=== PATIENT | female | born 1955 | race Caucasian/White ===

== ENCOUNTER 2020-10-28 10:32 | Outpatient (REF) | payer MEDICARE, MEDICAID, SELFPAY ==
[2020-10-28 14:14] LABS: Glucose Urine UA NEG (NEG); Leukocyte Esterase Urine NEG (NEG); Nitrite Urine POS (NEG); Specific Gravity - Urine >= 1.030 (1.005-1.025); Urine Blood TRACE (NEG); Urine Ketones NEG (NEG); Urine Protein TRACE MG/DL (NEG-TRACE)
[2020-10-28 14:16] LABS: Appearance Urine HAZY; Color Urine YELLOW
[2020-10-28 14:28] LABS: Bacteria Urine 4+ /LPF; RBC Urine 0-2 /HPF (0); Squamous Epithelial Cell Urine TRACE /LPF
[2020-10-28 14:30] LABS: Creatinine Urine 131.69 mg/dL; Protein/Creatinine Ratio, Ur 0.28 (<0.2); Total Protein Urine Random 37 mg/dL (<12)
[2020-10-28 14:31] LABS: Creatinine Urine 131.95 mg/dL; Microalbum/Creatinine Ratio Ur 51.5 ug/mg cr
[2020-10-28 14:34] LABS: Anion Gap 15 (12-20); Blood Urea Nitrogen 14 mg/dL (9-16); Carbon Dioxide 28 mmol/L (22-29); Chloride 103 mmol/L (96-108); Estimated Glomerular Filt Rate > 60; Potassium 4.2 mmol/l (3.3-5.1); Sodium 142 mmol/L (135-145)
== END 2020-10-28 10:33 | disposition home or self-care (01) ==
LOC: HO.HMGCLDS 10:32
PROVIDERS: PCP Nurse Practitioner Family; Visit Provider Internal Medicine Hypertension Specialist
DX: I12.9 Hypertensive chronic kidney disease with stage 1 through stage 4 chronic kidney disease, or unspecified chronic kidney disease (principal); E11.22 Type 2 diabetes mellitus with diabetic chronic kidney disease; N18.9 Chronic kidney disease, unspecified; E11.21 Type 2 diabetes mellitus with diabetic nephropathy
CPT/HCPCS: 80051; 81001; 81003; 82043; 82310; 82565; 84156; 84520

== ENCOUNTER → 2021-01-27 11:24 | Outpatient (BNV) | payer MEDICARE, MEDICAID, SELFPAY | PROVIDERS: PCP Nurse Practitioner Family; Visit Provider Internal Medicine Medical Oncology | DX: D50.9 Iron deficiency anemia, unspecified (principal) | CPT/HCPCS: 99213; 99214 ==

== ENCOUNTER 2021-02-14 11:43 | Outpatient (REF) | payer MEDICARE, SELFPAY ==
--- NOTE | ~2021-02-14 | XR_ITS ---
EXAMINATION: XR ANKLE, RIGHT CLINICAL INFORMATION: Pain COMPARISON: None TECHNIQUE: AP, lateral, and mortise views of the right ankle. FINDINGS: The bones and soft tissues are normal. No fracture. Alignment is anatomic. Joint spaces are maintained. No joint effusion. XR/XR ankle RT min 3V IMPRESSION: Normal right ankle.
== END 2021-02-14 11:44 | disposition home or self-care (01) ==
LOC: HO.HMGCX 11:43
PROVIDERS: PCP Nurse Practitioner Family; Visit Provider Nurse Practitioner Family
DX: M25.571 Pain in right ankle and joints of right foot (principal); R07.89 Other chest pain; I44.7 Left bundle-branch block, unspecified
CPT/HCPCS: 73610

== ENCOUNTER → 2021-03-21 13:14 | Outpatient (BNVA) | payer MEDICARE, SELFPAY | PROVIDERS: PCP Nurse Practitioner Family; Referring Provider Nurse Practitioner Family; Visit Provider Internal Medicine | DX: R07.2 Precordial pain (principal); I44.7 Left bundle-branch block, unspecified; I10 Essential (primary) hypertension; E78.5 Hyperlipidemia, unspecified; E66.01 Morbid (severe) obesity due to excess calories; Z68.42 Body mass index [BMI] 45.0-49.9, adult; Z71.3 Dietary counseling and surveillance; Z79.899 Other long term (current) drug therapy; Z87.891 Personal history of nicotine dependence | CPT/HCPCS: 93005; 99202 ==

== ENCOUNTER → 2021-04-06 09:36 | Outpatient (REF) | payer MEDICARE, MEDICAID, SELFPAY ==
--- NOTE | ~2021-04-06 | NM_ITS ---
Lexiscan Myocardial perfusion study Indication: Chest pain, left bundle branch block, assess for coronary disease and ischemia Technique: The patient was brought in for a Lexiscan perfusion study on 04/06/2021 and was injected 0.4 mg of Lexiscan intravenously. Within a minute of this injection 40 mCi of sestamibi was given intravenously. Images were obtained using the SPECT gamma camera interlaced with the gating device. Images were obtained in supine position. Resting perfusion study was performed on 04/07/2021. Patient was administered 40 mCi of sestamibi intravenously at rest. Images were then obtained in supine position. Total DLP 151mGy-cm. Images were processed with the software and compared side to side in short axis, horizontal long axis and vertical long axis views. Findings: Raw acquisition was reviewed. The stress perfusion study showed diminished tracer uptake in the apical septal and apical inferolateral wall. CT attenuation correction shows improved uptake in these areas. [place] still has slightly reduced uptake. The gated study shows normal LV systolic function with calculated LVEF of 56%. LV cavity is normal in size. The gated study shows normal wall thickening and contraction of segments. Resting study shows diminished tracer uptake in the apical inferolateral wall. This improves with CT attenuation correction, but the apex has slightly reduced uptake. Gating at rest reveals normal wall motion with ejection fraction at 55%. The findings are consistent with no definite reversible or fixed perfusion defects. NM/NM david perf SPECT rest & str Impression: 1. Myocardial perfusion imaging study shows likely normal myocardial perfusion. No definitive evidence of any ischemia or infarction. 2. Gated LVEF is 56% during stress and 55% during rest. 3. Transient ischemic dilatation not present. EKG component of the test reported separately.
--- NOTE | 2021-04-06 09:40 | CA_ITS ---
Acquisition Time: 2021-04-06 10:11:13 Total Exercise Time: 00:02:00 Test Indications: CP,FATIGUE Medications: SEE CHART Protocol: LEXISCAN Max HR: 110 BPM 71% of Pred: 154 BPM Max BP: 140/088 mmHG Max Work Load: 1.0 METS Stress test using Lexiscan while sitting. Pt tolerated well, denies any anginal sx.EKG with LBBB no other arrhythmias, non-diagnostic for ischemia. Nuclear images to follow. Normotensive response to exercise. Test reviewed with Dr. Aleman. Referred By: Kalin Gomez Overread By: Syl Kowalski NP
== END ==
LOC: HO.CARD 09:36
PROVIDERS: Visit Provider Internal Medicine
DX: R07.2 Precordial pain (principal)
CPT/HCPCS: 78452; 93016; 93017; 93018; A9500; J0280; J2785

== ENCOUNTER → 2021-04-08 09:32 | Outpatient (REF) | payer MEDICARE, SELFPAY ==
--- NOTE | 2021-04-08 09:35 | CA_ITS ---
Transthoracic Echocardiogram Patient (Last, First, Middle): Mary Castillo L Gender: Female Date of : 1955 Age: 65 Procedure Date: 04/08/2021 Procedure Type: Transthoracic Echocardiogram Location: OP Height: 162.56 cm Weight: 113.4 kg BSA: 2.15 m2 Heart Rate: bpm BP: 110 / 64 mmHg Plaster Machine Operator: Referring MD: Greg Kaba [facility] Laundry Tech: Bhavesh Aleman MD Symptoms: R07.89 - Other chest pain Study Quality: Technically Difficult ECG Rhythm: Sinus Conclusions: - 1. Technically limited study despite use of contrast agent 2. Normal LV systolic function with LVEF of 60 65% 3. Calcified aortic valve with mild aortic stenosis 4. Remainder of the structure not well evaluated. Findings Procedure Information The patient receives contrast. Left Ventricle Normal left ventricular size and systolic function. The visually estimated ejection fraction is between 60-65%. Diastolic function is indeterminate on the basis of available data. Right Ventricle The right ventricle was not well visualized. Atria The left atrium was not well visualized. Interatrial shunt cannot be excluded. The right atrium was not well visualized. Aortic Valve The aortic valve was not well visualized. There is moderate calcification of the aortic valve. There is mild aortic valve stenosis. The mean gradient is 13 mmHg. There is no aortic valve regurgitation. Mitral Valve The mitral valve was not well visualized. There is moderate mitral annular calcification. There is trace mitral valve regurgitation. There is no mitral valve stenosis. Pulmonic Valve The pulmonic valve was not well visualized. Tricuspid Valve The tricuspid valve was not well visualized. The right ventricular systolic pressure is not calculated. Great Vessels The aorta was not well visualized. The pulmonary artery was not well visualized. Venous The inferior vena cava was not well visualized. Pericardium/Pleural The pericardium was not well visualized. Prior Study Comparison Changes noted compared to prior study dated: 11/09/2017. Technically very limited study and accurate comparison is difficult to obtain. Mild aortic stenosis may be present. Clinical correlation suggested Measurements 2D Linear Measurements RVIDd: 2.82 RVIDd Index: 1.31 IVSd: 1.08 0.6-0.9/0.6-1.0 cm LVIDd: 4.61 3.9-5.3/4.2-5.9 cm LVIDd Index: 2.14 2.4-3.2/2.2-3.1 cm/m2 LVIDs: 3.40 2.0-3.6 cm LVPWd: 1.34 0.7-1.1 cm Ao Root: 3.00 2.1-3.5 cm LA Diam: 4.50 2.7-3.8/3.0-4.0 cm LAIDs Index: 2.09 1.5-2.3 cm/m2 LV Mass: 259.44 67-162/88-224 g LV Mass Index: 120.67 43-95/49-115 g/m2 LVOT Diam: 2.40 3.0+(-)1.3 cm 2D Systolic Function EF 4C: 62.60 >55% EF 2C: 69.20 >55% EF BiP: 66.00 >55% Mitral Valve MV Pk E: 1.03 MV PK A: 1.30 MV Decel Time: 189.00 E/A: 0.80 PHT: 55.00 MVA PHT: 4.00 Decel [place]: 5.47 Aortic Valve AoV Pk Amrit: 2.35 AoV Mn Amrit: 1.74 AoV VTI: 0.43 AoV Pk Grad: 22.00 Aov Mn Grad: 13.00 BEN[place]T Cont.VTI: 1.75 LVOT LVOT Pk Amrit: 0.91 LVOT Mn Amrit: 0.66 LVOT VTI: 0.22 LVOT Pk Grad: 3.00 LVOT Mn Grad: 2.00 LVOT Diam: 2.40 LVOT Area: 4.52 Diastolic Function MV Pk E: 1.03 MV Pk A: 1.30 E/A: 0.80 Tricuspid Valve TR Pk Amrit: 2.67 TR Pk Grad: 29.00 Great Vessels Aorta Ao Root-2D: 3.00 2.0-3.7 cm Ao Asc: 2.80 2.1-3.4 cm Ao Arch: 2.80 Updated in Other Vendor System with Status of Final Bhavesh Aleman MD electronically signed on 04/09/2021 12:22:49 PM with status of Final
== END ==
LOC: HO.CARD 09:32
PROVIDERS: Visit Provider Nurse Practitioner Family
DX: R07.89 Other chest pain (principal)
CPT/HCPCS: 93306; Q9957

== ENCOUNTER → 2021-04-14 13:19 | Outpatient (BNVA) | payer MEDICARE, SELFPAY | PROVIDERS: PCP Nurse Practitioner Family; Referring Provider Nurse Practitioner Family; Visit Provider Internal Medicine | DX: I35.0 Nonrheumatic aortic (valve) stenosis (principal); I44.7 Left bundle-branch block, unspecified; I10 Essential (primary) hypertension; E78.5 Hyperlipidemia, unspecified; E66.01 Morbid (severe) obesity due to excess calories; R07.2 Precordial pain | CPT/HCPCS: 99212 ==

== ENCOUNTER 2021-05-25 10:33 | Outpatient (REF) | payer MEDICARE, SELFPAY ==
--- NOTE | ~2021-05-25 | US_ITS ---
EXAMINATION: US RETROPERITONEAL LIMITED (RENAL ONLY) CLINICAL INFORMATION: Calculus of kidney. COMPARISON: Renal ultrasound 05/13/2020 and 05/27/2019. CT abdomen and pelvis 09/03/2018. TECHNIQUE: Real-time imaging of the kidneys. FINDINGS: RIGHT KIDNEY: 11.1 x 5.8 x 6.1 cm (SAG x AP x TRV). The kidney is normal in size, contour, and echogenicity. Renal cortical thickness is normal. There is a 3.1 x 2.7 x 2.8 cm cyst in the left midpole. This is minimally complex with thin septation. No renal calculi or hydronephrosis. LEFT KIDNEY: 13.1 x 4.5 x 5.2 cm (SAG x AP x TRV). The kidney is normal in size, contour, and echogenicity. Renal cortical thickness is normal. There are 6 left renal cysts seen, largest measuring 2.3 x 2 x 2.5 cm in the lower pole. There is a 2 mm echogenic density in the lower pole questionable for a stone. No renal calculi or hydronephrosis. US/US renal BI IMPRESSION: Bilateral renal cysts, left greater than right. Question small left renal stone..
== END 2021-05-25 10:34 | disposition home or self-care (01) ==
LOC: HO.HMGCX 10:33
PROVIDERS: PCP Nurse Practitioner Family; Visit Provider Urology
DX: N20.0 Calculus of kidney (principal)
CPT/HCPCS: 76775

== ENCOUNTER 2021-06-09 10:11 | Outpatient (REF) | payer MEDICARE, SELFPAY ==
[2021-06-09 12:00] LABS: Alanine Aminotransferase 20 U/L (0-31); Albumin Level 4.3 g/dL (3.5-5.0); Alkaline Phosphatase 82 U/L (39-117); Anion Gap 13 (12-20); Aspartate Amino Transferase 28 U/L (5-31); Bilirubin Total 0.5 mg/dL (0.0-1.0); Blood Urea Nitrogen 14 mg/dL (9-16); Carbon Dioxide 27 mmol/L (22-29); Chloride 106 mmol/L (96-108); Estimated Glomerular Filt Rate 51; Glucose Fasting 162 mg/dL (60-99); Potassium 4.7 mmol/L (3.3-5.1); Sodium 141 mmol/L (135-145); Total Protein 7.1 g/dL (6.5-8.0)
[2021-06-09 12:01] LABS: Estimated Average Glucose 146 mg/dL; Hemoglobin A1c % 6.7 %
[2021-06-09 12:04] LABS: TSH reflex Free T4 0.77 uIU/mL (0.32-4.0)
[2021-06-09 14:43] LABS: Creatinine Urine 133.05 mg/dL; Microalbum/Creatinine Ratio Ur 131.5 ug/mg cr
== END 2021-06-09 10:12 | disposition home or self-care (01) ==
LOC: HO.HMGCLDS 10:11
PROVIDERS: PCP Nurse Practitioner Family; Visit Provider Nurse Practitioner Family
DX: E11.9 Type 2 diabetes mellitus without complications (principal)
CPT/HCPCS: 36415; 80053; 82043; 83036; 84443

== ENCOUNTER 2021-06-16 08:48 | Outpatient (REF) | payer MEDICARE, MEDICAID, SELFPAY ==
--- NOTE | ~2021-06-16 | MR_ITS ---
EXAMINATION: MR ANKLE WITHOUT CONTRAST, RIGHT CLINICAL INFORMATION: Pain in right ankle and joints of right foot. Patient reports crushing injury 6 months ago with pain. COMPARISON: XR right ankle 02/14/2021. TECHNIQUE: MRI of the ankle was obtained using routine sequences on a high-field scanner. FINDINGS: ACHILLES TENDON: There is mild intrasubstance intermediate signal in the Achilles tendon consistent with mild tendinosis. There is no discrete tear. PLANTAR FASCIA: Intact. OTHER ANKLE TENDONS: There is thickening of the peroneus longus tendon as it extends around and distal to the lateral malleolus. There is intrasubstance signal abnormality, including odz-rp-[id number] grade linear partial tears extending to the anterior surface. There is fluid in the tendon sheath, including a small loose bodies or debris, consistent with tenosynovitis. The rest of the ankle tendons are unremarkable. LIGAMENTS: Mild irregularity of the anterior talofibular, calcaneofibular, and deep deltoid ligaments are consistent with mild sprains. ARTICULAR CARTILAGE/BONE: There is a focal area of moderate cartilage loss in the anteromedial aspect of the tibiotalar articulation. There are additional scattered areas of mild cartilage thinning in the talocrural joint. JOINT FLUID/BURSA: Within normal limits. TARSAL SINUS/TARSAL TUNNEL: Within normal limits. MR/MR ankle RT wo con IMPRESSION: 1. Mild Achilles tendinosis. 2. Moderate tendinosis and aom-vp-zgfqgfwt grade partial tearing of the peroneus longus tendon. Peroneal tenosynovitis. 3. Mild sprains of the anterior talofibular, calcaneofibular, and deep deltoid ligaments. 4. Ggas-og-lstuzitc arthrosis of the talocrural joint.
== END 2021-06-16 08:49 | disposition home or self-care (01) ==
LOC: HO.MRI 08:48
PROVIDERS: PCP Nurse Practitioner Family; Visit Provider Nurse Practitioner Family
DX: M25.571 Pain in right ankle and joints of right foot (principal)
CPT/HCPCS: 73721

== ENCOUNTER → 2021-07-21 14:51 | Outpatient (BNVA) | payer MEDICARE, SELFPAY | PROVIDERS: PCP Nurse Practitioner Family; Visit Provider Physician Assistant | DX: S99.911A Unspecified injury of right ankle, initial encounter (principal) | CPT/HCPCS: 99202 ==

== ENCOUNTER → 2021-09-20 13:25 | Outpatient (BNVA) | payer MEDICARE, SELFPAY | PROVIDERS: PCP Nurse Practitioner Family; Visit Provider Urology | DX: Z13.89 Encounter for screening for other disorder (principal) | CPT/HCPCS: Q3014 ==

== ENCOUNTER → 2021-10-05 13:26 | Outpatient (BNVA) | payer MEDICARE, SELFPAY | PROVIDERS: PCP Nurse Practitioner Family; Referring Provider Nurse Practitioner Family; Visit Provider Internal Medicine | DX: I44.7 Left bundle-branch block, unspecified (principal); I35.0 Nonrheumatic aortic (valve) stenosis; R07.2 Precordial pain; I10 Essential (primary) hypertension; E78.5 Hyperlipidemia, unspecified; E66.01 Morbid (severe) obesity due to excess calories; F41.8 Other specified anxiety disorders; Z68.41 Body mass index [BMI] 40.0-44.9, adult; Z98.84 Bariatric surgery status; Z87.891 Personal history of nicotine dependence; Z82.49 Family history of ischemic heart disease and other diseases of the circulatory system; Z88.0 Allergy status to penicillin; Z88.8 Allergy status to other drugs, medicaments and biological substances; Z88.6 Allergy status to analgesic agent; Z88.1 Allergy status to other antibiotic agents; Z91.040 Latex allergy status; Z79.899 Other long term (current) drug therapy | CPT/HCPCS: 99212 ==

== ENCOUNTER 2021-12-27 10:13 | Outpatient (REF) | payer OTHER, MEDICAID, SELFPAY ==
[2021-12-27 11:32] LABS: MANUAL DIFF FLAG NO
[2021-12-27 11:39] LABS: Basophils Percent Auto 0.4 % (0-2); Eosinophils Absolute Auto 0.2 X10*3/uL (0.0-0.4); Eosinophils Percent Auto 1.8 % (0-4); Hematocrit 44.9 % (37.0-47.0); Hemoglobin 14.1 g/dl (12.0-16.0); Imm Gran Abs Auto 0.03 X10*3/uL (0.00-0.03); Imm Gran Pct Auto 0.4 % (0.0-0.4); Lymphocytes Absolute Auto 1.4 X10*3/uL (1.2-4.9); Lymphocytes Percent Auto 16.5 % (20-40); Mean Corpuscular HGB Conc 31.4 g/dl (31.0-35.0); Mean Corpuscular Hemoglobin 28.3 pg (27.0-33.0); Mean Corpuscular Volume 90.2 fL (80.0-98.0); Mean Platelet Volume 10.3 fL (9.4-12.3); Monocytes Absolute Auto 0.7 X10*3/uL (0.1-1.2); Monocytes Percent Auto 8.3 % (2-11); Neutrophils Percent Auto 72.6 % (45-73); Platelet Count 225 X10*3/uL (160-400); Red Blood Count 4.98 X10*6/uL (4.20-5.50); Red Cell Distribution Width 15.6 % (11.0-16.0); White Blood Count 8.2 X10*3/uL (4.8-10.8)
[2021-12-27 11:48] LABS: Estimated Average Glucose 157 mg/dL; Hemoglobin A1c % 7.1 %
[2021-12-27 11:49] LABS: Appearance Urine CLOUDY; Color Urine YELLOW; Glucose Urine UA NEG (NEG); Leukocyte Esterase Urine 1+ (NEG); Nitrite Urine NEG (NEG); Specific Gravity - Urine >= 1.030 (1.005-1.025); UACC Culture Trigger YES; Urine Blood 3+ (NEG); Urine Ketones NEG (NEG); Urine Protein 1+ MG/DL (NEG-TRACE)
[2021-12-27 12:16] LABS: Amorphous Sediment Urine 1+ /LPF; Bacteria Urine 1+ /LPF; Squamous Epithelial Cell Urine 1+ /LPF
[2021-12-27 12:23] LABS: Alanine Aminotransferase 15 U/L (0-31); Albumin Level 4.2 g/dL (3.5-5.0); Alkaline Phosphatase 78 U/L (39-117); Anion Gap 15 (12-20); Aspartate Amino Transferase 21 U/L (5-31); Bilirubin Total 0.7 mg/dL (0.0-1.0); Blood Urea Nitrogen 12 mg/dL (9-16); Calcium 9.3 mg/dL (8.4-10.2); Carbon Dioxide 25 mmol/L (22-29); Chloride 106 mmol/L (96-108); Cholesterol 177 mg/dL; Estimated Glomerular Filt Rate > 60; Glucose Fasting 181 mg/dL (60-99); HDL Cholesterol 49 mg/dL; LDL Cholesterol Calculated 77 mg/dl; Potassium 4.3 mmol/L (3.3-5.1); Sodium 142 mmol/L (135-145); Total Protein 7.1 g/dL (6.5-8.0); Triglycerides 256 mg/dL
[2021-12-27 12:36] LABS: Ferritin 36 ng/mL (10-250)
== END 2021-12-27 10:14 | disposition home or self-care (01) ==
LOC: HO.HMGCLDS 10:13
PROVIDERS: Absent Provider Internal Medicine Medical Oncology; PCP Nurse Practitioner Family; Visit Provider Nurse Practitioner Family
DX: E11.9 Type 2 diabetes mellitus without complications (principal); D50.9 Iron deficiency anemia, unspecified
CPT/HCPCS: 36415; 80053; 80061; 81001; 81003; 82728; 83036; 84443; 85025; 87086

== ENCOUNTER 2022-01-09 18:55 | Outpatient (REF) | payer OTHER, MEDICAID, SELFPAY ==
[2022-01-09 19:14] LABS: Appearance Urine CLEAR; Color Urine YELLOW; Glucose Urine UA NEG (NEG); Leukocyte Esterase Urine TRACE (NEG); Nitrite Urine NEG (NEG); PH 5.5 (5.0-8.0); Specific Gravity - Urine >= 1.030 (1.005-1.025); UACC Culture Trigger YES; Urine Blood 3+ (NEG); Urine Ketones 5 MG/DL (NEG); Urine Protein 1+ MG/DL (NEG-TRACE)
[2022-01-09 19:24] LABS: Bacteria Urine 2+ /LPF; Squamous Epithelial Cell Urine 1+ /LPF
== END 2022-01-09 18:56 | disposition home or self-care (01) ==
LOC: HO.LNP 18:55
PROVIDERS: Visit Provider Nurse Practitioner Family
DX: E11.9 Type 2 diabetes mellitus without complications (principal)
CPT/HCPCS: 81001; 81003; 87086

== ENCOUNTER 2022-07-19 19:03 | Emergency (ER) | payer OTHER, MEDICAID, SELFPAY ==
--- NOTE | ~2022-07-19 | CT_ITS ---
EXAMINATION: CT ABDOMEN AND PELVIS WITHOUT CONTRAST CLINICAL INFORMATION: Right-sided flank pain COMPARISON: Renal ultrasound 05/25/2021, CT abdomen pelvis 09/03/2018 TECHNIQUE: Multidetector volumetric imaging was performed from the superior aspect of the liver through the pubic symphysis. Sagittal and coronal reformatted images were obtained on the technologist's workstation. This CT examination was performed using dose optimization techniques as appropriate, variously including the following: *Automated exposure control *Adjustment of mA and/or kV according to patient size (this includes techniques or standardized protocols for targeted exams where dose is matched to indication/reason for exam; i.e. extremities or head) *Use of iterative reconstruction technique DLP: 997 mGy-cm FINDINGS: LUNG BASES: The visualized lung bases are unremarkable. LIVER, GALLBLADDER, AND BILIARY TREE: The liver is normal in size, shape, and attenuation. Previously noted marked hepatic steatosis present on the 09/03/2018 CT scan is no longer present. No focal hepatic lesion or biliary ductal dilatation is present. The gallbladder is not seen. PANCREAS: Unremarkable. SPLEEN: Unremarkable. ADRENAL GLANDS: Both adrenal glands are thickened, left greater than right KIDNEYS AND URETERS: The kidneys are normal in size, shape, and attenuation. Bilateral benign Bosniak class I cysts are present. There is one small 5 mm hyperattenuating round mass at the lower pole of the right kidney (3:47) consistent with a Bosniak class II hemorrhagic/proteinaceous cyst. None of these findings require any additional follow-up or imaging. No right-sided renal calculi are present. Multiple left-sided nonobstructing calculi are seen similar to prior. No hydronephrosis, hydroureter, or ureteral calculi seen. No perinephric stranding. BLADDER: Unremarkable. GASTROINTESTINAL TRACT: There has been gastric bypass surgery. Diverticular changes are present predominantly in the sigmoid without evidence of diverticulitis. The small and large bowel are otherwise unremarkable. The appendix is unremarkable. ABDOMINAL WALL: No significant hernia is appreciated. There is been prior abdominal wall surgery. LYMPH NODES: No retroperitoneal lymphadenopathy. VASCULAR: Calcific plaque present in the aorta and iliofemoral vessels without aneurysm. PELVIC VISCERA: Unremarkable. OSSEOUS STRUCTURES: Degenerative changes are noted throughout the spine. There is compression of the superior endplate of L1 unchanged from 2018. CT/CT abdomen pelvis wo IV con IMPRESSION: 1. A cause for the patient's right flank pain is not found. 2. Nonobstructing bilateral left-sided nephrolithiasis. 3. Resolution of previously seen hepatic steatosis. Fleischner guidelines were followed.
[2022-07-19 19:19] VITALS: BP 162/82; PULSE 92; RESP 16; TEMP 36.8; O2SAT 96; O2SAT 99; BMI 29.9
--- NOTE | 2022-07-19 20:18 | ED.GENADULT ---
HPI - General Adult General Chief complaint: General Medical Stated complaint: increased pain from kidney stones Time Seen by Provider: 07/19/22 19:16 Source: patient and EMS Mode of arrival: EMS Limitations: no limitations History of Present Illness HPI narrative: Patient's emergency room complaining of 2 weeks of right-sided flank pain. Patient states that initially she thought she strained muscle and lead time go by. However, patient remembered that several years ago she had kidney stones which required surgical intervention, and states that the pain is actually similar to kidney stone she has had in the past. Patient complaining of nausea, no vomiting or diarrhea. Patient states that she is known to have chronic hematuria Related Data Previous Rx's Medication Instructions Recorded blood-glucose meter (ip.accessuch #1 ea 04/04/21 Ultra2 Meter) alcohol swabs (Alcohol Prep Pads) 1 pad topical TID for diabetes 06/06/21 mellitus 30 days #100 pad lancets 30 gauge (OneTouch Delica #100 ea 07/13/21 Lancets) sumatriptan succinate 100 mg tablet 100 mg PO DAILY PRN Headache 35 11/06/21 days #35 tabs rosuvastatin 20 mg tablet 20 mg PO DAILY #30 caps 04/03/22 sertraline 100 mg tablet 100 mg PO DAILY 90 days #90 tabs 04/12/22 blood sugar diagnostic #100 ea 04/13/22 lancets 33 gauge ([employer]Touch Delica #100 ea 04/13/22 Plus Lancet) omeprazole 40 mg capsule,delayed 40 mg PO BID 90 days #180 caps 05/07/22 release omega-3 acid ethyl esters 1 gram 1 cap PO BID 30 days #60 caps 05/23/22 capsule metoprolol tartrate 50 mg tablet 50 mg PO BID #180 tabs 06/28/22 buspirone 15 mg tablet 15 mg PO BID #60 caps 07/04/22 naproxen 500 mg tablet (Naprosyn) 500 mg PO BID #30 tabs 07/13/22 prednisone 20 mg tablet 20 mg PO DAILY 5 days #5 tabs 07/13/22 tamsulosin 0.4 mg capsule 0.4 mg PO BEDTIME #14 caps 07/13/22 gabapentin 400 mg capsule 400 mg PO TID 30 days #90 caps 07/16/22 cefuroxime axetil 500 mg tablet 500 mg PO BID 10 days #19 tabs 07/19/22 phenazopyridine 100 mg tablet 100 mg PO TID 6 doses #6 tabs 07/19/22 (Pyridium) Allergies Allergy/AdvReac Type Severity Reaction Status Date / Time morphine [MORPHINE] Allergy Severe SEVERE Verified 05/02/22 12:35 SHAKING, N/V latex [LATEX] Allergy Intermediate RASH Verified 05/02/22 12:35 amoxicillin [From AUGMENTIN] Allergy Unknown SEVERE Verified 05/02/22 12:35 DIARRHEA ciprofloxacin [CIPROFLOXACIN] Allergy Unknown SEVERE Verified 05/02/22 12:35 DIARRHEA clavulanic acid Allergy Unknown SEVERE Verified 05/02/22 12:35 [From AUGMENTIN] DIARRHEA baclofen AdvReac Unknown Unknown Verified 05/02/22 12:35 trazodone AdvReac Unknown Unknown Verified 05/02/22 12:35 Latex Gloves Allergy Severe Rash Uncoded 05/02/22 12:35 Fenofibric Acid AdvReac Unknown Stomach Uncoded 05/02/22 12:35 pain/cramping Review of Systems Review of Systems: Constitutional : No Weight loss, No Fever, No Chills, No Night Sweats, No Fatigue, No Malaise ENT/Mouth : No Hearing loss, No Ear Pain, No Nasal Congestion, No Sinus Pain, No Hoarseness, No sore throat, No Rhinorrhea, No Swallowing Difficulty Eyes: No Eye Pain, No Swelling, No Redness, No Foreign Body, No Discharge, No Vision Changes Cardiovascular : No Chest Pain, No SOB, No Dyspnea on Exertion, No Orthopnea, No Edema, No Palpitations Respiratory : No Cough, No Sputum, No Wheezing, No Smoke Exposure, No Dyspnea Gastrointestinal : No Nausea, No Vomiting, No Diarrhea, No Constipation, No abdominal Pain, No Hematochezia, No Melena Genitourinary : no irregular bleeding, No Dysuria, No Urinary Frequency, No Hematuria, No Urinary Incontinence, No Urgency, complaining of bilateral Flank Pain, No Urinary Flow Changes, No Hesitancy Musculoskeletal : No joint pain, No Myalgias, No Joint Swelling Skin : No Skin Lesions, No rash Neuro : No Weakness, No Numbness, No Paresthesias, No Loss of Consciousness, No Dizziness, No Headache Psych : No Anxiety/Panic, No Depression, No SI/HI/AH/VH, No Social Issues, Heme/Lymph: No Bruising, No Bleeding,No Lymphadenopathy Endocrine : No Polyuria, No Polydipsia, No Temperature Intolerance [facility] Past Medical History Medical History Anxiety and depression DJD (degenerative joint disease) Hyperlipidemia Hypertension Pulmonary fibrosis Recurrent UTI Surgical History H/O gastric bypass H/O lithotripsy History of History of cholecystectomy Hx of breast reduction, elective S/P panniculectomy Family History Family History Father Heart disease Substance use disorder Mother Heart disease Pulmonary fibrosis Sister Heart disease Substance use disorder Sister Pulmonary fibrosis Brother Pulmonary fibrosis Daughter Mental health disorder Social History Social History Household Members: Spouse Housing: Apartment Are you a primary care asst to a significant other at home: No Do you presently have visiting nurse or other home services: No Alcohol intake: never Patient Tobacco Use Status: Current everyday Tobacco user Cigarette Packs Per Day: 1 Years Smoked: 45 e-Cigarette/Vaping Use: Never Used Second Hand Smoke Exposure: No Substance Use Type: Marijuana Advance Directives: No Advance Directives Information Provided: No service: No Current occupational status: disabled 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 Oriented X3. No acute distress. Well appearing Eyes: Pupils equal, round and reactive to light. ENT: Pharynx normal. Neck: Normal inspection. Neck supple. No lymph nodes noted. No crepitus CVS: Normal heart rate and rhythm. Pulses normal. Normal S1 and S2 Respiratory: No respiratory distress. Breath sounds normal. No Wheezing. No rales Abdomen: Soft and nontender. No rigidity. No distention. Back: Mild bilateral flank pain Skin: Skin warm and dry. Normal skin color. Normal skin turgor. Extremities: No lower extremity edema. No Lacerations. No Rash Neuro: Oriented X 3. No motor deficit. No sensory deficit. Moving all extremities. No slurred speech. CN 2 through 12 grossly intact Psych: calm, cooperative, normal affect Course Course Course Narrative: Patient's white blood cell count is within normal limits, vitals normal, no fever. Patient does have a UTI, clinically patient does have pyelonephritis since she does complain of flank pain. Patient is well-appearing, patient states that she would prefer to go home with p.o. antibiotics. Patient given 1 dose of ceftriaxone in the emergency room. 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 CT scan is negative for acute ureterolithiasis Medical Decision Making Lab Data Result diagrams: 07/19/22 21:58 07/19/22 21:58 Labs: Lab Results 07/19/22 07/19/22 07/19/22 Range/Units 21:58 21:58 22:26 WBC 10.5 (4.8-10.8) X10*3/uL RBC 4.92 (4.20-5.50) X10*6/uL Hgb 13.9 (12.0-16.0) g/dl Hct 44.0 (37.0-47.0) % MCV 89.4 (80.0-98.0) fL MCH 28.3 (27.0-33.0) pg MCHC 31.6 (31.0-35.0) g/dl RDW 14.3 (11.0-16.0) % Plt Count 190 (160-400) X10*3/uL MPV 9.2 L (9.4-12.3) fL Immature Gran % (Auto) 0.4 (0.0-0.4) % Neut % (Auto) 79.8 H (45-73) % Lymph % (Auto) 11.8 L (20-40) % Pershing % (Auto) 7.2 (2-11) % Eos % (Auto) 0.6 (0-4) % Baso % (Auto) 0.2 (0-2) % Lymph # (Auto) 1.2 (1.2-4.9) X10*3/uL [place]hing # (Auto) 0.8 (0.1-1.2) X10*3/uL Eos # (Auto) 0.1 (0.0-0.4) X10*3/uL Baso # (Auto) 0.0 (0.0-0.2) X10*3/uL Abs Immat Gran (auto) 0.04 H (0.00-0.03) X10*3/uL Absolute Neuts (auto) 8.4 H (2.0-8.3) x10*3/uL Absolute Nucleated RBC 0.000 (0.0-0.012) X10*3/uL Nucleated RBC % (auto) 0.0 (0.0-0.2) /100WBC Sodium 142 (135-145) mmol/L Potassium 4.7 (3.3-5.1) mmol/L Chloride 106 (96-108) mmol/L Carbon Dioxide 25 (22-29) mmol/L Anion Gap 16 (12-20) BUN 14 (9-16) mg/dL Creatinine 0.74 (0.5-1.4) mg/dL Estim Creat Clear Calc 77.9 Estimated GFR > 60 Random Glucose 160 H (60-115) mg/dL Calcium 8.8 D (8.4-10.2) mg/dL Total Bilirubin 0.5 (0.0-1.0) mg/dL Direct Bilirubin 0.3 (0.0-0.5) mg/dL AST 22 (5-31) U/L ALT 15 (0-31) U/L Alkaline Phosphatase 70 (39-117) U/L Total Protein 6.5 (6.5-8.0) g/dL Albumin 3.8 (3.5-5.0) g/dL Urine Color Yellow Urine Appearance Clear Urine pH 6.5 (5.0-9.0) Ur Specific [place] 1.010 (1.005-1.025) Urine Protein Trace (Neg-Trace) mg/dL Urine Glucose (UA) Negative (Negative) mg/dL Urine Ketones Negative (Negative) mg/dL Urine Blood Moderate (2+) H (Negative) Urine Nitrite Positive H (Negative) Ur Leukocyte Esterase Small (1+) H (Negative) Urine RBC 6-10 H (0-2) /HPF Urine WBC 6-10 H (0-5) /HPF Ur Squamous Epith Cells 0-2 (0-2) /HPF Urine Bacteria 4+ (None Seen) Hyaline Casts 0-2 (0-2) /LPF Imaging Data CT scan - abdomen: Radiologist's impression: FINDINGS: LUNG BASES: The visualized lung bases are unremarkable.? LIVER, GALLBLADDER, AND BILIARY TREE: The liver is normal in size, shape, and attenuation. Previously noted marked hepatic steatosis present on the 09/03/2018 CT scan is no longer present.? No focal hepatic lesion or biliary ductal dilatation is present. The gallbladder is not seen.? PANCREAS: Unremarkable.? SPLEEN: Unremarkable.? ADRENAL GLANDS: Both adrenal glands are thickened, left greater than right? KIDNEYS AND URETERS: The kidneys are normal in size, shape, and attenuation. Bilateral benign Bosniak class I cysts are present. There is one small 5 mm hyperattenuating round mass at the lower pole of the right kidney (3:47) consistent with a Bosniak class II hemorrhagic/proteinaceous cyst. None of these findings require any additional follow-up or imaging. No right-sided renal calculi are present. Multiple left-sided nonobstructing calculi are seen similar to prior. No hydronephrosis, hydroureter, or ureteral calculi seen. No perinephric stranding. ? BLADDER: Unremarkable.? GASTROINTESTINAL TRACT: There has been gastric bypass surgery. Diverticular changes are present predominantly in the sigmoid without evidence of diverticulitis. The small and large bowel are otherwise unremarkable. The appendix is unremarkable.? ABDOMINAL WALL: No significant hernia is appreciated. There is been prior abdominal wall surgery. LYMPH NODES: No retroperitoneal lymphadenopathy. VASCULAR: Calcific plaque present in the aorta and iliofemoral vessels without aneurysm. PELVIC VISCERA: Unremarkable.? OSSEOUS STRUCTURES: Degenerative changes are noted throughout the spine. There is compression of the superior endplate of L1 unchanged from 2018.? CT/CT abdomen pelvis wo IV con IMPRESSION: 1.? A cause for the patient's right flank pain is not found. 2.? Nonobstructing bilateral left-sided nephrolithiasis. 3.? Resolution of previously seen hepatic steatosis.? ? Fleischner guidelines were followed. Discharge Plan Discharge Clinical Impression: Acute pyelonephritis Patient Disposition: Home, Self-Care Instructions: Kidney Infection (ED) Additional Instructions: Please follow-up with your primary care physician tomorrow. If you have any worsening or new symptoms, please return to the emergency room or call 911 Prescriptions: New cefuroxime axetil 500 mg tablet 500 mg PO BID 10 Days Qty: 19 0RF phenazopyridine [Pyridium] 100 mg tablet 100 mg PO TID Qty: 6 0RF No Action (DME) blood-glucose meter [[employer]Touch Ultra2 Meter] [facility] [place] See Rx Instructions .ROUTE .MEDSUPPLY Qty: 1 0RF Rx Instructions: Use to check fasting blood sugar once daily or if needed for signs/symptoms of hypo/hyperglycemia alcohol swabs [Alcohol Prep Pads] Pads, Medicated 1 pad topical TID 30 Days Qty: 100 3RF (DME) lancets [OneTouch Delica Lancets] 30 gauge misc See Rx Instructions .ROUTE .MEDSUPPLY Qty: 100 0RF Rx Instructions: Use to check fasting blood sugar once daily or if needed for signs/symptoms of hypo/hyperglycemia sumatriptan succinate 100 mg tablet 100 mg PO DAILY PRN (Reason: Headache) 35 Days Qty: 35 1RF Rx Instructions: may repeat 1tab after 2 hrs if the first tab does not work rosuvastatin 20 mg tablet 20 mg PO DAILY Qty: 30 4RF sertraline 100 mg tablet 100 mg PO DAILY 90 Days Qty: 90 2RF (DME) lancets [OneTouch Delica Plus Lancet] 33 gauge misc See Rx Instructions topical DAILY Qty: 100 1RF Rx Instructions: daily (DME) blood sugar diagnostic Strip See Rx Instructions .ROUTE .MEDSUPPLY Qty: 100 0RF Rx Instructions: Use to check fasting blood sugar once daily or if needed for signs/symptoms of hypo/hyperglycemia omeprazole 40 mg capsule,delayed release(DR/EC) 40 mg PO BID 90 Days Qty: 180 0RF omega-3 acid ethyl esters 1 gram capsule 1 cap PO BID 30 Days Qty: 60 3RF metoprolol tartrate 50 mg tablet 50 mg PO BID Qty: 180 0RF buspirone 15 mg tablet 15 mg PO BID Qty: 60 0RF prednisone 20 mg tablet 20 mg PO DAILY 5 Days Qty: 5 0RF tamsulosin 0.4 mg capsule 0.4 mg PO BEDTIME Qty: 14 0RF naproxen [Naprosyn] 500 mg tablet 500 mg PO BID Qty: 30 0RF gabapentin 400 mg capsule 400 mg PO TID 30 Days Qty: 90 2RF
[2022-07-19 22:06] LABS: MANUAL DIFF FLAG NO
[2022-07-19 22:07] LABS: Basophils Percent Auto 0.2 % (0-2); Eosinophils Absolute Auto 0.1 X10*3/uL (0.0-0.4); Eosinophils Percent Auto 0.6 % (0-4); Hemoglobin 13.9 g/dl (12.0-16.0); Imm Gran Abs Auto 0.04 X10*3/uL (0.00-0.03); Imm Gran Pct Auto 0.4 % (0.0-0.4); Lymphocytes Absolute Auto 1.2 X10*3/uL (1.2-4.9); Lymphocytes Percent Auto 11.8 % (20-40); Mean Corpuscular HGB Conc 31.6 g/dl (31.0-35.0); Mean Corpuscular Hemoglobin 28.3 pg (27.0-33.0); Mean Corpuscular Volume 89.4 fL (80.0-98.0); Mean Platelet Volume 9.2 fL (9.4-12.3); Monocytes Absolute Auto 0.8 X10*3/uL (0.1-1.2); Monocytes Percent Auto 7.2 % (2-11); Neutrophils Absolute Auto 8.4 x10*3/uL (2.0-8.3); Neutrophils Percent Auto 79.8 % (45-73); Platelet Count 190 X10*3/uL (160-400); Red Blood Count 4.92 X10*6/uL (4.20-5.50); Red Cell Distribution Width 14.3 % (11.0-16.0); White Blood Count 10.5 X10*3/uL (4.8-10.8)
[2022-07-19 22:23] LABS: Alanine Aminotransferase 15 U/L (0-31); Albumin Level 3.8 g/dL (3.5-5.0); Alkaline Phosphatase 70 U/L (39-117); Anion Gap 16 (12-20); Aspartate Amino Transferase 22 U/L (5-31); Bilirubin Direct 0.3 mg/dL (0.0-0.5); Bilirubin Total 0.5 mg/dL (0.0-1.0); Blood Urea Nitrogen 14 mg/dL (9-16); Calcium 8.8 mg/dL (8.4-10.2); Carbon Dioxide 25 mmol/L (22-29); Chloride 106 mmol/L (96-108); Creatinine Clr Calc Pharmacy 77.9; Estimated Glomerular Filt Rate > 60; Glucose Random 160 mg/dL (60-115); Potassium 4.7 mmol/L (3.3-5.1); Sodium 142 mmol/L (135-145); Total Protein 6.5 g/dL (6.5-8.0)
[2022-07-19 22:41] LABS: Appearance Urine Clear; Color Urine Yellow; Glucose Urine UA Negative (Negative); Leukocyte Esterase Urine Small (1+) (Negative); Nitrite Urine Positive (Negative); PH 6.5 (5.0-9.0); Urine Blood Moderate (2+) (Negative); Urine Ketones Negative (Negative); Urine Protein Trace mg/dL (Neg-Trace)
[2022-07-19 22:44] LABS: Bacteria Urine 4+ (None Seen); Hyaline Casts Urine 0-2 /LPF (0-2); Squamous Epithelial Cell Urine 0-2 /HPF (0-2); UACC Culture Trigger YES
[2022-07-19] MEDS: Ketorolac Tromethamine 30 MG/ML VIAL IVPUSH (23:03)
[2022-07-19] MEDS: ondansetron HCL 4 MG/2 ML VIAL IVPUSH (23:03)
[2022-07-19 23:07] VITALS: BP 167/84; PULSE 91; RESP 16; TEMP 36.7; O2SAT 92
[2022-07-20] MEDS: cefTRIAXone sodium 1 GM in 0.9 % Sodium Chloride 50 ML IV (00:20)
== END 2022-07-20 00:59 | disposition home or self-care (01) ==
PROVIDERS: Emergency Provider Emergency Medicine; PCP Nurse Practitioner Family
DX: N10 Acute pyelonephritis (principal); R10.9 Unspecified abdominal pain; F17.210 Nicotine dependence, cigarettes, uncomplicated; Z71.6 Tobacco abuse counseling; Z79.899 Other long term (current) drug therapy
CPT/HCPCS: 36415; 74176; 80048; 80076; 81001; 85025; 87086; 87088; 87186; 96374; 96375; 99283; 99284; J0696; J1885; J2405

== ENCOUNTER 2022-08-02 11:29 | Outpatient (REF) | payer OTHER, MEDICAID, SELFPAY ==
[2022-08-02 13:53] LABS: MANUAL DIFF FLAG NO
[2022-08-02 14:00] LABS: Basophils Percent Auto 0.3 % (0-2); Eosinophils Absolute Auto 0.1 X10*3/uL (0.0-0.4); Hematocrit 44.8 % (37.0-47.0); Hemoglobin 14.1 g/dl (12.0-16.0); Imm Gran Abs Auto 0.04 X10*3/uL (0.00-0.03); Imm Gran Pct Auto 0.4 % (0.0-0.4); Lymphocytes Percent Auto 10.2 % (20-40); Mean Corpuscular HGB Conc 31.5 g/dl (31.0-35.0); Mean Corpuscular Hemoglobin 28.5 pg (27.0-33.0); Mean Corpuscular Volume 90.5 fL (80.0-98.0); Mean Platelet Volume 10.4 fL (9.4-12.3); Monocytes Absolute Auto 0.8 X10*3/uL (0.1-1.2); Monocytes Percent Auto 7.7 % (2-11); Neutrophils Absolute Auto 8.1 x10*3/uL (2.0-8.3); Neutrophils Percent Auto 80.4 % (45-73); Platelet Count 203 X10*3/uL (160-400); Red Blood Count 4.95 X10*6/uL (4.20-5.50); Red Cell Distribution Width 14.9 % (11.0-16.0); White Blood Count 10.1 X10*3/uL (4.8-10.8)
[2022-08-02 14:37] LABS: Alanine Aminotransferase 21 U/L (0-31); Albumin Level 4.2 g/dL (3.5-5.0); Alkaline Phosphatase 79 U/L (39-117); Anion Gap 18 (12-20); Aspartate Amino Transferase 24 U/L (5-31); Bilirubin Total 0.5 mg/dL (0.0-1.0); Blood Urea Nitrogen 15 mg/dL (9-16); Calcium 9.5 mg/dL (8.4-10.2); Carbon Dioxide 23 mmol/L (22-29); Chloride 103 mmol/L (96-108); Estimated Glomerular Filt Rate > 60; Glucose Random 182 mg/dL (60-115); Sodium 140 mmol/L (135-145); Total Protein 7.1 g/dL (6.5-8.0)
[2022-08-02 14:38] LABS: TSH reflex Free T4 0.65 uIU/mL (0.32-4.0)
[2022-08-02 16:44] LABS: Appearance Urine Turbid; Color Urine Dark Yellow; Glucose Urine UA Negative (Negative); Leukocyte Esterase Urine Moderate (2+) (Negative); Nitrite Urine Positive (Negative); PH 5.5 (5.0-9.0); Specific Gravity - Urine 1.025 (1.005-1.025); UMIC TRIGGER UACC YES; Urine Blood Large (3+) (Negative); Urine Ketones Trace mg/dL (Negative); Urine Protein 100 (2+) mg/dL (Neg-Trace)
[2022-08-02 17:04] LABS: Bacteria Urine 4+ (None Seen); Calcium Oxalate Crystals Urine Present; UACC Culture Trigger YES; WBC Urine 21-50 /HPF (0-5)
== END 2022-08-02 11:30 | disposition home or self-care (01) ==
LOC: HO.HMGCLDS 11:29
PROVIDERS: PCP Nurse Practitioner Family; Visit Provider Nurse Practitioner Family
DX: R10.9 Unspecified abdominal pain (principal)
CPT/HCPCS: 36415; 80053; 81001; 84443; 85025; 87086; 87088; 87186

== ENCOUNTER 2022-08-09 11:52 | Outpatient (REF) | payer MEDICARE, MEDICAID, SELFPAY ==
--- NOTE | ~2022-08-09 | XR_ITS ---
EXAMINATION: XR HIP, RIGHT CLINICAL INFORMATION: Pain COMPARISON: Right hip x-rays 03/20/2018 TECHNIQUE: Two views of the right hip. FINDINGS: Visualized portion of the proximal right femur demonstrate no fracture. Femoral head is well-seated within the acetabulum. There is mild narrowing of the right femoral acetabular joint space. Surgical clips project over the right femoral acetabular joint. XR/XR hip RT min 2V IMPRESSION: Mild degenerative changes of the right hip.
== END 2022-08-09 11:53 | disposition home or self-care (01) ==
LOC: HO.HMGCX 11:52
PROVIDERS: PCP Nurse Practitioner Family; Visit Provider Nurse Practitioner Family
DX: M25.551 Pain in right hip (principal)
CPT/HCPCS: 73502

== ENCOUNTER → 2022-08-22 13:16 | Outpatient (REF) | payer MEDICARE, MEDICAID, SELFPAY ==
--- NOTE | 2022-08-22 13:54 | CA_ITS ---
Transthoracic Echocardiogram Patient (Last, First, Middle): Mary Castillo L Gender: Female Date of : 1955 Age: 66 Procedure Date: 08/22/2022 Procedure Type: Transthoracic Echocardiogram Location: OP Height: 162.56 cm Weight: 108.86 kg BSA: 2.11 m2 Heart Rate: bpm BP: 135 / 80 mmHg Acting Manager: TO Referring MD: Kalin Gomez MD Symptoms: I44.7 - Left bundle-branch block, unspecified Study Quality: Technically Difficult/Contrast Conclusions: - 1. Normal LV systolic function with impaired relaxation filling pattern 2. Jpia-[id number]-[id number] aortic stenosis 3. No gross pericardial effusion Findings Procedure Information Contrast agent, definity, is being given per protocol without apparent complications. Left Ventricle Normal left ventricular size, thickness, and systolic function. The visually estimated ejection fraction is between 55-60%. There is paradoxical septal motion consistent with a left bundle branch block. Spectral Doppler is indicative of an impaired relaxation filling pattern. Right Ventricle The right ventricle was not well visualized. Atria The left atrium is likely dilated. Interatrial shunt cannot be excluded. The right atrium was not well visualized. Aortic Valve There is mild calcification of the aortic valve. There is mild to moderate aortic valve stenosis. There is no aortic valve regurgitation. Mitral Valve The mitral valve was not well visualized. There is trace mitral valve regurgitation. There is no mitral valve stenosis. Pulmonic Valve The pulmonic valve was not well visualized. Tricuspid Valve The tricuspid valve was not well visualized. Tricuspid regurgitation envelope is inadequate for calculation of right ventricular systolic pressure. Great Vessels All visible segments of the aorta are normal in size. The pulmonary artery was not well visualized. Venous The inferior vena cava is normal in size and collapses greater than 50% with inspiration. Pericardium/Pleural There is no evidence of pericardial effusion. Prior Study Comparison Changes noted compared to prior study dated: 04/08/2021. [id number]-[id number] aortic stenosis noted Measurements 2D Linear Measurements IVSd: 1.04 0.6-0.9/0.6-1.0 cm LVIDd: 4.51 3.9-5.3/4.2-5.9 cm LVIDd Index: 2.14 2.4-3.2/2.2-3.1 cm/m2 LVIDs: 3.09 2.0-3.6 cm LVPWd: 1.07 0.7-1.1 cm LA Diam: 3.70 2.7-3.8/3.0-4.0 cm LAIDs Index: 1.75 1.5-2.3 cm/m2 LV Mass: 206.32 67-162/88-224 g LV Mass Index: 97.78 43-95/49-115 g/m2 LVOT Diam: 2.00 3.0+(-)1.3 cm 2D Systolic Function EF 4C: 50.20 >55% EF 2C: 57.10 >55% EF BiP: 55.90 >55% Mitral Valve MV VTI: 0.26 MV Pk Amrit: 1.45 MV Mn Amrit: 1.05 MV Pk Grad: 8.00 MV Mn Grad: 5.00 E'Lateral: 11.40 E'Medial: 3.70 MVA Continuity: 2.13 Aortic Valve AoV Pk Amrit: 2.39 AoV Mn Amrit: 1.59 AoV VTI: 0.46 AoV Pk Grad: 23.00 Aov Mn Grad: 12.00 BENNETT Cont.VTI: 1.21 LVOT LVOT Pk Amrit: 0.84 LVOT Mn Amrit: 0.54 LVOT VTI: 0.18 LVOT Pk Grad: 3.00 LVOT Mn Grad: 1.00 LVOT Diam: 2.00 LVOT Area: 3.14 Diastolic Function E'Medial: 3.70 E' Laterial: 11.40 Right Ventricle TAPSE (mm): 20.30 TVS' Amrit: 11.10 Tricuspid Valve TR Pk Amrit: 1.45 TR Pk Grad: 8.00 RA Press: 3.00 Great Vessels Aorta Sinus of Valsalva: 3.34 2.0-3.5 cm Ao Asc: 2.80 2.1-3.4 cm Updated in Other Vendor System with Status of Final Bhavesh Aleman MD electronically signed on 08/22/2022 6:32:54 PM with status of Final
[2022-08-22 14:16] LABS: Appearance Urine Cloudy; Color Urine Yellow; Glucose Urine UA Negative (Negative); Leukocyte Esterase Urine Large (3+) (Negative); Nitrite Urine Positive (Negative); PH 6.5 (5.0-9.0); UMIC TRIGGER UA YES; Urine Blood Small (1+) (Negative); Urine Ketones Negative (Negative); Urine Protein 100 (2+) mg/dL (Neg-Trace)
[2022-08-22 14:29] LABS: Bacteria Urine 4+ (None Seen); RBC Urine 0-2 /HPF (0-2); Squamous Epithelial Cell Urine 0-2 /HPF (0-2); WBC Urine >50 /HPF (0-5)
== END ==
LOC: HO.CARD 13:16
PROVIDERS: PCP Nurse Practitioner Family; Visit Provider Internal Medicine
DX: I44.7 Left bundle-branch block, unspecified (principal); R30.0 Dysuria
CPT/HCPCS: 81001; 87086; 87088; 87186; 93306; Q9957

== ENCOUNTER 2022-08-23 12:55 | Outpatient (REF) | payer MEDICARE, MEDICAID, SELFPAY | END 2022-08-23 12:56 | disposition home or self-care (01) | LOC: HO.HMGCX 12:55 | PROVIDERS: PCP Nurse Practitioner Family; Visit Provider Urology | DX: R10.9 Unspecified abdominal pain (principal); N20.0 Calculus of kidney | CPT/HCPCS: 76775 ==

== ENCOUNTER 2022-09-04 15:03 | Outpatient (REF) | payer MEDICARE, MEDICAID, SELFPAY ==
[2022-09-04 16:23] LABS: Appearance Urine Clear; Color Urine Yellow; Glucose Urine UA Negative (Negative); Leukocyte Esterase Urine Negative (Negative); Nitrite Urine Negative (Negative); UMIC TRIGGER UACC YES; Urine Blood Moderate (2+) (Negative); Urine Ketones Negative (Negative); Urine Protein 30 (1+) mg/dL (Neg-Trace)
[2022-09-04 18:11] LABS: Bacteria Urine None Seen (None Seen); Hyaline Casts Urine 0-2 /LPF (0-2); Squamous Epithelial Cell Urine 0-2 /HPF (0-2); WBC Urine 0-5 /HPF (0-5)
== END 2022-09-04 15:04 | disposition home or self-care (01) ==
LOC: HO.HMGCLDS 15:03
PROVIDERS: PCP Nurse Practitioner Family; Visit Provider Nurse Practitioner Family
DX: R31.29 Other microscopic hematuria (principal)
CPT/HCPCS: 81001

== ENCOUNTER 2022-09-07 15:22 | Outpatient (REF) | payer MEDICARE, MEDICAID, SELFPAY ==
[2022-09-07 16:52] LABS: Urine Cytology See Pathology rpt
[2022-09-07 17:05] LABS: Appearance Urine Clear; Color Urine Yellow; Glucose Urine UA Negative (Negative); Leukocyte Esterase Urine Negative (Negative); Nitrite Urine Negative (Negative); Specific Gravity - Urine >= 1.030 (1.005-1.025); UMIC TRIGGER UACC YES; Urine Blood Large (3+) (Negative); Urine Ketones Trace mg/dL (Negative); Urine Protein 30 (1+) mg/dL (Neg-Trace)
[2022-09-07 17:15] LABS: WBC Urine 0-5 /HPF (0-5)
[2022-09-07 17:16] LABS: Bacteria Urine None Seen (None Seen); Hyaline Casts Urine 0-2 /LPF (0-2); RBC Urine >20 /HPF (0-2); Squamous Epithelial Cell Urine 0-2 /HPF (0-2)
== END 2022-09-07 15:23 | disposition home or self-care (01) ==
LOC: HO.HMGCLNP 15:22
PROVIDERS: PCP Nurse Practitioner Family; Visit Provider Nurse Practitioner Family
DX: R31.29 Other microscopic hematuria (principal); R10.9 Unspecified abdominal pain
CPT/HCPCS: 81001; 81003; 88112

== ENCOUNTER → 2022-09-20 13:36 | Outpatient (BNVA) | payer MEDICARE, MEDICAID, SELFPAY | PROVIDERS: PCP Nurse Practitioner Family; Visit Provider Urology | DX: N20.0 Calculus of kidney (principal) | CPT/HCPCS: 99212 ==

== ENCOUNTER → 2022-10-09 12:51 | Outpatient (BNVA) | payer MEDICARE, MEDICAID, SELFPAY | PROVIDERS: PCP Nurse Practitioner Family; Referring Provider Nurse Practitioner Family; Visit Provider Internal Medicine | DX: I35.0 Nonrheumatic aortic (valve) stenosis (principal); I44.7 Left bundle-branch block, unspecified; I10 Essential (primary) hypertension; E78.5 Hyperlipidemia, unspecified; E66.01 Morbid (severe) obesity due to excess calories; Z68.41 Body mass index [BMI] 40.0-44.9, adult | CPT/HCPCS: 93005; 99212 ==

== ENCOUNTER 2022-12-14 13:14 | Outpatient (REF) | payer MEDICARE, MEDICAID, SELFPAY ==
[2022-12-14 16:37] LABS: Appearance Urine Cloudy; Color Urine Yellow; Glucose Urine UA Negative (Negative); Leukocyte Esterase Urine Moderate (2+) (Negative); Nitrite Urine Negative (Negative); PH 6.5 (5.0-9.0); Specific Gravity - Urine 1.015 (1.005-1.025); UMIC TRIGGER UACC YES; Urine Blood Small (1+) (Negative); Urine Ketones Negative (Negative); Urine Protein 30 (1+) mg/dL (Neg-Trace)
[2022-12-14 18:08] LABS: Bacteria Urine 2+ (None Seen); Hyaline Casts Urine 0-2 /LPF (0-2); RBC Urine 0-2 /HPF (0-2); Squamous Epithelial Cell Urine 0-2 /HPF (0-2); UACC Culture Trigger YES; WBC Urine >50 /HPF (0-5)
== END 2022-12-14 13:15 | disposition home or self-care (01) ==
LOC: HO.HMGCLDS 13:14
PROVIDERS: PCP Nurse Practitioner Family; Visit Provider Nurse Practitioner Family
DX: E11.9 Type 2 diabetes mellitus without complications (principal); R82.90 Unspecified abnormal findings in urine
CPT/HCPCS: 81001; 87086; 87088; 87186

== ENCOUNTER 2023-02-08 14:10 | Outpatient (REF) | payer MEDICARE, MEDICAID, SELFPAY ==
[2023-02-08 16:34] LABS: Appearance Urine Cloudy; Color Urine Yellow; Glucose Urine UA Negative (Negative); Leukocyte Esterase Urine Trace (Negative); Nitrite Urine Positive (Negative); Specific Gravity - Urine 1.025 (1.005-1.025); UMIC TRIGGER UACC YES; Urine Blood Trace (Negative); Urine Ketones Trace mg/dL (Negative); Urine Protein 100 (2+) mg/dL (Neg-Trace)
[2023-02-08 16:56] LABS: Bacteria Urine 4+ (None Seen); Granular Casts Urine Present; RBC Urine 0-2 /HPF (0-2); Squamous Epithelial Cell Urine 0-2 /HPF (0-2); UACC Culture Trigger YES
== END 2023-02-08 14:11 | disposition home or self-care (01) ==
LOC: HO.HMGCLNP 14:10
PROVIDERS: Visit Provider Nurse Practitioner Family
DX: E11.9 Type 2 diabetes mellitus without complications (principal); R82.90 Unspecified abnormal findings in urine
CPT/HCPCS: 81001; 87086; 87088; 87186

== ENCOUNTER 2023-03-15 15:12 | Outpatient (REF) | payer MEDICARE, MEDICAID, SELFPAY ==
--- NOTE | ~2023-03-15 | XR_ITS ---
EXAMINATION: XR ABDOMEN KUB CLINICAL INDICATION: Calculus of kidney COMPARISON: 07/19/2022 TECHNIQUE: AP view of the abdomen. FINDINGS: There is a cluster of calcifications seen overlying the left kidney, correlating to the previously seen calculi in the left lower pole and left renal pelvis. The largest in the renal pelvis region measures 1 cm. No right-sided calcifications. No calcification seen overlying the expected position of the ureters. Nonobstructive bowel gas pattern. Surgical clips overlie the abdomen. Scoliotic curvature of the spine with degenerative changes. XR/XR KUB IMPRESSION: Cluster of calcifications overlying the left kidney, correlating to the previously seen calculi in the left lower pole and left renal pelvis.
== END 2023-03-15 15:13 | disposition home or self-care (01) ==
LOC: HO.HMGCX 15:12
PROVIDERS: PCP Nurse Practitioner Family; Visit Provider Urology
DX: N20.0 Calculus of kidney (principal)
CPT/HCPCS: 74018

== ENCOUNTER → 2023-03-20 14:33 | Outpatient (BNVA) | payer MEDICARE, MEDICAID, SELFPAY | PROVIDERS: PCP Nurse Practitioner Family; Visit Provider Urology | DX: N39.0 Urinary tract infection, site not specified (principal); N95.8 Other specified menopausal and perimenopausal disorders | CPT/HCPCS: 99212 ==

== ENCOUNTER 2023-03-27 13:29 | Outpatient (REF) | payer MEDICARE, MEDICAID, SELFPAY | END 2023-03-27 13:30 | disposition home or self-care (01) | LOC: HO.MDS 13:29 | PROVIDERS: PCP Nurse Practitioner Family; Visit Provider Internal Medicine Medical Oncology | DX: D50.9 Iron deficiency anemia, unspecified (principal) | CPT/HCPCS: 96365; J1756 ==

== ENCOUNTER 2023-04-05 10:56 | Outpatient (REF) | payer MEDICARE, MEDICAID, SELFPAY | END 2023-04-05 10:57 | disposition home or self-care (01) | LOC: HO.MDS 10:56 | PROVIDERS: Visit Provider Internal Medicine Medical Oncology | DX: D50.9 Iron deficiency anemia, unspecified (principal) | CPT/HCPCS: 96374; J1756 ==

== ENCOUNTER 2023-04-10 08:52 | Emergency (ER) | payer MEDICARE, MEDICAID, SELFPAY ==
--- NOTE | 2023-04-10 | ECG_ITS ---
Test Reason : EKG CHANGES Blood Pressure : / mmHG Vent. Rate : 112 BPM Atrial Rate : 112 BPM P-R Int : 162 ms QRS Dur : 130 ms QT Int : 346 ms P-R-T Axes : 063 -44 116 degrees QTc Int : 472 ms Sinus tachycardia Left axis deviation Left bundle branch block Abnormal ECG When compared with ECG of 10-APR-2023 10:22, No significant change was found Referred By: Corina Anderson Electronically Signed By:JD VAZQUEZ
--- NOTE | ~2023-04-10 | CT_ITS ---
EXAMINATION: CT ABDOMEN AND PELVIS WITH and without CONTRAST CLINICAL INFORMATION: GI bleed/rectal bleeding COMPARISON: Previous CT of the abdomen and pelvis most recent June 2022 TECHNIQUE: Multidetector volumetric images were obtained from the superior aspect of the liver through the pubic symphysis following administration 80 mL of Omnipaque 350 intravenous contrast. Sagittal and coronal reformatted images were obtained on the technologist's workstation. Oral contrast: No This CT examination was performed using dose optimization techniques as appropriate, variously including the following: *Automated exposure control *Adjustment of mA and/or kV according to patient size (this includes techniques or standardized protocols for targeted exams where dose is matched to indication/reason for exam; i.e. extremities or head) *Use of iterative reconstruction technique DLP: 2641 mGy-cm FINDINGS: LUNG BASES: The visualized lung bases are unremarkable. LIVER, GALLBLADDER, AND BILIARY TREE: The liver is normal in size, shape, and attenuation. No focal hepatic lesion or biliary ductal dilatation is present. The gallbladder has been removed. PANCREAS: Unremarkable. SPLEEN: Unremarkable. ADRENAL GLANDS: Both adrenal glands are prominent questionable for hyperplasia. KIDNEYS AND URETERS: There are bilateral renal cysts. Largest cyst measures 4 cm in the right kidney. No imaging follow-up recommended. There are multiple central left renal stones in the renal pelvis. 4-5 stones are seen each measuring approximately 4 mm. No hydronephrosis. BLADDER: Unremarkable. GASTROINTESTINAL TRACT: Postsurgical changes from gastric bypass. Diverticulosis of the colon. There is wall thickening of the sigmoid colon questionable for mild sigmoid diverticulitis. No evidence of obstruction, perforation or abscess. No evidence of active GI bleeding is seen. Normal appendix. ABDOMINAL WALL: Small left inguinal hernia containing fat. LYMPH NODES: Normal. VASCULAR: Atherosclerotic disease. No aneurysm. PELVIC VISCERA: Unremarkable. OSSEOUS STRUCTURES: Scoliosis and degenerative changes of the spine. Probable L1 Schmorl's node. CT/CT gi bleed abd pel wo/w IVcon IMPRESSION: Diverticulosis and question mild diverticulitis of the sigmoid colon. No evidence of active GI bleeding seen. Postsurgical changes from gastric bypass. Multiple left renal stones. No hydronephrosis. Fleischner guidelines were followed.
[2023-04-10 08:59] VITALS: BP 162/81; BP 180/100; PULSE 110; PULSE 120; RESP 18; TEMP 36.9; O2SAT 96; O2SAT 98; BMI 39.8
--- NOTE | 2023-04-10 09:46 | ED_ITS ---
HPI - General Adult General Chief complaint: GI Bleed Stated complaint: NAUSEA,WEK,JOSEPH,BLACK STOOLS SINCE TRANSFUS 2WKS AGO Time Seen by Provider: 04/10/23 09:38 Source: patient, EMS and RN notes reviewed Mode of arrival: EMS Limitations: no limitations History of Present Illness HPI narrative: Patient is a 67-year-old female with history of gastric bypass in 2007, iron deficiency anemia requiring transfusions every 2 weeks, T2DM, HTN, HLD presenting with an episode of ?burning acid? abdominal pain this morning lasting approximately 1 minute with reflux of acid into her throat followed by a bowel movement which patient describes as soft and black approximately 1 hour later. She denies current abdominal pain but reports nausea. She denies using any [id number] medications for her symptoms at home. She states that when she had the burning acid episode she presented herself from vomiting related to her gastric bypass. She denies any additional episodes of black stool. She denies any prior episodes of black stool following iron infusion treatments. She reports feeling flushed after her episode of abdominal pain but did not check her temperature at home. She denies any chest pain or shortness of breath, denies any dizziness, lightheadedness, syncope. MD complaint: epigastric pain, black stool Onset (ago): hour(s) Quality: burning Relieving factors: none Exacerbating factors: none Treatments prior to arrival: none Related Data Home Medications Medication Instructions Recorded Confirmed latanoprost 0.005 % eye drops 1 drp ophthalmic (eye) DAILY 08/07/22 03/19/23 cranberry extract 500 mg capsule 500 mg PO BID 03/20/23 gabapentin 400 mg capsule 400 mg PO TID 03/20/23 Previous Rx's Medication Instructions Recorded blood-glucose meter (Pantechuch #1 ea 04/04/21 Ultra2 Meter) alcohol swabs (Alcohol Prep Pads) 1 pad topical TID for diabetes 06/06/21 mellitus 30 days #100 pad lancets 30 gauge (TransCardiac TherapeuticsTouch Delica #100 ea 07/13/21 Lancets) sumatriptan succinate 100 mg tablet 100 mg PO DAILY PRN Headache 35 11/06/21 days #35 tabs blood sugar diagnostic #100 ea 04/13/22 lancets 33 gauge ([employer]Touch Delica #100 ea 04/13/22 Plus Lancet) sulfamethoxazole 800 1 tab PO BID 5 days #10 tabs 11/21/22 mg-trimethoprim 160 mg tablet (Bactrim DS) levofloxacin 250 mg tablet 250 mg PO DAILY 3 days #3 tabs 12/16/22 sertraline 100 mg tablet 100 mg PO DAILY 90 days #90 tabs 01/10/23 gabapentin 300 mg capsule 600 mg PO TID 30 days #180 caps 01/17/23 omeprazole 40 mg capsule,delayed 40 mg PO BID 90 days #180 caps 01/23/23 release rosuvastatin 20 mg tablet 20 mg PO DAILY #30 caps 02/04/23 sulfamethoxazole 800 1 tab PO BID 4 days #8 tabs 02/11/23 mg-trimethoprim 160 mg tablet (Bactrim DS) omega-3 acid ethyl esters 1 gram 1 cap PO BID #180 caps 02/22/23 capsule buspirone 15 mg tablet 15 mg PO BID #180 tabs 03/06/23 cranberry 500 mg capsule 500 mg PO BID 90 days #180 caps 03/12/23 metoprolol tartrate 50 mg tablet 50 mg PO BID #180 tabs 04/04/23 amoxicillin 875 mg-potassium 1 tab PO BID #20 tabs 04/10/23 clavulanate 125 mg tablet estradiol 0.01% (0.1 mg/gram) See Rx Instructions vaginal 3XW 30 04/10/23 vaginal cream days #42.5 grams Allergies Allergy/AdvReac Type Severity Reaction Status Date / Time morphine [MORPHINE] Allergy Severe SEVERE Verified 04/10/23 09:04 SHAKING, N/V latex [LATEX] Allergy Intermediate RASH Verified 04/10/23 09:04 amoxicillin [From AUGMENTIN] Allergy Unknown SEVERE Verified 04/10/23 09:04 DIARRHEA ciprofloxacin [CIPROFLOXACIN] Allergy Unknown SEVERE Verified 04/10/23 09:04 DIARRHEA clavulanic acid Allergy Unknown SEVERE Verified 04/10/23 09:04 [From AUGMENTIN] DIARRHEA baclofen AdvReac Unknown Unknown Verified 04/10/23 09:04 trazodone AdvReac Unknown Unknown Verified 04/10/23 09:04 Latex Gloves Allergy Severe Rash Uncoded 04/10/23 09:04 Fenofibric Acid AdvReac Unknown Stomach Uncoded 04/10/23 09:04 pain/cramping Review of Systems Review of Systems: As per HPI. Yes all other systems are reviewed and are negative Constitutional: Constitutional: Reports as per HPI PMFSH Past Medical History Medical History Anxiety and depression DJD (degenerative joint disease) Hyperlipidemia Hypertension Pulmonary fibrosis Recurrent UTI Scoliosis Surgical History H/O gastric bypass H/O lithotripsy History of History of cholecystectomy Hx of breast reduction, elective S/P panniculectomy Family History Family History Father Heart disease Mother Heart disease Pulmonary fibrosis Sister Heart disease Sister Pulmonary fibrosis Brother Pulmonary fibrosis Daughter Mental health disorder Substance use disorder Social History Social History Household Members: Spouse Housing: Apartment Are you a primary critical care physician to a significant other at home: No Do you presently have visiting nurse or other home services: No Alcohol intake: never Patient Tobacco Use Status: Former Tobacco user Quit Date: 11/19/22 Years Smoked: 45 Smoked in Last 30 Days: No e-Cigarette/Vaping Use: Never Used Second Hand Smoke Exposure: No Use of substances other than those prescribed or required for medical reasons: Yes Substance Use Type: Marijuana Advance Directives: Yes Advance Directives on File: Yes Advance Directives Date on File: 08/16/22 service: No Current occupational status: disabled 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 Blood pressure elevated. Heart rate tachycardic. Respiratory rate normal. Temperature normal. Oxygen saturation normal. Const General: cooperative, healthy appearing and no acute distress Orientation/consciousness: oriented to person, oriented to place, oriented to time and patient oriented x3 Limitations: no limitations HENMT Head: Yes normocephalic and Yes atraumatic Ears: external ears normal General nose exam: Normal external nose present Face and sinus: Yes face symmetric Mouth: oropharynx normal and moist mucous membranes Throat: Yes uvula midline Eyes Pupils: Equal, round and reactive pupils present Neck Neck: Yes normal visual inspection and Yes supple Resp Effort & Inspection: normal respiratory effort and able to speak in complete sentences Auscultation: clear to auscultation bilaterally Cardio Rate: regular rate Rhythm: regular rhythm Heart sounds: S1 normal heart sound present and S2 normal heart sound present GI Other: Chaperoned by MARCELL Roberts Tech. Soft brown stool noted on rectal exam without leatha blood Inspection: Yes normal to inspection and Yes scar Palpation (GI): Soft to palpation, nontender, no guarding and No Rebound tenderness present Auscultation: normoactive bowel sounds Rectal Exam - Female: visual inspection normal and normal sphincter tone General: Yes no CVA tenderness Back/Spine/Pelvis Back: no CVA tenderness Skin General skin exam: elasticity normal and turgor normal Neuro General: oriented to person, oriented to place, oriented to time, patient or iented x3, moves all extremities, no focal motor deficits and CN's II-XI intact bilaterally Cranial nerves: Yes Equal, round and reactive pupils present Cognition (Neuro): normal cognition Extrem General: Yes full ROM, Yes no pedal edema and Yes no calf tenderness Psych Mental Status: mental status grossly normal Affect: normal affect Thought process: Normal thought process present Medications Administered Discontinued Medications Generic Name Dose Route Start Last Admin Trade Name Nemo PRN Reason Stop Dose Admin Acetaminophen 650 mg 04/10/23 13:09 04/10/23 13:28 Acetaminophen 325 Mg Tablet PO 04/10/23 13:10 650 mg ONCE ONE Administration Sodium Chloride 1,000 mls @ 999 mls/hr 04/10/23 14:00 04/10/23 14:42 Ns IV 04/10/23 15:00 999 mls/hr .Q1H1M GUY Administration Iohexol 100 ml 04/10/23 11:04 04/10/23 11:04 Iohexol 350 Mg/Ml 100 Ml Infus..Btl IV 04/10/23 11:05 80 ml ONCE ONE Administration Ondansetron HCl 4 mg 04/10/23 10:05 04/10/23 10:41 Ondansetron Odt 4 Mg Tab.Edith TRANSLINGU 04/10/23 10:06 4 mg ONCE ONE Administration Ondansetron HCl 4 mg 04/10/23 13:09 04/10/23 13:28 Ondansetron Hcl 4 Mg/2 Ml Vial IVPUSH 04/10/23 13:10 4 mg ONCE ONE Administration Medical Decision Making Medical Decision Making MDM Narrative: Patient is a 67-year-old female with history of gastric bypass in 2007, iron deficiency anemia requiring transfusions every 2 weeks, T2DM, HTN, HLD presenting with an episode of ?burning acid? abdominal pain this morning lasting approximately 1 minute with reflux of acid into her throat followed by a bowel movement which patient describes as soft and black approximately 1 hour later. On exam patient is non-toxic appearing, no pallor, awake, A+Ox3, lungs CTA, abdomen soft and nontender, no CVA tenderness, unremarkable rectal exam with soft brown stool noted. Concern for GI bleed given patient's complaint of black stool. Also considering GERD, gastritits, diverticulitis. Less likely pancreatitis, cholecystitis. Plan: labs, EKG, occult stool, treat nausea, reassess 12:51 CT scan shows diverticulosis with possible diverticulitis. Labs relatively unchanged from baseline. Given that patient is symptomatic will victoria t for diverticulitis. Patient reports ongoing nausea, will medicate with ondansetron and PO challenge. 13:55 Patient able to tolerate PO. She continues to be mildly tachycardic, will order IVF and reassess. 15:37 Patient remains tachycardic. When patient questioned about this, she states that she typically takes metoprolol twice daily but did not take it this morning. Patient instructed to take her metoprolol now. Feel patient is stable to discharge home. She is tolerating fluids in the ED. Will prescribe Augmentin for diverticulitis. Patient has this listed as an allergy however her reaction is diarrhea. Discussed diet modifications and probiotics with patient. All questions answered and patient is agreeable to plan of care. Patient instructed to follow up with her PCP in the next two days as well as make appointment with GI. Return precautions discussed at bedside. Differential Diagnosis Differential Diagnoses: The differential diagnosis associated with the presentation includes As above. Admission/Observation Consideration of admission/observation: Escalation of care including admission/observation considered Lab Data MDM Lab Attestation statement: I reviewed the patient's lab results. 04/10/23 10:00 04/10/23 10:00 Labs: Lab Results 04/10/23 04/10/23 04/10/23 Range/Units 10:00 10:00 10:00 WBC 10.3 (4.8-10.8) X10*3/uL RBC 4.51 (4.20-5.50) X10*6/uL Hgb 11.1 L D (12.0-16.0) g/dl Hct 36.6 L (37.0-47.0) % MCV 81.2 (80.0-98.0) fL MCH 24.6 L (27.0-33.0) pg MCHC 30.3 L (31.0-35.0) g/dl RDW 22.3 H (11.0-16.0) % Plt Count 269 (160-400) X10*3/uL MPV 9.3 L (9.4-12.3) fL Immature Gran % (Auto) 0.6 H (0.0-0.4) % Neut % (Auto) 86.3 H (45-73) % Lymph % (Auto) 6.8 L (20-40) % Taliaferro % (Auto) 5.9 (2-11) % Eos % (Auto) 0.2 (0-4) % Baso % (Auto) 0.2 (0-2) % Lymph # (Auto) 0.7 L (1.2-4.9) X10*3/uL Taliaferro # (Auto) 0.6 (0.1-1.2) X10*3/uL Eos # (Auto) 0.0 (0.0-0.4) X10*3/uL Baso # (Auto) 0.0 (0.0-0.2) X10*3/uL Abs Immat Gran (auto) 0.06 H (0.00-0.03) X10*3/uL Absolute Neuts (auto) 8.9 H (2.0-8.3) x10*3/uL Absolute Nucleated RBC 0.000 (0.0-0.012) X10*3/uL Nucleated RBC % (auto) 0.0 (0.0-0.2) /100WBC PT 11.8 (10.0-13.1) SEC INR 1.0 (0.9-1.1) Sodium 140 (135-145) mmol/L Potassium 4.3 (3.3-5.1) mmol/L Chloride 105 (96-108) mmol/L Carbon Dioxide 24 (22-29) mmol/L Anion Gap 15 (12-20) BUN 16 (9-16) mg/dL Creatinine 0.97 (0.5-1.4) mg/dL Estim Creat Clear Calc 65.6 Estimated GFR 57 Random Glucose 186 H (60-115) mg/dL Calcium 9.8 D (8.4-10.2) mg/dL Total Bilirubin 0.7 (0.0-1.0) mg/dL AST 33 H (5-31) U/L ALT 16 (0-31) U/L Alkaline Phosphatase 86 (39-117) U/L Total Protein 6.8 (6.5-8.0) g/dL Albumin 3.9 (3.5-5.0) g/dL Urine Color Urine Appearance Urine pH (5.0-9.0) Ur Specific Vest (1.005-1.025) Urine Protein (Neg-Trace) mg/dL Urine Glucose (UA) (Negative) mg/dL Urine Ketones (Negative) mg/dL Urine Blood (Negative) Urine Nitrite (Negative) Ur Leukocyte Esterase (Negative) Urine RBC (0-2) /HPF Urine WBC (0-5) /HPF Ur Squamous Epith Cells (0-2) /HPF Urine Bacteria (None Seen) Hyaline Casts (0-2) /LPF Stool Occult Blood (NEGATIVE) 04/10/23 04/10/23 Range/Units 10:00 13:32 WBC (4.8-10.8) X10*3/uL RBC (4.20-5.50) X10*6/uL Hgb (12.0-16.0) g/dl Hct (37.0-47.0) % MCV (80.0-98.0) fL MCH (27.0-33.0) pg MCHC (31.0-35.0) g/dl RDW (11.0-16.0) % Plt Count (160-400) X10*3/uL MPV (9.4-12.3) fL Immature Gran % (Auto) (0.0-0.4) % Neut % (Auto) (45-73) % Lymph % (Auto) (20-40) % Taliaferro % (Auto) (2-11) % Eos % (Auto) (0-4) % Baso % (Auto) (0-2) % Lymph # (Auto) (1.2-4.9) X10*3/uL Taliaferro # (Auto) (0.1-1.2) X10*3/uL Eos # (Auto) (0.0-0.4) X10*3/uL Baso # (Auto) (0.0-0.2) X10*3/uL Abs Immat Gran (auto) (0.00-0.03) X10*3/uL Absolute Neuts (auto) (2.0-8.3) x10*3/uL Absolute Nucleated RBC (0.0-0.012) X10*3/uL Nucleated RBC % (auto) (0.0-0.2) /100WBC PT (10.0-13.1) SEC INR (0.9-1.1) Sodium (135-145) mmol/L Potassium (3.3-5.1) mmol/L Chloride (96-108) mmol/L Carbon Dioxide (22-29) mmol/L Anion Gap (12-20) BUN (9-16) mg/dL Creatinine (0.5-1.4) mg/dL Estim Creat Clear Calc Estimated GFR Random Glucose (60-115) mg/dL Calcium (8.4-10.2) mg/dL Total Bilirubin (0.0-1.0) mg/dL AST (5-31) U/L ALT (0-31) U/L Alkaline Phosphatase (39-117) U/L Total Protein (6.5-8.0) g/dL Albumin (3.5-5.0) g/dL Urine Color Yellow Urine Appearance Clear Urine pH 7.5 (5.0-9.0) Ur Specific Vest >= 1.030 H (1.005-1.025) Urine Protein 100 (2+) H (Neg-Trace) mg/dL Urine Glucose (UA) Negative (Negative) mg/dL Urine Ketones Negative (Negative) mg/dL Urine Blood Large (3+) H (Negative) Urine Nitrite Negative (Negative) Ur Leukocyte Esterase Negative (Negative) Urine RBC 0-2 (0-2) /HPF Urine WBC 0-5 (0-5) /HPF Ur Squamous Epith Cells 0-2 (0-2) /HPF Urine Bacteria None Seen (None Seen) Hyaline Casts 0-2 (0-2) /LPF Stool Occult Blood POSITIVE (NEGATIVE) Independent Interpretation I performed an independent interpretation of an: EKG and CT Scan Interpretation: EKG: Sinus tachycardiaI independently reviewed the CT scan and agree with the radiologist's interpretation. Radiology Impression Discussion of test interpretation with radiology: I have reviewed the radiologist's reading. Radiologist Impression: FINDINGS: LUNG BASES: The visualized lung bases are unremarkable.? LIVER, GALLBLADDER, AND BILIARY TREE: The liver is normal in size, shape, and attenuation. No focal hepatic lesion or biliary ductal dilatation is present. The gallbladder has been removed. PANCREAS: Unremarkable.? SPLEEN: Unremarkable.? ADRENAL GLANDS: Both adrenal glands are prominent questionable for hyperplasia. KIDNEYS AND URETERS: There are bilateral renal cysts. Largest cyst measures 4 cm in the right kidney. No imaging follow-up recommended. There are multiple central left renal stones in the renal pelvis. 4-5 stones are seen each measuring approximately 4 mm. No hydronephrosis. BLADDER: Unremarkable.? GASTROINTESTINAL TRACT: Postsurgical changes from gastric bypass. Diverticulosis of the colon. There is wall thickening of the sigmoid colon questionable for mild sigmoid diverticulitis. No evidence of obstruction, perforation or abscess. No evidence of active GI bleeding is seen. Normal appendix. ABDOMINAL WALL: Small left inguinal hernia containing fat.? LYMPH NODES: Normal. VASCULAR: Atherosclerotic disease. No aneurysm. PELVIC VISCERA: Unremarkable.? OSSEOUS STRUCTURES: Scoliosis and degenerative changes of the spine. Probable L1 Schmorl's node.? CT/CT gi bleed abd pel wo/w IVcon IMPRESSION: Diverticulosis and question mild diverticulitis of the sigmoid colon. No evidence of active GI bleeding seen. Postsurgical changes from gastric bypass. Multiple left renal stones. No hydronephrosis.? ? Fleischner guidelines were followed. External Record Review External record reviewed: Inpatient record, Office record and Outpatient record Prescription Management I considered prescription management with: Antibiotic (Augmentin) Chronic Conditions Patient?s care impacted by: Diabetes and Hypertension Discharge Plan Discharge Clinical Impression: Diverticulitis Patient Disposition: Home, Self-Care Instructions: Diverticulitis (ED), Diverticulitis Diet (ED) Additional Instructions: You were evaluated in the emergency department today for abdominal pain and diarrhea. Your CT scan shows evidence of diverticulitis. You are being prescribed an antibiotic called Augmentin. You should take the full course of antibiotics as prescribed. You should follow-up with your primary care provider within the next 2 days. You are also being given a referral to Gastroenterology and should contact them this week. Return to the emergency department if you experience worsening or uncontrolled pain, fevers 100.4? F or greater, recurrent vomiting, inability to tolerate food or fluids by mouth, bloody stools or vomit, black or tarry stools, or any other concerning symptoms. Prescriptions: New amoxicillin-pot clavulanate 875-125 mg tablet 1 tab PO BID Qty: 20 0RF No Action (DME) blood-glucose meter [OneTouch Ultra2 Meter] Misc See Rx Instructions .ROUTE .MEDSUPPLY Qty: 1 0RF Rx Instructions: Use to check fasting blood sugar once daily or if needed for signs/symptoms of hypo/hyperglycemia alcohol swabs [Alcohol Prep Pads] Pads, Medicated 1 pad topical TID 30 Days Qty: 100 3RF (DME) lancets [OneTouch Delica Lancets] 30 gauge misc See Rx Instructions .ROUTE .MEDSUPPLY Qty: 100 0RF Rx Instructions: Use to check fasting blood sugar once daily or if needed for signs/symptoms of hypo/hyperglycemia sumatriptan succinate 100 mg tablet 100 mg PO DAILY PRN (Reason: Headache) 35 Days Qty: 35 1RF Rx Instructions: may repeat 1tab after 2 hrs if the first tab does not work (DME) lancets [OneTouch Delica Plus Lancet] 33 gauge misc See Rx Instructions topical DAILY Qty: 100 1RF Rx Instructions: daily (DME) blood sugar diagnostic Strip See Rx Instructions .ROUTE .MEDSUPPLY Qty: 100 0RF Rx Instructions: Use to check fasting blood sugar once daily or if needed for signs/symptoms of hypo/hyperglycemia levofloxacin 250 mg tablet 250 mg PO DAILY 3 Days Qty: 3 0RF sertraline 100 mg tablet 100 mg PO DAILY 90 Days Qty: 90 2RF gabapentin 300 mg capsule 600 mg PO TID 30 Days Qty: 180 2RF omeprazole 40 mg capsule,delayed release(DR/EC) 40 mg PO BID 90 Days Qty: 180 0RF rosuvastatin 20 mg tablet 20 mg PO DAILY Qty: 30 4RF sulfamethoxazole-trimethoprim [Bactrim DS] 800-160 mg tablet 1 tab PO BID 4 Days Qty: 8 0RF omega-3 acid ethyl esters 1 gram capsule 1 cap PO BID Qty: 180 1RF buspirone 15 mg tablet 15 mg PO BID Qty: 180 1RF cranberry 500 mg capsule 500 mg PO BID 90 Days Qty: 180 0RF Rx Instructions: administer with meals metoprolol tartrate 50 mg tablet 50 mg PO BID Qty: 180 1RF estradiol 0.01 % (0.1 mg/gram) cream See Rx Instructions vaginal 3XW 30 Days Qty: 42.5 3RF Rx Instructions: vaginally 3 times a week; pea sized amount to urethra 3 times a week latanoprost 0.005 % drops 1 drp ophthalmic (eye) DAILY sulfamethoxazole-trimethoprim [Bactrim DS] 800-160 mg tablet 1 tab PO BID 5 Days Qty: 10 0RF cranberry extract 500 mg capsule 500 mg PO BID gabapentin 400 mg capsule 400 mg PO TID Referrals: [facility] – [place] [facility] [Provider Group]
[2023-04-10 10:05] LABS: MANUAL DIFF FLAG NO
[2023-04-10 10:08] LABS: Basophils Percent Auto 0.2 % (0-2); Eosinophils Percent Auto 0.2 % (0-4); Hematocrit 36.6 % (37.0-47.0); Hemoglobin 11.1 g/dl (12.0-16.0); Imm Gran Abs Auto 0.06 X10*3/uL (0.00-0.03); Imm Gran Pct Auto 0.6 % (0.0-0.4); Lymphocytes Absolute Auto 0.7 X10*3/uL (1.2-4.9); Lymphocytes Percent Auto 6.8 % (20-40); Mean Corpuscular HGB Conc 30.3 g/dl (31.0-35.0); Mean Corpuscular Hemoglobin 24.6 pg (27.0-33.0); Mean Corpuscular Volume 81.2 fL (80.0-98.0); Mean Platelet Volume 9.3 fL (9.4-12.3); Monocytes Absolute Auto 0.6 X10*3/uL (0.1-1.2); Monocytes Percent Auto 5.9 % (2-11); Neutrophils Absolute Auto 8.9 x10*3/uL (2.0-8.3); Neutrophils Percent Auto 86.3 % (45-73); Platelet Count 269 X10*3/uL (160-400); Red Blood Count 4.51 X10*6/uL (4.20-5.50); Red Cell Distribution Width 22.3 % (11.0-16.0); White Blood Count 10.3 X10*3/uL (4.8-10.8)
[2023-04-10 10:10] LABS: OBS Int Ctl Valid YES; OBS1 POSITIVE (NEGATIVE)
[2023-04-10 10:12] LABS: Prothrombin Time 11.8 SEC (10.0-13.1)
--- NOTE | 2023-04-10 10:13 | ECG_ITS ---
Test Reason : epigastric pain Blood Pressure : / mmHG Vent. Rate : 108 BPM Atrial Rate : 108 BPM P-R Int : 152 ms QRS Dur : 130 ms QT Int : 376 ms P-R-T Axes : 063 -50 115 degrees QTc Int : 503 ms Sinus tachycardia Left axis deviation Left bundle branch block Abnormal ECG When compared with ECG of 18-AUG-2017 13:41, Vent. rate has increased BY 43 BPM Left bundle branch block is now Present Referred By: Corina Anderson Electronically Signed By:JD VAZQUEZ
[2023-04-10 10:21] LABS: Alanine Aminotransferase 16 U/L (0-31); Albumin Level 3.9 g/dL (3.5-5.0); Alkaline Phosphatase 86 U/L (39-117); Anion Gap 15 (12-20); Aspartate Amino Transferase 33 U/L (5-31); Bilirubin Total 0.7 mg/dL (0.0-1.0); Blood Urea Nitrogen 16 mg/dL (9-16); Calcium 9.8 mg/dL (8.4-10.2); Carbon Dioxide 24 mmol/L (22-29); Chloride 105 mmol/L (96-108); Creatinine Clr Calc Pharmacy 65.6; Estimated Glomerular Filt Rate 57; Glucose Random 186 mg/dL (60-115); Potassium 4.3 mmol/L (3.3-5.1); Sodium 140 mmol/L (135-145); Total Protein 6.8 g/dL (6.5-8.0)
[2023-04-10] MEDS: Ondansetron ODT 4 MG TAB.RAPDIS TRANSLINGU (10:41)
[2023-04-10] MEDS: iohexoL 350 MG/ML 100 ML INFUS..BTL IV (11:04)
[2023-04-10 12:21] VITALS: BP 153/82; PULSE 111; RESP 22; TEMP 36.8; O2SAT 97
[2023-04-10] MEDS: ondansetron HCL 4 MG/2 ML VIAL IVPUSH (13:28)
[2023-04-10] MEDS: Acetaminophen 325 MG TABLET 650 MG PO (13:28)
[2023-04-10 13:50] LABS: Appearance Urine Clear; Color Urine Yellow; Glucose Urine UA Negative (Negative); Leukocyte Esterase Urine Negative (Negative); Nitrite Urine Negative (Negative); PH 7.5 (5.0-9.0); UMIC TRIGGER UACC YES; Urine Blood Large (3+) (Negative); Urine Ketones Negative (Negative); Urine Protein 100 (2+) mg/dL (Neg-Trace)
[2023-04-10 14:11] VITALS: BP 130/74; PULSE 114; RESP 19; O2SAT 97
[2023-04-10 14:22] LABS: Bacteria Urine None Seen (None Seen); Hyaline Casts Urine 0-2 /LPF (0-2); RBC Urine 0-2 /HPF (0-2); Squamous Epithelial Cell Urine 0-2 /HPF (0-2); WBC Urine 0-5 /HPF (0-5)
[2023-04-10 14:23] LABS: Specific Gravity - Urine >= 1.030 (1.005-1.025)
[2023-04-10] MEDS: 0.9 % Sodium Chloride 1,000 ML 999 ML IV (14:42)
[2023-04-10 15:02] VITALS: BP 172/91; PULSE 114; RESP 18; O2SAT 96
== END 2023-04-10 16:05 | disposition home or self-care (01) ==
PROVIDERS: Registered Nurse Emergency; Emergency Provider Emergency Medicine Emergency Medical Services; PCP Nurse Practitioner Family
DX: K57.92 Diverticulitis of intestine, part unspecified, without perforation or abscess without bleeding (principal); K92.1 Melena; R11.0 Nausea; R51.9 Headache, unspecified; D50.9 Iron deficiency anemia, unspecified; E11.9 Type 2 diabetes mellitus without complications; I10 Essential (primary) hypertension; E78.5 Hyperlipidemia, unspecified; R10.9 Unspecified abdominal pain; Z79.899 Other long term (current) drug therapy
CPT/HCPCS: 36415; 74178; 80053; 81001; 81003; 82272; 85025; 85610; 93005; 96361; 96374; 99285; J2405; Q9967

== ENCOUNTER 2023-04-19 12:08 | Outpatient (REF) | payer MEDICARE, MEDICAID, SELFPAY | END 2023-04-19 12:09 | disposition home or self-care (01) | LOC: HO.MDS 12:08 | PROVIDERS: Visit Provider Internal Medicine Medical Oncology | DX: D50.9 Iron deficiency anemia, unspecified (principal) | CPT/HCPCS: 96365; J1756 ==

== ENCOUNTER 2023-04-24 12:37 | Outpatient (REF) | payer MEDICARE, MEDICAID, SELFPAY ==
[2023-04-24 13:25] LABS: MANUAL DIFF FLAG NO
[2023-04-24 13:31] LABS: Basophils Percent Auto 0.5 % (0-2); Eosinophils Absolute Auto 0.2 X10*3/uL (0.0-0.4); Eosinophils Percent Auto 2.7 % (0-4); Imm Gran Abs Auto 0.02 X10*3/uL (0.00-0.03); Imm Gran Pct Auto 0.3 % (0.0-0.4); Lymphocytes Absolute Auto 1.3 X10*3/uL (1.2-4.9); Lymphocytes Percent Auto 19.8 % (20-40); Mean Corpuscular HGB Conc 29.4 g/dl (31.0-35.0); Mean Corpuscular Hemoglobin 25.5 pg (27.0-33.0); Mean Corpuscular Volume 86.7 fL (80.0-98.0); Mean Platelet Volume 9.9 fL (9.4-12.3); Monocytes Absolute Auto 0.5 X10*3/uL (0.1-1.2); Monocytes Percent Auto 7.1 % (2-11); Neutrophils Absolute Auto 4.6 x10*3/uL (2.0-8.3); Neutrophils Percent Auto 69.6 % (45-73); Platelet Count 215 X10*3/uL (160-400); Red Blood Count 3.92 X10*6/uL (4.20-5.50); Red Cell Distribution Width 22.7 % (11.0-16.0); White Blood Count 6.6 X10*3/uL (4.8-10.8)
[2023-04-24 14:06] LABS: Ferritin 184 ng/mL (10-250)
== END 2023-04-24 12:38 | disposition home or self-care (01) ==
LOC: HO.MDS 12:37
PROVIDERS: PCP Nurse Practitioner Family; Visit Provider Internal Medicine Medical Oncology
DX: D50.9 Iron deficiency anemia, unspecified (principal)
CPT/HCPCS: 36415; 82728; 85025; 96365; J1756

== ENCOUNTER 2023-05-02 12:31 | Outpatient (REF) | payer MEDICARE, MEDICAID, SELFPAY | END 2023-05-02 12:32 | disposition home or self-care (01) | LOC: HO.MDS 12:31 | PROVIDERS: Visit Provider Internal Medicine Medical Oncology | DX: D50.9 Iron deficiency anemia, unspecified (principal) | CPT/HCPCS: 96374; J1756 ==

== ENCOUNTER 2023-05-09 12:34 | Outpatient (REF) | payer MEDICARE, MEDICAID, SELFPAY | END 2023-05-09 12:35 | disposition home or self-care (01) | LOC: HO.MDS 12:34 | PROVIDERS: Visit Provider Internal Medicine Medical Oncology | DX: D50.9 Iron deficiency anemia, unspecified (principal) | CPT/HCPCS: 96365; J1756 ==

== ENCOUNTER 2023-05-16 12:47 | Outpatient (REF) | payer MEDICARE, MEDICAID, SELFPAY | END 2023-05-16 12:48 | disposition home or self-care (01) | LOC: HO.MDS 12:47 | PROVIDERS: Visit Provider Internal Medicine Medical Oncology | DX: D50.9 Iron deficiency anemia, unspecified (principal) | CPT/HCPCS: 96365; J1756 ==

== ENCOUNTER 2023-05-23 14:12 | Outpatient (REF) | payer MEDICARE, MEDICAID, SELFPAY | END 2023-05-23 14:13 | disposition home or self-care (01) | LOC: HO.MDS 14:12 | PROVIDERS: Visit Provider Internal Medicine Medical Oncology | DX: D50.9 Iron deficiency anemia, unspecified (principal) | CPT/HCPCS: 96365; J1756 ==

== ENCOUNTER 2023-06-06 12:41 | Outpatient (REF) | payer MEDICARE, MEDICAID, SELFPAY ==
[2023-06-13 23:03] LABS: Estradiol Ultra Sensitive <2 pg/mL
[2023-06-14 02:20] LABS: Testosterone, Total 17 ng/dL (2-45)
[2023-06-14 17:18] LABS: Progesterone <0.1 ng/mL
== END 2023-06-06 12:42 | disposition home or self-care (01) ==
LOC: HO.HMGCLDS 12:41
PROVIDERS: Absent Provider Urology; PCP Nurse Practitioner Family; Visit Provider Nurse Practitioner Family
DX: E11.9 Type 2 diabetes mellitus without complications (principal)
CPT/HCPCS: 36415; 82670; 84144; 84403

== ENCOUNTER 2023-06-07 08:00 | Outpatient (REF) | payer MEDICARE, MEDICAID, SELFPAY ==
[2023-06-07 16:13] LABS: CDiff Gene PCR NEGATIVE (Negative)
== END 2023-06-07 08:01 | disposition home or self-care (01) ==
LOC: HO.HMGCLNP 08:00
PROVIDERS: PCP Nurse Practitioner Family; Visit Provider Internal Medicine Medical Oncology
DX: Z11.2 Encounter for screening for other bacterial diseases (principal); R19.7 Diarrhea, unspecified
CPT/HCPCS: 87338; 87493

== ENCOUNTER 2023-06-20 14:13 | Outpatient (AMB) | payer MEDICARE, MEDICAID, SELFPAY ==
--- NOTE | 2023-06-20 14:21 | A.OFFVIS_ITS ---
Intake Intake Visit Reasons: 3M Labs(pending) Intake Note: Patient is present for Follow Up Urology Med: Estradiol Antibiotic Allergy: Amoxicillin, Cipro, Blood Thinner: none Pharmacy: [facility] Allergies morphine [MORPHINE] Allergy (Severe, Verified 06/20/23 14:31) SEVERE SHAKING, N/V latex [LATEX] Allergy (Intermediate, Verified 06/20/23 14:31) RASH amoxicillin [From AUGMENTIN] Allergy (Unknown, Verified 06/20/23 14:31) SEVERE DIARRHEA ciprofloxacin [CIPROFLOXACIN] Allergy (Unknown, Verified 06/20/23 14:31) SEVERE DIARRHEA clavulanic acid [From AUGMENTIN] Allergy (Unknown, Verified 06/20/23 14:31) SEVERE DIARRHEA baclofen Adverse Reaction (Unknown, Verified 06/20/23 14:31) Unknown trazodone Adverse Reaction (Unknown, Verified 06/20/23 14:31) Unknown Latex Gloves Allergy (Severe, Uncoded 06/20/23 14:31) Rash Fenofibric Acid Adverse Reaction (Unknown, Uncoded 06/20/23 14:31) Stomach pain/cramping HPI HPI Comments History of Present Illness Details ?Mary HUTCHINS is a very pleasant female. They are a patient of Dr Fernandez. They are seen in the office today for the following urologic conditions. - nephrolithiasis Follow-up for hormone lab assessment - 04/10 T 17, AST 35, Ferritin 269, E <2 CT scan with collection of 6 mm stones in left renal pelvis Recommend intervention Nephrolithiasis/Urolithiasis:? They are here for?further evaluation of nephrolithiasis, ?- left 1cm stone x2 ?- hematuria ?- s/p gastric bypass 2007 ?- no stones on follow-up.? Urolithiasis was diagnosed?09/2018 ?- prior gastric bypass.? The patient previously had kidney stones whose composition w?10/06 , calcium oxalate - monohydrate, uric acid core.? Laboratory investigations include?12/07, Normocalcemia (9.0), Normal PTH, Normal uric acid.? 24 Hour urine evaluation?none on file.? Prior treatment(s) include?10/06 , left, ureteroscopy ?11/05 , left, ESWL ?06/06 vitamin B6, 1 TUMS with evening meal.? Prior imaging includes?09/05 CT with 2x 1cm stones on the left ?12/07 , a renal ultrasound left 6mm stone ?06/06 , a renal ultrasound bilateral renal cysts. No stones. ?06/07 , a renal ultrasound, bilateral multiple renal cysts up to 3 cm, n o stones.? - 06/08 renal ultrasound, bilateral renal cysts up to 3 cm - stones left lower pole - 09/09 renal ultrasound, bilateral renal cysts, stones left lower pole 8 mm ? Current therapeutic plan will be?to perform metabolic evaluation, General advice to maintain good fluid intake for urine greater than 1.5 L per day, reduce salt and reduce protein and acid loads was provided..? [facility] Medical History (Updated 06/04/23 @ 15:00 by Tomas Carlisle MD) Anxiety and depression Diverticulitis DJD (degenerative joint disease) Hyperlipidemia Hypertension Pulmonary fibrosis Recurrent UTI Scoliosis Surgical History H/O gastric bypass H/O lithotripsy History of History of cholecystectomy Hx of breast reduction, elective S/P panniculectomy Family History Father Heart disease Mother Heart disease Pulmonary fibrosis Sister Heart disease Sister Pulmonary fibrosis Brother Pulmonary fibrosis Daughter Mental health disorder Substance use disorder Social History Household Members: Spouse Housing: Apartment Are you a primary director critical care to a significant other at home: No Do you presently have visiting nurse or other home services: No Alcohol intake: never Patient Tobacco Use Status: Former Tobacco user Quit Date: 11/19/22 Years Smoked: 45 e-Cigarette/Vaping Use: Never Used Second Hand Smoke Exposure: No Substance Use Type: Marijuana Advance Directives Date on File: 08/16/22 service: No Current occupational status: disabled 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 Cognitive needs: No Hearing needs: No Vision needs: No Review of Systems Const Denies chills and Denies fever(s) Card Reports no additional complaints and Denies syncope Resp Denies cough GI Denies abdominal pain and Denies heartburn Reports as per HPI and Denies change in libido Neuro Denies syncope Psych Denies change in libido Endo Denies change in libido Physical Exam Const General: cooperative, healthy appearing, comfortable and no acute distress Orientation/consciousness: patient oriented x3 HEENT Face and sinus: Yes normal facial exam Mouth: moist mucous membranes Neck Neck: Yes normal visual inspection, Yes full ROM and Yes trachea midline Chest Chest palpation & inspection: normal inspection of the chest Resp Effort & Inspection: normal respiratory effort, able to speak in complete sentences and no respiratory distress GI Inspection: Yes normal to inspection Back/Spine/Pelvis Cervical Spine: normal cervical lordosis Thoracic/Lumbar Spine: thoracic and lumbar spine normal to inspection Skin General skin exam: no rashes or lesions noted Neuro General: patient oriented x3, gait normal, tone normal and moves all extremities Extrem General: Yes normal to inspection and Yes capillary refill normal Results AMB Urinalysis, Automated UA Leukoctes 0 Jacinto/uL Last Edit by Ashley Richmond [facility] on 06/20/23 14:32 UA Nitrite Positive Last Edit by Ashley Richmond [facility] on 06/20/23 14:32 UA Urobilinogen 0.2 mg/dL Last Edit by Ashley Richmond [facility] on 06/20/23 14:3 2 UA Protein 100 mg/dL Last Edit by Ashley Richmond [facility] on 06/20/23 14:32 UA pH 6.0 Last Edit by Ashley Richmond [facility] on 06/20/23 14:32 UA Blood 25 Marty/uL Last Edit by Ashley Richmond [facility] on 06/20/23 14:32 UA Specific Hoopa 1.025 Last Edit by Ashley Richmond [facility] on 06/20/23 14: 32 UA Ketone Negative Last Edit by Ashley Richmond [facility] on 06/20/23 14:32 UA Bilirubin 0 mg/dL Last Edit by Ashley Richmond [facility] on 06/20/23 14:32 UA Glucose 0 mg/dL Last Edit by NHUNG Black on 06/20/23 14:32 Results Reviewed Results Reviewed: Laboratory Last Values Urine pH (Auto) 6.0 06/20/23 14:27 Specific Hoopa (Auto) 1.025 06/20/23 14:27 Urine Protein (Auto) 100 mg/dL 06/20/23 14:27 Glucose (UA)(Auto) 0 mg/dL 06/20/23 14:27 Urine Ketones (Auto) Negative 06/20/23 14:27 Urine Blood (Auto) 25 Marty/uL 06/20/23 14:27 Urine Nitrite (Auto) Positive 06/20/23 14:27 Urine Bilirubin (Auto) 0 mg/dL 06/20/23 14:27 Urine Urobilinogen (Auto) 0.2 mg/dL 06/20/23 14:27 Leukocyte Esterase (Auto) 0 Jacinto/uL 06/20/23 14:27 Assessment & Plan Assessment & Plan (1) Bilateral nephrolithiasis: Code(s): N20.0 - Calculus of kidney (2) Chronic UTI (urinary tract infection): Code(s): N39.0 - Urinary tract infection, site not specified Plan Ureteroscopy We discussed the nature of the decision and reasonable alternatives for performing ureteroscopy. Options such as medical therapy were discussed. Interventions include chemical dissolution, ESWL, ureteroscopy with laser lithotripsy and stent placement, PCNL. The relative uncertainties and benefits related to each alternate procedure were adequately discussed. General surgical risks including, but not limited to - pain, bleeding, infection, myocardial infarction, pulmonary embolus, deep vein thrombosis and cerebrovascular accident which may result in further hospitalization were discussed. Full disclosure of the procedure as well as all major risks, benefits and complications were discussed including but not limited to damage to the urethra, bladder and kidney infection, damage to the ureter, stent migration or malposition, scarring to the renal pelvis, remnant stone fragments, subsequent stone passage with need for secondary procedures. The overall secondary procedure rate is approximately 10-15%. The overall clearance rate is approximately 90-95%. Success of the procedure in the short-term does not necessarily guarantee that long-term success will be maintained. Suitable follow up will need to be maintained. The patient showed understanding of discussion and wishes to proceed with - cystoscopy, retrograde, ureteroscopy, possible lithotripsy/stone basketing and stent on the left side Orders: Orders Urine Culture Today N39.0 - Urinary tract infection, site not specified Urine Cytology Today R31.9 - Hematuria, unspecified AMB Urinalysis Automated Today R31.9 - Hematuria, unspecified, Z13.9 - Encounter for screening, unspecified Patient Instructions: Imaging studies, laboratory and physical exam results were discussed and reviewed in detail. No major barriers to patient understanding were identified. An opportunity to ask questions regarding the treatment plan was provided. All questions were answered. The patient expressed understanding and agreement with the above treatment plan. The patient is aware they should contact our office by phone for worsening of their current condition or the appearance of new urologic symptoms. Compliance is encouraged with any medications and followup testing that is ordered. It is a privilege to participate in the urologic care of your patient. If you have any questions or concerns regarding treatment for the above conditions, or other urologic issues, please do not hesitate to contact me. The office telephone contact is [phone]. This note is constructed using voice recognition software. While every effort has been made to ensure accuracy liquid chlorine operator errors may have been included. Yours sincerely, Dr Blake Christie MD, [facility] - Urology Providers of Expert, Compassionate Care for the Genitourinary System Coding Level of Care Code Est Pt Level 4 (96928) Diagnoses Bilateral nephrolithiasis N20.0 Chronic UTI (urinary tract infection) N39.0
== END 2023-06-20 15:01 | disposition home or self-care (01) ==
PROVIDERS: Visit Provider Urology
DX: N20.0 Calculus of kidney (principal); N39.0 Urinary tract infection, site not specified
CPT/HCPCS: 99214

== ENCOUNTER 2023-06-20 14:13 | Outpatient (REF) | payer MEDICARE, MEDICAID, SELFPAY ==
[2023-06-20 16:21] LABS: Urine Cytology See Pathology rpt
== END 2023-06-20 14:14 | disposition home or self-care (01) ==
LOC: HO.LAB 14:13
PROVIDERS: Visit Provider Urology
DX: R31.9 Hematuria, unspecified (principal); N20.0 Calculus of kidney; N39.0 Urinary tract infection, site not specified
CPT/HCPCS: 87086; 87088; 87186; 88112; 99212

== ENCOUNTER 2023-07-03 10:30 | Outpatient (REF) | payer MEDICARE, SELFPAY ==
[2023-07-03 14:14] LABS: Alanine Aminotransferase 65 U/L (0-31); Albumin Level 3.7 g/dL (3.5-5.0); Alkaline Phosphatase 95 U/L (39-117); Anion Gap 13 (12-20); Aspartate Amino Transferase 92 U/L (5-31); Bilirubin Total 0.6 mg/dL (0.0-1.0); Blood Urea Nitrogen 15 mg/dL (9-16); Calcium 9.5 mg/dL (8.4-10.2); Carbon Dioxide 27 mmol/L (22-29); Chloride 105 mmol/L (96-108); Cholesterol 143 mg/dL; Estimated Glomerular Filt Rate 56; Glucose Fasting 115 mg/dL (60-99); HDL Cholesterol 40 mg/dL; LDL Cholesterol Calculated 56 mg/dl; Potassium 4.3 mmol/L (3.3-5.1); Sodium 141 mmol/L (135-145); Total Protein 6.9 g/dL (6.5-8.0); Triglycerides 236 mg/dL
[2023-07-03 14:31] LABS: TSH reflex Free T4 2.21 uIU/mL (0.32-4.0)
== END 2023-07-03 10:31 | disposition home or self-care (01) ==
LOC: HO.HMGCLDS 10:30
PROVIDERS: PCP Nurse Practitioner Family; Visit Provider Nurse Practitioner Family
DX: E11.9 Type 2 diabetes mellitus without complications (principal)
CPT/HCPCS: 36415; 80053; 80061; 84443

== ENCOUNTER 2023-07-04 12:56 | Outpatient (AMB) | payer MEDICARE, MEDICAID, SELFPAY ==
[2023-07-04 13:10] VITALS: BP 136/80; PULSE 90; O2SAT 95; BMI 36.9
--- NOTE | 2023-07-04 13:10 | MHC.PC.OV ---
Vital Signs 07/04/23 13:10 Height 5 ft 4 in Weight 215 lb BMI 36.9 BP 136/80 Blood Pressure Location Rt brachial Position Sitting Pulse 90 Pulse Source Pulse Oximeter Pulse Oximetry (%) 95 Oxygen Delivery Method Room Air Intake Visit Reasons: 4 month follow up Allergies morphine [MORPHINE] Allergy (Severe, Verified 07/04/23 13:37) SEVERE SHAKING, N/V latex [LATEX] Allergy (Intermediate, Verified 07/04/23 13:37) RASH amoxicillin [From AUGMENTIN] Allergy (Unknown, Verified 07/04/23 13:37) SEVERE DIARRHEA ciprofloxacin [CIPROFLOXACIN] Allergy (Unknown, Verified 07/04/23 13:37) SEVERE DIARRHEA clavulanic acid [From AUGMENTIN] Allergy (Unknown, Verified 07/04/23 13:37) SEVERE DIARRHEA baclofen Adverse Reaction (Unknown, Verified 07/04/23 13:37) Unknown trazodone Adverse Reaction (Unknown, Verified 07/04/23 13:37) Unknown Latex Gloves Allergy (Severe, Uncoded 07/04/23 13:37) Rash Fenofibric Acid Adverse Reaction (Unknown, Uncoded 07/04/23 13:37) Stomach pain/cramping Medication List - Last Reconciled 07/04/23 by GARY Neff- alcohol swabs (Alcohol Prep Pads) 1 pad topical TID 30 days blood sugar diagnostic Use to check fasting blood sugar once daily or if needed for signs/symptoms of hypo/hyperglycemia blood-glucose meter (Kintera Ultra2 Meter) Use to check fasting blood sugar once daily or if needed for signs/symptoms of hypo/hyperglycemia buspirone 15 mg PO BID estradiol 0.01%(0.1mg/gram) vaginally 3 times a week; pea sized amount to urethra 3 times a week 30 days gabapentin 600 mg (2 x 300 mg) PO TID 30 days gabapentin 400 mg PO TID lancets ([employer] Chocolate CompanyTouch Delica Lancets) Use to check fasting blood sugar once daily or if needed for signs/symptoms of hypo/hyperglycemia lancets (OneTouch Delica Plus Lancet) daily latanoprost 0.005% 1 drp ophthalmic (eye) DAILY metoprolol tartrate 50 mg PO BID omega-3 acid ethyl esters 1 cap PO BID omeprazole 40 mg PO BID 90 days rosuvastatin 20 mg PO DAILY sertraline 100 mg PO DAILY 90 days sumatriptan succinate 100 mg PO DAILY PRN 35 days Tobacco use date assessed: 07/04/23 Fall risk assessment: No Falls in past year Last assessed Fall Risk: 07/04/23 Dental Screening Dental Screen Date: 07/04/23 Did you have a dental visit in the last 12 months?: No Did you have a dental problem in the last 6 months where you did not have access to dental care?: No Was dental information given to patient?: No HPI 4 month follow up HPI Details Pt is a diabetic, on a statin. A1c in office is 6.1. Due for microalbumin, will order. Denies polyuria, polydipsia, and neuropathy. Pt denies any signs and symptoms of hypoglycemia and does know how to correct it. Pt does not check her blood sugar, I'm not a diabetic. Labs have resulted, trigs still elevated, will increase omega 3s. PFSH Medical History Anxiety and depression Diverticulitis DJD (degenerative joint disease) Hyperlipidemia Hypertension Pulmonary fibrosis Recurrent UTI Scoliosis Surgical History H/O gastric bypass H/O lithotripsy History of History of cholecystectomy Hx of breast reduction, elective S/P panniculectomy Family History Father Heart disease Mother Heart disease Pulmonary fibrosis Sister Heart disease Sister Pulmonary fibrosis Brother Pulmonary fibrosis Daughter Mental health disorder Substance use disorder Social History Household Members: Spouse Housing: Apartment Are you a primary child day care center worker to a significant other at home: No Do you presently have visiting nurse or other home services: No Alcohol intake: never Patient Tobacco Use Status: Former Tobacco user Quit Date: 11/19/22 Years Smoked: 45 e-Cigarette/Vaping Use: Never Used Second Hand Smoke Exposure: No Substance Use Type: Marijuana Advance Directives Date on File: 08/16/22 service: No Current occupational status: disabled 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 Boo Rios, Aranza Jackson, Milind Roy and colleagues, with an educational keira from [employer]. Review of Systems Const Reports as per HPI Physical exam (Primary Care) Vital Signs: Last Vital Signs Pulse 90 07/04/23 13:10 BP 136/80 07/04/23 13:10 Pulse Ox 95 07/04/23 13:10 Oxygen Delivery Method Room Air 07/04/23 13:10 BMI result Body Mass Index 36.9 Tobacco/Smoking Status: Tobacco use Status Tobacco use date assessed 07/04/23 07/04/23 13:18 Patient Tobacco Use Status Former Tobacco user 07/04/23 13:11 e-Cigarette/Vaping Use Never Used 07/04/23 13:11 Thrive Assessment: Date of Thrive Assessment Date Thrive assessed 11/30/22 07/04/23 13:11 Const General: cooperative Nutritional Appearance: obese Orientation/consciousness: patient oriented x3 Resp Other: right sided wheezes noted Effort & Inspection: normal respiratory effort Cardio Rate: regular rate Rhythm: regular rhythm Heart sounds: S1 normal heart sound present and S2 normal heart sound present Neuro General: patient oriented x3 Extrem Other: bilat feet: + sensation with use of monofilament Psych Appearance: grossly normal Mental Status: mental status grossly normal Speech and movement: Normal speech and movement present Affect: normal affect Attitude: cooperative Thought process: Normal thought process present Thought content: Normal thought content present Insight: Good insight present (Psych) Judgement: Good judgement present (Psych) Results AMB Hemoglobin A1c AMB Hemoglobin A1c 6.1 % Last Edit by Mary Carmen Cao CMA on 07/04/23 13:35 Results Reviewed Results Reviewed: Laboratory Last Values Hgb A1c (Clinic) 6.1 % (4.0-6.0) H 07/04/23 13:32 Assessment and Plan Assessment & Plan (1) Type 2 diabetes mellitus without complications: Code(s): E11.9 - Type 2 diabetes mellitus without complications Plan: Microalbumin ordered Plan The patient agreed to the use of a medical office secretary for this encounter. Scribed for ANDREA Covarrubias by ga Acevedo scribe, on 07/04/2023 at 13:25 EST. Orders: Orders Microalbumin, Random (w Creat) Today E11.9 - Type 2 diabetes mellitus without complications AMB Hemoglobin A1c Today E11.9 - Type 2 diabetes mellitus without complications Medications: Changed From omega-3 acid ethyl esters 1 cap PO BID 180 caps 1RF To omega-3 acid ethyl esters 2 caps PO BID 360 caps 1RF 90 days Coding Level of Care Code Est Pt Level 3 (12433) Diagnoses Type 2 diabetes mellitus without complications E11.9
== END 2023-07-04 14:20 | disposition home or self-care (01) ==
PROVIDERS: PCP Nurse Practitioner Family; Visit Provider Nurse Practitioner Family
DX: E11.9 Type 2 diabetes mellitus without complications (principal)
CPT/HCPCS: 83036; 99213

== ENCOUNTER 2023-07-17 13:00 | Outpatient (REF) | payer MEDICARE, SELFPAY ==
[2023-07-17 17:31] LABS: Creatinine Urine 79.23 mg/dL
== END 2023-07-17 13:01 | disposition home or self-care (01) ==
LOC: HO.HMGCLNP 13:00
PROVIDERS: PCP Nurse Practitioner Family; Visit Provider Nurse Practitioner Family
DX: E11.9 Type 2 diabetes mellitus without complications (principal)
CPT/HCPCS: 82043

== ENCOUNTER → 2023-08-20 11:21 | Outpatient (BNV) | payer MEDICARE, MEDICAID, SELFPAY | PROVIDERS: PCP Nurse Practitioner Family; Visit Provider Urology | DX: N20.0 Calculus of kidney (principal) | CPT/HCPCS: 52356; 74420; 99238 ==

== ENCOUNTER 2023-08-20 20:35 | Inpatient (IN) | payer MEDICARE, MEDICAID, SELFPAY ==
[2023-08-16 10:27] VITALS: BMI 36.9
--- NOTE | 2023-08-17 10:04 | P.CONAN_ITS ---
Documented by User: Sole Keller NP 08/17/23 10:07 HPI - Anesthesia Eval Consult details Narrative: 67yo F for Cystoscopy, Ureteroroscopy, Retro, Laser with poss stent,flexible scope PMFSH Active Problems Active Problems: All Active Problems (Updated 08/16/23 @ 10:23 by Karon Hunter RN) Microalbuminuria (Acute) Genitourinary syndrome of menopause (Acute) Chronic UTI (urinary tract infection) (Acute) Urinary tract infection (Acute) Microhematuria (Acute) Hematuria (Acute) Dysuria (Acute) Loss of hearing (Acute) Postmenopausal (Acute) Right hip pain (Acute) Low back pain (Acute) Right flank pain (Acute) High triglycerides (Acute) Pain (Acute) Hypertensive renal disease (Acute) Bilateral nephrolithiasis (Acute) Encounter for annual wellness visit (AWV) in Medicare patient (Acute) Right ankle injury (Acute) Right ankle pain (Acute) Non-rheumatic aortic stenosis (Acute) Type 2 diabetes mellitus without complications (Acute) Morbid obesity (Acute) Other and unspecified hyperlipidemia (Acute) Essential hypertension (Acute) Precordial chest pain (Acute) Left bundle branch block (Acute) Right ankle pain (Acute) Chest discomfort (Acute) Iron deficiency anemia (Acute) DJD (degenerative joint disease) (Acute) Past Medical History Medical History (Updated 08/16/23 @ 10:23 by Karon Hunter RN) Aortic stenosis Diabetes Diverticulitis Scoliosis Pulmonary fibrosis Recurrent UTI DJD (degenerative joint disease) Hyperlipidemia Anxiety and depression Hypertension Family History Family History Father Heart disease Mother Heart disease Pulmonary fibrosis Sister Heart disease Sister Pulmonary fibrosis Brother Pulmonary fibrosis Daughter Mental health disorder Substance use disorder Surgical History Surgical History (Updated 08/16/23 @ 10:19 by Karon Hunter RN) Hx of left breast biopsy History of esophagogastroduodenoscopy (EGD) H/O colonoscopy Hx of cystoscopy H/O lithotripsy History of cholecystectomy History of Hx of breast reduction, elective S/P panniculectomy H/O gastric bypass Social History Social History Household Members: Spouse Housing: Apartment Are you a primary healthcare market consultant to a significant other at home: No Do you presently have visiting nurse or other home services: No Alcohol intake: never Patient Tobacco Use Status: Former Tobacco user Quit Date: 2019 Years Smoked: 45 e-Cigarette/Vaping Use: Never Used Second Hand Smoke Exposure: No Use of substances other than those prescribed or required for medical reasons: Yes Substance Use Type: Marijuana Are you DNR?: No Advance Directives: No Advance Directives Information Provided: Yes Advance Directives Date on File: 08/16/22 service: No Current occupational status: disabled 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 Cognitive needs: No Hearing needs: No Vision needs: No Meds Allergies Allergy/AdvReac Type Severity Reaction Status Date / Time latex [LATEX] Allergy Severe RASH Verified 08/16/23 10:21 morphine [MORPHINE] Allergy Severe SEVERE Verified 07/04/23 13:37 SHAKING, N/V amoxicillin [From AUGMENTIN] Allergy Unknown SEVERE Verified 07/04/23 13:37 DIARRHEA ciprofloxacin [CIPROFLOXACIN] Allergy Unknown SEVERE Verified 07/04/23 13:37 DIARRHEA clavulanic acid Allergy Unknown SEVERE Verified 07/04/23 13:37 [From AUGMENTIN] DIARRHEA fenofibrate AdvReac Intermediate stomach Verified 08/16/23 10:13 pain/cramping baclofen AdvReac Unknown Unknown Verified 07/04/23 13:37 trazodone AdvReac Unknown Unknown Verified 07/04/23 13:37 Home Medications Medication Instructions Recorded Confirmed Last Taken Type latanoprost 0.005 % eye drops 1 drp ophthalmic (eye) DAILY 08/07/22 08/16/23 Unknown History gabapentin 400 mg capsule 400 mg PO TID 03/20/23 07/04/23 Unknown History Exam Exam Date and Time: August 17, 2023 1004 Height,Weight and Vital Signs: Height 5 ft 4 in Weight 97.522 kg Pertinent Lab Results Pertinent Lab Results: Laboratory Tests 06/04/23 07/03/23 14:54 10:35 WBC 7.0 Hgb 13.1 D Hct 43.1 D Plt Count 220 Sodium 141 Potassium 4.3 Chloride 105 Carbon Dioxide 27 BUN 15 Creatinine 0.98 Narrative Narrative: EKG 02/2023 Vent. Rate : 108 BPM Atrial Rate : 108 BPM P-R Int : 152 ms QRS Dur : 130 ms QT Int : 376 ms P-R-T Axes : 063 -50 115 degrees QTc Int : 503 ms Sinus tachycardia Left axis deviation Left bundle branch block Abnormal ECG When compared with ECG of 18-AUG-2017 13:41, Vent. rate has increased BY 43 BPM Left bundle branch block is now Present ECHO 2021 Conclusions: - 1. Normal LV systolic function with impaired relaxation filling pattern 2. [id number]-ca-[id number] aortic stenosis 3. No gross pericardial effusion NM david perf SPECT rest & str 2020 Impression: 1. Myocardial perfusion imaging study shows likely normal myocardial perfusion. No definitive evidence of any ischemia or infarction. 2. Gated LVEF is 56% during stress and 55% during rest. 3. Transient ischemic dilatation not present. EKG component of the test reported separately. Assessment and Plan Assessment Anesthesia Assessment: Chart Reviewed Documented by User: Jordan Delcid MD 08/20/23 13:12 [facility] Active Problems Active Problems: All Active Problems (Updated 08/16/23 @ 10:23 by Karon Hunter RN) Microalbuminuria (Acute) Genitourinary syndrome of menopause (Acute) Chronic UTI (urinary tract infection) (Acute) Urinary tract infection (Acute) Microhematuria (Acute) Hematuria (Acute) Dysuria (Acute) Loss of hearing (Acute) Postmenopausal (Acute) Right hip pain (Acute) Low back pain (Acute) Right flank pain (Acute) High triglycerides (Acute) Pain (Acute) Hypertensive renal disease (Acute) Bilateral nephrolithiasis (Acute) Encounter for annual wellness visit (AWV) in Medicare patient (Acutep) Right ankle injury (Acute) Right ankle pain (Acute) Non-rheumatic aortic stenosis (Acute) Type 2 diabetes mellitus without complications (Acute) Morbid obesity (Acute) Other and unspecified hyperlipidemia (Acute) Essential hypertension (Acute) Precordial chest pain (Acute) Left bundle branch block (Acute) Right ankle pain (Acute) Chest discomfort (Acute) Iron deficiency anemia (Acute) DJD (degenerative joint disease) (Acute) Past Medical History Medical History (Updated 08/16/23 @ 10:23 by Karon Hunter RN) Aortic stenosis Diabetes Diverticulitis Scoliosis Pulmonary fibrosis Recurrent UTI DJD (degenerative joint disease) Hyperlipidemia Anxiety and depression Hypertension Family History Family History Father Heart disease Mother Heart disease Pulmonary fibrosis Sister Heart disease Sister Pulmonary fibrosis Brother Pulmonary fibrosis Daughter Mental health disorder Substance use disorder Family history of problems with anesthesia: No Surgical History Surgical History (Updated 08/16/23 @ 10:19 by Karon Hunter RN) Hx of left breast biopsy History of esophagogastroduodenoscopy (EGD) H/O colonoscopy Hx of cystoscopy H/O lithotripsy History of cholecystectomy History of Hx of breast reduction, elective S/P panniculectomy H/O gastric bypass History of Problems with Anesthesia: No Social History Social History Household Members: Spouse Housing: Apartment Are you a primary healthcare market consultant to a significant other at home: No Do you presently have visiting nurse or other home services: No Alcohol intake: never Patient Tobacco Use Status: Former Tobacco user Quit Date: 2019 Smoked: 45 e-Cigarette/Vaping Use: Never Used Second Hand Smoke Exposure: No Use of substances other than those prescribed or required for medical reasons: Yes Substance Use Type: Marijuana Are you DNR?: No Advance Directives: No Advance Directives Information Provided: Yes Advance Directives Date on File: 08/16/22 service: No Current occupational status: disabled 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 Cognitive needs: No Hearing needs: No Vision needs: No Meds Allergies Allergy/AdvReac Type Severity Reaction Status Date / Time latex [LATEX] Allergy Severe RASH Verified 08/16/23 10:21 morphine [MORPHINE] Allergy Severe SEVERE Verified 07/04/23 13:37 SHAKING, N/V amoxicillin [From AUGMENTIN] Allergy Unknown SEVERE Verified 07/04/23 13:37 DIARRHEA ciprofloxacin [CIPROFLOXACIN] Allergy Unknown SEVERE Verified 07/04/23 13:37 DIARRHEA clavulanic acid Allergy Unknown SEVERE Verified 07/04/23 13:37 [From AUGMENTIN] DIARRHEA fenofibrate AdvReac Intermediate stomach Verified 08/16/23 10:13 pain/cramping baclofen AdvReac Unknown Unknown Verified 07/04/23 13:37 trazodone AdvReac Unknown Unknown Verified 07/04/23 13:37 Home Medications Medication Instructions Recorded Confirmed Last Taken Type latanoprost 0.005 % eye drops 1 drp ophthalmic (eye) DAILY 08/07/22 08/16/23 Unknown History gabapentin 400 mg capsule 400 mg PO TID 03/20/23 07/04/23 Unknown History Exam Airway Mallampati Class: I TM Dist: >3cm Neck ROM: Full Denture: Upper and Lower Heart: ok. see above. Lungs: ok Assessment and Plan Assessment Anesthesia Assessment: Anesthesia Plan Discussed Final Anesthetic Review Family History of Problems with Anesthesia: No History of Problems with Anesthesia: No NPO: Yes ASA Class: III Final Preanesthetic Review: No Changes in Pt Med Stat, Meds/Allgs Chart Reviewed, Consent Obtained/Reviewed and Anes Risks/Benef Reviewed Patient Risk: Intermediate Procedure Risk: Low Anesthetic Plan Anesthetic Plan: GA and Agree w/ Assess. and Plan Disposition: Standard PACU
[2023-08-20] VITALS (37 sets, daily range): BP systolic 107–140; BP diastolic 46–82; PULSE 66–97; RESP 13–22; TEMP 36–36.2; O2SAT 90–96; BMI 37.8; BMI 37.5
--- NOTE | ~2023-08-20 | FL_ITS ---
EXAMINATION: XR FLUOROSCOPY WITH IMAGES CLINICAL INFORMATION: Stone, left. COMPARISON: CT of the abdomen and pelvis March 2023 TECHNIQUE: Fluoroscopy Supervised By: Dr. Blake Christie. Fluoroscopy Time: 30.5 seconds. Cumulative Dose: 10.32 mGy. DAP: Gycm2. Images: 2. FINDINGS: Images demonstrate mild left hydronephrosis. There are multiple filling defects in the left renal collecting system suggestive of stones. Final image demonstrates the proximal end of a left internal ureteral stent. FL/FL guidance in OR IMPRESSION: Fluoroscopy guidance for urology procedure.
--- NOTE | 2023-08-20 12:40 | P.HPSUR_ITS ---
Pre-Procedural Eval Section A Date of Service: 08/20/23 The patient is an INPATIENT: No Changes since office visit: No Cold of Flu in the past 2 weeks, No New Medical Problems, No Changes in Medication and No Patient answered all questions The History & Physical has been completed within 30 days and I have reviewed it.: No Section B Chief Complaint: Calculus of kidney Details of Present Illness: Left?renal?stones Relevant Family History (Specify if Yes): No Relevant Social History: None Present Medications: see Short Stay Collaborative assessment Medical History: No relevant PMH History of Previous Operations: Relevant previous surgery/procedure and date(s) Allergies: Allergies Allergy/AdvReac Type Severity Reaction Status Date / Time latex [LATEX] Allergy Severe RASH Verified 08/16/23 10:21 morphine [MORPHINE] Allergy Severe SEVERE Verified 07/04/23 13:37 SHAKING, N/V amoxicillin [From AUGMENTIN] Allergy Unknown SEVERE Verified 07/04/23 13:37 DIARRHEA ciprofloxacin [CIPROFLOXACIN] Allergy Unknown SEVERE Verified 07/04/23 13:37 DIARRHEA clavulanic acid Allergy Unknown SEVERE Verified 07/04/23 13:37 [From AUGMENTIN] DIARRHEA fenofibrate AdvReac Intermediate stomach Verified 08/16/23 10:13 pain/cramping baclofen AdvReac Unknown Unknown Verified 07/04/23 13:37 trazodone AdvReac Unknown Unknown Verified 07/04/23 13:37 Review of Systems Sugical H&P ROS: Negative: Constitution, Cardiovascular, Respiratory, Neurological, Psychiatric, Hem-Onc, Allergic/Immunologic, Gastrointestinal, Genitourinary, Musculoskeletal, Integumentary, Endocrine and Eyes/Ears/Nose/Throat Exam Surgical H&P Exam: Normal: HEENT, Normal: Heart, Normal: Lungs, Normal: Extremi ties, Normal: Abdomen, Normal: Skin and Normal: Neurological Plan Diagnosis/Plan: Unchanged (Cystoscopy,?left?retrograde,?left?ureteroscopy,?laser,?stent) I have reviewed the history and physical and performed a pertinent physical examination on my patient. No changes have occurred unless specified. Time Spent With Patient Time: Total time managing care of this patient today ____ minutes.
[2023-08-20] MEDS: Lactated Ringers 1,000 ML 100 ML IVCONT ×2 (12:46→21:23)
--- NOTE | 2023-08-20 14:40 | P.OP_ITS ---
Operative Note Operative Note Date of Service: 08/20/23 Narrative: PreOperative Diagnosis: ?Left?renal?stones? - 9?stones Post Operative Diagnosis: ?Left?renal?stones - 9?x?1?cm?stones Procedure: - cystoscopy, left retrograde - left dilatation of ureteric orifice under fluoroscopy - left ureteroscopy, laser lithotripsy, stone basketing - 200%?longer?than?typical?modifier?22 - left stent placement Surgeon: Dr Blake Christie Anesthesia: General Indications for procedure: Persistent?left?stones.??CT?imaging?with?multiple?left?1?cm?stones.??Minimum?4-5 Procedure: After informed consent was verified patient was brought to the operating placed in supine position. Anesthesia was administered per protocol. Patient was placed in modified dorsal lithotomy position and prepped and draped in a sterile fashion. Safety pause time-out and side of surgery confirmed. Antibiotics confirmed. 22 Filipino cystoscope was inserted per urethra. Bladder was normal in its entirety. Both ureteric orifices were in normal position. The left ureteric orifice was cannulated and a retrograde examination was performed. ?Fill ing?defect?noted?within?left?renal?pelvis?consistent?with?prior?imaging?9?or?mor e?1?cm?stones. A Sensor guidewire was placed up to the level of the renal pelvis under fluoroscopy. The rigid cystoscope was removed and the inner cannula of ureteric access sheath was used under fluoroscopy to dilate the ureteric orifice. The ureteric vacuum?access sheath was placed and the inner cannula with access wire removed. The digital flexible ureteral scope was placed. Stones?were?encountered.??Using?a?372?micron?holmium?laser?fiber?the?stones?were ?broken?using?a?combination?of?popcorn? and?dusting?bettye hnique.??Due?to?the?burden?of?stones?this?took?approximately?90?minutes?which?is ?200%?longer?than?typical. Multiple?calices?were?checked.??The?kidney?was?irrigated?multiple?times.?? Stone?basketing?was?completed?with?multiple?fragments?removed. At the completion of the stone procedure a Sensor wire was placed back into the renal pelvis. A 6 Filipino by 26 cm double-J stent was placed into the renal pelvis and bladder under a combination of fluoroscopy and direct visualization. The symphisis pubis was used as a radiographic marker to release the stent and good coil was seen within the bladder confirming position The bladder was emptied. The patient tolerated the procedure well and was extubated in the operating room, and transferred in stable condition to the recovery area. Pathology: stones Drains: stent as above
[2023-08-20] MEDS: ondansetron HCL 4 MG/2 ML VIAL IVPUSH (14:59)
[2023-08-20] MEDS: fentaNYL citrate/PF 100 MCG/2 ML VIAL 50 MCG IVPUSH ×4 (15:10→16:28)
[2023-08-20] MEDS: Phenazopyridine HCL 100 MG TABLET PO (15:25)
[2023-08-20] MEDS: oxyCODONE HCl Immed Release 5 MG TABLET PO (15:26)
[2023-08-20] MEDS: Acetaminophen 325 MG TABLET 975 MG PO (15:26)
[2023-08-20] MEDS: fentaNYL citrate/PF 100 MCG/2 ML VIAL 25 MCG IVPUSH ×2 (18:31→18:38)
[2023-08-21] MEDS: oxyCODONE HCl Immed Release 5 MG TABLET PO ×2 (01:31→06:04)
[2023-08-21 04:00] VITALS: BP 145/70; PULSE 98; RESP 16; TEMP 36.6; O2SAT 94
[2023-08-21] MEDS: Lactated Ringers 1,000 ML 100 ML IVCONT ×2 (06:06→08:07)
[2023-08-21 07:29] VITALS: BP 144/82; PULSE 63; RESP 17; TEMP 36.4; O2SAT 96
[2023-08-21] MEDS: Acetaminophen 325 MG TABLET 650 MG PO (08:56)
[2023-08-21] MEDS: SUMAtriptan succinate 100 MG TABLET PO (09:10)
--- NOTE | 2023-08-21 10:01 | PHA.MEDREC ---
Pharmacy Consult ? Medication Reconciliation Pharmacy has completed the medication reconciliation. pharmacy has reviewed med rec done by nursing
--- NOTE | 2023-08-21 11:33 | P.DS_ITS ---
DS: Providers Provider Date of Service: 08/21/23 Date of admission: 08/20/23 20:35 Primary care physician: ANDREA Fairbanks DS: Diagnosis Discharge Diagnosis (1) Bilateral nephrolithiasis: Status: Acute DS: Summary Hospital Course Hospital Course: Underwent laser procedure left side kidney stones - remained overnight secondary to anesthesia adverse effects Status at Discharge Functional status at discharge: independent ambulation Overall status at discharge: patient is back to baseline Time Spent with Patient Time attestation: Total time managing care of this patient today ____ minutes. Discharge coordination time: Less than 30 minutes Quality: Safe Use of Opioids Does Pt have an Active Cancer Diagnosis on the Problem List?: No Quality: Stroke Does the patient have a stroke diagnosis?: No Physical Exam Vital Signs: Vital Signs: Last Vital Signs Temp 97.5 F 08/21/23 07:29 Pulse 63 08/21/23 07:29 Resp 17 08/21/23 07:29 BP 144/82 H 08/21/23 07:29 Pulse Ox 96 08/21/23 07:29 O2 Del Method Room Air 08/21/23 07:29 O2 Flow Rate 3 08/21/23 04:00 BMI result Body Mass Index 37.5 DS: Data Data Completed and Pending Pending studies at discharge: Pending at discharge 08/20/23 14:34 Surgical [PTH] Routine Discharge Plan Discharge Anticipated Discharge Date/Time: 08/21/23 13:54 Patient Disposition: Home, Self-Care Discharge Diagnosis: Nephrolithiasis Referrals: [facility] [place] [facility] [Other] - 1 Week (A referral has been sent 08/21/23. They will follow up with you at home.) Blake Christie MD [Physician] - 1 Week Greg Kaba FNP-BC [Primary Care Provider] - None Discharge Medications: New phenazopyridine [Pyridium] 100 mg tablet 100 mg PO TID PRN (Reason: Spasm) 4 Days Qty: 12 0RF sulfamethoxazole-trimethoprim [Bactrim] 400-80 mg tablet 1 tab PO DAILY Qty: 10 0RF tramadol 50 mg tablet 50 mg PO Q6H PRN (Reason: pain (scale score 1-3)) Qty: 8 0RF tamsulosin 0.4 mg capsule 0.4 mg PO BEDTIME 14 Days Qty: 14 0RF Continued (DME) blood-glucose meter [OneTouch Ultra2 Meter] [facility] [place] See Rx Instructions .ROUTE .MEDSUPPLY Qty: 1 0RF Rx Instructions: Use to check fasting blood sugar once daily or if needed for signs/symptoms of hypo/hyperglycemia (DME) lancets [OneTouch Delica Lancets] 30 gauge misc See Rx Instructions .ROUTE .MEDSUPPLY Qty: 100 0RF Rx Instructions: Use to check fasting blood sugar once daily or if needed for signs/symptoms of hypo/hyperglycemia sumatriptan succinate 100 mg tablet 100 mg PO DAILY PRN (Reason: Headache) 35 Days Qty: 35 1RF Rx Instructions: may repeat 1tab after 2 hrs if the first tab does not work (DME) lancets [OneTouch Delica Plus Lancet] 33 gauge misc See Rx Instructions topical DAILY Qty: 100 1RF Rx Instructions: daily (DME) blood sugar diagnostic Strip See Rx Instructions .ROUTE .MEDSUPPLY Qty: 100 0RF Rx Instructions: Use to check fasting blood sugar once daily or if needed for signs/symptoms of hypo/hyperglycemia sertraline 100 mg tablet 100 mg PO DAILY 90 Days Qty: 90 2RF buspirone 15 mg tablet 15 mg PO BID Qty: 180 1RF metoprolol tartrate 50 mg tablet 50 mg PO BID Qty: 180 1RF estradiol 0.01 % (0.1 mg/gram) cream See Rx Instructions vaginal 3XW 30 Days Qty: 42.5 3RF Rx Instructions: vaginally 3 times a week; pea sized amount to urethra 3 times a week gabapentin 300 mg capsule 600 mg PO TID 30 Days Qty: 180 2RF rosuvastatin 20 mg tablet 20 mg PO DAILY Qty: 90 1RF latanoprost 0.005 % drops 1 drp ophthalmic (eye) BEDTIME omeprazole 40 mg capsule,delayed release(DR/EC) 40 mg PO BID@0630,1630 omega-3 acid ethyl esters 1 gram capsule 2 cap PO BID 90 Days Qty: 360 1RF Discharge Orders: Discharge Order (Routine); Ordered 08/20/23 Ordered By: Blake Christie Diet: Advance to usual diet Activity on Discharge: As tolerated Care Plan Goals: Nephrolithiasis Health Concerns: Nephrolithiasis Plan of Treatment: Nephrolithiasis Assessment: Nephrolithiasis Patient Instructions: Ureteroscopy (CANDELARIO)
[2023-08-21 11:48] VITALS: O2SAT 94
[2023-08-21 12:53] VITALS: O2SAT 95
--- NOTE | 2023-08-21 13:28 | MHC.CM.PN ---
IMM 08/21/23 Patient lives with . She is independent with ADLs. She receives Home making services through [facility]. Patient received the Family resource guide and 413 card. Patient's insurance Renee Pena is not active. A referral has been sent to [facility]. Patient is discharged today to home self care. She has arranged for her to provide transport home.
--- NOTE | 2023-08-22 06:57 | HO.POSTANES ---
Post Anesthesia Evaluation Post Anesthesia Evaluation Date of Service: 08/21/23 Vital Signs: Patient see at 715am on 08/21/23 for post-op anesthesia evaluation Vitals: 144/82, 68, 17, 97.5F, 96%RA Anesthesia: General Mental Status: Awake Pain Control: Satisfactory Nausea/Vomiting: None Hydration: Adequate Anesthesia-Related Issues: No Anes. Related Issues
[2023-08-28 00:44] LABS: Stone Source KIDNEY STONE
== END 2023-08-21 14:28 | disposition home or self-care (01) | DRG 661 ==
LOC: HO.S3 20:36
PROVIDERS: Admitting Provider Urology; PCP Nurse Practitioner Family; Visit Provider Urology
PROC: 0T778DZ Dilation of Left Ureter with Intraluminal Device, Via Natural or Artificial Opening Endoscopic (ICD-10-PCS; CPT 52356; principal; 2023-08-20 13:00)
DX: N20.0 Calculus of kidney (principal); Z98.84 Bariatric surgery status; Z91.040 Latex allergy status; Z79.899 Other long term (current) drug therapy
CPT/HCPCS: 52356; 82365; 88300; 96361; 96374; 96375; 96376; C1758; C1769; C2617; J1580; J2405; J3010; Q9967

== ENCOUNTER 2023-08-30 08:56 | Outpatient (AMB) | payer MEDICARE, MEDICAID, SELFPAY ==
--- NOTE | 2023-08-30 08:59 | A.OFFVIS_ITS ---
Intake Intake Visit Reasons: post op, stent removal Intake Note: Patient is Present for Cystoscopy Urology Med: Estradiol, Tamsulosin Antibiotic Allergy: Amoxicillin, Cipro, Blood Thinner: None Pharmacy: [facility] C[facility] lot: [id number] exp:04/01/2025 E Commerce Architect Required: No Accompanied by: Self / Same As Patient Allergies latex [LATEX] Allergy (Severe, Verified 08/30/23 09:00) RASH morphine [MORPHINE] Allergy (Severe, Verified 08/30/23 09:00) SEVERE SHAKING, N/V amoxicillin [From AUGMENTIN] Allergy (Unknown, Verified 08/30/23 09:00) SEVERE DIARRHEA ciprofloxacin [CIPROFLOXACIN] Allergy (Unknown, Verified 08/30/23 09:00) SEVERE DIARRHEA clavulanic acid [From AUGMENTIN] Allergy (Unknown, Verified 08/30/23 09:00) SEVERE DIARRHEA fenofibrate Adverse Reaction (Intermediate, Verified 08/30/23 09:00) stomach pain/cramping baclofen Adverse Reaction (Unknown, Verified 08/30/23 09:00) Unknown trazodone Adverse Reaction (Unknown, Verified 08/30/23 09:00) Unknown HPI HPI Comments History of Present Illness Details ?Mary HUTCHINS is a very pleasant female. They are a patient of Dr Fernandez. They are seen in the office today for the following urologic conditions. - nephrolithiasis Follow-up for hormone lab assessment - 04/10 T 17, AST 35, Ferritin 269, E <2 Here for cysto stent removal 8 week follow-up renal ultrasound Nephrolithiasis/Urolithiasis:? They are here for?further evaluation of nephrolithiasis, ?- left 1cm stone x2 ?- hematuria ?- s/p gastric bypass 2008 ?- no stones on follow-up.? Urolithiasis was diagnosed?09/2018 ?- prior gastric bypass.? The patient previously had kidney stones whose composition w?10/06 , calcium oxalate - monohydrate, uric acid core - 08/11 calcium oxalate monohydrate 80 % ? Laboratory investigations include?12/07, Normocalcemia (9.0), Normal PTH, Normal uric acid.? 24 Hour urine evaluation ? Prior treatment(s) include?10/06 , left, ureteroscopy ?11/05 , left, ESWL ?06/06 vitamin B6, 1 TUMS with evening meal - 08/11 USR left side multiple stones ? Prior imaging includes?09/[address] CT with 2x 1cm stones on the left ?12/07 , a renal ultrasound left 6mm stone ?06/06 , a renal ultrasound bilateral renal cysts. No stones. ?06/07 , a renal ultrasound, bilateral multiple renal cysts up to 3 cm, no stones.? - 06/08 renal ultrasound, bilateral renal cysts up to 3 cm - stones left lower pole - 09/09 renal ultrasound, bilateral renal cysts, stones left lower pole 8 mm ? Current therapeutic plan will be?to perform metabolic evaluation, General advice to maintain good fluid intake for urine greater than 1.5 L per day, reduce salt and reduce protein and acid loads was provided..? PFSH Medical History (Updated 08/16/23 @ 10:23 by Karon Hunter RN) Aortic stenosis Diabetes Diverticulitis Scoliosis Pulmonary fibrosis Recurrent UTI DJD (degenerative joint disease) Hyperlipidemia Anxiety and depression Hypertension Surgical History (Updated 08/16/23 @ 10:19 by Karon Hunter RN) Hx of left breast biopsy History of esophagogastroduodenoscopy (EGD) H/O colonoscopy Hx of cystoscopy H/O lithotripsy History of cholecystectomy History of Hx of breast reduction, elective S/P panniculectomy H/O gastric bypass Family History Father Heart disease Mother Heart disease Pulmonary fibrosis Sister Heart disease Sister Pulmonary fibrosis Brother Pulmonary fibrosis Daughter Mental health disorder Substance use disorder Social History Household Members: Spouse Housing: Apartment Are you a primary home health care respiratory therapist to a significant other at home: No Do you presently have visiting nurse or 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 Information consent for procedure given to the patient. Discussed technical aspects, risks, benefits and alternatives in full. Addressed all of the patient's questions and concerns regarding the procedure. The patient demonstrated knowledge and understanding. They wish to proceed with this procedure. Preparation The patient was prepped in the usual manner. A electronic maintenance supervisor was present and in the room. Genitalia was prepped with betadine solution in a sterile manner. Lidocaine Jelly 2% was placed into the urethra and 16Fr flexible Olympus cystoscope was inserted into the meatus after adequate lubrication. Procedure A well lubricated 16 [place] cystoscope was placed No abnormality noted of urethra during placement Indwelling stent seen within bladder emerging from left ureteric orifices The stent was grasped with a 3 prong grasper and removed without difficulty The patient tolerated the procedure well [id number] with stent removal DISPOSABLE SCOPE URO-G FLEXIBLE SCOPE Procedure code (CPT) selection complete Office Meds lidocaine HCl 2 % mucosal jelly in applicator Performing Provider: Blake Christie MD Performing Location: [facility] Administered by: Guru Brody LPN on 08/30/23 09:30 Dose Route Admin Location Dispensed Lot Number Expiration Date NDC Clerk Supervisor 10 mL intra-urethral 10 mL nitrofurantoin monohydrate/macrocrystals 100 mg capsule Performing Provider: Blake Christie MD Performing Location: [facility] Administered by: Guru Brody LPN on 08/30/23 09:30 Dose Route Admin Location Dispensed Lot Number Expiration Date NDC Clerk Supervisor 100 mg PO 1 cap naproxen 500 mg tablet Performing Provider: Blake Christie MD Performing Location: [facility] Administered by: Guru Brody LPN on 08/30/23 09:30 Dose Route Admin Location Dispensed Lot Number Expiration Date NDC Clerk Supervisor 500 mg PO 1 tab Results AMB Urinalysis, Automated UA Leukoctes 500 Jacinto/uL Last Edit by Ashley Richmond, A on 08/30/23 09:14 UA Nitrite Positive Last Edit by Ashley Richmond, A on 08/30/23 09:14 UA Urobilinogen 8 mg/dL Last Edit by Ashley Richmond, A on 08/30/23 09:14 UA Protein 300 mg/dL Last Edit by Ashley Richmond, A on 08/30/23 09:14 UA pH 5.0 Last Edit by Ashley Richmond, A on 08/30/23 09:14 UA Blood 200 Marty/uL Last Edit by Ashley Richmond, A on 08/30/23 09:14 UA Specific Flushing 1.020 Last Edit by Ashley Richmond, A on 08/30/23 09: 14 UA Ketone Negative Last Edit by Ashley Richmond, A on 08/30/23 09:14 UA Bilirubin 4 mg/dL Last Edit by Ashley Richmond, A on 08/30/23 09:14 UA Glucose 500 mg/dL Last Edit by Ashley Richmond, A on 08/30/23 09:14 Results Reviewed Results Reviewed: Laboratory Last Values Urine pH (Auto) 5.0 08/30/23 09:01 Specific Flushing (Auto) 1.020 08/30/23 09:01 Urine Protein (Auto) 300 mg/dL 08/30/23 09:01 Glucose (UA)(Auto) 500 mg/dL 08/30/23 09:01 Urine Ketones (Auto) Negative 08/30/23 09:01 Urine Blood (Auto) 200 Marty/uL 08/30/23 09:01 Urine Nitrite (Auto) Positive 08/30/23 09:01 Urine Bilirubin (Auto) 4 mg/dL 08/30/23 09:01 Urine Urobilinogen (Auto) 8 mg/dL 08/30/23 09:01 Leukocyte Esterase (Auto) 500 Jacinto/uL 08/30/23 09:01 Assessment & Plan Assessment & Plan (1) Bilateral nephrolithiasis: Code(s): N20.0 - Calculus of kidney Plan 8 week follow-up Orders: Orders AMB Cystoscopy Today N20.0 - Calculus of kidney US renal BI 6 Weeks N20.0 - Calculus of kidney AMB Urinalysis Automated Today Z13.9 - Encounter for screening, unspecified Patient Instructions: Imaging studies, laboratory and physical exam results were discussed and reviewed in detail. No major barriers to patient understanding were identified. An opportunity to ask questions regarding the treatment plan was provided. All questions were answered. The patient expressed understanding and agreement with the above treatment plan. The patient is aware they should contact our office by phone for worsening of their current condition or the appearance of new urologic symptoms. Compliance is encouraged with any medications and followup testing that is ordered. It is a privilege to participate in the urologic care of your patient. If you have any questions or concerns regarding treatment for the above conditions, or other urologic issues, please do not hesitate to contact me. The office telephone contact is [phone]. This note is constructed using voice recognition software. While every effort has been made to ensure accuracy nitroglycerin separator operator errors may have been included. Yours sincerely, Dr Blake Christie MD, [facility] - Urology Providers of Expert, Compassionate Care for the Genitourinary System Coding Level of Care Code Est Pt Level 3 (04096) Diagnoses Bilateral nephrolithiasis N20.0 CPT Codes Cystoscopy - CPT: 31342-[id number] with stent removal ([id number])
== END 2023-08-30 09:43 | disposition home or self-care (01) ==
PROVIDERS: PCP Nurse Practitioner Family; Visit Provider Urology
DX: N20.0 Calculus of kidney (principal); Z96.0 Presence of urogenital implants; Z13.9 Encounter for screening, unspecified
CPT/HCPCS: 52310

== ENCOUNTER → 2023-08-30 08:56 | Outpatient (BNVA) | payer MEDICARE, MEDICAID, SELFPAY | PROVIDERS: PCP Nurse Practitioner Family; Visit Provider Urology | DX: Z48.816 Encounter for surgical aftercare following surgery on the genitourinary system (principal) | CPT/HCPCS: 52310; 81003 ==

== ENCOUNTER 2023-10-15 12:27 | Outpatient (AMB) | payer MEDICARE, MEDICAID, SELFPAY ==
[2023-10-15 12:32] VITALS: BP 124/70; PULSE 73; BMI 37.1
--- NOTE | 2023-10-15 12:32 | A.OFFVIS_ITS ---
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 Required: No Accompanied by: Self / Same As Patient Allergies latex [LATEX] Allergy (Severe, Verified 10/15/23 12:35) RASH morphine [MORPHINE] Allergy (Severe, Verified 10/15/23 12:35) SEVERE SHAKING, N/V amoxicillin [From AUGMENTIN] Allergy (Unknown, Verified 10/15/23 12:35) SEVERE DIARRHEA ciprofloxacin [CIPROFLOXACIN] Allergy (Unknown, Verified 10/15/23 12:35) SEVERE DIARRHEA clavulanic acid [From AUGMENTIN] Allergy (Unknown, Verified 10/15/23 12:35) SEVERE DIARRHEA fenofibrate Adverse Reaction (Intermediate, Verified 10/15/23 12:35) stomach pain/cramping baclofen Adverse Reaction (Unknown, Verified 10/15/23 12:35) Unknown trazodone Adverse Reaction (Unknown, Verified 10/15/23 12:35) Unknown Medication List - Last Reconciled 10/15/23 by Kalin Gomez MD blood sugar diagnostic Use to check fasting blood sugar once daily or if needed for signs/symptoms of hypo/hyperglycemia blood-glucose meter ([employer] Ultra2 Meter) Use to check fasting blood sugar once daily or if needed for signs/symptoms of hypo/hyperglycemia buspirone 15 mg PO BID fluconazole 150 mg PO Q3D gabapentin 400 mg PO TID 30 days lancets ([employer] Delica Lancets) Use to check fasting blood sugar once daily or if needed for signs/symptoms of hypo/hyperglycemia lancets ([employer] Delica Plus Lancet) daily latanoprost 0.005% 1 drp ophthalmic (eye) BEDTIME metoprolol tartrate 50 mg PO BID omega-3 acid ethyl esters 2 caps PO BID 90 days omeprazole 40 mg PO BID@0630,1630 phenazopyridine (Pyridium) 100 mg PO TID PRN rosuvastatin 20 mg PO DAILY sertraline 100 mg PO DAILY 90 days sumatriptan succinate 100 mg PO DAILY PRN tamsulosin 0.4 mg PO BEDTIME HPI HPI Comments History of Present Illness Details Mary returns for follow-up. She has chronic left bundle-branch block as well as non severe aortic stenosis. Overall, she states she is doing fine. No cardiac symptoms specifically but she has aches and pains all over the body. [facility] Medical History (Updated 08/16/23 @ 10:23 by Karon Hunter RN) Aortic stenosis Diabetes Diverticulitis Scoliosis Pulmonary fibrosis Recurrent UTI DJD (degenerative joint disease) Hyperlipidemia Anxiety and depression Hypertension Surgical History (Updated 10/15/23 @ 12:38 by Myah Neely) Hx of left breast biopsy History of esophagogastroduodenoscopy (EGD) H/O colonoscopy Hx of cystoscopy H/O lithotripsy History of cholecystectomy History of Hx of breast reduction, elective S/P panniculectomy H/O gastric bypass Family History Father Heart disease Mother Heart disease Pulmonary fibrosis Sister Heart disease Sister Pulmonary fibrosis Brother Pulmonary fibrosis Daughter Mental health disorder Substance use disorder Household Members: Spouse Housing: Apartment Are you a primary resident care spec to a significant other at home: No Do you presently have visiting nurse 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) Alcohol intake: never Patient Tobacco Use Status: Former Tobacco user Quit Date: 2020 Years Smoked: 45 e-Cigarette/Vaping Use: Never Used Second Hand Smoke Exposure: No Substance Use Type: Marijuana Advance Directives Date on File: 08/16/22 service: No Current occupational status: disabled 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 Cognitive needs: No Hearing needs: No Vision needs: No Review of Systems Const Denies weakness ENT Denies dizziness Card Denies chest pain, Denies chest pain with activity, Denies syncope, Denies rapid heart rate, Denies pedal edema, Denies edema, Denies leg edema, Denies lightheadedness, Denies palpitations, Denies dyspnea, Denies dyspnea on exertion and Denies orthopnea Resp Denies cough, Denies dyspnea and Denies dyspnea on exertion GI Denies hematochezia and Denies change in stool character Musc Denies abnormal gait, Denies muscle cramps, Denies muscle weakness, Denies numbness, Denies radiating pain into limb and Denies tingling Neuro Denies abnormal gait, Denies dizziness, Denies syncope, Denies numbness, Denies tingling and Denies weakness Endo Denies palpitations Physical Exam Vital Signs: Last Vital Signs Pulse 73 10/15/23 12:32 BP 124/70 10/15/23 12:32 BMI result Body Mass Index 37.1 Const General: comfortable and no acute distress Orientation/consciousness: patient oriented x3 HEENT Other: Unremarkable Head: Yes normal to inspection Neck Neck: Yes normal visual inspection Chest Chest palpation & inspection: normal inspection of the chest Resp Auscultation: clear to auscultation bilaterally Cardio Palpation: normal PMI Heart sounds: S1 normal heart sound present, S2 normal heart sound present, no gallops, Murmur heart sound present systolic II/ and at the right sternal border and no rubs GI Palpation (GI): Soft to palpation Back/Spine/Pelvis Other: unremarkable Skin General skin exam: no rashes or lesions noted Neuro General: patient oriented x3 Extrem General: Yes normal to inspection Psych Mental Status: mental status grossly normal Assessment & Plan Assessment & Plan (1) Non-rheumatic aortic stenosis: Code(s): I35.0 - Nonrheumatic aortic (valve) stenosis Plan: Echocardiogram with [id number] aortic stenosis. Can be monitored periodically. (2) Left bundle branch block: Code(s): I44.7 - Left bundle-branch block, unspecified Plan: This has been noted as early as 2016, from [facility] notes. EKGs can be followed periodically. Myocardial perfusion imaging study from 2020 shows likely normal perfusion. (3) Essential hypertension: Code(s): I10 - Essential (primary) hypertension Plan: On Metoprolol. Continue. No changes. (To cancel amlodipine that was sent. Keep Metoprolol unchanged. Patient also has sinus tachycardia history) (4) Morbid obesity: Code(s): E66.01 - Morbid (severe) obesity due to excess calories Plan: Per documentation, weighing as much as 385 lb in the past. Then has lost lot of weight but still obese. Orders: Orders CA echo transthoracic complete 51 Weeks I35.0 - Nonrheumatic aortic (valve) stenosis, I44.7 - Left bundle-branch block, unspecified Medications: Changed From sumatriptan succinate may repeat 1tab after 2 hrs if the first tab does not work 100 mg PO DAILY 35 days PRN 35 tabs 1RF Headache To sumatriptan succinate may repeat 1tab after 2 hrs if the first tab does not work 100 mg PO DAILY PRN From fluconazole 150 mg PO Q3D 2 doses 2 tabs 0RF B49 - Unspecified mycosis, N95.8 - Other specified menopausal and perimenopausal disorders To fluconazole 150 mg PO Q3D B49 - Unspecified mycosis, N95.8 - Other specified menopausal and perimenopausal disorders From phenazopyridine (Pyridium) 100 mg PO TID 4 days PRN 12 tabs 0RF Spasm To phenazopyridine (Pyridium) 100 mg PO TID PRN From tamsulosin 0.4 mg PO BEDTIME 14 days 14 caps 0RF To tamsulosin 0.4 mg PO BEDTIME Discontinued metoprolol tartrate Discontinued Reason: Doctor's Order 50 mg PO BID 180 tabs 1RF Coding Level of Care Code Est Pt Level 4 (25364) Diagnoses Non-rheumatic aortic stenosis I35.0 Left bundle branch block I44.7 Essential hypertension I10 Morbid obesity E66.01
== END 2023-10-15 12:50 | disposition home or self-care (01) ==
PROVIDERS: Visit Provider Internal Medicine
DX: I35.0 Nonrheumatic aortic (valve) stenosis (principal); I44.7 Left bundle-branch block, unspecified; I10 Essential (primary) hypertension; E66.01 Morbid (severe) obesity due to excess calories
CPT/HCPCS: 99214

== ENCOUNTER → 2023-10-15 12:27 | Outpatient (BNVA) | payer MEDICARE, MEDICAID, SELFPAY | PROVIDERS: Visit Provider Internal Medicine | DX: I35.0 Nonrheumatic aortic (valve) stenosis (principal); I44.7 Left bundle-branch block, unspecified; I10 Essential (primary) hypertension; E66.01 Morbid (severe) obesity due to excess calories; Z68.37 Body mass index [BMI] 37.0-37.9, adult | CPT/HCPCS: 99212 ==

== ENCOUNTER 2023-10-18 12:19 | Outpatient (AMB) | payer MEDICARE, MEDICAID, SELFPAY ==
[2023-10-18 12:19] VITALS: BP 132/80; PULSE 80; O2SAT 99; BMI 36.9
--- NOTE | 2023-10-18 12:19 | HO.NEPHOV_ITS ---
HPI HPI Comments History of Present Illness Details Middle-aged man with history of obesity and nephrolithiasis is here for annual follow-up. Today she has no new complaints. She has chronic back pain. She takes gabapentin. She admits to drinking plenty of [employer] iced tea [facility] Medical History (Updated 10/18/23 @ 12:36 by Lee Matias MD) H/O nephrolithotomy with removal of calculi Aortic stenosis Diabetes Diverticulitis Scoliosis Pulmonary fibrosis Recurrent UTI DJD (degenerative joint disease) Hyperlipidemia Anxiety and depression Hypertension Surgical History Hx of left breast biopsy History of esophagogastroduodenoscopy (EGD) H/O colonoscopy Hx of cystoscopy H/O lithotripsy History of cholecystectomy History of Hx of breast reduction, elective S/P panniculectomy H/O gastric bypass Family History Father Heart disease Mother Heart disease Pulmonary fibrosis Sister Heart disease Sister Pulmonary fibrosis Brother Pulmonary fibrosis Daughter Mental health disorder Substance use disorder Social History Household Members: Spouse Housing: Apartment Are you a primary care transition mgr to a significant other at home: No Do you presently have 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) Alcohol intake: never Patient Tobacco Use Status: Former Tobacco user Quit Date: 2019 Years Smoked: 45 e-Cigarette/Vaping Use: Never Used Second Hand Smoke Exposure: No Substance Use Type: Marijuana Advance Directives Date on File: 08/16/22 service: No Current occupational status: disabled 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 Cognitive needs: No Hearing needs: No Vision needs: No Vital Signs 10/18/23 12:19 Height 5 ft 4 in Weight 215 lb BMI 36.9 BP 132/80 Blood Pressure Location Lt brachial Position Sitting Pulse 80 Pulse Source Pulse Oximeter Pulse Oximetry (%) 99 Oxygen Delivery Method Room Air Physical Exam Vital Signs: Last Vital Signs Pulse 80 10/18/23 12:19 BP 132/80 10/18/23 12:19 Pulse Ox 99 10/18/23 12:19 Oxygen Delivery Method Room Air 10/18/23 12:19 BMI result Body Mass Index 36.9 Const General: comfortable; No acute distress Orientation/consciousness: patient oriented x3 Eyes General: appearance normal, both eyes and all related structures Visual Mccoy: normal visual mccoy by confrontation Neck Neck: Yes supple and Yes no JVD Resp Effort & Inspection: normal respiratory effort and respiratory effort not decreased Auscultation: rhonchi Cardio Palpation: no palpable S3 and no palpable S4 Heart sounds: no rubs GI Inspection: Yes normal to inspection Palpation (GI): Soft to palpation Percussion: Yes normal to percussion Auscultation: normal bowel sounds General: Yes no CVA tenderness Back/Spine/Pelvis Back: no CVA tenderness Skin General skin exam: no petechiae and no purpura Neuro General: patient oriented x3 and no focal motor deficits Extrem General: No clubbing and No edema Results Reviewed Results Reviewed: Confirmed question reviewed. As of June 2023 serum creatinine 0.9. Assessment & Plan Assessment & Plan (1) Microalbuminuria: Code(s): R80.9 - Proteinuria, unspecified Plan: Middle-aged woman with microalbuminuria any setting of her diabetes medicine obesity. Goal is to slow the portion disease. Maintain blood pressure less than 1 tolerating Maintaining A1c less than 7%. She will benefit from Aram inhibition. Can start on low-dose lisinopril 5 mg of losartan 20 mg a day. (2) Nephrolithiasis: Code(s): N20.0 - Calculus of kidney Plan: History of renal stones. Currently asymptomatic. Indications and low-sodium diet. She should increase fluid intake. I encouraged her to limit intake of tea since this could contain oxalate Orders: Orders Calcium 11 Months N20.0 - Calculus of kidney UA and rflx microscopic 11 Months N20.0 - Calculus of kidney Electrolytes 11 Months N20.0 - Calculus of kidney Blood Urea Nitrogen 11 Months N20.0 - Calculus of kidney Creatinine 11 Months N20.0 - Calculus of kidney Coding Level of Care Code Est Pt Level 3 (30449) Diagnoses Microalbuminuria R80.9 Nephrolithiasis N20.0
--- NOTE | 2023-10-18 14:11 | HO.NEPHOV ---
HPI HPI Comments History of Present Illness Details Mary is a middle-aged woman with obesity and chronic back pain with nephrolithiasis. She is here for annual follow-up. She continues to have back pain She takes Neurontin. No urinary symptoms. She admits to drinking plenty of April ice tea REPLACED BY [facility] Medical History (Updated 10/18/23 @ 12:36 by Lee Matias MD) H/O nephrolithotomy with removal of calculi Aortic stenosis Diabetes Diverticulitis Scoliosis Pulmonary fibrosis Recurrent UTI DJD (degenerative joint disease) Hyperlipidemia Anxiety and depression Hypertension Surgical History Hx of left breast biopsy History of esophagogastroduodenoscopy (EGD) H/O colonoscopy Hx of cystoscopy H/O lithotripsy History of cholecystectomy History of Hx of breast reduction, elective S/P panniculectomy H/O gastric bypass Family History Father Heart disease Mother Heart disease Pulmonary fibrosis Sister Heart disease Sister Pulmonary fibrosis Brother Pulmonary fibrosis Daughter Mental health disorder Substance use disorder Social History Household Members: Spouse Housing: Apartment Are you a primary care manager to a significant other at home: No Do you presently have visiting nurse or other home services: Yes ([employer]) Alcohol intake: never Patient Tobacco Use Status: Former Tobacco user Quit Date: 2019 Years Smoked: 45 e-Cigarette/Vaping Use: Never Used Second Hand Smoke Exposure: No Substance Use Type: Marijuana Advance Directives Date on File: 08/16/22 service: No Current occupational status: disabled 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 Cognitive needs: No Hearing needs: No Vision needs: No Vital Signs 10/18/23 12:19 Height 5 ft 4 in Weight 215 lb BMI 36.9 BP 132/80 Blood Pressure Location Lt brachial Position Sitting Pulse 80 Pulse Source Pulse Oximeter Pulse Oximetry (%) 99 Oxygen Delivery Method Room Air Physical Exam Vital Signs: Last Vital Signs Pulse 80 10/18/23 12:19 BP 132/80 10/18/23 12:19 Pulse Ox 99 10/18/23 12:19 Oxygen Delivery Method Room Air 10/18/23 12:19 BMI result Body Mass Index 36.9 Const General: comfortable; No acute distress Orientation/consciousness: patient oriented x3 Eyes General: appearance normal, both eyes and all related structures Visual Mccoy: normal visual mccoy by confrontation Neck Neck: Yes supple and Yes no JVD Resp Effort & Inspection: normal respiratory effort and respiratory effort not decreased Auscultation: rhonchi Cardio Palpation: no palpable S3 and no palpable S4 Heart sounds: no rubs GI Inspection: Yes normal to inspection Palpation (GI): Soft to palpation Percussion: Yes normal to percussion Auscultation: normal bowel sounds General: Yes no CVA tenderness Back/Spine/Pelvis Back: no CVA tenderness Skin General skin exam: no petechiae and no purpura Neuro General: patient oriented x3 and no focal motor deficits Extrem General: No clubbing and No edema Results Reviewed Results Reviewed: CT scan reveiwed. Multiple left renal stones- No hydro Simple cyst Assessment & Plan Assessment & Plan (1) Microalbuminuria: Code(s): R80.9 - Proteinuria, unspecified (2) Nephrolithiasis: Code(s): N20.0 - Calculus of kidney Plan Middle-aged woman is obese and nephrolithiasis CR for follow-up. At present renal function stable at baseline She has microalbuminuria. She will benefit from an CHASE-inhibitor or ARB. Blood pressure is acceptable. Goal submitted A1c less than 7%. As for the nephrolithiasis I have encouraged her to stay on a low-sodium diet. Increase fluid intake to maintain urine output of 2 L. I am concerned that excessive intake of April ice tea might promote stone formation due to increase oxalate intake. I encouraged her to cut down on this. Orders: Orders Calcium 11 Months N20.0 - Calculus of kidney UA and rflx microscopic 11 Months N20.0 - Calculus of kidney Electrolytes 11 Months N20.0 - Calculus of kidney Blood Urea Nitrogen 11 Months N20.0 - Calculus of kidney Creatinine 11 Months N20.0 - Calculus of kidney Coding Level of Care Code Est Pt Level 3 (99160) Diagnoses Microalbuminuria R80.9 Nephrolithiasis N20.0
== END 2023-10-18 12:42 | disposition home or self-care (01) ==
PROVIDERS: PCP Nurse Practitioner Family; Visit Provider Internal Medicine Hypertension Specialist
DX: R80.9 Proteinuria, unspecified (principal); N20.0 Calculus of kidney
CPT/HCPCS: 99213

== ENCOUNTER → 2023-10-18 12:19 | Outpatient (BNVA) | payer MEDICARE, MEDICAID, SELFPAY | PROVIDERS: PCP Nurse Practitioner Family; Visit Provider Internal Medicine Hypertension Specialist | DX: R80.9 Proteinuria, unspecified (principal); N20.0 Calculus of kidney | CPT/HCPCS: 99212 ==

== ENCOUNTER 2023-12-24 14:00 | Outpatient (REF) | payer OTHER, MEDICAID, SELFPAY ==
--- NOTE | ~2023-12-24 | US_ITS ---
EXAMINATION: US RETROPERITONEAL LIMITED (RENAL ONLY) CLINICAL INFORMATION: Calculus of kidney. COMPARISON: CT abdomen and pelvis with and without contrast 04/10/2023. X-ray abdomen KUB 03/15/2023. Renal ultrasound 08/23/2022 and 05/25/2021. X-ray abdomen KUB 10/23/2018. TECHNIQUE: Real-time imaging of the kidneys. FINDINGS: RIGHT KIDNEY: 11 x 5.8 x 6.7 cm (SAG x AP x TRV). The kidney is normal in size, contour, and echogenicity. Renal cortical thickness is normal. No renal calculi or hydronephrosis. There are simple cysts, the largest at the interpolar aspect measuring 3.7 cm at the lower pole 3.9 cm. These require no imaging follow-up. LEFT KIDNEY: 12.3 x 5.9 x 5.8 cm (SAG x AP x TRV). The kidney is normal in size, contour, and echogenicity. Renal cortical thickness is normal. There is marked hydronephrosis. At the lower pole, a 2.3 cm cluster of nonobstructing calculi is seen. At the ureteropelvic junction, a 1.7 cm calculus is seen, likely obstructing. Multiple benign, simple cysts are seen, the largest at the interpolar aspect measuring 2.1 cm and 2.8 cm. These require no imaging follow-up. US/US renal BI IMPRESSION: There is marked left hydronephrosis secondary to a 1.7 cm calculus at the ureteropelvic junction. A further 2.3 cm aggregation of nonobstructing calculi seen in the lower pole of the left kidney. No right renal calculus or hydronephrosis is seen.
== END 2023-12-24 14:01 | disposition home or self-care (01) ==
LOC: HO.HMGCX 14:00
PROVIDERS: PCP Nurse Practitioner Family; Visit Provider Urology
DX: N20.0 Calculus of kidney (principal)
CPT/HCPCS: 76775

== ENCOUNTER 2024-01-17 11:12 | Outpatient (AMB) | payer OTHER, MEDICAID, SELFPAY ==
--- NOTE | 2024-01-17 11:14 | A.OFFVIS_ITS ---
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 Accompanied by: Self / Same As Patient Allergies latex [LATEX] Allergy (Severe, Verified 01/17/24 11:32) RASH morphine [MORPHINE] Allergy (Severe, Verified 01/17/24 11:32) SEVERE SHAKING, N/V amoxicillin [From AUGMENTIN] Allergy (Unknown, Verified 01/17/24 11:32) SEVERE DIARRHEA ciprofloxacin [CIPROFLOXACIN] Allergy (Unknown, Verified 01/17/24 11:32) SEVERE DIARRHEA clavulanic acid [From AUGMENTIN] Allergy (Unknown, Verified 01/17/24 11:32) SEVERE DIARRHEA fenofibrate Adverse Reaction (Intermediate, Verified 01/17/24 11:32) stomach pain/cramping baclofen Adverse Reaction (Unknown, Verified 01/17/24 11:32) Unknown trazodone Adverse Reaction (Unknown, Verified 01/17/24 11:32) Unknown HPI HPI Comments History of Present Illness Details ?Mary HUTCHINS is a very pleasant female. They are a patient of Dr Fernandez. They are seen in the office today for the following urologic conditions. - nephrolithiasis Prior hormone lab assessment - 04/10 T 17, AST 35, Ferritin 269, E <2 Follow-up from stone Procedure Encouraged to have Tums with main meal to try to help with oxalate binding since has had prior gastric bypass Imaging shows left obstructing UPJ stone fragment and other stone fragments Recommend repeat left ureteroscopy with laser lithotripsy Continuing to lose weight Nephrolithiasis/Urolithiasis:? They are here for?further evaluation of nephrolithiasis, ?- left 1cm stone x2 ?- hematuria ?- s/p gastric bypass 2007 ?- no stones on follow-up.? Urolithiasis was diagnosed?09/2018 ?- prior gastric bypass.? The patient previously had kidney stones whose composition w?10/06 , calcium oxalate - monohydrate, uric acid core - 08/11 calcium oxalate monohydrate 80 % ? Laboratory investigations include?12/07, Normocalcemia (9.0), Normal PTH, Normal uric acid.? 24 Hour urine evaluation ? Prior treatment(s) include?10/06 , left, ureteroscopy ?11/05 , left, ESWL ?06/06 vitamin B6, 1 TUMS with evening meal - 08/11 USR left side multiple stones ? Prior imaging includes?09/05 CT with 2x 1cm stones on the left ?12/07 , a renal ultrasound left 6mm stone ?06/06 , a renal ultrasound bilateral renal cysts. No stones. ?06/07 , a renal ultrasound, bilateral multiple renal cysts up to 3 cm, no stones.? - 06/08 renal ultrasound, bilateral renal cysts up to 3 cm - stones left lower pole - 09/09 renal ultrasound, bilateral renal cysts, stones left lower pole 8 mm ? Current therapeutic plan will be?to perform metabolic evaluation, General advice to maintain good fluid intake for urine greater than 1.5 L per day, reduce salt and reduce protein and acid loads was provided..? PFSH Medical History H/O nephrolithotomy with removal of calculi Aortic stenosis Diabetes Diverticulitis Scoliosis Pulmonary fibrosis Recurrent UTI DJD (degenerative joint disease) Hyperlipidemia Anxiety and depression Hypertension Surgical History Hx of left breast biopsy History of esophagogastroduodenoscopy (EGD) H/O colonoscopy Hx of cystoscopy H/O lithotripsy History of cholecystectomy History of Hx of breast reduction, elective S/P panniculectomy H/O gastric bypass Family History Father Heart disease Mother Heart disease Pulmonary fibrosis Sister Heart disease Sister Pulmonary fibrosis Brother Pulmonary fibrosis Daughter Mental health disorder Substance use disorder Social History Household Members: Spouse Housing: Apartment Are you a primary care connector to a significant other at home: No Do you presently have visiting nurse or other home services: Yes ([employer]) Alcohol intake: never Patient Tobacco Use Status: Former Tobacco user Quit Date: 2019 Years Smoked: 45 e-Cigarette/Vaping Use: Never Used Second Hand Smoke Exposure: No Substance Use Type: Marijuana Advance Directives Date on File: 08/16/22 service: No Current occupational status: disabled 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 Cognitive needs: No Hearing needs: No Vision needs: No Review of Systems Const Denies chills and Denies fever(s) Card Reports no additional complaints and Denies syncope Resp Denies cough GI Denies abdominal pain and Denies heartburn Reports as per HPI and Denies change in libido Neuro Denies syncope Psych Denies change in libido Endo Denies change in libido Physical Exam Const General: cooperative, healthy appearing, comfortable and no acute distress Orientation/consciousness: patient oriented x3 HEENT Face and sinus: Yes normal facial exam Mouth: moist mucous membranes Neck Neck: Yes normal visual inspection, Yes full ROM and Yes trachea midline Chest Chest palpation & inspection: normal inspection of the chest Resp Effort & Inspection: normal respiratory effort, able to speak in complete sentences and no respiratory distress GI Inspection: Yes normal to inspection Back/Spine/Pelvis Cervical Spine: normal cervical lordosis Thoracic/Lumbar Spine: thoracic and lumbar spine normal to inspection Skin General skin exam: no rashes or lesions noted Neuro General: patient oriented x3, gait normal, tone normal and moves all extremities Extrem General: Yes normal to inspection and Yes capillary refill normal Results AMB Urinalysis, Automated UA Leukoctes 0 Jacinto/uL Last Edit by Sheila Lawrence CMA on 01/17/24 11 :37 UA Nitrite Negative Last Edit by Sheila Lawrence CMA on 01/17/24 11: 37 UA Urobilinogen 1 mg/dL [facility] on 01/17/24 11:37 UA Protein 30 mg/dL [facility] on 01/17/24 11:3 7 UA pH 6.0 [facility], [facility] on 01/17/24 11:37 UA Blood 0 Marty/uL Last Edit by [facility], [facility] on 01/17/24 11:37 UA Specific [place] 1.015 Last Edit by [facility], [facility] on 11:37 UA Ketone Negative Last Edit by [facility], [facility] on 01/17/24 11:3 7 UA Bilirubin 0 mg/dL Last Edit by [facility], [facility] on 01/17/24 11: 37 UA Glucose 0 mg/dL [facility] on 01/17/24 11:37 Results Reviewed Results Reviewed: Laboratory Last Values Urine pH (Auto) 6.0 01/17/24 11:35 Specific [place] (Auto) 1.015 01/17/24 11:35 Urine Protein (Auto) 30 mg/dL 01/17/24 11:35 Glucose (UA)(Auto) 0 mg/dL 01/17/24 11:35 Urine Ketones (Auto) Negative 01/17/24 11:35 Urine Blood (Auto) 0 Marty/uL 01/17/24 11:35 Urine Nitrite (Auto) Negative 01/17/24 11:35 Urine Bilirubin (Auto) 0 mg/dL 01/17/24 11:35 Urine Urobilinogen (Auto) 1 mg/dL 01/17/24 11:35 Leukocyte Esterase (Auto) 0 Jacinto/uL 01/17/24 11:35 Assessment & Plan Assessment & Plan (1) Nephrolithiasis: Code(s): N20.0 - Calculus of kidney Plan Ureteroscopy We discussed the nature of the decision and reasonable alternatives for performing ureteroscopy. Options such as medical therapy were discussed. Interventions include chemical dissolution, ESWL, ureteroscopy with laser lithotripsy and stent placement, PCNL. The relative uncertainties and benefits related to each alternate procedure were adequately discussed. General surgical risks including, but not limited to - pain, bleeding, infection, myocardial infarction, pulmonary embolus, deep vein thrombosis and cerebrovascular accident which may result in further hospitalization were discussed. Full disclosure of the procedure as well as all major risks, benefits and complications were discussed including but not limited to damage to the urethra, bladder and kidney infection, damage to the ureter, stent migration or malposition, scarring to the renal pelvis, remnant stone fragments, subsequent stone passage with need for secondary procedures. The overall secondary procedure rate is approximately 10-15%. The overall clearance rate is approximately 90-95%. Success of the procedure in the short-term does not necessarily guarantee that long-term success will be maintained. Suitable follow up will need to be maintained. The patient showed understanding of discussion and wishes to proceed with - cystoscopy, retrograde, ureteroscopy, possible lithotripsy/stone basketing and stent on the left side Orders: Orders AMB Urinalysis Automated Today R33.9 - Retention of urine, unspecified Patient Instructions: Imaging studies, laboratory and physical exam results were discussed and reviewed in detail. No major barriers to patient understanding were identified. An opportunity to ask questions regarding the treatment plan was provided. All questions were answered. The patient expressed understanding and agreement with the above treatment plan. The patient is aware they should contact our office by phone for worsening of their current condition or the appearance of new urologic symptoms. Compliance is encouraged with any medications and followup testing that is ordered. It is a privilege to participate in the urologic care of your patient. If you have any questions or concerns regarding treatment for the above conditions, or other urologic issues, please do not hesitate to contact me. The office telephone contact is [phone]. This note is constructed using voice recognition software. While every effort has been made to ensure accuracy president and ceo errors may have been included. Yours sincerely, Dr Blake Christie MD, [facility] - Urology Providers of Expert, Compassionate Care for the Genitourinary System Coding Level of Care Code Est Pt Level 4 (90796) Diagnoses Nephrolithiasis N20.0
== END 2024-01-17 11:57 | disposition home or self-care (01) ==
PROVIDERS: PCP Nurse Practitioner Family; Visit Provider Urology
DX: N20.0 Calculus of kidney (principal)
CPT/HCPCS: 99214

== ENCOUNTER → 2024-01-17 11:12 | Outpatient (BNVA) | payer OTHER, MEDICAID, SELFPAY | PROVIDERS: PCP Nurse Practitioner Family; Visit Provider Urology | DX: N20.0 Calculus of kidney (principal); N28.1 Cyst of kidney, acquired | CPT/HCPCS: 81003 ==

== ENCOUNTER 2024-01-21 14:27 | Day surgery (SDC) | payer OTHER, MEDICAID, SELFPAY ==
--- NOTE | ~2024-01-21 | FL_ITS ---
EXAMINATION: XR FLUOROSCOPY WITH IMAGES CLINICAL INFORMATION: Left ureteric stent placement. COMPARISON: Renal ultrasound dated 12/24/2023; intraoperative fluoroscopy dated 08/20/2023; CT abdomen and pelvis dated 04/10/2023. TECHNIQUE: Fluoroscopy Supervised By: Dr. Blake Christie. Fluoroscopy Time: 75.6 seconds. Cumulative Dose: 27.17 mGy. Images: 3. FINDINGS: The submitted image shows the proximal and distal portions of a left ureteric stent. FL/FL guidance in OR IMPRESSION: Intraoperative fluoroscopic guidance is provided during left ureteric stent placement. Please see the patient's Operative Report for full procedural details.
[2024-01-21 14:58] VITALS: BP 152/82; PULSE 78; RESP 16; TEMP 36.7; O2SAT 95; BMI 36.5
[2024-01-21 15:05] VITALS: BMI 36.5
--- NOTE | 2024-01-21 15:18 | HO.ANESPROP2 ---
[facility] Active Problems Active Problems: All Active Problems (Updated 01/10/24 @ 08:15 by Greg Kaba, [facility]) Chronic back pain (Acute) Nephrolithiasis (Acute) Microalbuminuria (Acute) Genitourinary syndrome of menopause (Acute) Chronic UTI (urinary tract infection) (Acute) Urinary tract infection (Acute) Microhematuria (Acute) Hematuria (Acute) Dysuria (Acute) Loss of hearing (Acute) Postmenopausal (Acute) Right hip pain (Acute) Low back pain (Acute) Right flank pain (Acute) High triglycerides (Acute) Pain (Acute) Hypertensive renal disease (Acute) Bilateral nephrolithiasis (Acute) Encounter for annual wellness visit (AWV) in Medicare patient (Acute) Right ankle injury (Acute) Right ankle pain (Acute) Non-rheumatic aortic stenosis (Acute) Type 2 diabetes mellitus without complications (Acute) Morbid obesity (Acute) Other and unspecified hyperlipidemia (Acute) Essential hypertension (Acute) Precordial chest pain (Acute) Left bundle branch block (Acute) Right ankle pain (Acute) Chest discomfort (Acute) Iron deficiency anemia (Acute) DJD (degenerative joint disease) (Acute) Past Medical History Medical History H/O nephrolithotomy with removal of calculi Aortic stenosis Diabetes Diverticulitis Scoliosis Pulmonary fibrosis Recurrent UTI DJD (degenerative joint disease) Hyperlipidemia Anxiety and depression Hypertension Family History Family History Father Heart disease Mother Heart disease Pulmonary fibrosis Sister Heart disease Sister Pulmonary fibrosis Brother Pulmonary fibrosis Daughter Mental health disorder Substance use disorder Family history of problems with anesthesia: No Surgical History Surgical History Hx of left breast biopsy History of esophagogastroduodenoscopy (EGD) H/O colonoscopy Hx of cystoscopy H/O lithotripsy History of cholecystectomy History of Hx of breast reduction, elective S/P panniculectomy H/O gastric bypass History of Problems with Anesthesia: No Social History Social History Household Members: Spouse Housing: Apartment Are you a primary child day care teacher to a significant other at home: No Do you presently have visiting nurse or other home services: Yes ([employer]) Alcohol intake: never Patient Tobacco Use Status: Former Tobacco user Quit Date: 2019 Years Smoked: 45 e-Cigarette/Vaping Use: Never Used Second Hand Smoke Exposure: No Use of substances other than those prescribed or required for medical reasons: Yes Substance Use Type: Marijuana Substance Use Frequency: Daily Are you DNR?: No Advance Directives: Yes Advance Directives Information Provided: No Advance Directives on File: Yes Advance Directives Date on File: 08/16/22 service: No Current occupational status: disabled 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 Cognitive needs: No Hearing needs: No Vision needs: No Meds Allergies Allergy/AdvReac Type Severity Reaction Status Date / Time latex [LATEX] Allergy Severe RASH Verified 01/17/24 11:32 morphine [MORPHINE] Allergy Severe SEVERE Verified 01/17/24 11:32 SHAKING, N/V amoxicillin [From AUGMENTIN] Allergy Unknown SEVERE Verified 01/17/24 11:32 DIARRHEA ciprofloxacin [CIPROFLOXACIN] Allergy Unknown SEVERE Verified 01/17/24 11:32 DIARRHEA clavulanic acid Allergy Unknown SEVERE Verified 01/17/24 11:32 [From AUGMENTIN] DIARRHEA fenofibrate AdvReac Intermediate stomach Verified 01/17/24 11:32 pain/cramping baclofen AdvReac Unknown Unknown Verified 01/17/24 11:32 trazodone AdvReac Unknown Unknown Verified 01/17/24 11:32 Home Medications Medication Instructions Recorded Confirmed Last Taken Type latanoprost 0.005 % eye drops 1 drp ophthalmic (eye) BEDTIME 08/07/22 01/21/24 Unknown History metoprolol tartrate 50 mg tablet 50 mg PO BID 10/15/23 01/21/24 01/21/24 History phenazopyridine 100 mg tablet 100 mg PO TID PRN Spasm 10/15/23 01/21/24 Unknown History (Pyridium) sumatriptan succinate 100 mg tablet 100 mg PO DAILY PRN Headache 10/15/23 01/21/24 Unknown History tamsulosin 0.4 mg capsule 0.4 mg PO BEDTIME 10/15/23 01/21/24 Unknown History Exam Height,Weight and Vital Signs: Height 5 ft 4 in Weight 96.332 kg Last Vital Signs Temp 98.1 F 01/21/24 14:58 Pulse 78 01/21/24 14:58 Resp 16 01/21/24 14:58 BP 152/82 H 01/21/24 14:58 Pulse Ox 95 01/21/24 14:58 O2 Del Method Room Air 01/21/24 14:58 Airway Mallampati Class: I TM Dist: >3cm Neck ROM: Full Denture: Upper and Lower Loose/Missing/Broken Teeth: No Heart: rrr Lungs: cta b/l Assessment and Plan Assessment Anesthesia Assessment: Anesthesia Plan Discussed and Chart Reviewed Final Anesthetic Review Family History of Problems with Anesthesia: No History of Problems with Anesthesia: No NPO: Yes ASA Class: III Final Preanesthetic Review: No Changes in Pt Med Stat, Meds/Allgs Chart Reviewed, Consent Obtained/Reviewed and Anes Risks/Benef Reviewed Patient Risk: Intermediate Procedure Risk: Intermediate Anesthetic Plan Anesthetic Plan: GA (cannabis user) Disposition: Standard PACU
--- NOTE | 2024-01-21 18:03 | P.OP_ITS ---
Operative Note Operative Note Date of Service: 01/21/24 Narrative: PreOperative Diagnosis: Left hydronephrosis with low renal pole stone fragments Post Operative Diagnosis: Left hydronephrosis secondary to scarring of proximal ureter with lower renal pole stone fragments Procedure: - cystoscopy, left retrograde - left dilatation of ureteric orifice under fluoroscopy - left ureteroscopy with dilatation using balloon dilator of left proximal ureteric narrowing - left ureteroscopy, laser lithotripsy, stone basketing - left stent placement Surgeon: Dr Blake Christie Anesthesia: General Indications for procedure: Residual stone fragments with left hydronephrosis on imaging Procedure: After informed consent was verified patient was brought to the operating placed in supine position. Anesthesia was administered per protocol. Patient was placed in modified dorsal lithotomy position and prepped and draped in a sterile fashion. Safety pause time-out and side of surgery confirmed. Antibiotics confirmed. 22 Kenyan cystoscope was inserted per urethra. Bladder was normal in its entirety. Both ureteric orifices were in normal position. The left ureteric orifice was cannulated and a retrograde examination was performed. Narrowing at left proximal ureter.. A Sensor guidewire was placed up to the level of the renal pelvis under fluoroscopy. The rigid cystoscope was removed and the inner cannula of ureteric access sheath was used under fluoroscopy to dilate the ureteric orifice. The ureteric access sheath was placed and the inner cannula with access wire removed. The digital flexible ureteral scope was placed. There was narrowing of the proximal ureter which had not been crossed by the ureteric access sheath. The ureteral scope was removed. A sensor guidewire placed. Using a Malik dilator attempt was made to dilate through the area of narrowing. This was unable to be passed. Using a balloon dilator 15 Kenyan that was 10 cm long this was placed across the stricture area using fluoroscopy tip. The balloon was inflated to 27 mg Hg and sat for 1 minute. Showed good dilation and hourglass deformity was removed. The access sheath was then able to be placed through the narrowed area into the renal pelvis. The flexible scope was placed. Stone fragments were encountered in the lower and mid pole. Using laser these were broken up into small pieces. Using a 0 tip basket multiple passages were made in order to remove the fragments that was seen. At the completion of the stone procedure a Sensor wire was placed back into the renal pelvis. A 7 Kenyan by 26 cm double-J stent was placed into the renal pelvis and bladder under a combination of fluoroscopy and direct visualization. The symphisis pubis was used as a radiographic marker to release the stent and good coil was seen within the bladder confirming position The bladder was emptied. The patient tolerated the procedure well and was extubated in the operating room, and transferred in stable condition to the recovery area. Pathology: stones Drains: stent as above
[2024-01-21 18:09] VITALS: BP 175/91; PULSE 94; RESP 19; TEMP 36; O2SAT 97
[2024-01-21 18:14] VITALS: BP 159/91; PULSE 88; RESP 20; O2SAT 96
[2024-01-21 18:19] VITALS: BP 133/68; PULSE 90; RESP 22; O2SAT 94
[2024-01-21 18:24] VITALS: BP 135/69; PULSE 95; RESP 20; TEMP 36.7; O2SAT 96
[2024-01-21 18:39] VITALS: BP 174/97; PULSE 89; RESP 20; TEMP 36.6; O2SAT 94
[2024-01-21] MEDS: Acetaminophen 325 MG TABLET 650 MG PO (18:51)
[2024-01-21] MEDS: oxyCODONE HCl Immed Release 5 MG TABLET PO (18:52)
--- NOTE | 2024-01-22 09:04 | MHC.SHP ---
Pre-Procedural Eval Section A - 24 Hr Update-Section A only Date of Service: 01/21/24 The patient is an INPATIENT: No Changes since office visit: No Cold of Flu in the past 2 weeks, No New Medical Problems, No Changes in Medication and No Patient answered all questions The patient has been examined within 24 hours of the surgical procedure. The History & Physical has been completed within 30 days and I have reviewed it.: Yes Section B - Complete if H&P > 30 days Chief Complaint: Calculus of kidney Allergies: Allergies Allergy/AdvReac Type Severity Reaction Status Date / Time latex [LATEX] Allergy Severe RASH Verified 01/17/24 11:32 morphine [MORPHINE] Allergy Severe SEVERE Verified 01/17/24 11:32 SHAKING, N/V amoxicillin [From AUGMENTIN] Allergy Unknown SEVERE Verified 01/17/24 11:32 DIARRHEA ciprofloxacin [CIPROFLOXACIN] Allergy Unknown SEVERE Verified 01/17/24 11:32 DIARRHEA clavulanic acid Allergy Unknown SEVERE Verified 01/17/24 11:32 [From AUGMENTIN] DIARRHEA fenofibrate AdvReac Intermediate stomach Verified 01/17/24 11:32 pain/cramping baclofen AdvReac Unknown Unknown Verified 01/17/24 11:32 trazodone AdvReac Unknown Unknown Verified 01/17/24 11:32 Plan Diagnosis/Plan: Unchanged (Cystoscopy, left retrograde, left ureteroscopy with laser lithotripsy and stent placement) I have reviewed the history and physical and performed a pertinent physical examination on my patient. No changes have occurred unless specified. Time Spent With Patient Time: Total time managing care of this patient today ____ minutes.
[2024-01-30 23:13] LABS: Stone Source URETERAL STONE
== END 2024-01-21 19:00 | disposition home or self-care (01) ==
PROVIDERS: PCP Nurse Practitioner Family; Visit Provider Urology
PROC: (CPT 52356; principal; 2024-01-21 16:10)
DX: N20.0 Calculus of kidney (principal); N13.30 Unspecified hydronephrosis; I10 Essential (primary) hypertension; E78.5 Hyperlipidemia, unspecified; F41.8 Other specified anxiety disorders; Z79.899 Other long term (current) drug therapy; Z88.1 Allergy status to other antibiotic agents; Z88.5 Allergy status to narcotic agent; Z91.040 Latex allergy status; Z87.891 Personal history of nicotine dependence; Z98.890 Other specified postprocedural states; Z79.84 Long term (current) use of oral hypoglycemic drugs
CPT/HCPCS: 52356; 52344; 82365; 88300; C1726; C1758; C1769; C2617; J0736; J1100; J1596; J2250; J2405; J2704; J3010; Q9967

== ENCOUNTER → 2024-01-21 14:27 | Outpatient (BNV) | payer OTHER, MEDICAID, SELFPAY | PROVIDERS: PCP Nurse Practitioner Family; Visit Provider Urology | DX: N20.0 Calculus of kidney (principal) | CPT/HCPCS: 52356; 74420 ==

== ENCOUNTER 2024-01-31 09:25 | Outpatient (AMB) | payer MEDICARE, MEDICAID, SELFPAY ==
--- NOTE | 2024-01-31 09:38 | MHC.PC.OV ---
Vital Signs 01/31/24 09:39 Height 5 ft 4 in BP 128/76 Blood Pressure Location Lt brachial Position Sitting Pulse 79 Pulse Source Pulse Oximeter Pulse Oximetry (%) 93 Oxygen Delivery Method Room Air Intake Visit Reasons: 3M Follow up, rescheduled from 10/18 Intake Note: pt is here for 3 month follow up Office Assistant Required: No Accompanied by: Spouse Allergies latex [LATEX] Allergy (Severe, Verified 01/31/24 11:47) RASH morphine [MORPHINE] Allergy (Severe, Verified 01/31/24 11:47) SEVERE SHAKING, N/V amoxicillin [From AUGMENTIN] Allergy (Unknown, Verified 01/31/24 11:47) SEVERE DIARRHEA ciprofloxacin [CIPROFLOXACIN] Allergy (Unknown, Verified 01/31/24 11:47) SEVERE DIARRHEA clavulanic acid [From AUGMENTIN] Allergy (Unknown, Verified 01/31/24 11:47) SEVERE DIARRHEA fenofibrate Adverse Reaction (Intermediate, Verified 01/31/24 11:47) stomach pain/cramping baclofen Adverse Reaction (Unknown, Verified 01/31/24 11:47) Unknown trazodone Adverse Reaction (Unknown, Verified 01/31/24 11:47) Unknown Medication List - Last Reconciled 01/31/24 by GARY Neff- blood sugar diagnostic Use to check fasting blood sugar once daily or if needed for signs/symptoms of hypo/hyperglycemia blood-glucose meter (relocalityuch Ultra2 Meter) Use to check fasting blood sugar once daily or if needed for signs/symptoms of hypo/hyperglycemia buspirone 15 mg PO BID gabapentin 400 mg PO TID 30 days lancets (CurbsyTouch Delica Lancets) Use to check fasting blood sugar once daily or if needed for signs/symptoms of hypo/hyperglycemia lancets (OneTouch Delica Plus Lancet) daily latanoprost 0.005% 1 drp ophthalmic (eye) BEDTIME metoprolol tartrate 50 mg PO BID omega-3 acid ethyl esters 2 caps PO BID 90 days omeprazole 40 mg PO BID@0630,1630 rosuvastatin 20 mg PO DAILY sertraline 100 mg PO DAILY 90 days sulfamethoxazole-trimethoprim 400-80 mg (Bactrim) 1 tab PO DAILY sumatriptan succinate 100 mg PO DAILY PRN tamsulosin 0.4 mg PO BEDTIME 14 days tramadol 50 mg PO Q6H PRN Tobacco use date assessed: 01/31/24 Fall risk assessment: No Falls in past year Last assessed Fall Risk: 01/31/24 Dental Screening Dental Screen Date: 01/31/24 Did you have a dental visit in the last 12 months?: Yes Did you have a dental problem in the last 6 months where you did not have access to dental care?: No Was dental information given to patient?: Yes HPI 3M Follow up, rescheduled from 10/18 HPI Details Pt is a diabetic, on a statin. A1C in office today is 6.1. Due for microalbumin, will order, seeing nephrology. Denies polyuria, polydipsia, does report neuropathy. Pt denies any signs and symptoms of hypoglycemia and does know how to correct it. Pt does not check her blood sugar often. She sees an eye doctor. Pt continues to smoke, refused LDCTs in the past. She follows up with urology due to kidney stones. Refuses vaccinations. 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 [facility] Medical History H/O nephrolithotomy with removal of calculi Aortic stenosis Diabetes Diverticulitis Scoliosis Pulmonary fibrosis Recurrent UTI DJD (degenerative joint disease) Hyperlipidemia Anxiety and depression Hypertension Surgical History Hx of left breast biopsy History of esophagogastroduodenoscopy (EGD) H/O colonoscopy Hx of cystoscopy H/O lithotripsy History of cholecystectomy History of Hx of breast reduction, elective S/P panniculectomy H/O gastric bypass Family History Father Heart disease Mother Heart disease Pulmonary fibrosis Sister Heart disease Sister Pulmonary fibrosis Brother Pulmonary fibrosis Daughter Mental health disorder Substance use disorder Social History Household Members: Spouse Housing: Apartment Are you a primary careers adviser to a significant other at home: No 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 1. Little interest or pleasure in doing things: not at all 2. Feeling down, depressed, or hopeless: not at all 3. Trouble falling or staying asleep, or sleeping too much: not at all 4. Feeling tired or having little energy: nearly every day 5. Poor appetite or overeating: more than half the days 6. Feeling bad about yourself - or that you are a failure or have let yourself or your family down: not at all 7. Trouble concentrating on things, such as reading the newspaper or watching television: not at all 8. Moving or speaking so slowly that other people could have noticed. Or the opposite - being so fidgety or restless that you have been moving around a lot more than usual: not at all 9. Thoughts that you would be better off or of hurting yourself in some way: not at all Total score: 5 Depression Screening Interpretation: Negative Depression Screening Done: Yes 27086 - PHQ-9 Billing: Yes Source: Developed by Drs. Boo Rios, Aranza Jackson, Milind Roy and colleagues, with an educational keira from [employer] Thrive Questionnaire Date Thrive assessed: 01/31/24 I am a: Patient What is your living situation today?: I have a steady place to live Within the past 12 months, did the food you bought not last and you didn't have the money to get more?: Never true Within the past 12 months, did you worry whether your food would run out before you got money to buy more?: Never true Do you have trouble paying for medicines?: No Do you have trouble getting transportation to medical appointments?: No Do you have trouble paying your heating and electricity bill?: No Do you have trouble taking care of your child, family member or friend?: No Do you have trouble with day-to-day activities such as bathing, preparing meals, shopping, managing finances, etc.?: No Are you currently unemployed and looking for a job?: No Are you interested in more education?: No Please select the resources that you would like help with: None Currently or been in a relationship where the following occur: no concerns reported THRIVE Score: 0 AUDIT C Alcohol Use Questionnaire (AUDIT-C) 1. How often do you have a drink containing alcohol?: Never Total Score: 0 Score Reviewed/Action Taken: Yes HI-7 AMB Questionnaire HI-7 Date IH - 7 assessed: 01/31/24 Feeling nervous, anxious, or on edge: 0 = Not at all Not being able to stop or control worryin = Not at all Worrying too much about different things: 0 = Not at all Trouble relaxin = Not at all Being so restless that it is hard to sit still: 0 = Not at all Becoming easily annoyed or irritable: 0 = Not at all Feeling afraid as if something awful might happen: 0 = Not at all Total HI-7 score (0-4 normal; 5-9 mild; 10-14 moderate; 15-21 severe): 0 Source: Developed by Drs. Boo Rios, Aranza Jackson, Milind Roy and colleagues, with an educational keira from [employer] HI-7 Assessment Billing HI-7 Assessment Tool: HI-7 Assessment 56889 Review of Systems Const Reports as per HPI Physical exam (Primary Care) Vital Signs: Last Vital Signs Pulse 79 01/31/24 09:39 BP 128/76 01/31/24 09:39 Pulse Ox 93 01/31/24 09:39 Oxygen Delivery Method Room Air 01/31/24 09:39 Tobacco/Smoking Status: Tobacco use Status Tobacco use date assessed 01/31/24 01/31/24 09:43 Patient Tobacco Use Status Former Tobacco user 01/31/24 09:43 e-Cigarette/Vaping Use Never Used 01/31/24 09:43 PHQ-9: PHQ-9 Score PHQ-9: Total score 5 01/31/24 09:57 Depression Screening Interpretation: Negative Thrive Assessment: Date of Thrive Assessment Date Thrive assessed 01/31/24 01/31/24 09:57 Currently or been in a relationship where the following occur: no concerns reported Const General: cooperative Orientation/consciousness: patient oriented x3 Resp Effort & Inspection: normal respiratory effort Auscultation: clear to auscultation bilaterally and diminished lung sounds Cardio Rate: regular rate Rhythm: regular rhythm Heart sounds: S1 normal heart sound present, S2 normal heart sound present and Murmur heart sound present systolic Neuro General: patient oriented x3 Extrem Other: bilat feet: + sensation with use of monofilament, left foot plantar aspect of 5th MTP joint with corn, callus to 1st MTP joint plantar aspect, dry Psych Appearance: grossly normal Mental Status: mental status grossly normal Speech and movement: Normal speech and movement present Affect: normal affect Attitude: cooperative Thought process: Normal thought process present Thought content: Normal thought content present Insight: Good insight present (Psych) Judgement: Good judgement present (Psych) Assessment and Plan Assessment & Plan (1) Type 2 diabetes mellitus without complications: Code(s): E11.9 - Type 2 diabetes mellitus without complications Plan: Labs ordered Plan The patient agreed to the use of a outside medical sales representative for this encounter. Scribed for ANDREA Covarrubias by Estephania Gordillo outside medical sales representative, on 01/31/2024 at 09:55 EST. Orders: Orders Complete Blood Count Auto Diff Today E11.9 - Type 2 diabetes mellitus without complications Comprehensive [place]. Panel Fast Today E11.9 - Type 2 diabetes mellitus without complications UA CC w/rflx Micro + Cult Today E11.9 - Type 2 diabetes mellitus without complications Microalbumin, Random (w Creat) Today E11.9 - Type 2 diabetes mellitus without complications TSH reflex Free T4 Today E11.9 - Type 2 diabetes mellitus without complications Lipid Panel Today E11.9 - Type 2 diabetes mellitus without complications Coding Level of Care Code Est Pt Level 3 (15506) Diagnoses Type 2 diabetes mellitus without complications E11.9 Additional Codes HI-7 Assessment Billing - HI-7 Assessment Tool: HI-7 Assessment 08260 ([id number])
[2024-01-31 09:39] VITALS: BP 128/76; PULSE 79; O2SAT 93
== END 2024-01-31 10:45 | disposition home or self-care (01) ==
PROVIDERS: PCP Nurse Practitioner Family; Visit Provider Nurse Practitioner Family
DX: E11.9 Type 2 diabetes mellitus without complications (principal)
CPT/HCPCS: 99213

== ENCOUNTER 2024-02-12 12:53 | Outpatient (AMB) | payer OTHER, MEDICAID, SELFPAY ==
--- NOTE | 2024-02-12 13:02 | MHC.OFFVIS ---
Intake Intake Visit Reasons: Stent removal Intake Note: Patient is Present for Cystoscopy Urology Med: Tamsulosin Antibiotic Allergy: Cipro, Amoxicillin Blood Thinner: none URO- G Disposable Cystoscope lot:[id number] exp:09/13/26 Allergies latex [LATEX] Allergy (Severe, Verified 01/31/24 11:47) RASH morphine [MORPHINE] Allergy (Severe, Verified 01/31/24 11:47) SEVERE SHAKING, N/V amoxicillin [From AUGMENTIN] Allergy (Unknown, Verified 01/31/24 11:47) SEVERE DIARRHEA ciprofloxacin [CIPROFLOXACIN] Allergy (Unknown, Verified 01/31/24 11:47) SEVERE DIARRHEA clavulanic acid [From AUGMENTIN] Allergy (Unknown, Verified 01/31/24 11:47) SEVERE DIARRHEA fenofibrate Adverse Reaction (Intermediate, Verified 01/31/24 11:47) stomach pain/cramping baclofen Adverse Reaction (Unknown, Verified 01/31/24 11:47) Unknown trazodone Adverse Reaction (Unknown, Verified 01/31/24 11:47) Unknown HPI HPI Comments History of Present Illness Details ?Mary HUTCHINS is a very pleasant female. They are a patient of Dr Fernandez. They are seen in the office today for the following urologic conditions. - nephrolithiasis Prior hormone lab assessment - 04/10 T 17, AST 35, Ferritin 269, E <2 Here for stent removal Stent removed 8 week follow-up renal ultrasound Nephrolithiasis/Urolithiasis:? They are here for?further evaluation of nephrolithiasis, ?- left 1cm stone x2 ?- hematuria ?- s/p gastric bypass 2007 ?- no stones on follow-up.? Urolithiasis was diagnosed?09/2018 ?- prior gastric bypass.? The patient previously had kidney stones whose composition w?10/06 , calcium oxalate - monohydrate, uric acid core - 08/11 calcium oxalate monohydrate 80 % ? Laboratory investigations include?12/07, Normocalcemia (9.0), Normal PTH, Normal uric acid.? 24 Hour urine evaluation ? Prior treatment(s) include?10/06 , left, ureteroscopy ?11/05 , left, ESWL ?06/06 vitamin B6, 1 TUMS with evening meal - 08/11 USR left side multiple stones - 02/09 USR left side multiple stones ? Prior imaging includes?09/05 CT with 2x 1cm stones on the left ?12/07 , a renal ultrasound left 6mm stone ?06/06 , a renal ultrasound bilateral renal cysts. No stones. ?06/07 , a renal ultrasound, bilateral multiple renal cysts up to 3 cm, no stones.? - 06/08 renal ultrasound, bilateral renal cysts up to 3 cm - stones left lower pole - 09/09 renal ultrasound, bilateral renal cysts, stones left lower pole 8 mm ? Current therapeutic plan will be?to perform metabolic evaluation, General advice to maintain good fluid intake for urine greater than 1.5 L per day, reduce salt and reduce protein and acid loads was provided..? PFSH Medical History H/O nephrolithotomy with removal of calculi Aortic stenosis Diabetes Diverticulitis Scoliosis Pulmonary fibrosis Recurrent UTI DJD (degenerative joint disease) Hyperlipidemia Anxiety and depression Hypertension Surgical History Hx of left breast biopsy History of esophagogastroduodenoscopy (EGD) H/O colonoscopy Hx of cystoscopy H/O lithotripsy History of cholecystectomy History of Hx of breast reduction, elective S/P panniculectomy H/O gastric bypass Family History Father Heart disease Mother Heart disease Pulmonary fibrosis Sister Heart disease Sister Pulmonary fibrosis Brother Pulmonary fibrosis Daughter Mental health disorder Substance use disorder Social History Household Members: Spouse Housing: Apartment Are you a primary nurse healthcare manager to a significant other at home: No 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) Alcohol intake: never Patient Tobacco Use Status: Former Tobacco user Quit Date: 2019 Years Smoked: 45 e-Cigarette/Vaping Use: Never Used Second Hand Smoke Exposure: No Substance Use Type: Marijuana Advance Directives Date on File: 08/16/22 service: No Current occupational status: disabled 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 Cognitive needs: No Hearing needs: No Vision needs: No Review of Systems Const Denies chills and Denies fever(s) Card Reports no additional complaints and Denies syncope Resp Denies cough GI Denies abdominal pain and Denies heartburn Reports as per HPI and Denies change in libido Neuro Denies syncope Psych Denies change in libido Endo Denies change in libido Physical Exam Const General: cooperative, healthy appearing, comfortable and no acute distress Orientation/consciousness: patient oriented x3 HEENT Face and sinus: Yes normal facial exam Mouth: moist mucous membranes Neck Neck: Yes normal visual inspection, Yes full ROM and Yes trachea midline Chest Chest palpation & inspection: normal inspection of the chest Resp Effort & Inspection: normal respiratory effort, able to speak in complete sentences and no respiratory distress GI Inspection: Yes normal to inspection Back/Spine/Pelvis Cervical Spine: normal cervical lordosis Thoracic/Lumbar Spine: thoracic and lumbar spine normal to inspection Skin General skin exam: no rashes or lesions noted Neuro General: patient oriented x3, gait normal, tone normal and moves all extremities Extrem General: Yes normal to inspection and Yes capillary refill normal Office Procedures Cystoscopy Consent Discussed risk and benefit or proposed procedure with the patient. Information consent for procedure given to the patient. Discussed technical aspects, risks, benefits and alternatives in full. Addressed all of the patient's questions and concerns regarding the procedure. The patient demonstrated knowledge and understanding. They wish to proceed with this procedure. Preparation The patient was prepped in the usual manner. A railway track worker was present and in the room. Genitalia was prepped with betadine solution in a sterile manner. Lidocaine Jelly 2% was placed into the urethra and 16Fr flexible Olympus cystoscope was inserted into the meatus after adequate lubrication. Procedure A well lubricated 16 Occitan cystoscope was placed No abnormality noted of urethra during placement Indwelling stent seen within bladder emerging from left ureteric orifices The stent was grasped with a 3 prong grasper and removed without difficulty The patient tolerated the procedure well 36870-[id number] with stent removal DISPOSABLE SCOPE URO-G FLEXIBLE SCOPE Procedure code (CPT) selection complete Office Meds lidocaine HCl 2 % mucosal jelly in applicator Performing Provider: Blake Christie MD Performing Location: [facility] [place] [facility] Administered by: Guru Brody LPN on 02/12/24 13:08 Dose Route Admin Location Dispensed Lot Number Expiration Date [place] State Assessed Properties Director 10 mL intra-urethral 10 mL nitrofurantoin monohydrate/macrocrystals 100 mg capsule Performing Provider: Blake Christie MD Performing Location: [facility] [place] [facility] Administered by: Guru Brody LPN on 02/12/24 13:08 Dose Route Admin Location Dispensed Lot Number Expiration Date [place] State Assessed Properties Director 100 mg PO 1 cap naproxen 500 mg tablet Performing Provider: Blake Christie MD Performing Location: [facility] [place] Urology [facility] Administered by: Guru Brody LPN on 02/12/24 13:08 Dose Route Admin Location Dispensed Lot Number Expiration Date [place] State Assessed Properties Director 500 mg PO 1 tab Results AMB Urinalysis, Automated UA Leukoctes 500 [place]/uL Last Edit by Ashley Richmond [facility] on 02/12/24 13:19 UA Nitrite Positive Last Edit by Ashley Richmond [facility] on 02/12/24 13:19 UA Urobilinogen 0.2 mg/dL Last Edit by Ashley Richmond [facility] on 02/12/24 13:19 UA Protein 15 mg/dL Last Edit by Ashley Richmond [facility] on 02/12/24 13:19 UA pH 6.0 Last Edit by Ashley Richmond [facility] on 02/12/24 13:19 UA Blood 80 Marty/uL Last Edit by Ashley Richmond [facility] on 02/12/24 13:19 UA Specific [place] 1.015 Last Edit by Ashley Richmond [facility] on 02/12/24 13:19 UA Ketone Negative Last Edit by Ashley Richmond [facility] on 02/12/24 13:19 UA Bilirubin 35 mg/dL Last Edit by Ashley Richmond [facility] on 02/12/24 13:19 UA Glucose 0 mg/dL Last Edit by Ashley Richmond RMA on 02/12/24 13:19 Assessment & Plan Assessment & Plan (1) Nephrolithiasis: Code(s): N20.0 - Calculus of kidney Plan Two month follow-up Orders: Orders AMB Cystoscopy Today N20.0 - Calculus of kidney US renal BI 2 Months N20.0 - Calculus of kidney AMB Urinalysis Automated Today Z13.9 - Encounter for screening, unspecified Patient Instructions: Imaging studies, laboratory and physical exam results were discussed and reviewed in detail. No major barriers to patient understanding were identified. An opportunity to ask questions regarding the treatment plan was provided. All questions were answered. The patient expressed understanding and agreement with the above treatment plan. The patient is aware they should contact our office by phone for worsening of their current condition or the appearance of new urologic symptoms. Compliance is encouraged with any medications and followup testing that is ordered. It is a privilege to participate in the urologic care of your patient. If you have any questions or concerns regarding treatment for the above conditions, or other urologic issues, please do not hesitate to contact me. The office telephone contact is [phone]. This note is constructed using voice recognition software. While every effort has been made to ensure accuracy manager endoscopy errors may have been included. Yours sincerely, Dr Blake Christie MD, [facility] - Urology Providers of Expert, Compassionate Care for the Genitourinary System Coding Level of Care Code Procedure Only Diagnoses Nephrolithiasis N20.0 CPT Codes Cystoscopy - CPT: 56713-[id number] with stent removal ([id number])
== END 2024-02-12 13:38 | disposition home or self-care (01) ==
PROVIDERS: PCP Nurse Practitioner Family; Visit Provider Urology
DX: N20.0 Calculus of kidney (principal); Z96.0 Presence of urogenital implants; Z13.9 Encounter for screening, unspecified
CPT/HCPCS: 52310

== ENCOUNTER → 2024-02-12 12:53 | Outpatient (BNVA) | payer OTHER, MEDICAID, SELFPAY | PROVIDERS: PCP Nurse Practitioner Family; Visit Provider Urology | DX: N20.0 Calculus of kidney (principal); Z46.6 Encounter for fitting and adjustment of urinary device | CPT/HCPCS: 52310; 81003 ==

== ENCOUNTER 2024-02-20 10:42 | Outpatient (REF) | payer OTHER, MEDICAID, SELFPAY ==
[2024-02-20 13:51] LABS: Appearance Urine Clear; Color Urine Yellow; Glucose Urine UA Negative (Negative); Leukocyte Esterase Urine Moderate (2+) (Negative); Nitrite Urine Negative (Negative); PH 6.5 (5.0-9.0); Specific Gravity - Urine 1.015 (1.005-1.025); UMIC TRIGGER UA YES; Urine Blood Negative (Negative); Urine Ketones Negative (Negative); Urine Protein 30 (1+) mg/dL (Neg-Trace)
[2024-02-20 13:55] LABS: Bacteria Urine None Seen (None Seen); Hyaline Casts Urine 0-2 /LPF (0-2); RBC Urine 0-2 /HPF (0-2); Squamous Epithelial Cell Urine 0-2 /HPF (0-2); WBC Urine >50 /HPF (0-5)
== END 2024-02-20 10:43 | disposition home or self-care (01) ==
LOC: HO.HMGCLDS 10:42
PROVIDERS: PCP Nurse Practitioner Family; Visit Provider Urology
DX: N39.0 Urinary tract infection, site not specified (principal)
CPT/HCPCS: 81001; 87086

== ENCOUNTER 2024-03-11 14:01 | Outpatient (REF) | payer OTHER, MEDICAID, SELFPAY ==
--- NOTE | ~2024-03-11 | US_ITS ---
EXAMINATION: US RETROPERITONEAL LIMITED (RENAL ONLY) CLINICAL INFORMATION: Calculus of kidney. COMPARISON: Renal ultrasound 12/24/2023 and 08/23/2022. CT abdomen and pelvis 04/10/2023. TECHNIQUE: Real-time imaging of the kidneys. FINDINGS: RIGHT KIDNEY: 11.0 x 5.6 x 5.8 cm (SAG x AP x TRV). The kidney is normal in size, contour, and echogenicity. Renal cortical thickness is normal. No renal calculi or hydronephrosis. Multiple simple cysts measuring up to 3.5 cm. No imaging follow-up is recommended. LEFT KIDNEY: 12.4 x 5.8 x 6.4 cm (SAG x AP x TRV). The kidney is normal in size, contour, and echogenicity. Renal cortical thickness is normal. Multiple simple cysts. No imaging follow-up is recommended. 1.2 cm calculus in the mid kidney with severe hydronephrosis similar to the prior study. US/US renal BI IMPRESSION: 1.2 cm calculus in the mid left kidney with severe hydronephrosis appearing stable compared to prior.
[2024-03-11 17:22] LABS: Creatinine Urine 89.05 mg/dL
== END 2024-03-11 14:02 | disposition home or self-care (01) ==
LOC: HO.HMGCX 14:01
PROVIDERS: PCP Nurse Practitioner Family; Visit Provider Urology
DX: N20.0 Calculus of kidney (principal); E11.9 Type 2 diabetes mellitus without complications
CPT/HCPCS: 76775; 82043; 82570

== ENCOUNTER 2024-03-13 13:25 | Outpatient (REF) | payer OTHER, MEDICAID, SELFPAY ==
[2024-03-13 16:01] LABS: Appearance Urine Turbid; Color Urine Yellow; Glucose Urine UA Negative (Negative); Leukocyte Esterase Urine Large (3+) (Negative); Nitrite Urine Negative (Negative); PH 7.5 (5.0-9.0); Specific Gravity - Urine 1.015 (1.005-1.025); UMIC TRIGGER UA YES; Urine Blood Moderate (2+) (Negative); Urine Ketones Negative (Negative); Urine Protein 100 (2+) mg/dL (Neg-Trace)
[2024-03-13 16:21] LABS: Bacteria Urine 4+ (None Seen); Hyaline Casts Urine 0-2 /LPF (0-2); WBC Urine >50 /HPF (0-5)
== END 2024-03-13 13:26 | disposition home or self-care (01) ==
LOC: HO.HMGCLDS 13:25
PROVIDERS: PCP Nurse Practitioner Family; Visit Provider Urology
DX: N39.0 Urinary tract infection, site not specified (principal); R31.29 Other microscopic hematuria; R31.9 Hematuria, unspecified; R30.0 Dysuria
CPT/HCPCS: 81001; 87086; 87088; 87186

== ENCOUNTER 2024-03-14 13:30 | Outpatient (AMB) | payer OTHER, MEDICAID, SELFPAY ==
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
[2024-03-14 13:35] VITALS: BP 131/65; PULSE 73; O2SAT 94; BMI 36.1
== END 2024-03-14 14:22 | disposition home or self-care (01) ==
PROVIDERS: PCP Nurse Practitioner Family; Visit Provider Nurse Practitioner Family
DX: M54.9 Dorsalgia, unspecified (principal); G89.29 Other chronic pain; M47.812 Spondylosis without myelopathy or radiculopathy, cervical region; M47.817 Spondylosis without myelopathy or radiculopathy, lumbosacral region; M54.51 Vertebrogenic low back pain; M41.9 Scoliosis, unspecified
CPT/HCPCS: 99204

== ENCOUNTER → 2024-03-14 13:30 | Outpatient (BNVA) | payer OTHER, MEDICAID, SELFPAY | PROVIDERS: PCP Nurse Practitioner Family; Visit Provider Nurse Practitioner Family ==

== ENCOUNTER 2024-03-18 08:22 | Outpatient (REF) | payer OTHER, MEDICAID, SELFPAY ==
[2024-03-18 10:24] LABS: MANUAL DIFF FLAG NO
[2024-03-18 10:39] LABS: Basophils Percent Auto 0.6 % (0-2); Eosinophils Absolute Auto 0.2 X10*3/uL (0.0-0.4); Eosinophils Percent Auto 2.3 % (0-4); Hematocrit 40.6 % (37.0-47.0); Hemoglobin 12.7 g/dl (12.0-16.0); Imm Gran Abs Auto 0.02 X10*3/uL (0.00-0.03); Imm Gran Pct Auto 0.3 % (0.0-0.4); Lymphocytes Absolute Auto 1.7 X10*3/uL (1.2-4.9); Lymphocytes Percent Auto 26.7 % (20-40); Mean Corpuscular HGB Conc 31.3 g/dl (31.0-35.0); Mean Corpuscular Hemoglobin 29.3 pg (27.0-33.0); Mean Corpuscular Volume 93.5 fL (80.0-98.0); Mean Platelet Volume 10.4 fL (9.4-12.3); Monocytes Absolute Auto 0.7 X10*3/uL (0.1-1.2); Monocytes Percent Auto 11.4 % (2-11); Neutrophils Absolute Auto 3.8 x10*3/uL (2.0-8.3); Neutrophils Percent Auto 58.7 % (45-73); Platelet Count 205 X10*3/uL (160-400); Red Blood Count 4.34 X10*6/uL (4.20-5.50); Red Cell Distribution Width 15.3 % (11.0-16.0); White Blood Count 6.5 X10*3/uL (4.8-10.8)
[2024-03-18 11:17] LABS: Alanine Aminotransferase 11 U/L (0-31); Alkaline Phosphatase 67 U/L (39-117); Anion Gap 14 (12-20); Aspartate Amino Transferase 20 U/L (5-31); Bilirubin Total 0.4 mg/dL (0.0-1.0); Blood Urea Nitrogen 13 mg/dL (9-16); Calcium 9.7 mg/dL (8.4-10.2); Carbon Dioxide 24 mmol/L (22-29); Chloride 108 mmol/L (96-108); Cholesterol 144 mg/dL (<200); Estimated Glomerular Filt Rate 54; Glucose Fasting 132 mg/dL (60-99); HDL Cholesterol 43 mg/dL (>40); LDL Cholesterol Calculated 59 mg/dL (<100); Potassium 3.9 mmol/L (3.3-5.1); Sodium 142 mmol/L (135-145); Total Protein 7.4 g/dL (6.5-8.0); Triglycerides 210 mg/dL (<150)
== END 2024-03-18 08:23 | disposition home or self-care (01) ==
LOC: HO.HMGCLDS 08:22
PROVIDERS: PCP Nurse Practitioner Family; Visit Provider Nurse Practitioner Family
DX: E11.9 Type 2 diabetes mellitus without complications (principal)
CPT/HCPCS: 36415; 80053; 80061; 84443; 85025

== ENCOUNTER 2024-03-25 14:00 | Outpatient (AMB) | payer OTHER, MEDICAID, SELFPAY ==
--- NOTE | 2024-03-25 14:01 | A.OFFVIS_ITS ---
Intake Visit Reasons: US results Intake Note: Patient is Present today via telephone for US Results: Urology Med: Tamsulosin Antibiotic Allergy: Cipro, Amoxicillin Blood Thinner: none Card Grader Required: No Accompanied by: Self / Same As Patient Allergies latex [LATEX] Allergy (Severe, Verified 03/25/24 14:02) RASH morphine [MORPHINE] Allergy (Severe, Verified 03/25/24 14:02) SEVERE SHAKING, N/V amoxicillin [From AUGMENTIN] Allergy (Unknown, Verified 03/25/24 14:02) SEVERE DIARRHEA ciprofloxacin [CIPROFLOXACIN] Allergy (Unknown, Verified 03/25/24 14:02) SEVERE DIARRHEA clavulanic acid [From AUGMENTIN] Allergy (Unknown, Verified 03/25/24 14:02) SEVERE DIARRHEA fenofibrate Adverse Reaction (Intermediate, Verified 03/25/24 14:02) stomach pain/cramping baclofen Adverse Reaction (Unknown, Verified 03/25/24 14:02) Unknown trazodone Adverse Reaction (Unknown, Verified 03/25/24 14:02) Unknown HPI Comments Details: ?Mary HUTCHINS is a very pleasant female. They are a patient of Dr Fernandez. They are seen in the office today for the following urologic conditions. - nephrolithiasis - recurrent UTI Telemedicine Evaluation 15 min Consultation DoximBilletto Jovanny Video Ultrasound shows significant improvement. Confirmed Stone composition. Six-month follow-up renal ultrasound with repeat Litholink Would benefit from potassium citrate tablets however post bypass these may be difficult to swallow. Prior hormone lab assessment - 04/10 T 17, AST 35, Ferritin 269, E <2 Nephrolithiasis/Urolithiasis:? They are here for?further evaluation of nephrolithiasis, ?- left 1cm stone x2 ?- hematuria ?- s/p gastric bypass 2007 ?- no stones on follow-up.? Urolithiasis was diagnosed?09/2018 ?- prior gastric bypass.? The patient previously had kidney stones whose composition w?10/06 , calcium oxalate - monohydrate, uric acid core - 08/11 calcium oxalate monohydrate 80 % ? Laboratory investigations include?12/07, Normocalcemia (9.0), Normal PTH, Normal uric acid.? 24 Hour urine evaluation - 11/09 borderline volume, low citrate, high calcium, borderline sodium ? Prior treatment(s) include?10/06 , left, ureteroscopy ?11/05 , left, ESWL ?06/06 vitamin B6, 1 TUMS with evening meal - 08/11 USR left side multiple stones - 02/09 USR left side multiple stones ? Prior imaging includes?09/05 CT with 2x 1cm stones on the left ?12/07 , a renal ultrasound left 6mm stone ?06/06 , a renal ultrasound bilateral renal cysts. No stones. ?06/07 , a renal ultrasound, bilateral multiple renal cysts up to 3 cm, no stones.? - 06/08 renal ultrasound, bilateral renal cysts up to 3 cm - stones left lower pole - 09/09 renal ultrasound, bilateral renal cysts, stones left lower pole 8 mm - 03/12 renal ultrasound, bilateral renal cysts, too small lower pole stones left side ? Current therapeutic plan will be?to perform metabolic evaluation, General advice to maintain good fluid intake for urine greater than 1.5 L per day, reduce salt and reduce protein and acid loads was provided? [facility] Medical History (Updated 03/14/24 @ 14:05 by GARY Webb) H/O nephrolithotomy with removal of calculi Aortic stenosis Diabetes Diverticulitis Scoliosis Pulmonary fibrosis Recurrent UTI DJD (degenerative joint disease) Hyperlipidemia Anxiety and depression Hypertension Surgical History Hx of left breast biopsy History of esophagogastroduodenoscopy (EGD) H/O colonoscopy Hx of cystoscopy H/O lithotripsy History of cholecystectomy History of Hx of breast reduction, elective S/P panniculectomy H/O gastric bypass Family History Father Heart disease Mother Heart disease Pulmonary fibrosis Sister Heart disease Sister Pulmonary fibrosis Brother Pulmonary fibrosis Daughter Mental health disorder Substance use disorder Social History Household Members: Spouse Housing: Apartment Are you a primary patient care to a significant other at home: No Do you presently have visiting nurse 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) Alcohol intake: never Patient Tobacco Use Status: Current everyday Tobacco user Tobacco use type: Cigarette Cigarette Packs Per Day: 1 Years Smoked: 45 e-Cigarette/Vaping Use: Never Used Second Hand Smoke Exposure: No Substance Use Type: Marijuana Advance Directives Date on File: 08/16/22 service: No Current occupational status: disabled 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 Cognitive needs: No Hearing needs: No Vision needs: No Review of Systems Const All systems reviewed & are unremarkable except as noted in HPI and below Reports no additional complaints Resp Reports no additional complaints GI Reports no additional complaints Reports as per HPI Musc Reports no additional complaints Physical Exam Telemedicine evaluation Appropriate responses Regular breathing rate and rhythm HEENT Head: Yes normal to inspection Ears: hearing grossly normal bilaterally Eyes General: appearance normal, both eyes and all related structures Neck Neck: Yes normal visual inspection Chest Chest palpation & inspection: normal inspection of the chest Resp Effort & Inspection: normal respiratory effort and able to speak in complete sentences Telehealth Telehealth Telehealth Platform: [employer] Location of provider rendering services: practice address Location of patient: address on file Patient Identification confirmed using: Name, : Yes Telehealth method: video Patient verbally consented to treatment: Yes Patient verbally consented to billing insurance company: Yes Patient informed of any privacy concerns related to visit: Yes Minutes spent on Phone/Video with Pt.: 15 Assessment & Plan Assessment & Plan (1) Nephrolithiasis: Code(s): N20.0 - Calculus of kidney Category: Medical Plan Six-month follow-up imaging with Litholink, potassium citrate Patient Instructions: Imaging studies, laboratory and physical exam results were discussed and reviewed in detail. No major barriers to patient understanding were identified. An opportunity to ask questions regarding the treatment plan was provided. All questions were answered. The patient expressed understanding and agreement with the above treatment plan. The patient is aware they should contact our office by phone for worsening of their current condition or the appearance of new urologic symptoms. Compliance is encouraged with any medications and followup testing that is ordered. It is a privilege to participate in the urologic care of your patient. If you have any questions or concerns regarding treatment for the above conditions, or other urologic issues, please do not hesitate to contact me. The office telephone contact is [phone]. This note is constructed using voice recognition software. While every effort has been made to ensure accuracy personal financial counselor errors may have been included. Yours sincerely, Dr Blake Christie MD, [facility] - Urology Providers of Expert, Compassionate Care for the Genitourinary System Coding Level of Care Code Tele Est Pt Level 4 (41026) Diagnoses Nephrolithiasis N20.0
== END 2024-03-25 14:46 | disposition home or self-care (01) ==
LOC: HO.HUSH 14:00
PROVIDERS: PCP Nurse Practitioner Family; Visit Provider Urology
DX: N20.0 Calculus of kidney (principal)
CPT/HCPCS: 99213

== ENCOUNTER → 2024-03-25 14:00 | Outpatient (BNVA) | payer OTHER, MEDICAID, SELFPAY | PROVIDERS: PCP Nurse Practitioner Family; Visit Provider Urology ==

== ENCOUNTER 2024-04-21 10:37 | Outpatient (REF) | payer OTHER, MEDICAID, SELFPAY ==
--- NOTE | ~2024-04-21 | XR_ITS ---
EXAMINATION: XR CERVICAL SPINE CLINICAL INFORMATION: Dorsalgia, unspecified COMPARISON: None available. TECHNIQUE: AP and lateral views of the cervical spine were obtained. FINDINGS: There is no fracture. Prevertebral soft tissues are within normal limits. The bones are diffusely demineralized. There is mild disc space narrowing at C5-C6 and C6-C7 with marginal osteophyte formation. There is preservation of the usual cervical lordosis. There is slight retrolisthesis of C5 respect to C6. XR/XR cervical spine 2V IMPRESSION: 1. Degenerative disc disease at C5-C6 and C6-C7. 2. Slight retrolisthesis of C5 respect to C6.
--- NOTE | ~2024-04-21 | XR_ITS ---
EXAMINATION: XR LUMBOSACRAL SPINE CLINICAL INFORMATION: Dorsalgia, unspecified COMPARISON: Lumbar spine 08/07/2013 TECHNIQUE: Three views of the lumbosacral spine. FINDINGS: There is marked curve of the lumbar spine, convex left. The bones are diffusely demineralized. There 5 nonrib-bearing lumbar-type vertebral bodies. There is some mild to moderate depression of the superior endplate of L1. There is mild loss of height of the L3 vertebral body. There is disc space narrowing at all lumbar levels. There is multilevel degenerative facet joint disease. There is mild anterolisthesis of L1 respect to L2. There is retrolisthesis of L2 with respect to L3, retrolisthesis of C4 respect to L5 and L5 respect to S1. XR/XR lumbar spine 2-3V IMPRESSION: 1. Marked curve of the lumbar spine, convex left. 2. Multilevel degenerative disc disease and degenerative facet joint disease. 3. Multilevel spondylolisthesis.
== END 2024-04-21 10:38 | disposition home or self-care (01) ==
LOC: HO.HMGCX 10:37
PROVIDERS: PCP Nurse Practitioner Family; Visit Provider Nurse Practitioner Family
DX: M54.9 Dorsalgia, unspecified (principal); G89.29 Other chronic pain; M47.812 Spondylosis without myelopathy or radiculopathy, cervical region
CPT/HCPCS: 72040; 72100

== ENCOUNTER 2024-05-27 11:15 | Outpatient (AMB) | payer OTHER, MEDICAID, SELFPAY ==
--- NOTE | 2024-05-27 11:19 | AM.OFFWIN_ITS ---
Intake Vital Signs 05/27/24 11:20 Height 5 ft 4 in Weight 205 lb 4 oz BMI 35.2 BP 118/70 Blood Pressure Location Rt brachial Position Sitting Pulse 112 H Pulse Source Pulse Oximeter Temp 98.5 F Temp Source Oral Pulse Oximetry (%) 95 Intake Visit Reasons: since 05/23 stomach ache, no stella few fevers Intake Note: pt is here for stomach ache, a few fevers and no appetite, patient suspects she may be dehydrated. Patient Tobacco Use Status: Current everyday Tobacco user Allergies latex [LATEX] Allergy (Severe, Verified 05/27/24 11:21) RASH morphine [MORPHINE] Allergy (Severe, Verified 05/27/24 11:21) SEVERE SHAKING, N/V amoxicillin [From AUGMENTIN] Allergy (Unknown, Verified 05/27/24 11:21) SEVERE DIARRHEA ciprofloxacin [CIPROFLOXACIN] Allergy (Unknown, Verified 05/27/24 11:21) SEVERE DIARRHEA clavulanic acid [From AUGMENTIN] Allergy (Unknown, Verified 05/27/24 11:21) SEVERE DIARRHEA fenofibrate Adverse Reaction (Intermediate, Verified 05/27/24 11:21) stomach pain/cramping baclofen Adverse Reaction (Unknown, Verified 05/27/24 11:21) Unknown trazodone Adverse Reaction (Unknown, Verified 05/27/24 11:21) Unknown Do you need a note to return to daycare/school/sports/work: No HPI HPI Comments History of Present Illness Details 68-year-old female presents today compla ining of left-sided abdominal pain for the last 4 or 5 days. She states the pain is becoming more severe and she has intermittent bouts of diarrhea. She has a past medical history of gastric bypass, and has had diverticulitis in the past. She denies any vomiting nausea or constipation. She also states she smokes marijuana to help with her lungs. States she uses it as an expectorant [facility] Medical History (Updated 05/27/24 @ 11:41 by GARY Neff-) H/O nephrolithotomy with removal of calculi Aortic stenosis Diabetes Diverticulitis Scoliosis Pulmonary fibrosis Recurrent UTI DJD (degenerative joint disease) Hyperlipidemia Anxiety and depression Hypertension Surgical History Hx of left breast biopsy History of esophagogastroduodenoscopy (EGD) H/O colonoscopy Hx of cystoscopy H/O lithotripsy History of cholecystectomy History of Hx of breast reduction, elective S/P panniculectomy H/O gastric bypass Family History Father Heart disease Mother Heart disease Pulmonary fibrosis Sister Heart disease Sister Pulmonary fibrosis Brother Pulmonary fibrosis Daughter Mental health disorder Substance use disorder Social History Household Members: Spouse Housing: Apartment Are you a primary wound care nurse to a significant other at home: No Do you presently have visiting nurse 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 home services: 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) Alcohol intake: never Patient Tobacco Use Status: Current everyday Tobacco user Tobacco use type: Cigarette Cigarette Packs Per Day: 1 Years Smoked: 45 e-Cigarette/Vaping Use: Never Used Second Hand Smoke Exposure: No Substance Use Type: Marijuana Advance Directives Date on File: 08/16/22 service: No Current occupational status: disabled 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 Cognitive needs: No Hearing needs: No Vision needs: No Review of Systems Const All systems reviewed & are unremarkable except as noted in HPI and below Eyes Reports no additional complaints ENT Reports no additional complaints Card Reports no additional complaints Resp Reports wheezing Aller/Immun Reports wheezing Physical Exam Vital Signs: Last Vital Signs Temp 98.5 F 05/27/24 11:20 Pulse 112 H 05/27/24 11:20 BP 118/70 05/27/24 11:20 Pulse Ox 95 05/27/24 11:20 BMI result Body Mass Index 35.2 Const General: acute distress moderate and anxious HEENT Head: Yes normal to inspection, Yes normocephalic and Yes atraumatic Ears: hearing grossly normal bilaterally General nose exam: Normal external nose present Face and sinus: Yes normal facial exam Throat: Yes posterior oropharynx normal Resp Effort & Inspection: normal respiratory effort Auscultation: wheezes scattered wheezes Cardio Rate: regular rate Rhythm: regular rhythm Heart sounds: Murmur heart sound present GI Inspection: Yes obesity and Yes scar Palpation (GI): Soft to palpation and Tenderness to palpation present (GI) in the LLQ and in the LUQ Auscultation: normal bowel sounds Assessment & Plan Assessment & Plan (1) Abdominal pain: Code(s): R10.9 - Unspecified abdominal pain Plan: This patient was discussed with his PCP who agreed to the recommendation of a CT scan and ordered this stat. We will follow up with the results. Plan CT scan ordered Coding Level of Care Code Est Pt Level 3 (41524) Diagnoses Abdominal pain R10.9
[2024-05-27 11:20] VITALS: BP 118/70; PULSE 112; TEMP 36.9; O2SAT 95; BMI 35.2
== END 2024-05-27 12:04 | disposition home or self-care (01) ==
PROVIDERS: PCP Nurse Practitioner Family; Visit Provider Physician Assistant Medical
DX: R10.9 Unspecified abdominal pain (principal)
CPT/HCPCS: 99213

== ENCOUNTER 2024-06-02 11:49 | Outpatient (REF) | payer OTHER, SELFPAY ==
[2024-06-02 13:11] LABS: MANUAL DIFF FLAG NO
[2024-06-02 13:29] LABS: Basophils Absolute Auto 0.1 X10*3/uL (0.0-0.2); Basophils Percent Auto 0.6 % (0-2); Eosinophils Absolute Auto 0.2 X10*3/uL (0.0-0.4); Eosinophils Percent Auto 1.9 % (0-4); Hematocrit 35.1 % (37.0-47.0); Hemoglobin 11.1 g/dl (12.0-16.0); Imm Gran Abs Auto 0.03 X10*3/uL (0.00-0.03); Imm Gran Pct Auto 0.3 % (0.0-0.4); Lymphocytes Absolute Auto 1.3 X10*3/uL (1.2-4.9); Lymphocytes Percent Auto 15.2 % (20-40); Mean Corpuscular HGB Conc 31.6 g/dl (31.0-35.0); Mean Corpuscular Hemoglobin 29.1 pg (27.0-33.0); Mean Corpuscular Volume 91.9 fL (80.0-98.0); Mean Platelet Volume 9.3 fL (9.4-12.3); Monocytes Absolute Auto 0.6 X10*3/uL (0.1-1.2); Monocytes Percent Auto 7.2 % (2-11); Neutrophils Absolute Auto 6.4 x10*3/uL (2.0-8.3); Neutrophils Percent Auto 74.8 % (45-73); Platelet Count 293 X10*3/uL (160-400); Red Blood Count 3.82 X10*6/uL (4.20-5.50); Red Cell Distribution Width 14.4 % (11.0-16.0); White Blood Count 8.6 X10*3/uL (4.8-10.8)
[2024-06-02 14:00] LABS: Alanine Aminotransferase 12 U/L (0-31); Albumin Level 3.9 g/dL (3.5-5.0); Alkaline Phosphatase 65 U/L (39-117); Anion Gap 14 (12-20); Aspartate Amino Transferase 17 U/L (5-31); Bilirubin Total 0.4 mg/dL (0.0-1.0); Blood Urea Nitrogen 19 mg/dL (9-16); Calcium 9.2 mg/dL (8.4-10.2); Carbon Dioxide 24 mmol/L (22-29); Chloride 108 mmol/L (96-108); Estimated Glomerular Filt Rate 50; Glucose Random 138 mg/dL (60-115); Potassium 4.1 mmol/L (3.3-5.1); Sodium 142 mmol/L (135-145)
== END 2024-06-02 11:50 | disposition home or self-care (01) ==
LOC: HO.HMGCLDS 11:49
PROVIDERS: PCP Nurse Practitioner Family; Visit Provider Nurse Practitioner Family
DX: R10.9 Unspecified abdominal pain (principal)
CPT/HCPCS: 36415; 80053; 85025

== ENCOUNTER 2024-06-03 13:09 | Outpatient (AMB) | payer OTHER, MEDICAID, SELFPAY ==
[2024-06-03 13:15] VITALS: BP 126/80; PULSE 74; O2SAT 94
--- NOTE | 2024-06-03 13:15 | A.OFFPC_ITS ---
Vital Signs 06/03/24 13:15 Weight 209 lb BP 126/80 Blood Pressure Location Lt brachial Position Sitting Pulse 74 Pulse Source Pulse Oximeter Pulse Oximetry (%) 94 Oxygen Delivery Method Room Air Intake Visit Reasons: 4 mon. f/u (reminder call) Allergies latex [LATEX] Allergy (Severe, Verified 06/03/24 15:25) RASH morphine [MORPHINE] Allergy (Severe, Verified 06/03/24 15:25) SEVERE SHAKING, N/V amoxicillin [From AUGMENTIN] Allergy (Unknown, Verified 06/03/24 15:25) SEVERE DIARRHEA ciprofloxacin [CIPROFLOXACIN] Allergy (Unknown, Verified 06/03/24 15:25) SEVERE DIARRHEA clavulanic acid [From AUGMENTIN] Allergy (Unknown, Verified 06/03/24 15:25) SEVERE DIARRHEA fenofibrate Adverse Reaction (Intermediate, Verified 06/03/24 15:25) stomach pain/cramping baclofen Adverse Reaction (Unknown, Verified 06/03/24 15:25) Unknown trazodone Adverse Reaction (Unknown, Verified 06/03/24 15:25) Unknown Tobacco use date assessed: 01/31/24 Fall risk assessment: No Falls in past year Last assessed Fall Risk: 06/03/24 Dental Screening Dental Screen Date: 01/31/24 HPI 4 mon. f/u (reminder call) HPI Details diabetes: on a statin, sees nephrology. Pt has an appointment with her eye MD next month. pt has neuropathy to BLE. A1c is 6.6 today, doing well. [facility] Medical History H/O nephrolithotomy with removal of calculi Aortic stenosis Diabetes Diverticulitis Scoliosis Pulmonary fibrosis Recurrent UTI DJD (degenerative joint disease) Hyperlipidemia Anxiety and depression Hypertension Surgical History Hx of left breast biopsy History of esophagogastroduodenoscopy (EGD) H/O colonoscopy Hx of cystoscopy H/O lithotripsy History of cholecystectomy History of Hx of breast reduction, elective S/P panniculectomy H/O gastric bypass Family History Father Heart disease Mother Heart disease Pulmonary fibrosis Sister Heart disease Sister Pulmonary fibrosis Brother Pulmonary fibrosis Daughter Mental health disorder Substance use disorder Social History Household Members: Spouse Housing: Apartment Are you a primary home day care provider to a significant other at home: No Do you presently have visiting nurse or other home services: Yes ([employer]) Alcohol intake: never Patient Tobacco Use Status: Current everyday Tobacco user Tobacco use type: Cigarette Cigarette Packs Per Day: 1 Years Smoked: 45 e-Cigarette/Vaping Use: Never Used Second Hand Smoke Exposure: No Substance Use Type: Marijuana Advance Directives Date on File: 08/16/22 service: No Current occupational status: disabled 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 1. Little interest or pleasure in doing things: not at all 2. Feeling down, depressed, or hopeless: not at all 3. Trouble falling or staying asleep, or sleeping too much: not at all 4. Feeling tired or having little energy: several days 5. Poor appetite or overeating: several days 6. Feeling bad about yourself - or that you are a failure or have let yourself or your family down: not at all 7. Trouble concentrating on things, such as reading the newspaper or watching television: not at all 8. Moving or speaking so slowly that other people could have noticed. Or the opposite - being so fidgety or restless that you have been moving around a lot more than usual: not at all 9. Thoughts that you would be better off or of hurting yourself in some way: not at all Total score: 2 Depression Screening Interpretation: Negative Depression Screening Done: Yes 01976 - PHQ-9 Billing: Yes Source: Developed by Drs. Boo Rios, Aranza Jackson, Milind Roy and colleagues, with an educational keira from [employer]. Thrive Questionnaire Date Thrive assessed: 01/31/24 I am a: Patient What is your living situation today?: I have a steady place to live Within the past 12 months, did the food you bought not last and you didn't have the money to get more?: Often true Within the past 12 months, did you worry whether your food would run out before you got money to buy more?: Often true Do you have trouble paying for medicines?: Yes Do you have trouble getting transportation to medical appointments?: No Do you have trouble paying your heating and electricity bill?: No Do you have trouble taking care of your child, family member or friend?: No Do you have trouble with day-to-day activities such as bathing, preparing meals, shopping, managing finances, etc.?: No Are you currently unemployed and looking for a job?: No Are you interested in more education?: No Please select the resources that you would like help with: Food and Paying for medicine Currently or been in a relationship where the following occur: No concerns reported THRIVE Score: 2 AUDIT C Alcohol Use Questionnaire (AUDIT-C) 1. How often do you have a drink containing alcohol?: Never Total Score: 0 HI-7 AMB Questionnaire HI-7 Date HI - 7 assessed: 01/31/24 Feeling nervous, anxious, or on edge: 1 = Several days Not being able to stop or control worryin = Not at all Worrying too much about different things: 0 = Not at all Trouble relaxin = Not at all Being so restless that it is hard to sit still: 0 = Not at all Becoming easily annoyed or irritable: 1 = Several days Feeling afraid as if something awful might happen: 0 = Not at all Total HI-7 score (0-4 normal; 5-9 mild; 10-14 moderate; 15-21 severe): 2 Source: Developed by Drs. Boo Rios, Aranza Jackson, Milind Roy and colleagues, with an educational keira from [employer]. HI-7 Assessment Billing HI-7 Assessment Tool: HI-7 Assessment 77003 Physical exam (Primary Care) Vital Signs: Last Vital Signs Pulse 74 06/03/24 13:15 BP 126/80 06/03/24 13:15 Pulse Ox 94 06/03/24 13:15 Oxygen Delivery Method Room Air 06/03/24 13:15 Tobacco/Smoking Status: Tobacco use Status Tobacco use date assessed 01/31/24 06/03/24 13:15 Patient Tobacco Use Status Current everyday Tobacco 06/03/24 13:15 Tobacco use type Cigarette 06/03/24 13:15 e-Cigarette/Vaping Use Never Used 06/03/24 13:15 PHQ-9: PHQ-9 Score PHQ-9: Total score 2 06/03/24 13:29 Depression Screening Interpretation: Negative Thrive Assessment: Date of Thrive Assessment Date Thrive assessed 01/31/24 06/03/24 13:15 Currently or been in a relationship where the following occur: No concerns reported Const General: cooperative Nutritional Appearance: obese Resp Effort & Inspection: normal respiratory effort Auscultation: clear to auscultation bilaterally Cardio Rate: regular rate Rhythm: regular rhythm Heart sounds: S1 normal heart sound present, S2 normal heart sound present and Murmur heart sound present systolic Extrem Other: left foot, plantar aspect, 1st MTP joint and 5th with callous/corn formation. + sensation with use of monofilament. Psych Appearance: grossly normal Mental Status: mental status grossly normal Speech and movement: Normal speech and movement present Affect: normal affect Attitude: cooperative Thought process: Normal thought process present Assessment and Plan Assessment & Plan (1) [place] of foot: Code(s): L84 - Corns and callosities Plan: referring to podiatry (2) Diabetes: Code(s): E11.9 - Type 2 diabetes mellitus without complications Plan: controlled currently Orders: Orders Comprehensive [place]. Panel Fast Today E11.9 - Type 2 diabetes mellitus without complications UA CC w/rflx Micro + Cult Today E11.9 - Type 2 diabetes mellitus without complications Complete Blood Count Auto Diff Today E11.9 - Type 2 diabetes mellitus without complications TSH reflex Free T4 Today E11.9 - Type 2 diabetes mellitus without complications Lipid Panel Today E11.9 - Type 2 diabetes mellitus without complications Referrals Cologuard Test Z12.11 - Encounter for screening for malignant neoplasm of colon, Z12.12 - Encounter for screening for malignant neoplasm of rectum Podiatry Referral L84 - Corns and callosities Coding Level of Care Code Est Pt Level 3 (04517) Diagnoses [place] of foot L84 Diabetes E11.9 Additional Codes HI-7 Assessment Billing - HI-7 Assessment Tool: HI-7 Assessment 11806 ([id number])
== END 2024-06-03 14:33 | disposition home or self-care (01) ==
PROVIDERS: PCP Nurse Practitioner Family; Visit Provider Nurse Practitioner Family
DX: E11.9 Type 2 diabetes mellitus without complications (principal); L84 Corns and callosities
CPT/HCPCS: 99213

== ENCOUNTER 2024-07-29 06:15 | Outpatient (REF) | payer OTHER, MEDICAID, SELFPAY ==
[2024-07-29 10:58] LABS: Appearance Urine Turbid; Color Urine Yellow; Glucose Urine UA Negative (Negative); Leukocyte Esterase Urine Large (3+) (Negative); Nitrite Urine Positive (Negative); PH 6.5 (5.0-9.0); Specific Gravity - Urine 1.015 (1.005-1.025); UMIC TRIGGER UACC YES; Urine Blood Small (1+) (Negative); Urine Ketones Negative (Negative); Urine Protein 100 (2+) mg/dL (Neg-Trace)
[2024-07-29 11:24] LABS: Bacteria Urine 4+ (None Seen); Hyaline Casts Urine 0-2 /LPF (0-2); Squamous Epithelial Cell Urine 0-2 /HPF (0-2); UACC Culture Trigger YES; WBC Urine >50 /HPF (0-5)
== END 2024-07-29 06:16 | disposition home or self-care (01) ==
LOC: HO.HMGCLNP 06:15
PROVIDERS: PCP Nurse Practitioner Family; Visit Provider Nurse Practitioner Family
DX: E11.9 Type 2 diabetes mellitus without complications (principal); R82.79 Other abnormal findings on microbiological examination of urine
CPT/HCPCS: 81001; 87086; 87088; 87186

== ENCOUNTER 2024-07-29 08:18 | Outpatient (AMB) | payer OTHER, MEDICAID, SELFPAY ==
[2024-07-29 08:22] VITALS: BP 112/70; PULSE 76; O2SAT 97; BMI 35.9
--- NOTE | 2024-07-29 08:22 | MHC.PC.OV ---
Vital Signs 07/29/24 08:22 Height 5 ft 4 in Weight 209 lb BMI 35.9 BP 112/70 Blood Pressure Location Rt brachial Position Sitting Pulse 76 Pulse Source Pulse Oximeter Pulse Oximetry (%) 97 Intake Visit Reasons: Cataract Surgery Intake Note: pt is here for pre op for cataracts surgery Supervisor Veneer Required: No Accompanied by: Self / Same As Patient Allergies latex [LATEX] Allergy (Severe, Verified 07/29/24 08:24) RASH morphine [MORPHINE] Allergy (Severe, Verified 07/29/24 08:24) SEVERE SHAKING, N/V amoxicillin [From AUGMENTIN] Allergy (Unknown, Verified 07/29/24 08:24) SEVERE DIARRHEA ciprofloxacin [CIPROFLOXACIN] Allergy (Unknown, Verified 07/29/24 08:24) SEVERE DIARRHEA clavulanic acid [From AUGMENTIN] Allergy (Unknown, Verified 07/29/24 08:24) SEVERE DIARRHEA fenofibrate Adverse Reaction (Intermediate, Verified 07/29/24 08:24) stomach pain/cramping baclofen Adverse Reaction (Unknown, Verified 07/29/24 08:24) Unknown trazodone Adverse Reaction (Unknown, Verified 07/29/24 08:24) Unknown Medication List - Last Reconciled 07/29/24 by GARY Neff- blood sugar diagnostic Use to check fasting blood sugar once daily or if needed for signs/symptoms of hypo/hyperglycemia blood-glucose meter (OneEyeAntTouch Ultra2 Meter) Use to check fasting blood sugar once daily or if needed for signs/symptoms of hypo/hyperglycemia buspirone 15 mg PO BID gabapentin 400 mg PO TID 30 days lancets (OneEyeAntTouch Delica Lancets) Use to check fasting blood sugar once daily or if needed for signs/symptoms of hypo/hyperglycemia lancets (OneTouch Delica Plus Lancet) daily latanoprost 0.005% 1 drp ophthalmic (eye) BEDTIME metoprolol tartrate 50 mg PO BID nitrofurantoin macrocrystal 50 mg PO DAILY 90 days omega-3 acid ethyl esters 2 caps PO BID 90 days omeprazole 40 mg PO BID@0630,1630 rosuvastatin 20 mg PO DAILY sertraline 100 mg PO DAILY 90 days tamsulosin 0.4 mg PO BEDTIME 14 days Tobacco use date assessed: 01/31/24 Fall risk assessment: No Falls in past year Last assessed Fall Risk: 07/29/24 Dental Screening Dental Screen Date: 01/31/24 HPI Cataract Surgery HPI Details Pt is here for a pre-op evaluation. She is scheduled to undergo cataract surgery on 08/05. No labs are needed. EKG shows no changes. Pt reports some urinary frequency and urgency. Will await UA before clearing pt for surgery. [facility] Medical History H/O nephrolithotomy with removal of calculi Aortic stenosis Diabetes Diverticulitis Scoliosis Pulmonary fibrosis Recurrent UTI DJD (degenerative joint disease) Hyperlipidemia Anxiety and depression Hypertension Surgical History Hx of left breast biopsy History of esophagogastroduodenoscopy (EGD) H/O colonoscopy Hx of cystoscopy H/O lithotripsy History of cholecystectomy History of Hx of breast reduction, elective S/P panniculectomy H/O gastric bypass Family History Father Heart disease Mother Heart disease Pulmonary fibrosis Sister Heart disease Sister Pulmonary fibrosis Brother Pulmonary fibrosis Daughter Mental health disorder Substance use disorder Social History Household Members: Spouse Housing: Apartment Are you a primary plant health care technician to a significant other at home: No Do you presently have visiting nurse or other home services: Yes ([employer]) Alcohol intake: never Patient Tobacco Use Status: Current everyday Tobacco user Tobacco use type: Cigarette Cigarette Packs Per Day: 1 Years Smoked: 45 Packs Per Year: 45 e-Cigarette/Vaping Use: Never Used Second Hand Smoke Exposure: No Substance Use Type: Marijuana Advance Directives Date on File: 08/16/22 service: No Current occupational status: disabled 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 1. Little interest or pleasure in doing things: not at all 2. Feeling down, depressed, or hopeless: not at all 3. Trouble falling or staying asleep, or sleeping too much: not at all 4. Feeling tired or having little energy: several days 5. Poor appetite or overeating: several days 6. Feeling bad about yourself - or that you are a failure or have let yourself or your family down: not at all 7. Trouble concentrating on things, such as reading the newspaper or watching television: not at all 8. Moving or speaking so slowly that other people could have noticed. Or the opposite - being so fidgety or restless that you have been moving around a lot more than usual: not at all 9. Thoughts that you would be better off or of hurting yourself in some way: not at all Total score: 2 Depression Screening Interpretation: Negative Depression Screening Done: Yes 71805 - PHQ-9 Billing: Yes Source: Developed by Drs. Boo Rios, Aranza Jackson, Milind Roy and colleagues, with an educational keira from [employer]. Thrive Questionnaire Date Thrive assessed: 07/29/24 I am a: Patient What is your living situation today?: I have a steady place to live Within the past 12 months, did the food you bought not last and you didn't have the money to get more?: Often true Within the past 12 months, did you worry whether your food would run out before you got money to buy more?: Often true Do you have trouble paying for medicines?: Yes Do you have trouble getting transportation to medical appointments?: No Do you have trouble paying your heating and electricity bill?: No Do you have trouble taking care of your child, family member or friend?: No Do you have trouble with day-to-day activities such as bathing, preparing meals, shopping, managing finances, etc.?: No Are you currently unemployed and looking for a job?: No Are you interested in more education?: No Please select the resources that you would like help with: Food and Paying for medicine Currently or been in a relationship where the following occur: No concerns reported THRIVE Score: 2 AUDIT C Alcohol Use Questionnaire (AUDIT-C) 1. How often do you have a drink containing alcohol?: Never Total Score: 0 Score Reviewed/Action Taken: Yes HI-7 AMB Questionnaire HI-7 Date HI - 7 assessed: 07/29/24 Feeling nervous, anxious, or on edge: 1 = Several days Not being able to stop or control worryin = Not at all Worrying too much about different things: 0 = Not at all Trouble relaxin = Not at all Being so restless that it is hard to sit still: 0 = Not at all Becoming easily annoyed or irritable: 1 = Several days Feeling afraid as if something awful might happen: 0 = Not at all Total HI-7 score (0-4 normal; 5-9 mild; 10-14 moderate; 15-21 severe): 2 Source: Developed by Drs. Boo Rios, Aranza Jackson, Milind Roy and colleagues, with an educational keira from [employer]. HI-7 Assessment Billing HI-7 Assessment Tool: HI-7 Assessment 64903 Review of Systems Const Denies chills and Denies fever(s) Eyes Denies blurry vision ENT Denies vertigo, Denies dizziness and Denies sore throat Card Denies chest pain at rest, Denies chest pain with activity, Denies diaphoresis, Denies dyspnea and Denies dyspnea on exertion Resp Denies cough, Denies dyspnea, Denies dyspnea on exertion and Denies wheezing GI Denies abdominal pain, Denies melena, Denies hematochezia, Denies constipation, Denies diarrhea and Denies loose stools Denies hematuria Musc Denies numbness and Denies tingling Skin/Breast Denies lesions Neuro Denies vertigo, Denies dizziness, Denies numbness and Denies tingling Psych Denies anxiety, Denies depression, Denies homicidal ideation, Denies suicidal ideation and Denies other (substance abuse) Aller/Immun Denies wheezing Physical exam (Primary Care) Vital Signs: Last Vital Signs Pulse 76 07/29/24 08:22 BP 112/70 07/29/24 08:22 Pulse Ox 97 07/29/24 08:22 BMI result Body Mass Index 35.9 Tobacco/Smoking Status: Tobacco use Status Tobacco use date assessed 01/31/24 07/29/24 08:28 Patient Tobacco Use Status Current everyday Tobacco 07/29/24 08:28 Tobacco use type Cigarette 07/29/24 08:28 e-Cigarette/Vaping Use Never Used 07/29/24 08:28 PHQ-9: PHQ-9 Score PHQ-9: Total score 2 07/29/24 08:45 Depression Screening Interpretation: Negative Thrive Assessment: Date of Thrive Assessment Date Thrive assessed 07/29/24 07/29/24 08:28 Currently or been in a relationship where the following occur: No concerns reported Const General: cooperative Nutritional Appearance: well nourished Orientation/consciousness: patient oriented x3 Neck Neck: Yes no lymphadenopathy Resp Effort & Inspection: normal respiratory effort Auscultation: clear to auscultation bilaterally (dim, with faint crackles to right base) Cardio Rate: regular rate Rhythm: regular rhythm Heart sounds: S1 normal heart sound present, S2 normal heart sound present and Murmur heart sound present systolic Neuro General: patient oriented x3 Psych Appearance: grossly normal Mental Status: mental status grossly normal Speech and movement: Normal speech and movement present Affect: normal affect Attitude: cooperative Thought process: Normal thought process present Thought content: Normal thought content present Insight: Good insight present (Psych) Judgement: Good judgement present (Psych) Assessment and Plan Assessment & Plan (1) Pre-op evaluation: Code(s): Z01.818 - Encounter for other preprocedural examination (2) Urinary urgency: Code(s): R39.15 - Urgency of urination Plan The patient agreed to the use of a medical services manager for this encounter. Scribed for ANDREA Covarrubias by Estephania Gordillo medical services manager, on 07/29/2024 at 08:45 EST. Orders: Orders AMB EKG-In Office Today Z01.818 - Encounter for other preprocedural examination Coding Level of Care Code Est Pt Prev Care >65y(91416) Diagnoses Pre-op evaluation Z01.818 Urinary urgency R39.15 Additional Codes HI-7 Assessment Billing - HI-7 Assessment Tool: HI-7 Assessment 41494 ([id number])
== END 2024-07-29 09:19 | disposition home or self-care (01) ==
PROVIDERS: PCP Nurse Practitioner Family; Visit Provider Nurse Practitioner Family
DX: Z01.818 Encounter for other preprocedural examination (principal); R39.15 Urgency of urination
CPT/HCPCS: 93000; 99213

== ENCOUNTER 2024-09-11 14:37 | Outpatient (REF) | payer OTHER, MEDICAID, SELFPAY ==
[2024-09-11 16:29] LABS: MANUAL DIFF FLAG NO
[2024-09-11 16:34] LABS: Basophils Absolute Auto 0.1 X10*3/uL (0.0-0.2); Basophils Percent Auto 0.7 % (0-2); Eosinophils Absolute Auto 0.1 X10*3/uL (0.0-0.4); Eosinophils Percent Auto 1.9 % (0-4); Hemoglobin 11.1 g/dl (12.0-16.0); Imm Gran Abs Auto 0.02 X10*3/uL (0.00-0.03); Imm Gran Pct Auto 0.3 % (0.0-0.4); Lymphocytes Absolute Auto 1.4 X10*3/uL (1.2-4.9); Lymphocytes Percent Auto 20.3 % (20-40); Mean Corpuscular HGB Conc 31.7 g/dl (31.0-35.0); Mean Corpuscular Volume 88.2 fL (80.0-98.0); Mean Platelet Volume 9.4 fL (9.4-12.3); Monocytes Absolute Auto 0.6 X10*3/uL (0.1-1.2); Monocytes Percent Auto 8.6 % (2-11); Neutrophils Absolute Auto 4.8 x10*3/uL (2.0-8.3); Neutrophils Percent Auto 68.2 % (45-73); Platelet Count 257 X10*3/uL (160-400); Red Blood Count 3.97 X10*6/uL (4.20-5.50); Red Cell Distribution Width 14.7 % (11.0-16.0)
[2024-09-11 16:45] LABS: Alanine Aminotransferase 14 U/L (0-31); Albumin Level 4.1 g/dL (3.5-5.0); Alkaline Phosphatase 79 U/L (39-117); Anion Gap 12 (12-20); Aspartate Amino Transferase 33 U/L (5-31); Bilirubin Total 0.4 mg/dL (0.0-1.0); Blood Urea Nitrogen 16 mg/dL (9-16); Calcium 9.6 mg/dL (8.4-10.2); Carbon Dioxide 26 mmol/L (22-29); Chloride 107 mmol/L (96-108); Cholesterol 142 mg/dL (<200); Estimated Glomerular Filt Rate 54; Glucose Fasting 128 mg/dL (60-99); HDL Cholesterol 55 mg/dL (>40); LDL Cholesterol Calculated 50 mg/dL (<100); Potassium 4.3 mmol/L (3.3-5.1); Sodium 141 mmol/L (135-145); Total Protein 7.2 g/dL (6.5-8.0); Triglycerides 186 mg/dL (<150)
[2024-09-11 16:46] LABS: Appearance Urine Hazy; Color Urine Yellow; Glucose Urine UA Negative (Negative); Leukocyte Esterase Urine Negative (Negative); Nitrite Urine Negative (Negative); PH 6.5 (5.0-9.0); Urine Blood Negative (Negative); Urine Ketones Negative (Negative); Urine Protein Trace mg/dL (Neg-Trace)
[2024-09-11 16:53] LABS: Alanine Aminotransferase 13 U/L (0-31); Albumin Level 4.1 g/dL (3.5-5.0); Alkaline Phosphatase 80 U/L (39-117); Anion Gap 12 (12-20); Aspartate Amino Transferase 22 U/L (5-31); Bilirubin Total 0.4 mg/dL (0.0-1.0); Blood Urea Nitrogen 16 mg/dL (9-16); Calcium 9.7 mg/dL (8.4-10.2); Carbon Dioxide 26 mmol/L (22-29); Chloride 107 mmol/L (96-108); Estimated Glomerular Filt Rate 53; Glucose Random 129 mg/dL (60-115); Potassium 4.3 mmol/L (3.3-5.1); Sodium 141 mmol/L (135-145); Total Protein 7.2 g/dL (6.5-8.0)
[2024-09-11 17:06] LABS: TSH reflex Free T4 0.58 uIU/mL (0.32-4.0)
[2024-09-11 17:08] LABS: Ferritin 15 ng/mL (10-250)
== END 2024-09-11 14:38 | disposition home or self-care (01) ==
LOC: HO.HMGCLDS 14:37
PROVIDERS: Internal Medicine Medical Oncology; PCP Nurse Practitioner Family; Visit Provider Internal Medicine Hypertension Specialist
DX: E11.9 Type 2 diabetes mellitus without complications (principal); D50.9 Iron deficiency anemia, unspecified
CPT/HCPCS: 36415; 80053; 80061; 81003; 82728; 84443; 85025

== ENCOUNTER 2024-09-19 11:19 | Outpatient (AMB) | payer OTHER, MEDICAID, SELFPAY ==
[2024-09-19 11:20] VITALS: BP 115/54; PULSE 85; BMI 36.9
--- NOTE | 2024-09-19 11:20 | A.OFFVIS_ITS ---
Vital Signs 09/19/24 11:20 Height 5 ft 4 in Weight 215 lb 2.738 oz BMI 36.9 BP 115/54 L Blood Pressure Location Rt brachial Position Sitting Pulse 85 Intake Visit Reasons: Colonoscopy Screening Intake Note: New patient in office today for colonoscopy screening. CC: Patient reports that she had her last colonoscopy about [address] [facility]. She reports having a hiatal hernia. Production Expert Required: No Accompanied by: Self / Same As Patient Allergies latex [LATEX] Allergy (Severe, Verified 10/20/24 12:24) RASH morphine [MORPHINE] Allergy (Severe, Verified 10/20/24 12:24) SEVERE SHAKING, N/V amoxicillin [From AUGMENTIN] Allergy (Unknown, Verified 10/20/24 12:24) SEVERE DIARRHEA ciprofloxacin [CIPROFLOXACIN] Allergy (Unknown, Verified 10/20/24 12:24) SEVERE DIARRHEA clavulanic acid [From AUGMENTIN] Allergy (Unknown, Verified 10/20/24 12:24) SEVERE DIARRHEA fenofibrate Adverse Reaction (Intermediate, Verified 10/20/24 12:24) stomach pain/cramping baclofen Adverse Reaction (Unknown, Verified 10/20/24 12:24) Unknown trazodone Adverse Reaction (Unknown, Verified 10/20/24 12:24) Unknown HPI HPI Colonoscopy Screening: Details: 68-year-old female here for preprocedural meeting to discuss a screening colonoscopy. She is referred by John. Cindy Kaba Morbid obesity High cholesterol Hypertension Diabetes - pt denies Aortic stenosis Lumbar degenerative disc disease Chronic kidney disease Nephrolithiasis Iron-deficiency anemia Pulmonary fibrosis Depression with anxiety * SURGICAL HISTORY Nephrolithotomy Left breast biopsy EGD-2003 Colonoscopy-2003 Cystoscopy Breast reduction surgery Panniculectomy Gastric bypass Cholecystectomy * ALLERGIES Latex Morphine Amoxicillin Cipro Fenofibrate Baclofen Trazodone * [facility] LABS: Laboratory Tests 09/11/24 14:43 WBC 7.0 Hgb 11.1 L Hct 35.0 L MCV 88.2 MCH 28.0 Plt Count 257 Estimated GFR 53 Random Glucose 129 H Total Bilirubin 0.4 AST 22 ALT 13 Alkaline Phosphatase 80 TSH 0.58 TODAY'S VISIT She has not had a colonoscopy in over 15 years, because she had a bad experience with anesthesia as she woke up and this frightened her away from scopes for many years. Her PF is well controlled and she denies cardiac problems She woke up during a scope once but no other problems. NO ID problems She had a + Cologuard x2 but no known FHX PFSH Medical History DJD (degenerative joint disease) Chest discomfort Right ankle pain Precordial chest pain Right ankle pain Right ankle injury Encounter for annual wellness visit (AWV) in Medicare patient Bilateral nephrolithiasis Pain Right flank pain Low back pain Postmenopausal Dysuria Hematuria Microhematuria Urinary tract infection Genitourinary syndrome of menopause Abdominal pain Pre-op evaluation H/O nephrolithotomy with removal of calculi Aortic stenosis Diabetes Diverticulitis Scoliosis Pulmonary fibrosis Recurrent UTI Hyperlipidemia Anxiety and depression Hypertension Surgical History Hx of left breast biopsy History of esophagogastroduodenoscopy (EGD) H/O colonoscopy Hx of cystoscopy H/O lithotripsy History of cholecystectomy History of Hx of breast reduction, elective S/P panniculectomy H/O gastric bypass Family History Father Heart disease Mother Heart disease Pulmonary fibrosis Sister Heart disease Sister Pulmonary fibrosis Brother Pulmonary fibrosis Daughter Mental health disorder Substance use disorder Social History Household Members: Spouse Housing: Apartment Are you a primary care services manager to a significant other at home: No Do you 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) Alcohol intake: never Patient Tobacco Use Status: Current everyday Tobacco user Tobacco use type: Cigarette Cigarette Packs Per Day: 1 Years Smoked: 45 e-Cigarette/Vaping Use: Never Used Second Hand Smoke Exposure: No Substance Use Type: Marijuana Advance Directives Date on File: 08/16/22 service: No Current occupational status: disabled 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 Cognitive needs: No Hearing needs: No Vision needs: No Review of Systems Const Denies fatigue, Denies fever(s), Denies night sweats, Denies poor appetite and Denies weight loss Eyes Reports requires corrective lenses ENT Reports Normal hearing present, Denies dental pain, Denies dysphagia, Denies hearing loss, Denies mouth pain, Denies odynophagia, Denies throat swelling, Denies tongue swelling and Reports other (Dentition adequate) GI Details: Denies abdominal pain, Denies melena, Denies bloating, Denies hematochezia, Denies constipation, Denies GI cramping, Denies dysphagia, Denies excessive flatus, Denies early satiety, Denies heartburn, Denies diarrhea, Denies nausea, Denies odynophagia, Denies vomiting and Denies hematemesis Skin/Breast Denies pruritus, Denies lesions, Denies rash and Denies jaundice Neuro Reports Normal hearing present and Denies Abnormal speech present Endo Denies fatigue Aller/Immun Denies throat swelling and Denies tongue swelling Physical Exam Vital Signs: Last Vital Signs Pulse 85 09/19/24 11:20 BP 115/54 L 09/19/24 11:20 BMI result Body Mass Index 36.9 Const General: cooperative, no acute distress, well developed and well groomed Nutritional Appearance: well nourished, obese and overweight Orientation/consciousness: oriented to person, oriented to place and oriented to time Limitations: No language barrier, ambulation with cane, ambulation with walker and wheelchair HEENT Head: Yes normocephalic and Yes atraumatic Eyes General: appearance normal, both eyes and all related structures Pupils: Equal, round and reactive pupils present Neck Neck: Yes normal visual inspection and Yes no lymphadenopathy Thyroid: Thyroid normal Resp Effort & Inspection: normal respiratory effort and able to speak in complete sentences Auscultation: clear to auscultation bilaterally Cardio Rate: regular rate Rhythm: regular rhythm Heart sounds: Normal, physiologic split S2 sound present Peripheral pulses: radial pulses present and posterior tibial pulses present GI Inspection: No distended, No Abdominal panniculus present, Yes obesity, Yes scar and Yes striae Palpation (GI): Soft to palpation, nontender, no guarding, not rigid and No hepatosplenomegaly present Percussion: Yes normal to percussion Auscultation: normal bowel sounds Rectal Exam - Female: deferred Skin General skin exam: no rashes or lesions noted, turgor normal, skin not dry, no jaundice, No spider nevi and no striae Rashes: no rashes Nails: normal Neuro General: oriented to person, oriented to place and oriented to time Cranial nerves: Yes Equal, round and reactive pupils present and Yes Normal hearing present Speech: No Abnormal speech present Extrem General: Yes normal to inspection, No clubbing, No cyanosis and No edema Psych Appearance: grossly normal and well kempt Mental Status: mental status grossly normal Speech and movement: Normal speech and movement present Affect: normal affect Attitude: cooperative Thought process: Normal thought process present and not confabulating Thought content: Normal thought content present Insight: Fair insight present (Psych) Judgement: Fair judgement present (Psych) Results Reviewed Results Reviewed: aboratory Tests 09/11/24 14:43 WBC 7.0 Hgb 11.1 L Hct 35.0 L MCV 88.2 MCH 28.0 Plt Count 257 Estimated GFR 53 Random Glucose 129 H Total Bilirubin 0.4 AST 22 ALT 13 Alkaline Phosphatase 80 TSH 0.58 Assessment & Plan Assessment & Plan (1) Positive colorectal cancer screening using Cologuard test: Code(s): R19.5 - Other fecal abnormalities Category: Medical (2) Morbid obesity: Code(s): E66.01 - Morbid (severe) obesity due to excess calories Category: Medical (3) Non-rheumatic aortic stenosis: Code(s): I35.0 - Nonrheumatic aortic (valve) stenosis Category: Medical (4) Left bundle branch block: Code(s): I44.7 - Left bundle-branch block, unspecified Category: Medical Plan She has not had a colonoscopy in over 15 years, because she had a bad experience with anesthesia as she woke up and this frightened her away from scopes for many years. Her PF is well controlled and she denies cardiac problems She woke up during a scope once but no other problems. NO ID problems She had a + Cologuard x2 but no known FHX Orders: Orders Colonoscopy - GI Use Only 09/19/24 R19.5 - Other fecal abnormalities Medications: New peg 3350-electrolytes 236-22.74-6.74 -5.86 gram (Golytely) until fecal effluent is clear; do not exceed a total volume of 2,000 mL 240 mL PO Q10M 4,000 mL 0RF 1 day Z12.11 - Encounter for screening for malignant neoplasm of colon bisacodyl (Dulcolax (bisacodyl)) 10 mg (2 x 5 mg) PO BEDTIME 4 tabs 0RF 2 days Coding Level of Care Code New Pt Level 3 (00216) Diagnoses Positive colorectal cancer screening using Cologuard test R19.5 Morbid obesity E66.01 Non-rheumatic aortic stenosis I35.0 Left bundle branch block I44.7
== END 2024-09-19 11:59 | disposition home or self-care (01) ==
LOC: HO.HGI 11:19
PROVIDERS: PCP Nurse Practitioner Family; Visit Provider Nurse Practitioner
DX: R19.5 Other fecal abnormalities (principal); E66.01 Morbid (severe) obesity due to excess calories; I35.0 Nonrheumatic aortic (valve) stenosis; I44.7 Left bundle-branch block, unspecified
CPT/HCPCS: 99203

== ENCOUNTER → 2024-09-19 11:19 | Outpatient (BNVA) | payer OTHER, MEDICAID, SELFPAY | PROVIDERS: PCP Nurse Practitioner Family; Visit Provider Nurse Practitioner ==

== ENCOUNTER 2024-09-22 11:11 | Outpatient (REF) | payer OTHER, MEDICAID, SELFPAY ==
--- NOTE | ~2024-09-22 | US_ITS ---
EXAMINATION: US RETROPERITONEAL LIMITED (RENAL ONLY) CLINICAL INFORMATION: Calculus of kidney. COMPARISON: Renal ultrasound 03/11/2024 and 12/24/2023. CT GI bleed abdomen and pelvis 04/10/2023. X-ray abdomen KUB 03/15/2023. TECHNIQUE: Real-time imaging of the kidneys. Limited visualization due to bowel gas. FINDINGS: RIGHT KIDNEY: 11.3 x 5.5 x 5.5 cm (SAG x AP x TRV). No hydronephrosis. No renal calculi. Renal cortical thickness is normal. Limited visualization. Multiple renal cysts, largest mid pole with benign features. There is no indication for additional imaging at this time. LEFT KIDNEY: 11.5 x 4.7 x 5.3 cm (SAG x AP x TRV). Redemonstration of severe left hydronephrosis. No obstructing renal calculi appreciated. Limited visualization. Multiple renal cysts, largest 3.1 cm mid pole. There is no specific indication for additional imaging at this time. Limited visualization. US/US renal BI IMPRESSION: Redemonstration of severe left hydronephrosis. No obstructing renal calculi appreciated. Limited visualization. This study was presented today, 09/22/2024, for interpretation. Stat results provided at this time as requested by referring provider. Electronically signed by: Marian Bradley MD 09/22/2024 12:26 PM JACLYN
== END 2024-09-22 11:12 | disposition home or self-care (01) ==
LOC: HO.US 11:11
PROVIDERS: PCP Nurse Practitioner Family; Visit Provider Urology
DX: N20.0 Calculus of kidney (principal)
CPT/HCPCS: 76775

== ENCOUNTER 2024-09-24 13:08 | Outpatient (AMB) | payer OTHER, MEDICAID, SELFPAY ==
--- NOTE | 2024-09-24 13:29 | A.OFFVIS_ITS ---
Intake Visit Reasons: 6m/US/Litholink(set) Intake Note: Patient is present for 6M/US/LITHOLINK Urology Medication:NITROFURANTION MACROCRYSTAL Antibiotic Allergy:AMOXICILLIN,CIPROFLOXACIN Blood Thinner:NONE Tax Examining Technician Required: No Allergies latex [LATEX] Allergy (Severe, Verified 09/24/24 13:31) RASH morphine [MORPHINE] Allergy (Severe, Verified 09/24/24 13:31) SEVERE SHAKING, N/V amoxicillin [From AUGMENTIN] Allergy (Unknown, Verified 09/24/24 13:31) SEVERE DIARRHEA ciprofloxacin [CIPROFLOXACIN] Allergy (Unknown, Verified 09/24/24 13:31) SEVERE DIARRHEA clavulanic acid [From AUGMENTIN] Allergy (Unknown, Verified 09/24/24 13:31) SEVERE DIARRHEA fenofibrate Adverse Reaction (Intermediate, Verified 09/24/24 13:31) stomach pain/cramping baclofen Adverse Reaction (Unknown, Verified 09/24/24 13:31) Unknown trazodone Adverse Reaction (Unknown, Verified 09/24/24 13:31) Unknown HPI Comments Details: ?Mary HUTCHINS is a very pleasant female. They are a patient of Dr Fernandez. They are seen in the office today for the following urologic conditions. - nephrolithiasis - recurrent UTI Six-month follow-up Imaging no stones Litholink performed. Primary issue is low citrate. Findings discussed. Recommend lemon juice 1 oz daily Prior hormone lab assessment - 04/10 T 17, AST 35, Ferritin 269, E <2 Unable to take potassium citrate secondary gastric bypass Nephrolithiasis/Urolithiasis:? They are here for?further evaluation of nephrolithiasis, ?- left 1cm stone x2 ?- hematuria ?- s/p gastric bypass 2008 ?- no stones on follow-up.? Urolithiasis was diagnosed?09/2018 ?- prior gastric bypass.? The patient previously had kidney stones whose composition w?10/06 , calcium oxalate - monohydrate, uric acid core - 08/11 calcium oxalate monohydrate 80 % ? Laboratory investigations include?12/07, Normocalcemia (9.0), Normal PTH, Normal uric acid.? 24 Hour urine evaluation - 11/09 borderline volume, low citrate, high calcium, borderline sodium ? Prior treatment(s) include?10/06 , left, ureteroscopy ?11/05 , left, ESWL ?06/06 vitamin B6, 1 TUMS with evening meal - 08/11 USR left side multiple stones - 02/09 USR left side multiple stones ? Prior imaging includes?09/05 CT with 2x 1cm stones on the left ?12/07 , a renal ultrasound left 6mm stone ?06/06 , a renal ultrasound bilateral renal cysts. No stones. ?06/07 , a renal ultrasound, bilateral multiple renal cysts up to 3 cm, no stones.? - 06/08 renal ultrasound, bilateral renal cysts up to 3 cm - stones left lower pole - 09/09 renal ultrasound, bilateral renal cysts, stones left lower pole 8 mm - 03/12 renal ultrasound, bilateral renal cysts, too small lower pole stones left side ? Current therapeutic plan will be?to perform metabolic evaluation, General advice to maintain good fluid intake for urine greater than 1.5 L per day, reduce salt and reduce protein and acid loads was provided? FOR[facility]LY [facility], [facility] Medical History DJD (degenerative joint disease) Chest discomfort Right ankle pain Precordial chest pain Right ankle pain Right ankle injury Encounter for annual wellness visit (AWV) in Medicare patient Bilateral nephrolithiasis Pain Right flank pain Low back pain Postmenopausal Dysuria Hematuria Microhematuria Urinary tract infection Genitourinary syndrome of menopause Abdominal pain Pre-op evaluation H/O nephrolithotomy with removal of calculi Aortic stenosis Diabetes Diverticulitis Scoliosis Pulmonary fibrosis Recurrent UTI Hyperlipidemia Anxiety and depression Hypertension Surgical History Hx of left breast biopsy History of esophagogastroduodenoscopy (EGD) H/O colonoscopy Hx of cystoscopy H/O lithotripsy History of cholecystectomy History of Hx of breast reduction, elective S/P panniculectomy H/O gastric bypass Family History Father Heart disease Mother Heart disease Pulmonary fibrosis Sister Heart disease Sister Pulmonary fibrosis Brother Pulmonary fibrosis Daughter Mental health disorder Substance use disorder Social History Household Members: Spouse Housing: Apartment Are you a primary career coach to a significant other at home: No Do you presently 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) Alcohol intake: never Patient Tobacco Use Status: Current everyday Tobacco user Tobacco use type: Cigarette Cigarette Packs Per Day: 1 Years Smoked: 45 e-Cigarette/Vaping Use: Never Used Second Hand Smoke Exposure: No Substance Use Type: Marijuana Advance Directives Date on File: 08/16/22 service: No Current occupational status: disabled 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 Cognitive needs: No Hearing needs: No Vision needs: No Review of Systems Const Denies chills and Denies fever(s) Card Reports no additional complaints and Denies syncope Resp Denies cough GI Denies abdominal pain and Denies heartburn Reports as per HPI and Denies change in libido Neuro Denies syncope Psych Denies change in libido Endo Denies change in libido Physical Exam Const General: cooperative, healthy appearing, comfortable and no acute distress Orientation/consciousness: patient oriented x3 HEENT Face and sinus: Yes normal facial exam Mouth: moist mucous membranes Neck Neck: Yes normal visual inspection, Yes full ROM and Yes trachea midline Chest Chest palpation & inspection: normal inspection of the chest Resp Effort & Inspection: normal respiratory effort, able to speak in complete sentences and no respiratory distress GI Inspection: Yes normal to inspection Back/Spine/Pelvis Cervical Spine: normal cervical lordosis Thoracic/Lumbar Spine: thoracic and lumbar spine normal to inspection Skin General skin exam: no rashes or lesions noted Neuro General: patient oriented x3, gait normal, tone normal and moves all extremities Extrem General: Yes normal to inspection and Yes capillary refill normal Results AMB Urinalysis, Automated UA Leukoctes 0 Jacinto/uL Last Edit by PERFECTO Walls on 09/24/24 13:42 UA Nitrite Negative Last Edit by PERFECTO Walls on 09/24/24 13:42 UA Urobilinogen 1 mg/dL Last Edit by PERFECTO Walls on 09/24/24 13:42 UA Protein 30 mg/dL Last Edit by PERFECTO Walls on 09/24/24 13:42 UA pH 6.0 Last Edit by Mariluz Bright CCM on 09/24/24 13:42 UA Blood 0 Marty/uL Last Edit by Mariluz Bright CCM on 09/24/24 13:42 UA Specific [place] 1.015 Last Edit by Mariluz Bright CCM on 09/24/24 13: 42 UA Ketone Negative Last Edit by Mariluz Bright CCM on 09/24/24 13:42 UA Bilirubin 1 mg/dL Last Edit by PERFECTO Walls on 09/24/24 13:42 UA Glucose 0 mg/dL Last Edit by Mariluz Bright [facility] on 09/24/24 13:42 Results Reviewed Results Reviewed: Laboratory Last Values Urine pH (Auto) 6.0 09/24/24 13:41 Specific [place] (Auto) 1.015 09/24/24 13:41 Urine Protein (Auto) 30 mg/dL 09/24/24 13:41 Glucose (UA)(Auto) 0 mg/dL 09/24/24 13:41 Urine Ketones (Auto) Negative 09/24/24 13:41 Urine Blood (Auto) 0 Marty/uL 09/24/24 13:41 Urine Nitrite (Auto) Negative 09/24/24 13:41 Urine Bilirubin (Auto) 1 mg/dL 09/24/24 13:41 Urine Urobilinogen (Auto) 1 mg/dL 09/24/24 13:41 Leukocyte Esterase (Auto) 0 Jacinto/uL 09/24/24 13:41 Assessment & Plan Assessment & Plan (1) Nephrolithiasis: Code(s): N20.0 - Calculus of kidney Category: Medical (2) Urinary urgency: Code(s): R39.15 - Urgency of urination Category: Medical Plan Six-month follow-up renal ultrasound Orders: Orders AMB Urinalysis Automated Today Z13.9 - Encounter for screening, unspecified US renal BI 6 Months N20.0 - Calculus of kidney Patient Instructions: Imaging studies, laboratory and physical exam results were discussed and reviewed in detail. No major barriers to patient understanding were identified. An opportunity to ask questions regarding the treatment plan was provided. All questions were answered. The patient expressed understanding and agreement with the above treatment plan. The patient is aware they should contact our office by phone for worsening of their current condition or the appearance of new urologic symptoms. Compliance is encouraged with any medications and followup testing that is ordered. It is a privilege to participate in the urologic care of your patient. If you have any questions or concerns regarding treatment for the above conditions, or other urologic issues, please do not hesitate to contact me. The office telephone contact is [phone]. This note is constructed using voice recognition software. While every effort has been made to ensure accuracy stripper machine operator errors may have been included. Yours sincerely, Dr Blake Christie MD, [facility] - Urology Providers of Expert, Compassionate Care for the Genitourinary System Coding Level of Care Code Est Pt Level 3 (10516) Diagnoses Nephrolithiasis N20.0 Urinary urgency R39.15
== END 2024-09-24 14:11 | disposition home or self-care (01) ==
LOC: HO.HUSH 13:09
PROVIDERS: PCP Nurse Practitioner Family; Visit Provider Urology
DX: N20.0 Calculus of kidney (principal); R39.15 Urgency of urination; Z13.9 Encounter for screening, unspecified
CPT/HCPCS: 99213

== ENCOUNTER → 2024-09-24 13:08 | Outpatient (BNVA) | payer OTHER, MEDICAID, SELFPAY | PROVIDERS: PCP Nurse Practitioner Family; Visit Provider Urology | DX: N20.0 Calculus of kidney (principal); R39.15 Urgency of urination | CPT/HCPCS: 81003 ==

== ENCOUNTER → 2024-09-30 12:33 | Outpatient (REF) | payer OTHER, MEDICAID, SELFPAY ==
--- NOTE | 2024-09-30 12:37 | CA_ITS ---
Transthoracic Echocardiogram Patient (Last, First, Middle): Mary Castillo L Gender: Female Date of : 1955 Age: 68 Procedure Date: 09/30/2024 Procedure Type: Transthoracic Echocardiogram Location: OP Height: 162.56 cm Weight: 97.52 kg BSA: 2.02 m2 Heart Rate: bpm BP: 124 / 70 mmHg Tying In Machine Operator: Referring MD: Kalin Gomez MD Symptoms: I35.0 - Nonrheumatic aortic (valve) stenosis Study Quality: Adequate ECG Rhythm: Sinus Conclusions: - Due to poor endocardial definition, difficult to assess LVEF and wall motion. LVEF possibly low-normal, but cannot be quantified. - There is moderate aortic valve stenosis. Findings Left Ventricle Normal left ventricular cavity size. There is mildly increased left ventricular wall thickness. Evidence suggests grade I (mild) diastolic dysfunction. Due to poor endocardial definition, difficult to assess LVEF and wall motion. LVEF possibly low-normal, but cannot be quantified. Right Ventricle Normal right ventricular cavity size and systolic function. Atria Both atria are normal in size. Aortic Valve The aortic valve was not well visualized. There is moderate aortic valve stenosis. The peak aortic velocity is 2.81 m/s with a calculated peak gradient of 32 mmHg. The mean gradient is 17 mmHg. The aortic valve area is 1.15 cm2. There is no aortic valve regurgitation. Dimensionless index 0.33. Mitral Valve There is mild mitral annular calcification. There is trace mitral valve regurgitation. There is no mitral valve stenosis. Pulmonic Valve There is trace pulmonic valve regurgitation. Tricuspid Valve There is trace tricuspid valve regurgitation. There is no evidence of pulmonary hypertension. Great Vessels The asc aorta is normal in size. Venous The inferior vena cava is normal in size and collapses greater than 50% with inspiration. Pericardium/Pleural There is no evidence of pericardial effusion. Prior Study Comparison No significant change compared to prior study dated: 08/22/2022. Measurements 2D Linear Measurements IVSd: 1.05 0.6-0.9/0.6-1.0 cm LVIDd: 4.31 3.9-5.3/4.2-5.9 cm LVIDd Index: 2.13 2.4-3.2/2.2-3.1 cm/m2 LVIDs: 2.62 2.0-3.6 cm LVPWd: 1.04 0.7-1.1 cm Ao Root: 3.00 2.1-3.5 cm LA Diam: 4.20 2.7-3.8/3.0-4.0 cm LAIDs Index: 2.08 1.5-2.3 cm/m2 LV Mass: 189.36 67-162/88-224 g LV Mass Index: 93.74 43-95/49-115 g/m2 LVOT Diam: 2.00 3.0+(-)1.3 cm 2D Systolic Function EF 4C: 45.90 >55% EF 2C: 46.70 >55% EF BiP: 47.10 >55% Mitral Valve MV Pk E: 1.12 MV PK A: 1.21 MV Decel Time: 147.00 E/A: 0.90 E'Lateral: 6.85 E'Medial: 3.15 E/E' Med: 35.60 E/E' Lat: 16.40 PHT: 43.00 MVA PHT: 5.12 Decel Sully: 7.63 Aortic Valve AoV Pk Amrit: 2.81 AoV Mn Amrit: 1.91 AoV VTI: 0.62 AoV Pk Grad: 32.00 Aov Mn Grad: 17.00 BENNETT Cont.VTI: 1.15 LVOT LVOT Pk Amrit: 0.91 LVOT Mn Amrit: 0.63 LVOT VTI: 0.23 LVOT Pk Grad: 3.00 LVOT Mn Grad: 2.00 LVOT Diam: 2.00 LVOT Area: 3.14 Diastolic Function MV Pk E: 1.12 MV Pk A: 1.21 E/A: 0.90 E'Medial: 3.15 E/E' Med: 35.60 E' Laterial: 6.85 E/E' Lat: 16.40 Tricuspid Valve TR Pk Amrit: 1.60 TR Pk Grad: 10.00 Great Vessels Aorta Ao Root-2D: 3.00 2.0-3.7 cm Ao Asc: 2.80 2.1-3.4 cm Pulmonary Valve PV Pk Amrit: 1.14 Peak PV Grad: 5.00 Updated in Other Vendor System with Status of Final Kalin Gomez MD electronically signed on 10/01/2024 12:37:49 PM with status of Final
== END ==
LOC: HO.CARD 12:33
PROVIDERS: PCP Nurse Practitioner Family; Visit Provider Internal Medicine
DX: I35.0 Nonrheumatic aortic (valve) stenosis (principal); I44.7 Left bundle-branch block, unspecified
CPT/HCPCS: 93306

== ENCOUNTER → 2024-09-30 12:37 | Outpatient (BNV) | payer OTHER, MEDICAID, SELFPAY | PROVIDERS: PCP Nurse Practitioner Family; Visit Provider Internal Medicine | DX: I35.0 Nonrheumatic aortic (valve) stenosis (principal); I34.81 Nonrheumatic mitral (valve) annulus calcification | CPT/HCPCS: 93306 ==

== ENCOUNTER 2024-10-08 12:43 | Outpatient (AMB) | payer OTHER, MEDICAID, SELFPAY ==
--- NOTE | 2024-10-08 12:45 | MHC.OFFVIS ---
Vital Signs 10/08/24 12:46 Height 5 ft 4 in Weight 218 lb 4.122 oz BMI 37.5 BP 120/62 Blood Pressure Location Lt brachial Position Sitting Pulse 78 Pulse Source Pulse Oximeter Intake Visit Reasons: 1 yr s/p echo Allergies latex [LATEX] Allergy (Severe, Verified 09/24/24 13:31) RASH morphine [MORPHINE] Allergy (Severe, Verified 09/24/24 13:31) SEVERE SHAKING, N/V amoxicillin [From AUGMENTIN] Allergy (Unknown, Verified 09/24/24 13:31) SEVERE DIARRHEA ciprofloxacin [CIPROFLOXACIN] Allergy (Unknown, Verified 09/24/24 13:31) SEVERE DIARRHEA clavulanic acid [From AUGMENTIN] Allergy (Unknown, Verified 09/24/24 13:31) SEVERE DIARRHEA fenofibrate Adverse Reaction (Intermediate, Verified 09/24/24 13:31) stomach pain/cramping baclofen Adverse Reaction (Unknown, Verified 09/24/24 13:31) Unknown trazodone Adverse Reaction (Unknown, Verified 09/24/24 13:31) Unknown Medication List - Last Reconciled 10/08/24 by Kalin Gomez MD bisacodyl (Dulcolax (bisacodyl)) 10 mg (2 x 5 mg) PO BEDTIME 2 days blood sugar diagnostic Use to check fasting blood sugar once daily or if needed for signs/symptoms of hypo/hyperglycemia blood-glucose meter ([employer] Ultra2 Meter) Use to check fasting blood sugar once daily or if needed for signs/symptoms of hypo/hyperglycemia buspirone 15 mg PO BID gabapentin 400 mg PO TID 30 days lancets ([employer] Delica Lancets) Use to check fasting blood sugar once daily or if needed for signs/symptoms of hypo/hyperglycemia lancets ([employer] Delica Plus Lancet) daily latanoprost 0.005% 1 drp ophthalmic (eye) BEDTIME metoprolol tartrate 50 mg PO BID nitrofurantoin macrocrystal 50 mg PO DAILY 90 days omega-3 acid ethyl esters 2 caps PO BID 90 days omeprazole 40 mg PO BID@0630,1630 peg 3350-electrolytes 236-22.74-6.74 -5.86 gram (Golytely) 240 mL PO Q10M 1 day rosuvastatin 20 mg PO DAILY sertraline 100 mg PO DAILY 90 days HPI Comments Details: Mary returns for follow-up. She has chronic left bundle-branch block as well as aortic stenosis. Nonspecific aches and pains but from cardiac she does not have any specific complaints. No angina or anything definitively cardiac. [facility] Medical History DJD (degenerative joint disease) Chest discomfort Right ankle pain Precordial chest pain Right ankle pain Right ankle injury Encounter for annual wellness visit (AWV) in Medicare patient Bilateral nephrolithiasis Pain Right flank pain Low back pain Postmenopausal Dysuria Hematuria Microhematuria Urinary tract infection Genitourinary syndrome of menopause Abdominal pain Pre-op evaluation H/O nephrolithotomy with removal of calculi Aortic stenosis Diabetes Diverticulitis Scoliosis Pulmonary fibrosis Recurrent UTI Hyperlipidemia Anxiety and depression Hypertension Surgical History Hx of left breast biopsy History of esophagogastroduodenoscopy (EGD) H/O colonoscopy Hx of cystoscopy H/O lithotripsy History of cholecystectomy History of Hx of breast reduction, elective S/P panniculectomy H/O gastric bypass Family History Father Heart disease Mother Heart disease Pulmonary fibrosis Sister Heart disease Sister Pulmonary fibrosis Brother Pulmonary fibrosis Daughter Mental health disorder Substance use disorder Social History Household Members: Spouse Housing: Apartment Are you a primary home health care case manager to a significant other at home: No Do you presently have 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) Alcohol intake: never Patient Tobacco Use Status: Current everyday Tobacco user Tobacco use type: Cigarette Cigarette Packs Per Day: 1 Years Smoked: 45 e-Cigarette/Vaping Use: Never Used Second Hand Smoke Exposure: No Substance Use Type: Marijuana Advance Directives Date on File: 08/16/22 service: No Current occupational status: disabled 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 Cognitive needs: No Hearing needs: No Vision needs: No Review of Systems Const Denies weakness ENT Denies dizziness Card Denies chest pain, Denies chest pain with activity, Denies syncope, Denies rapid heart rate, Denies pedal edema, Denies edema, Denies leg edema, Denies lightheadedness, Denies palpitations, Denies dyspnea, Denies dyspnea on exertion and Denies orthopnea Resp Denies cough, Denies dyspnea and Denies dyspnea on exertion GI Denies hematochezia and Denies change in stool character Musc Denies abnormal gait, Denies muscle cramps, Denies muscle weakness, Denies numbness, Denies radiating pain into limb and Denies tingling Neuro Denies abnormal gait, Denies dizziness, Denies syncope, Denies numbness, Denies tingling and Denies weakness Endo Denies palpitations Physical Exam Vital Signs: Last Vital Signs Pulse 78 10/08/24 12:46 BP 120/62 10/08/24 12:46 BMI result Body Mass Index 37.5 Const General: comfortable and no acute distress Orientation/consciousness: patient oriented x3 HEENT Other: Unremarkable Head: Yes normal to inspection Neck Neck: Yes normal visual inspection Chest Chest palpation & inspection: normal inspection of the chest Resp Auscultation: clear to auscultation bilaterally Cardio Palpation: normal PMI Heart sounds: S1 normal heart sound present, S2 normal heart sound present, no gallops, Murmur heart sound present systolic III/ and at the right sternal border and no rubs GI Palpation (GI): Soft to palpation Back/Spine/Pelvis Other: unremarkable Skin General skin exam: no rashes or lesions noted Neuro General: patient oriented x3 Extrem General: Yes normal to inspection Psych Mental Status: mental status grossly normal Assessment & Plan Assessment & Plan (1) Non-rheumatic aortic stenosis: Code(s): I35.0 - Nonrheumatic aortic (valve) stenosis Category: Medical Plan: In the most recent echocardiogram, aortic valve not well visualized. Thought to be rather moderate aortic stenosis. LVEF possibly low normal but difficult study. (2) Left bundle branch block: Code(s): I44.7 - Left bundle-branch block, unspecified Category: Medical Plan: This has been noted as early as 2016, from [facility] notes. EKGs can be followed periodically. Myocardial perfusion imaging study from 2020 shows likely normal perfusion. (3) Essential hypertension: Code(s): I10 - Essential (primary) hypertension Category: Medical Plan: Stable. No changes. On beta-blockers. There is also sinus tachycardia history. (4) Morbid obesity: Code(s): E66.01 - Morbid (severe) obesity due to excess calories Category: Medical Plan: Per documentation, weighing as much as 385 lb in the past. Then she has lost lot of weight but her BMI is still high. Orders: Orders CA echo transthoracic complete 1 Year I35.0 - Nonrheumatic aortic (valve) stenosis Coding Level of Care Code Est Pt Level 4 (91779) Diagnoses Non-rheumatic aortic stenosis I35.0 Left bundle branch block I44.7 Essential hypertension I10 Morbid obesity E66.01
[2024-10-08 12:46] VITALS: BP 120/62; PULSE 78; BMI 37.5
== END 2024-10-08 13:05 | disposition home or self-care (01) ==
PROVIDERS: PCP Nurse Practitioner Family; Visit Provider Internal Medicine
DX: I35.0 Nonrheumatic aortic (valve) stenosis (principal); I44.7 Left bundle-branch block, unspecified; I10 Essential (primary) hypertension; E66.01 Morbid (severe) obesity due to excess calories
CPT/HCPCS: 99214

== ENCOUNTER → 2024-10-08 12:43 | Outpatient (BNVA) | payer MEDICARE, SELFPAY | PROVIDERS: PCP Nurse Practitioner Family; Visit Provider Internal Medicine | DX: I35.0 Nonrheumatic aortic (valve) stenosis (principal); I44.7 Left bundle-branch block, unspecified; I10 Essential (primary) hypertension; E66.01 Morbid (severe) obesity due to excess calories; Z68.37 Body mass index [BMI] 37.0-37.9, adult | CPT/HCPCS: 99212 ==

== ENCOUNTER 2024-10-09 14:49 | Outpatient (AMB) | payer MEDICARE, SELFPAY ==
[2024-10-09 14:52] VITALS: BP 126/60; PULSE 83; O2SAT 95; BMI 37.1
--- NOTE | 2024-10-09 14:52 | A.OFFPC_ITS ---
Vital Signs 10/09/24 14:52 Height 5 ft 4 in Weight 216 lb 4 oz BMI 37.1 BP 126/60 Blood Pressure Location Lt brachial Position Sitting Pulse 83 Pulse Source Pulse Oximeter Pulse Oximetry (%) 95 Oxygen Delivery Method Room Air Intake Visit Reasons: diabetes Allergies latex [LATEX] Allergy (Severe, Verified 10/09/24 15:20) RASH morphine [MORPHINE] Allergy (Severe, Verified 10/09/24 15:20) SEVERE SHAKING, N/V amoxicillin [From AUGMENTIN] Allergy (Unknown, Verified 10/09/24 15:20) SEVERE DIARRHEA ciprofloxacin [CIPROFLOXACIN] Allergy (Unknown, Verified 10/09/24 15:20) SEVERE DIARRHEA clavulanic acid [From AUGMENTIN] Allergy (Unknown, Verified 10/09/24 15:20) SEVERE DIARRHEA fenofibrate Adverse Reaction (Intermediate, Verified 10/09/24 15:20) stomach pain/cramping baclofen Adverse Reaction (Unknown, Verified 10/09/24 15:20) Unknown trazodone Adverse Reaction (Unknown, Verified 10/09/24 15:20) Unknown Medication List - Last Reconciled 10[facility]09/24 [facility] blood sugar diagnostic Use to check fasting blood sugar once daily or if needed for signs/symptoms of hypo/hyperglycemia blood-glucose meter ([employer] Ultra2 Meter) Use to check fasting blood sugar once daily or if needed for signs/symptoms of hypo/hyperglycemia buspirone 15 mg PO BID gabapentin 400 mg PO TID 30 days lancets (OneTouch Delica Lancets) Use to check fasting blood sugar once daily or if needed for signs/symptoms of hypo/hyperglycemia lancets (OneTouch Delica Plus Lancet) daily latanoprost 0.005% 1 drp ophthalmic (eye) BEDTIME metoprolol tartrate 50 mg PO BID omega-3 acid ethyl esters 2 caps PO BID 90 days omeprazole 40 mg PO BID@0630,1630 peg 3350-electrolytes 236-22.74-6.74 -5.86 gram (Golytely) 240 mL PO Q10M 1 day rosuvastatin 20 mg PO DAILY sertraline 100 mg PO DAILY 90 days Tobacco use date assessed: 10/09/24 Fall risk assessment: No Falls in past year Last assessed Fall Risk: 10/09/24 Dental Screening Dental Screen Date: 10/09/24 Did you have a dental visit in the last 12 months?: Yes Did you have a dental problem in the last 6 months where you did not have access to dental care?: No Was dental information given to patient?: Patient has dentist HPI diabetes HPI Details History of Present Illness During the visit, she communicated concerns about worsened pain and waking up bent more often, which are not part of documented diagnoses but contribute to her general discomfort. The patient also mentioned experiencing slight anemia, potentially associated with a history of gastric bypass. The anemia seemed to result in feelings of lethargy but was not elaborated extensively during the visit. There are no reports of typical diabetic neuropathy symptoms such as n umbness or tingling in her feet. Additionally, the patient has a history of moderate aortic valve stenosis, identified in prior echocardiogram studies, which currently does not require surgical intervention. There is no short-term follow-up scheduled with the cardiology department, highlighting a stable condition at this time. She also notes a well-controlled blood pressure, which suggests adherence to prescribed antihypertensive therapies. Her diabetes is reportedly well-managed, though an updated A1c was performed. The patient has a systolic murmur and slight wheeziness in the lungs, although she has experienced more severe lung issues in the past. Refuses vaccinations. Social History - Smokes cannabis, history of smoking ci garettes, refused LDCTs - Financial difficulties reported, affec ting lifestyle choices such as cigarette purchasing - Recently ceased wearing glasses due to laser eye surgery Review of Systems - Neurological: Denies numbness and ting ling in her feet -denies any sob, cp, dizziness, polyuria , polydipsia Physical Exam - Cardiovascular- Presence of systolic m urmur - Respiratory- Mild wheezing noted in alee ngs - Endocrine- neck supple - Sensory- Good sensation in feet with m onofilament exam, intact -A+O no edema Results - Labs: Slight anemia observed, cannot t olerate oral iron - Tests and diagnostics: Moderate aortic valve stenosis identified in echocardiogram Plan Patient was informed and verbally consented to the use of an ambient scribe for clinic note documentation during this visit. Discussion Notes During the visit, we discussed the patient's condition of moderate aortic valve stenosis, explaining the importance of monitoring and the potential for straightforward interventions if necessary in the future. We talked about the stability of her hypertension and overall excellent control of her current health conditions. The patient consented to the updated A1c test to continue evaluating her diabetes management. The importance of maintaining medication adherence to keep her blood pressure and cholesterol levels well-controlled was reiterated. We addressed her financial constraints as a context to lifestyle choices such as reduced cigarette consumption. Discussions also confirmed that surgical follow-ups for her aortic stenosis are not immediately required, aligning with her preferences to avoid invasive procedures unless absolutely necessary. Patient Instructions - Continue current management for hypert ension and hyperlipidemia with medication adherence. - Follow up with the laboratory test for A1c as discussed. - Maintain regular monitoring of any landon nges in symptoms related to aortic valve stenosis. - Report any new or worsening symptoms p romptly, notably concerning breathing difficulties or altered heart symptoms. - Consider meeting with social media senior associate if financial constraints continue to affect lifestyle and health management decisions. - Schedule an annual cardiovascular chec k-up, unless circumstances change that require earlier intervention. [facility] Medical History DJD (degenerative joint disease) Chest discomfort Right ankle pain Precordial chest pain Right ankle pain Right ankle injury Encounter for annual wellness visit (AWV) in Medicare patient Bilateral nephrolithiasis Pain Right flank pain Low back pain Postmenopausal Dysuria Hematuria Microhematuria Urinary tract infection Genitourinary syndrome of menopause Abdominal pain Pre-op evaluation H/O nephrolithotomy with removal of calculi Aortic stenosis Diabetes Diverticulitis Scoliosis Pulmonary fibrosis Recurrent UTI Hyperlipidemia Anxiety and depression Hypertension Surgical History Hx of left breast biopsy History of esophagogastroduodenoscopy (EGD) H/O colonoscopy Hx of cystoscopy H/O lithotripsy History of cholecystectomy History of Hx of breast reduction, elective S/P panniculectomy H/O gastric bypass Family History Father Heart disease Mother Heart disease Pulmonary fibrosis Sister Heart disease Sister Pulmonary fibrosis Brother Pulmonary fibrosis Daughter Mental health disorder Substance use disorder Social History Household Members: Spouse Housing: Apartment Are you a primary career consultant to a significant other at home: No Do you presently have 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) Alcohol intake: never Patient Tobacco Use Status: Current everyday Tobacco user Tobacco use type: Cigarette Cigarette Packs Per Day: 1 Years Smoked: 45 e-Cigarette/Vaping Use: Never Used Second Hand Smoke Exposure: No Substance Use Type: Marijuana Advance Directives Date on File: 08/16/22 service: No Current occupational status: disabled 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 Cognitive needs: No Hearing needs: No Vision needs: No Questionnaire Thrive Questionnaire Date Thrive assessed: 10/09/24 I am a: Patient What is your living situation today?: I have a steady place to live Within the past 12 months, did the food you bought not last and you didn't have the money to get more?: Often true Within the past 12 months, did you worry whether your food would run out before you got money to buy more?: Often true Do you have trouble paying for medicines?: Yes Do you have trouble getting transportation to medical appointments?: No Do you have trouble paying your heating and electricity bill?: No Do you have trouble taking care of your child, family member or friend?: No Do you have trouble with day-to-day activities such as bathing, preparing meals, shopping, managing finances, etc.?: No Are you currently unemployed and looking for a job?: No Are you interested in more education?: No Currently or been in a relationship where the following occur: No concerns reported THRIVE Score: 2 AUDIT C Alcohol Use Questionnaire (AUDIT-C) 1. How often do you have a drink containing alcohol?: Never 3. How often do you have six or more drinks on one occasion?: Never Total Score: 0 Score Reviewed/Action Taken: Yes HI-7 AMB Questionnaire HI-7 Date HI - 7 assessed: 07/29/24 Source: Developed by Drs. Boo Rios, Aranza Jackson, Milind Roy and colleagues, with an educational keira from [employer]. Physical exam (Primary Care) Vital Signs: Last Vital Signs Pulse 83 10/09/24 14:52 BP 126/60 10/09/24 14:52 Pulse Ox 95 10/09/24 14:52 Oxygen Delivery Method Room Air 10/09/24 14:52 BMI result Body Mass Index 37.1 Tobacco/Smoking Status: Tobacco use Status Tobacco use date assessed 10/09/24 10/09/24 14:53 Patient Tobacco Use Status Current everyday Tobacco 10/09/24 14:53 Tobacco use type Cigarette 10/09/24 14:53 e-Cigarette/Vaping Use Never Used 10/09/24 14:53 Thrive Assessment: Date of Thrive Assessment Date Thrive assessed 10/09/24 10/09/24 14:53 Currently or been in a relationship where the following occur: No concerns reported Coding Level of Care Code Est Pt Level 3 (20846) Diagnoses Type 2 diabetes mellitus without complications E11.9 Assessment & Plan Assessment & Plan (1) Type 2 diabetes mellitus without complications: Code(s): E11.9 - Type 2 diabetes mellitus without complications Category: Medical Plan .
== END 2024-10-09 16:38 | disposition home or self-care (01) ==
PROVIDERS: PCP Nurse Practitioner Family; Visit Provider Nurse Practitioner Family
DX: E11.9 Type 2 diabetes mellitus without complications (principal)

== ENCOUNTER → 2024-10-09 14:49 | Outpatient (BNVA) | payer MEDICARE, SELFPAY | PROVIDERS: PCP Nurse Practitioner Family; Visit Provider Nurse Practitioner Family | DX: E11.9 Type 2 diabetes mellitus without complications (principal) | CPT/HCPCS: 99212 ==

== ENCOUNTER → 2024-10-10 08:58 | Outpatient (BNV) | payer MEDICARE, SELFPAY | PROVIDERS: PCP Nurse Practitioner Family; Visit Provider Nurse Practitioner Family | DX: Z13.9 Encounter for screening, unspecified (principal) | CPT/HCPCS: 83036 ==

== ENCOUNTER 2024-10-20 12:23 | Outpatient (AMB) | payer MEDICARE, SELFPAY ==
[2024-10-20 12:23] VITALS: BP 122/68; PULSE 95; O2SAT 99; BMI 36.6
--- NOTE | 2024-10-20 12:23 | HO.NEPHOV ---
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: No Accompanied by: Self / Same As Patient Allergies latex [LATEX] Allergy (Severe, Verified 10/20/24 12:24) RASH morphine [MORPHINE] Allergy (Severe, Verified 10/20/24 12:24) SEVERE SHAKING, N/V amoxicillin [From AUGMENTIN] Allergy (Unknown, Verified 10/20/24 12:24) SEVERE DIARRHEA ciprofloxacin [CIPROFLOXACIN] Allergy (Unknown, Verified 10/20/24 12:24) SEVERE DIARRHEA clavulanic acid [From AUGMENTIN] Allergy (Unknown, Verified 10/20/24 12:24) SEVERE DIARRHEA fenofibrate Adverse Reaction (Intermediate, Verified 10/20/24 12:24) stomach pain/cramping baclofen Adverse Reaction (Unknown, Verified 10/20/24 12:24) Unknown trazodone Adverse Reaction (Unknown, Verified 10/20/24 12:24) Unknown Medication List - Last Reconciled 10/20/24 by Lee Matias MD blood sugar diagnostic Use to check fasting blood sugar once daily or if needed for signs/symptoms of hypo/hyperglycemia blood-glucose meter ([employer] Ultra2 Meter) Use to check fasting blood sugar once daily or if needed for signs/symptoms of hypo/hyperglycemia buspirone 15 mg PO BID gabapentin 400 mg PO TID 30 days lancets (OneTouch Delica Lancets) Use to check fasting blood sugar once daily or if needed for signs/symptoms of hypo/hyperglycemia lancets (OneTouch Delica Plus Lancet) daily latanoprost 0.005% 1 drp ophthalmic (eye) BEDTIME metoprolol tartrate 50 mg PO BID omega-3 acid ethyl esters 2 caps PO BID 90 days omeprazole 40 mg PO BID@0630,1630 peg 3350-electrolytes 236-22.74-6.74 -5.86 gram (Golytely) 240 mL PO Q10M 1 day rosuvastatin 20 mg PO DAILY sertraline 100 mg PO DAILY 90 days HPI Comments Details: Middle-aged man with history of obesity and nephrolithiasis is here for annual follow-up. Today she has no new complaints. She has chronic back pain. She takes gabapentin. She admits to drinking plenty of [place] iced tea 10/20/24 Overall doing well. NO new issues Still smokes 1 PPD and atleast 5 hits PFSH Medical History DJD (degenerative joint disease) Chest discomfort Right ankle pain Precordial chest pain Right ankle pain Right ankle injury Encounter for annual wellness visit (AWV) in Medicare patient Bilateral nephrolithiasis Pain Right flank pain Low back pain Postmenopausal Dysuria Hematuria Microhematuria Urinary tract infection Genitourinary syndrome of menopause Abdominal pain Pre-op evaluation H/O nephrolithotomy with removal of calculi Aortic stenosis Diabetes Diverticulitis Scoliosis Pulmonary fibrosis Recurrent UTI Hyperlipidemia Anxiety and depression Hypertension Surgical History Hx of left breast biopsy History of esophagogastroduodenoscopy (EGD) H/O colonoscopy Hx of cystoscopy H/O lithotripsy History of cholecystectomy History of Hx of breast reduction, elective S/P panniculectomy H/O gastric bypass Family History Father Heart disease Mother Heart disease Pulmonary fibrosis Sister Heart disease Sister Pulmonary fibrosis Brother Pulmonary fibrosis Daughter Mental health disorder Substance use disorder Social History Household Members: Spouse Housing: Apartment Are you a primary health care marketing specialist to a significant other at home: No 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) Alcohol intake: never Patient Tobacco Use Status: Current everyday Tobacco user Tobacco use type: Cigarette Cigarette Packs Per Day: 1 Years Smoked: 45 e-Cigarette/Vaping Use: Never Used Second Hand Smoke Exposure: No Substance Use Type: Marijuana Advance Directives Date on File: 08/16/22 service: No Current occupational status: disabled 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 Lungs entry equal no rales. Heart S1-S2 heard no gallop or rub. Abdomen soft nontender. Neuro alert awake oriented. No asterixis. Extremities no edema. Results Reviewed Nephrology Results: Renal US 09/22/24 Assessment & Plan Assessment & Plan (1) Microalbuminuria: Code(s): R80.9 - Proteinuria, unspecified Category: Medical Plan: Middle-aged woman with microalbuminuria any setting of her diabetes medicine obesity. Goal is to slow the portion disease. Maintain blood pressure Maintaining A1c less than 7%. She will benefit from Aram inhibition. Ok to start on low-dose lisinopril 5 mg or losartan 25 mg a day. (2) Nephrolithiasis: Code(s): N20.0 - Calculus of kidney Category: Medical Plan: . History of renal stones. Currently asymptomatic. Indications and low-sodium diet. She should increase fluid intake. I encouraged her to limit intake of tea since this could contain oxalate Orders: Orders Basic Metabolic Panel 1 Year N20.0 - Calculus of kidney, R80.9 - Proteinuria, unspecified Creatinine Urine 1 Year N20.0 - Calculus of kidney, R80.9 - Proteinuria, unspecified Total Protein Urine Random 1 Year N20.0 - Calculus of kidney, R80.9 - Proteinuria, unspecified UA and rflx microscopic 1 Year N20.0 - Calculus of kidney, R80.9 - Proteinuria, unspecified Coding Level of Care Code Est Pt Level 4 (69668) Diagnoses Microalbuminuria R80.9 Nephrolithiasis N20.0
== END 2024-10-20 12:35 | disposition home or self-care (01) ==
PROVIDERS: PCP Nurse Practitioner Family; Visit Provider Internal Medicine Hypertension Specialist
DX: R80.9 Proteinuria, unspecified (principal); N20.0 Calculus of kidney
CPT/HCPCS: 99214

== ENCOUNTER → 2024-10-20 12:23 | Outpatient (BNVA) | payer MEDICARE, SELFPAY | PROVIDERS: PCP Nurse Practitioner Family; Visit Provider Internal Medicine Hypertension Specialist | DX: R80.9 Proteinuria, unspecified (principal); N20.0 Calculus of kidney | CPT/HCPCS: 99212 ==

== ENCOUNTER 2025-02-02 14:54 | Outpatient (AMB) | payer MEDICARE, SELFPAY ==
[2025-02-02 14:56] VITALS: BP 118/74; PULSE 83; O2SAT 96; BMI 37.8
--- NOTE | 2025-02-02 14:56 | A.OFFPC_ITS ---
Vital Signs 02/02/25 14:56 Height 5 ft 4 in Weight 220 lb 4 oz BMI 37.8 BP 118/74 Blood Pressure Location Lt brachial Position Sitting Pulse 83 Pulse Source Pulse Oximeter Pulse Oximetry (%) 96 Oxygen Delivery Method Room Air Intake Visit Reasons: 4m follow up Allergies latex [LATEX] Allergy (Severe, Verified 02/02/25 15:57) RASH morphine [MORPHINE] Allergy (Severe, Verified 02/02/25 15:57) SEVERE SHAKING, N/V amoxicillin [From AUGMENTIN] Allergy (Unknown, Verified 02/02/25 15:57) SEVERE DIARRHEA ciprofloxacin [CIPROFLOXACIN] Allergy (Unknown, Verified 02/02/25 15:57) SEVERE DIARRHEA clavulanic acid [From AUGMENTIN] Allergy (Unknown, Verified 02/02/25 15:57) SEVERE DIARRHEA fenofibrate Adverse Reaction (Intermediate, Verified 02/02/25 15:57) stomach pain/cramping baclofen Adverse Reaction (Unknown, Verified 02/02/25 15:57) Unknown trazodone Adverse Reaction (Unknown, Verified 02/02/25 15:57) Unknown Medication List - Last [facility]02[facility] blood sugar diagnostic Use to check fasting blood sugar once daily or if needed for signs/symptoms of hypo/hyperglycemia blood-glucose meter (Acusphereuch Ultra2 Meter) Use to check fasting blood sugar once daily or if needed for signs/symptoms of hypo/hyperglycemia buspirone 15 mg PO BID gabapentin 400 mg PO TID 30 days lancets (OneTouch Delica Lancets) Use to check fasting blood sugar once daily or if needed for signs/symptoms of hypo/hyperglycemia lancets (OneTouch Delica Plus Lancet) daily latanoprost 0.005% 1 drp ophthalmic (eye) BEDTIME metoprolol tartrate 50 mg PO BID omega-3 acid ethyl esters 2 caps PO BID 90 days omeprazole 40 mg PO BID@0630,1630 rosuvastatin 20 mg PO DAILY sertraline 100 mg PO DAILY 90 days Tobacco use date assessed: 02/02/25 Fall risk assessment: No Falls in past year Last assessed Fall Risk: 02/02/25 Dental Screening Dental Screen Date: 02/02/25 Did you have a dental visit in the last 12 months?: Yes Did you have a dental problem in the last 6 months where you did not have access to dental care?: No Was dental information given to patient?: Patient has dentist HPI 4m follow up HPI Details Chief Complaint Follow-up for diabetes History of Present Illness The patient is a 69-year-old female presenting with a follow-up for diabetes management. Her diabetes appears to be well-managed as evidenced by an A1c of 6.5, and she is content with her current dietary practices. She denies symptoms of neuropathy, and there is a noted history of a systolic murmur. The patient has chronic issues with pulmonary health, as demonstrated by the presence of wheezing on auscultation, and admits to regular tobacco use. She has declined to pursue screening for breast or cervical cancer and has not undergone mammograms or Pap smears. Additionally, she refuses low-dose CT scans and vaccinations. The patient is classified as obese but has chosen not to engage in treatment options such as GLP-1 agonists at this time. Social History - Tobacco use: Active smoker - Nutrition: Follows a diet she is satis fied with - Screenings: Refuses mammograms and Pap smears - Vaccinations: Not interested in receiv ing vaccinations Health Maintenance - Denied and refused mammograms - Denied and refused Pap smears - Refuses low-dose CT scans for lung can cer - Declines vaccinations Review of Systems - Endocrine: Reports blood sugars are un maci control - Neurology: Denies neuropathy -denies any si or hi, denies any cp or i ncreased sob Physical Exam General: Cooperative, healthy appearing, comfortable, no acute distress and well developed, obese Orientation: Patient oriented x3 Limitations: No limitations Head: Normal to inspection Ears: Hearing grossly normal bilaterally Nose: Normal external nose present Face and sinus: Normal facial exam Eyes: Appearance normal, both eyes and all related structures Neck: Normal visual inspection and Yes full ROM Respiratory: Lungs with extended course and scattered wheezing Cardiovascular: Systolic murmur noted on exam. Regular rate and rhythm. Normal S1 and S2 GI: Normal to inspection. Soft to palpation and nontender Skin: No rashes or lesions noted Neuro: Patient oriented x3 Extremities: Normal to inspection Results - Labs: Hemoglobin A1c at 6.5% Plan 1. 5, and she is content with her dietar y measures. There is no current desire to initiate GLP-1 agonist therapy. Routine monitoring of her systolic murmur will continue. Her tobacco use contributes to pulmonary wheezing, but she declines interventions for smoking cessation or screening for lung cancer with low-dose CT scans. The patient refuses preventative screenings and vaccinations.: Discussion Notes I discussed with the patient her satisfactory diabetes control with an A1c of 6.5 and the potential benefits of a GLP-1 agonist, which she declined. We reviewed the significance of her systolic murmur and scattered wheezing, acknowledging her smoking as a contributory factor. Despite recommendations, she is not interested in lung cancer screening or smoking cessation interventions. We talked about the implications of her decisions to forgo mammograms, Pap smea rs, and vaccinations, ensuring she is fully informed of potential risks and benefits. Follow-up arrangements were not specified, respecting her current healthcare preferences and prior decisions. Patient Instructions - Continue with current dietary manageme nt for diabetes - Monitor for worsening of breathing dif ficulties or significant changes in health, and seek care if necessary - Acknowledge and reconsider preventive screening and vaccination refusals in future discussions [facility] Medical History DJD (degenerative joint disease) Chest discomfort Right ankle pain Precordial chest pain Right ankle pain Right ankle injury Encounter for annual wellness visit (AWV) in Medicare patient Bilateral nephrolithiasis Pain Right flank pain Low back pain Postmenopausal Dysuria Hematuria Microhematuria Urinary tract infection Genitourinary syndrome of menopause Abdominal pain Pre-op evaluation H/O nephrolithotomy with removal of calculi Aortic stenosis Diabetes Diverticulitis Scoliosis Pulmonary fibrosis Recurrent UTI Hyperlipidemia Anxiety and depression Hypertension Surgical History Hx of left breast biopsy History of esophagogastroduodenoscopy (EGD) H/O colonoscopy Hx of cystoscopy H/O lithotripsy History of cholecystectomy History of Hx of breast reduction, elective S/P panniculectomy H/O gastric bypass Family History Father Heart disease Mother Heart disease Pulmonary fibrosis Sister Heart disease Sister Pulmonary fibrosis Brother Pulmonary fibrosis Daughter Mental health disorder Substance use disorder Social History Household Members: Spouse Housing: Apartment Are you a primary health care recruiter to a significant other at home: No Do you presently have visiting nurse or other home services: Yes ([employer]) Alcohol intake: never Patient Tobacco Use Status: Current everyday Tobacco user Tobacco use type: Cigarette Cigarette Packs Per Day: 1 Years Smoked: 45 e-Cigarette/Vaping Use: Never Used Second Hand Smoke Exposure: No Substance Use Type: Marijuana Advance Directives Date on File: 08/16/22 service: No Current occupational status: disabled 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 1. Little interest or pleasure in doing things: not at all 2. Feeling down, depressed, or hopeless: not at all 3. Trouble falling or staying asleep, or sleeping too much: not at all 4. Feeling tired or having little energy: several days 5. Poor appetite or overeating: several days 6. Feeling bad about yourself - or that you are a failure or have let yourself or your family down: not at all 7. Trouble concentrating on things, such as reading the newspaper or watching television: not at all 8. Moving or speaking so slowly that other people could have noticed. Or the opposite - being so fidgety or restless that you have been moving around a lot more than usual: not at all 9. Thoughts that you would be better off or of hurting yourself in some way: not at all Total score: 2 Depression Screening Interpretation: Negative Depression Screening Done: Yes 99196 - PHQ-9 Billing: Yes Source: Developed by Drs. Boo Rios, Aranza Jackson, Milind Roy and colleagues, with an educational keira from [employer]. Thrive Questionnaire Date Thrive assessed: 02/02/25 I am a: Patient What is your living situation today?: I have a steady place to live Within the past 12 months, did the food you bought not last and you didn't have the money to get more?: Often true Within the past 12 months, did you worry whether your food would run out before you got money to buy more?: Often true Do you have trouble paying for medicines?: Yes Do you have trouble getting transportation to medical appointments?: No Do you have trouble paying your heating and electricity bill?: No Do you have trouble taking care of your child, family member or friend?: No Do you have trouble with day-to-day activities such as bathing, preparing meals, shopping, managing finances, etc.?: No Are you currently unemployed and looking for a job?: No Are you interested in more education?: No Currently or been in a relationship where the following occur: No concerns reported THRIVE Score: 2 AUDIT C Alcohol Use Questionnaire (AUDIT-C) 1. How often do you have a drink containing alcohol?: Never 3. How often do you have six or more drinks on one occasion?: Never Total Score: 0 Score Reviewed/Action Taken: Yes HI-7 AMB Questionnaire HI-7 Date HI - 7 assessed: 02/02/25 Feeling nervous, anxious, or on edge: 1 = Several days Not being able to stop or control worryin = Not at all Worrying too much about different things: 0 = Not at all Trouble relaxin = Not at all Being so restless that it is hard to sit still: 0 = Not at all Becoming easily annoyed or irritable: 1 = Several days Feeling afraid as if something awful might happen: 0 = Not at all Total HI-7 score (0-4 normal; 5-9 mild; 10-14 moderate; 15-21 severe): 2 Source: Developed by Drs. Boo Rios, Aranza Jackson, Milind Roy and colleagues, with an educational keira from [employer]. HI-7 Assessment Billing HI-7 Assessment Tool: HI-7 Assessment 11594 Physical exam (Primary Care) Vital Signs: Last Vital Signs Pulse 83 02/02/25 14:56 BP 118/74 02/02/25 14:56 Pulse Ox 96 02/02/25 14:56 Oxygen Delivery Method Room Air 02/02/25 14:56 BMI result Body Mass Index 37.8 Tobacco/Smoking Status: Tobacco use Status Tobacco use date assessed 02/02/25 02/02/25 15:17 Patient Tobacco Use Status Current everyday Tobacco 02/02/25 14:56 Tobacco use type Cigarette 02/02/25 14:56 e-Cigarette/Vaping Use Never Used 02/02/25 14:56 PHQ-9: PHQ-9 Score PHQ-9: Total score 2 02/02/25 15:17 Depression Screening Interpretation: Negative Thrive Assessment: Date of Thrive Assessment Date Thrive assessed 02/02/25 02/02/25 15:17 Currently or been in a relationship where the following occur: No concerns reported Results AMB Hemoglobin A1c AMB Hemoglobin A1c 6.5 % Last Edit by Daniel Piper CMA on 02/02/25 15: 40 Results Reviewed Results Reviewed: Laboratory Last Values Hgb A1c (Clinic) 6.5 % (4.0-6.0) H 02/02/25 15:39 Coding Level of Care Code Est Pt Level 3 (14280) Diagnoses Iron deficiency anemia D50.9 Morbid obesity E66.01 Diabetes E11.9 Additional Codes HI-7 Assessment Billing - HI-7 Assessment Tool: HI-7 Assessment 56336 ([id number]) PHQ-9 - 61879 - PHQ-9 Billing: Yes ([id number]) Assessment & Plan Assessment & Plan (1) Iron deficiency anemia: Code(s): D50.9 - Iron deficiency anemia, unspecified Category: Medical (2) Morbid obesity: Code(s): E66.01 - Morbid (severe) obesity due to excess calories Category: Medical (3) Diabetes: Code(s): E11.9 - Type 2 diabetes mellitus without complications Category: Medical Plan . Orders: Orders TSH reflex Free T4 Today D50.9 - Iron deficiency anemia, unspecified, E11.9 - Type 2 diabetes mellitus without complications, E66.01 - Morbid (severe) obesity due to excess calories UA CC w/rflx Micro + Cult Today D50.9 - Iron deficiency anemia, unspecified, E11.9 - Type 2 diabetes mellitus without complications, E66.01 - Morbid (severe) obesity due to excess calories Reticulocyte Count Today D50.9 - Iron deficiency anemia, unspecified, E66.01 - Morbid (severe) obesity due to excess calories Microalbumin, Random (w Creat) Today E11.9 - Type 2 diabetes mellitus without complications Magnesium Today E11.9 - Type 2 diabetes mellitus without complications Complete Blood Count Auto Diff Today D50.9 - Iron deficiency anemia, unspec ified, E11.9 - Type 2 diabetes mellitus without complications, E66.01 - Morbid (severe) obesity due to excess calories Comprehensive Ronald. Panel Fast Today D50.9 - Iron deficiency anemia, unspecified, E11.9 - Type 2 diabetes mellitus without complications, E66.01 - Morbid (severe) obesity due to excess calories Lipid Panel Today D50.9 - Iron deficiency anemia, unspecified, E11.9 - Type 2 diabetes mellitus without complications, E66.01 - Morbid (severe) obesity due to excess calories Vitamin B12 and Folate Today D50.9 - Iron deficiency anemia, unspecified, E66.01 - Morbid (severe) obesity due to excess calories Ferritin Today D50.9 - Iron deficiency anemia, unspecified, E66.01 - Morbid (severe) obesity due to excess calories IRON PROFILE Today D50.9 - Iron deficiency anemia, unspecified, E66.01 - Morbid (severe) obesity due to excess calories Lactate Dehydrogenase Today D50.9 - Iron deficiency anemia, unspecified, E66.01 - Morbid (severe) obesity due to excess calories AMB Hemoglobin A1c Today Z13.9 - Encounter for screening, unspecified Referrals Cologuard Test Z12.11 - Encounter for screening for malignant neoplasm of colon, Z12.12 - Encounter for screening for malignant neoplasm of rectum Medications: New ammonium lactate 12% 1 appl topical BID 385 grams 0RF
--- OUTSIDE RECORDS SUMMARY | 2025-02-02 17:29 | XMS_ITS | Clinical Summary ---
Author Organization [facility] Address [address] [place] [address] Phone Care Team Providers Care Fabricator Special Items Name Role Phone Greg Kaba NP Primary Care Provider [phone] Allergies Active Allergy Reactions Criticality Noted Date Comments Ciprofloxacin Other (see comments) 07/25/2016 Latex Other (see comments) 10/26/2021 Morphine Nausea Only 10/26/2021 Medications Multiple Vitamin (multivitamin) capsule Take 1 capsule by mouth 2 (two) times a day Active codeine 30 MG tablet Take 1 tablet by mouth at bed time Active metoprolol tartrate (LOPRESSOR) 50 MG tablet Take 1 tablet by mouth 2 (two) times a day 03/11/2018 Active omeprazole (PriLOSEC) [address] capsule Take 1 capsule by mouth 1 (one) time each day Active rosuvastatin (CRESTOR) 20 MG tablet Take 1 tablet by mouth 1 (one) time each day Active busPIRone (BUSPAR) 15 MG tablet 30 mg 10/11/2021 Active sertraline (ZOLOFT) 100 MG tablet 10/11/2021 Active SUMAtriptan (IMITREX) 100 MG tablet 10/04/2021 Active gabapentin (NEURONTIN) 400 MG capsule 10/28/2022 Active latanoprost (XALATAN) 0.005 % ophthalmic solution 10/02/2022 Active levoFLOXacin (LEVAQUIN) 250 MG tablet 08/24/2022 Active naproxen (NAPROSYN) 500 MG tablet 09/09/2022 Active omega-3 acid ethyl esters (LOVAZA) 1 g capsule 10/28/2022 Active Active Problems Problem Noted Date Diagnosed Date Hypertensive renal disease 10/26/2021 Proteinuria 10/26/2021 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 12/27/2020 Family History Medical History Relation Comments Gout Father Heart disease Father Hypertension Father Heart disease Mother Hypertension Mother Stroke Mother Heart disease Sibling sister Relation Status Comments Father Mother Sibling Social History Tobacco Use Types Packs/Day Years Used Date Smoking Tobacco: Every Day Cigarettes Last attempted to quit: 11/19/2014 Smokeless Tobacco: Never Alcohol Use Standard Drinks/Week Comments No 0 (1 standard drink = 0.6 oz pur e alcohol) Comments Unknown Sex and Gender Information Value Date Recorded Sex Assigned at Not on file Legal Sex Female 5:11 PM EST Gender Identity Not on file Sexual Orientation Not on file Last Filed Vital Signs Vital Sign Reading Time Taken Comments Blood Pressure 142/80 11/02/2022 1:02 PM EST Pulse 80 11/02/2022 1:02 PM EST Temperature - - Respiratory Rate - - Oxygen Saturation 95% 10/31/2021 12:58 PM EST Inhaled Oxygen Concentration - - Weight 108 kg (237 lb) 11/02/2022 1:02 PM EST Height 162.6 cm (5' 4 ) 11/02/2022 1:02 PM EST Body Mass Index 40.68 11/02/2022 1:02 PM EST Plan of Treatment Health Maintenance Due Date Last Done Comments Breast Cancer Screening 1955 Pneumococcal Vaccine: 65+ Ye ars (1 of 2 - PCV) 1960 Colorectal Cancer Screening: Annual FOBT 2003 Colorectal Cancer Screening: Colonoscopy 2003 Colorectal Cancer Screening: Sigmoidoscopy 2003 Diabetes: Hemoglobin A1C 12/19/2020 Diabetes: Ophthalmology Exam 12/19/2020 Diabetes: Pedal Pulse Checked 12/19/2020 Diabetes: Sensory Foot Exam 12/19/2020 Diabetes: Visual Foot Exam 12/19/2020 Influenza Vaccine (#1) 2024 Hepatitis B Vaccine Aged Out No longe r eligible based on patient's age to complete this topic Insurance [address] [place] [id number] [place] [employer] [facility] ([id number]) [facility] ([id number]) Care Teams Fabricator Special Items Relationship Specialty Start Date End Date Greg Kaba NP [address] [place] [address] PCP - General 11/29/20
== END 2025-02-02 16:46 | disposition home or self-care (01) ==
LOC: HO.HMCC 14:55
PROVIDERS: PCP Nurse Practitioner Family; Visit Provider Nurse Practitioner Family
DX: D50.9 Iron deficiency anemia, unspecified (principal); E66.01 Morbid (severe) obesity due to excess calories; E11.9 Type 2 diabetes mellitus without complications; Z68.37 Body mass index [BMI] 37.0-37.9, adult

== ENCOUNTER → 2025-02-02 14:54 | Outpatient (BNVA) | payer MEDICARE, SELFPAY | PROVIDERS: PCP Nurse Practitioner Family; Visit Provider Nurse Practitioner Family | DX: D50.9 Iron deficiency anemia, unspecified (principal); E66.01 Morbid (severe) obesity due to excess calories; E11.9 Type 2 diabetes mellitus without complications | CPT/HCPCS: 83036; 96127; 99212 ==

== ENCOUNTER 2025-02-11 12:34 | Outpatient (REF) | payer MEDICARE, SELFPAY ==
[2025-02-11 16:28] LABS: Basophils Percent Auto 0.5 % (0-2); Eosinophils Absolute Auto 0.2 X10*3/uL (0.0-0.4); Hemoglobin 8.5 g/dl (12.0-16.0); Red Blood Count 3.54 X10*6/uL (4.20-5.50); SCAN SMEAR FLAG 1
[2025-02-11 16:30] LABS: Hematocrit 28.6 % (37.0-47.0); Imm Gran Abs Auto 0.01 X10*3/uL (0.00-0.03); Imm Gran Pct Auto 0.2 % (0.0-0.4); Lymphocytes Absolute Auto 1.1 X10*3/uL (1.2-4.9); Lymphocytes Percent Auto 18.6 % (20-40); MANUAL DIFF FLAG SCAN; Mean Corpuscular HGB Conc 29.7 g/dl (31.0-35.0); Mean Corpuscular Volume 80.8 fL (80.0-98.0); Mean Platelet Volume 9.8 fL (9.4-12.3); Monocytes Absolute Auto 0.6 X10*3/uL (0.1-1.2); Monocytes Percent Auto 9.6 % (2-11); Neutrophils Absolute Auto 3.9 x10*3/uL (2.0-8.3); Neutrophils Percent Auto 68.1 % (45-73); Platelet Count 287 X10*3/uL (160-400); Red Cell Distribution Width 16.4 % (11.0-16.0); Retic HGB Equivalent 23.4 pg (30.0-35.0); Reticulocytes Absolute 0.069 X10*6/uL (0.026-0.095); White Blood Count 5.7 X10*3/uL (4.8-10.8)
[2025-02-11 16:47] LABS: Alanine Aminotransferase 12 U/L (0-31); Albumin Level 3.9 g/dL (3.5-5.0); Alkaline Phosphatase 82 U/L (39-117); Anion Gap 10 (12-20); Aspartate Amino Transferase 20 U/L (5-31); Bilirubin Total 0.5 mg/dL (0.0-1.0); Blood Urea Nitrogen 19 mg/dL (9-16); Carbon Dioxide 24 mmol/L (22-29); Chloride 110 mmol/L (96-108); Cholesterol 137 mg/dL (<200); Estimated Glomerular Filt Rate 51; Glucose Fasting 161 mg/dL (60-99); HDL Cholesterol 49 mg/dL (>40); Iron 25 mcg/dL (30-160); LDL Cholesterol Calculated 48 mg/dL (<100); Lactate Dehydrogenase 231 U/L (122-220); Magnesium 2.3 mg/dL (1.6-2.6); Percent Iron Saturation 10 % (15-50); Potassium 4.2 mmol/L (3.3-5.1); Sodium 140 mmol/L (135-145); Total Iron Binding Capacity 250 mcg/dL (228-428); Total Protein 6.9 g/dL (6.5-8.0); Triglycerides 200 mg/dL (<150); Unsaturated Iron Binding 225 ug/dL
[2025-02-11 17:02] LABS: Ferritin 12 ng/mL (10-250); TSH reflex Free T4 0.63 uIU/mL (0.32-4.0)
[2025-02-11 17:06] LABS: SLIDE REVIEW VERIFIED
[2025-02-11 17:12] LABS: Folate 11.1 ng/mL (> or = 4.0); Vitamin B12 307 pg/mL (200-900)
== END 2025-02-11 12:35 | disposition home or self-care (01) ==
LOC: HO.HMGCLDS 12:34
PROVIDERS: PCP Nurse Practitioner Family; Visit Provider Nurse Practitioner Family
DX: D50.9 Iron deficiency anemia, unspecified (principal); E66.01 Morbid (severe) obesity due to excess calories; E11.9 Type 2 diabetes mellitus without complications
CPT/HCPCS: 36415; 80053; 80061; 82607; 82728; 82746; 83540; 83615; 83735; 84443; 85025; 85045

== ENCOUNTER 2025-02-16 09:30 | Outpatient (REF) | payer MEDICARE, SELFPAY ==
--- OUTSIDE RECORDS SUMMARY | 2025-02-16 13:12 | XMS_ITS | Clinical Summary ---
Author Organization [facility] Address [address] [place] [address] Phone Care Team Providers Care Lather Apprentice Name Role Phone Greg Kaba NP Primary Care Provider [phone] Allergies Active Allergy Reactions Criticality Noted Date [...] age to complete this topic Insurance [address] [place] [id number] [place] [employer] [facility] ([id number]) [facility] ([id number]) Care Teams Lather Apprentice Relationship Specialty Start Date End Date Greg Kaba NP [address] [place] [address] PCP - General 11/29/20
[2025-02-16 13:59] LABS: Appearance Urine Clear; Color Urine Yellow; Glucose Urine UA Negative (Negative); Leukocyte Esterase Urine Negative (Negative); Nitrite Urine Negative (Negative); UMIC TRIGGER UACC YES; Urine Blood Negative (Negative); Urine Ketones Negative (Negative); Urine Protein 100 (2+) mg/dL (Neg-Trace)
[2025-02-16 14:04] LABS: Bacteria Urine None Seen (None Seen); RBC Urine 0-2 /HPF (0-2); Squamous Epithelial Cell Urine 0-2 /HPF (0-2); WBC Urine 0-5 /HPF (0-5)
[2025-02-16 14:37] LABS: Creatinine Urine 108.07 mg/dL; Microalbum/Creatinine Ratio Ur 145.2 ug/mg cr (<30)
== END 2025-02-16 09:31 | disposition home or self-care (01) ==
LOC: HO.HMGCLNP 09:30
PROVIDERS: PCP Nurse Practitioner Family; Visit Provider Nurse Practitioner Family
DX: E11.9 Type 2 diabetes mellitus without complications (principal)
CPT/HCPCS: 81001; 82043; 82570

== ENCOUNTER 2025-03-08 07:53 | Outpatient (REF) | payer MEDICARE, SELFPAY ==
[2025-03-08 07:56] LABS: FIT Lot M01056 EXP07/24
== END 2025-03-08 07:54 | disposition home or self-care (01) ==
LOC: HO.LNP 07:53
PROVIDERS: Visit Provider Nurse Practitioner Family
DX: E61.1 Iron deficiency (principal); D64.9 Anemia, unspecified
CPT/HCPCS: 82274

== ENCOUNTER 2025-03-16 08:01 | Outpatient (REF) | payer MEDICARE, SELFPAY ==
--- OUTSIDE RECORDS SUMMARY | 2025-03-24 08:03 | XMS_ITS | Clinical Summary ---
Author Organization [facility] Address [address] [place] [address] Phone Care Team Providers Care Steel Placer Name Role Phone Greg Kaba NP Primary Care Provider [phone] Allergies Active Allergy Reactions Criticality Noted Date [...] Comments Breast Cancer Screening 1954 Pneumococcal Vaccine: 50+ Ye ars (1 of 2 - PCV) 1973 Colorectal Cancer Screening: Annual FOBT 2003 Colorectal Cancer Screening: Colonoscopy 2003 Colorectal Cancer Screening: Sigmoidoscopy 2003 Diabetes: Hemoglobin A1C 12/19/2020 Diabetes: Ophthalmology Exam 12/19/2020 Diabetes: Pedal Pulse Checked 12/19/2020 Diabetes: Sensory Foot Exam 12/19/2020 Diabetes: Visual Foot Exam 12/19/2020 Influenza Vaccine (Season Ended) 2025 Hepatitis B Vaccine Aged Out No longe r eligible based on patient's age to complete this topic Insurance [address] [place] [id number] [place] Dual [facility] ([id number]) [facility] ([id number]) Care Teams Steel Placer Relationship Specialty Start Date End Date Greg Kaba NP [address] [place] [address] PCP - General 11/29/20
[2025-03-24 08:20] LABS: FIT1 POSITIVE (NEGATIVE); FIT2 POSITIVE (NEGATIVE)
[2025-03-24 08:21] LABS: FIT Int Ctl YES; FIT Lot M402476
== END 2025-03-16 08:02 | disposition home or self-care (01) ==
LOC: HO.LNP 08:01
PROVIDERS: Visit Provider Nurse Practitioner Family
DX: R19.7 Diarrhea, unspecified (principal)
CPT/HCPCS: 82274

== ENCOUNTER 2025-04-02 10:30 | Outpatient (REF) | payer MEDICARE, SELFPAY ==
--- NOTE | ~2025-04-02 | US_ITS ---
CLINICAL HISTORY: N20.0 - Calculus of kidney US Renal Comparison: US/SR - US RENAL BI - 09/22/24 11:28 EST Findings: Right kidney normal length and echotexture, 10.6 cm length. Left kidney normal length and echotexture, 10.5 cm length. There is renal parenchymal thinning bilaterally. There are multiple bilateral kidney cysts measuring up to 3.9 cm in size on the right and 3.3 cm in size on the left. The appearance is similar to the prior study. There is a possible 4 mm nonobstructive calculus within the left kidney. There is moderate hydronephrosis of the left kidney with improvement. There is no hydronephrosis of the right kidney. Normal color Doppler IMPRESSION: 1. Moderate hydronephrosis of the left kidney with improvement. 2. Possible small nonobstructing calculus within the left kidney. This document has been electronically signed by: Corrina Olivia MD on 04/02/2025 14:56:40
--- OUTSIDE RECORDS SUMMARY | 2025-04-02 11:41 | XMS_ITS | Clinical Summary ---
Author Organization [facility] Address [address] [place] [address] Phone Care Team Providers Care Hide And Skin Classer Name Role Phone Greg Kaba NP Primary Care Provider [phone] Allergies Active Allergy Reactions Criticality Noted Date [...] age to complete this topic Insurance [address] [place] [id number] [place] Dual [facility] ([id number]) [facility] ([id number]) Care Teams Hide And Skin Classer Relationship Specialty Start Date End Date Greg Kaba NP [address] [place] [address] PCP - General 11/29/20
== END 2025-04-02 10:31 | disposition home or self-care (01) ==
LOC: HO.HMGCX 10:30
PROVIDERS: PCP Nurse Practitioner Family; Visit Provider Urology
DX: N20.0 Calculus of kidney (principal)
CPT/HCPCS: 76775

== ENCOUNTER → 2025-04-02 10:32 | Outpatient (BNV) | payer MEDICARE, SELFPAY | PROVIDERS: PCP Nurse Practitioner Family; Visit Provider Radiology Diagnostic Radiology | DX: N20.0 Calculus of kidney (principal) | CPT/HCPCS: 76775 ==

== ENCOUNTER 2025-04-09 13:30 | Outpatient (RCR) | payer MEDICARE, SELFPAY ==
[2025-04-02 12:22] VITALS: BP 132/62; PULSE 90; RESP 18; TEMP 36.6
[2025-04-02] MEDS: Ferric Carboxymaltose 750 MG in 0.9 % Sodium Chloride 250 ML 1060 MG IV (13:25)
[2025-04-09 13:09] VITALS: BP 126/59; PULSE 99; RESP 20; TEMP 36.2; O2SAT 93
[2025-04-09] MEDS: Ferric Carboxymaltose 750 MG in 0.9 % Sodium Chloride 250 ML 850 MG IV (13:43)
== END 2025-04-09 14:14 | disposition home or self-care (01) ==
LOC: HO.INF 13:30
PROVIDERS: Visit Provider Internal Medicine Medical Oncology
DX: D50.9 Iron deficiency anemia, unspecified (principal)
CPT/HCPCS: 96365; J1439

== ENCOUNTER 2025-04-21 13:06 | Outpatient (AMB) | payer MEDICARE, SELFPAY ==
--- NOTE | 2025-04-21 13:18 | MHC.OFFVIS ---
Intake Visit Reasons: 6 month follow up/ US Intake Note: Patient is present for 6M/US Urology Medication:NONE Antibiotic Allergy:AMOXICILLIN,CIPROFLOXACIN Blood Thinner:NONE Golf Caddie Required: No Allergies latex [LATEX] Allergy (Severe, Verified 04/21/25 13:20) RASH morphine [MORPHINE] Allergy (Severe, Verified 04/21/25 13:20) SEVERE SHAKING, N/V amoxicillin [From AUGMENTIN] Allergy (Unknown, Verified 04/21/25 13:20) SEVERE DIARRHEA ciprofloxacin [CIPROFLOXACIN] Allergy (Unknown, Verified 04/21/25 13:20) SEVERE DIARRHEA clavulanic acid [From AUGMENTIN] Allergy (Unknown, Verified 04/21/25 13:20) SEVERE DIARRHEA fenofibrate Adverse Reaction (Intermediate, Verified 04/21/25 13:20) stomach pain/cramping baclofen Adverse Reaction (Unknown, Verified 04/21/25 13:20) Unknown trazodone Adverse Reaction (Unknown, Verified 04/21/25 13:20) Unknown HPI Comments Details: ?Mary HUTCHINS is a very pleasant female. They are a patient of Dr Fernandez. They are seen in the office today for the following urologic conditions. - nephrolithiasis - recurrent UTI Six-month follow-up Imaging small stone left side Encouraged to maintain fluids Twelve month follow-up Prior hormone lab assessment - 04/10 T 17, AST 35, Ferritin 269, E <2 Unable to take potassium citrate secondary gastric bypass Has anemia. Prior gastric bypass. May have marginal artery also. Urinary Symptoms Review - No blood in urine currently reported. - Previous ultrasound reported to show improvement in urinary tract. - History of kidney stones, but current management appears effective. Nephrolithiasis/Urolithiasis:? They are here for?further evaluation of nephrolithiasis, ?- left 1cm stone x2 ?- hematuria ?- s/p gastric bypass 2007 ?- no stones on follow-up.? Urolithiasis was diagnosed?09/2018 ?- prior gastric bypass.? The patient previously had kidney stones whose composition w?10/06 , calcium oxalate - monohydrate, uric acid core - 08/11 calcium oxalate monohydrate 80 % ? Laboratory investigations include?12/07, Normocalcemia (9.0), Normal PTH, Normal uric acid.? 24 Hour urine evaluation - 11/09 borderline volume, low citrate, high calcium, borderline sodium - 09/11 borderline volume, citrate 49, oxalate 31, calcium 49 ? Prior treatment(s) include?10/06 , left, ureteroscopy ?11/05 , left, ESWL ?06/06 vitamin B6, 1 TUMS with evening meal - 08/11 USR left side multiple stones - 02/09 USR left side multiple stones ? Prior imaging includes?09/05 CT with 2x 1cm stones on the left ?12/07 , a renal ultrasound left 6mm stone ?06/06 , a renal ultrasound bilateral renal cysts. No stones. ?06/07 , a renal ultrasound, bilateral multiple renal cysts up to 3 cm, no stones.? - 06/08 renal ultrasound, bilateral renal cysts up to 3 cm - stones left lower pole - 09/09 renal ultrasound, bilateral renal cysts, stones left lower pole 8 mm - 03/12 renal ultrasound, bilateral renal cysts, too small lower pole stones left side ? Current therapeutic plan will be?to perform metabolic evaluation, General advice to maintain good fluid intake for urine greater than 1.5 L per day, reduce salt and reduce protein and acid loads was provided? [facility] Medical History DJD (degenerative joint disease) Chest discomfort Right ankle pain Precordial chest pain Right ankle pain Right ankle injury Encounter for annual wellness visit (AWV) in Medicare patient Bilateral nephrolithiasis Pain Right flank pain Low back pain Postmenopausal Dysuria Hematuria Microhematuria Urinary tract infection Genitourinary syndrome of menopause Abdominal pain Pre-op evaluation H/O nephrolithotomy with removal of calculi Aortic stenosis Diabetes Diverticulitis Scoliosis Pulmonary fibrosis Recurrent UTI Hyperlipidemia Anxiety and depression Hypertension Surgical History Hx of left breast biopsy History of esophagogastroduodenoscopy (EGD) H/O colonoscopy Hx of cystoscopy H/O lithotripsy History of cholecystectomy History of Hx of breast reduction, elective S/P panniculectomy H/O gastric bypass Family History Father Heart disease Mother Heart disease Pulmonary fibrosis Sister Heart disease Sister Pulmonary fibrosis Brother Pulmonary fibrosis Daughter Mental health disorder Substance use disorder Social History Household Members: Spouse Housing: Apartment Are you a primary neurocritical care physician to a significant other at home: No Do you presently have visiting nurse or other home services: 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) Alcohol intake: never Patient Tobacco Use Status: Current everyday Tobacco user Tobacco use type: Cigarette Cigarette Packs Per Day: 1 Years Smoked: 45 e-Cigarette/Vaping Use: Never Used Second Hand Smoke Exposure: No Substance Use Type: Marijuana Advance Directives Date on File: 08/16/22 service: No Current occupational status: disabled 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 Cognitive needs: No Hearing needs: No Vision needs: No Review of Systems Const Denies chills and Denies fever(s) Card Reports no additional complaints and Denies syncope Resp Denies cough GI Denies abdominal pain and Denies heartburn Reports as per HPI and Denies change in libido Neuro Denies syncope Psych Denies change in libido Endo Denies change in libido Physical Exam Const General: cooperative, healthy appearing, comfortable and no acute distress Orientation/consciousness: patient oriented x3 HEENT Face and sinus: Yes normal facial exam Mouth: moist mucous membranes Neck Neck: Yes normal visual inspection, Yes full ROM and Yes trachea midline Chest Chest palpation & inspection: normal inspection of the chest Resp Effort & Inspection: normal respiratory effort, able to speak in complete sentences and no respiratory distress GI Inspection: Yes normal to inspection Back/Spine/Pelvis Cervical Spine: normal cervical lordosis Thoracic/Lumbar Spine: thoracic and lumbar spine normal to inspection Skin General skin exam: no rashes or lesions noted Neuro General: patient oriented x3, gait normal, tone normal and moves all extremities Extrem General: Yes normal to inspection and Yes capillary refill normal Results AMB Urinalysis, Automated UA Leukoctes 0 Jacinto/uL Last Edit by PERFECTO Walls on 04/21/25 14:05 UA Nitrite Negative Last Edit by Mariluz Bright [facility] on 04/21/25 14:05 UA Urobilinogen 0.2 mg/dL Last Edit by Mariluz Bright [facility] on 04/21/25 14:05 UA Protein 300 mg/dL Last Edit by Mariluz Bright [facility] on 04/21/25 14:05 UA pH 6.0 Last Edit by Mariluz Bright [facility] on 04/21/25 14:05 UA Blood 10 Marty/uL Last Edit by Mariluz Bright [facility] on 04/21/25 14:05 UA Specific [place] 1.025 Last Edit by Mariluz Brigth [facility] on 04/21/25 14:05 UA Ketone Negative Last Edit by Mariluz Bright [facility] on 04/21/25 14:05 UA Bilirubin 1 mg/dL Last Edit by Mariluz Bright [facility] on 04/21/25 14:05 UA Glucose 0 mg/dL Last Edit by Mariluz Bright [facility] on 04/21/25 14:05 Assessment & Plan Assessment & Plan (1) Chronic UTI (urinary tract infection): Code(s): N39.0 - Urinary tract infection, site not specified Category: Medical (2) Nephrolithiasis: Code(s): N20.0 - Calculus of kidney Category: Medical (3) Urinary urgency: Code(s): R39.15 - Urgency of urination Category: Medical Plan Plan 3. Suspected Kidney Stone Left Kidney Management: Continue current management with positive response noted. Monitor and re-evaluate in one year. Discussion Notes The patient presented with concerns of anemia and past medical history of gastric bypass surgery. During our discussion, the potential for a marginal ulcer causing the anemia was considered likely, necessitating further evaluation by gastroenterology with endoscopy. For her renal condition, the prior diagnosis of kidney stones was discussed with favorable current status, suggesting a continued positive response to dietary management. Blood in stool requires further examination to confirm a potential ulcer. The patient and I agreed on the plan to seek further evaluation for the anemia, possibly related to a marginal ulcer, and to continue monitoring her renal condition with no immediate interventions indicated. Patient Instructions - Continue with current diet and lifestyle management for kidney stone prevention. - Follow up with gastroenterology for evaluation of anemia and possible marginal ulcer. - Continue iron supplementation as directed. - Monitor for any worsening symptoms or new concerns and contact healthcare provider as needed. - Keep hydrated and maintain current lifestyle choices for urinary health Orders: Orders US renal BI 12 Months N20.0 - Calculus of kidney AMB Urinalysis Automated Today Z13.9 - Encounter for screening, unspecified Patient Instructions: This note is constructed using voice recognition software. While every effort has been made to ensure accuracy sales support coordinator errors may have been included. Imaging studies, laboratory and physical exam results were discussed and reviewed in detail. No major barriers to patient understanding were identified. An opportunity to ask questions regarding the treatment plan was provided. All questions were answered. The patient expressed understanding and agreement with the above treatment plan. The patient is aware they should contact our office by phone for worsening of their current condition or the appearance of new urologic symptoms. Compliance is encouraged with any medications and followup testing that is ordered. It is a privilege to participate in the urologic care of your patient. If you have any questions or concerns regarding treatment for the above conditions, or other urologic issues, please do not hesitate to contact me. The office telephone contact is [phone]. Sincerely, Dr Blake Christie MD, [facility] - Urology Compassionate Specialist Care for the Genitourinary System Coding Level of Care Code Est Pt Level 3 (26455) Complex EM visit Add On G2211 Diagnoses Chronic UTI (urinary tract infection) N39.0 Nephrolithiasis N20.0 Urinary urgency R39.15
== END 2025-04-21 14:14 | disposition home or self-care (01) ==
PROVIDERS: PCP Nurse Practitioner Family; Visit Provider Urology
DX: N39.0 Urinary tract infection, site not specified (principal); N20.0 Calculus of kidney; R39.15 Urgency of urination; Z13.9 Encounter for screening, unspecified
CPT/HCPCS: 99213; G2211

== ENCOUNTER → 2025-04-21 13:06 | Outpatient (BNVA) | payer MEDICARE, SELFPAY | PROVIDERS: PCP Nurse Practitioner Family; Visit Provider Urology | DX: N20.0 Calculus of kidney (principal); N39.0 Urinary tract infection, site not specified; R39.15 Urgency of urination | CPT/HCPCS: 81003; 99212 ==

== ENCOUNTER 2025-06-03 09:02 | Day surgery (SDC) | payer MEDICARE, SELFPAY ==
--- OUTSIDE RECORDS SUMMARY | 2025-05-27 13:35 | XMS_ITS | Clinical Summary ---
Author Organization [facility] Address [address] [place] [address] Phone Care Team Providers Care Home Designer Name Role Phone Greg Kaba NP Primary Care Provider [phone] Allergies Active Allergy Reactions Criticality Noted Date [...] Visual Foot Exam 12/19/2020 Influenza Vaccine (#1) 2025 Hepatitis B Vaccine Aged Out No longe r eligible based on patient's age to complete this topic Insurance [address] [place] [id number] [place] [facility] ([id number]) [facility] ([id number]) Care Teams Home Designer Relationship Specialty Start Date End Date Greg Kaba NP [address] [place] [address] PCP - General 11/29/20
--- OUTSIDE RECORDS SUMMARY | 2025-05-27 13:35 | XMS_ITS | Patient Health Record ---
Author Organization [facility] Address [address] [place] [address] Care Team Providers Care Kiln Furniture Caster Name Role Phone Karishma MICHAELS, [place] Primary Care Provider Bong Florez Jr Unavailable [phone] Allergies Allergen (clinical drug ingredient) Drug/Non Drug Allergy documented on EMR Reaction Allergy Type Onset Date Status Latex latex (uncoded) Unknown Allergy Acti ve vicodin (uncoded) Unknown Allergy Ac tive cipro (uncoded) Unknown Allergy Acti ve morphine morphine (uncoded) Unknown Allergy A ctive Reason For Referral No Information Medications Medication SIG (Take, Route, Fr equency, Duration) Notes Start Date End Date Status Metoprolol Tartrate Active Cyclobenzaprine HCl Active Clorazepate Dipotassium Active Atorvastatin Calcium Active Ferrous Sulfate Acti ve Docusate Sodium Acti ve Lisinopril Active Problems Problem Type SNOMED Code ICD Code Onset Dates Problem Status W/U Status Risk Notes Problem Hemorrhage of gastrointestinal tract, unspecified (578.9) Active confirmed Plan Of Treatment No Information Insurance Providers Payer Name Payer Address Payer Phone Subscriber Number Group Number Insured Name Patient Relationship to Insured Coverage Start Date Coverage End Date [facility] [address] [place] [address] [id number] MARCIANO GILBERT Self - patient is the insured Medical (General) History Medical History History ICD Code colon and egd 06-01-2004 hyperlipidemia hypertension osteoarthritis pulmonary embolism GI bleed esophageal reflux anxiety abnormal liver funtion test gallstones Surgical History Surgery Date(Month/Year) gastric bypass cholecystectomy reduction mammoplasty panniculectomy section
--- NOTE | 2025-06-02 11:39 | HO.ANESPROP2 ---
Documented by User: Sole Keller NP 06/02/25 11:44 HPI - Anesthesia Eval Consult details Narrative: 69yo F for Colonoscopy [place] [facility] [place] chronic left bundle-branch block and aortic stenosis (BENNETT 1.15 on 09/2024). Last office visit 09/2024, stable with routine f/u in 1 year. [facility] Active Problems Active Problems: All Active Problems Diarrhea (Acute) Anemia (Acute) Low iron (Acute) Urinary urgency (Acute) Positive colorectal cancer screening using Cologuard test (Acute) Diabetes (Acute) Aylett of foot (Acute) Scoliosis (Acute) Vertebrogenic low back pain (Acute) Lumbosacral spondylosis (Acute) Cervical spondylosis (Acute) Chronic back pain (Acute) Nephrolithiasis (Acute) Microalbuminuria (Acute) Chronic UTI (urinary tract infection) (Acute) Loss of hearing (Acute) Right hip pain (Acute) High triglycerides (Acute) Hypertensive renal disease (Acute) Non-rheumatic aortic stenosis (Acute) Type 2 diabetes mellitus without complications (Acute) Morbid obesity (Acute) Other and unspecified hyperlipidemia (Acute) Essential hypertension (Acute) Left bundle branch block (Acute) Iron deficiency anemia (Acute) Past Medical History Medical History DJD (degenerative joint disease) Chest discomfort Right ankle pain Precordial chest pain Right ankle pain Right ankle injury Encounter for annual wellness visit (AWV) in Medicare patient Bilateral nephrolithiasis Pain Right flank pain Low back pain Postmenopausal Dysuria Hematuria Microhematuria Urinary tract infection Genitourinary syndrome of menopause Abdominal pain Pre-op evaluation H/O nephrolithotomy with removal of calculi Aortic stenosis Diabetes Diverticulitis Scoliosis Pulmonary fibrosis Recurrent UTI Hyperlipidemia Anxiety and depression Hypertension Family History Family History (Reviewed 02/02/25 @ 15:16 by Daniel Piper [facility]) Father Heart disease Mother Heart disease Pulmonary fibrosis Sister Heart disease Sister Pulmonary fibrosis Brother Pulmonary fibrosis Daughter Mental health disorder Substance use disorder Family history of problems with anesthesia: No Surgical History Surgical History Hx of left breast biopsy History of esophagogastroduodenoscopy (EGD) H/O colonoscopy Hx of cystoscopy H/O lithotripsy History of cholecystectomy History of Hx of breast reduction, elective S/P panniculectomy H/O gastric bypass History of Problems with Anesthesia: No Social History Social History Household Members: Spouse Housing: Apartment Are you a primary animal care provider to a significant other at home: No Do you presently have visiting nurse or other home services: 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 Cognitive needs: No Hearing needs: No Vision needs: No Meds Allergies Allergy/AdvReac Type Severity Reaction Status Date / Time latex (LATEX) Allergy Severe RASH Verified 04/21/25 13:20 morphine (MORPHINE) Allergy Severe SEVERE Verified 04/21/25 13:20 SHAKING, N/V amoxicillin (From AUGMENTIN) Allergy Unknown SEVERE Verified 04/21/25 13:20 DIARRHEA ciprofloxacin (CIPROFLOXACIN) Allergy Unknown SEVERE Verified 04/21/25 13:20 DIARRHEA clavulanic acid (From Allergy Unknown SEVERE Verified 04/21/25 13:20 AUGMENTIN) DIARRHEA fenofibrate AdvReac Intermediate stomach Verified 04/21/25 13:20 pain/cramping baclofen AdvReac Unknown Unknown Verified 04/21/25 13:20 trazodone AdvReac Unknown Unknown Verified 04/21/25 13:20 Home Medications ?Medication ?Instructions ?Recorded ?Confirmed ?Last Taken ?Type latanoprost 0.005 % eye drops 1 drp ophthalmic (eye) BEDTIME 08/07/22 02/20/25 Unknown History Exam Narrative Narrative: EKG 07/2024 NSR @ 83 LAD LBBB ECHO 09/2024 Conclusions: - Due to poor endocardial definition, difficult to assess LVEF and wall motion. LVEF possibly low-normal, but cannot be quantified. - There is moderate aortic valve stenosis. Assessment and Plan Assessment Anesthesia Assessment: Chart Reviewed Final Anesthetic Review Family History of Problems with Anesthesia: No History of Problems with Anesthesia: No Documented by User: Scott Yadav MD 06/03/25 09:54 [facility] Past Medical History Medical History DJD (degenerative joint disease) Chest discomfort Right ankle pain Precordial chest pain Right ankle pain Right ankle injury Encounter for annual wellness visit (AWV) in Medicare patient Bilateral nephrolithiasis Pain Right flank pain Low back pain Postmenopausal Dysuria Hematuria Microhematuria Urinary tract infection Genitourinary syndrome of menopause Abdominal pain Pre-op evaluation H/O nephrolithotomy with removal of calculi Aortic stenosis Diabetes Diverticulitis Scoliosis Pulmonary fibrosis Recurrent UTI Hyperlipidemia Anxiety and depression Hypertension Family History Family History (Reviewed 02/02/25 @ 15:16 by Daniel Piper, [facility]) Father Heart disease Mother Heart disease Pulmonary fibrosis Sister Heart disease Sister Pulmonary fibrosis Brother Pulmonary fibrosis Daughter Mental health disorder Substance use disorder Surgical History Surgical History Hx of left breast biopsy History of esophagogastroduodenoscopy (EGD) H/O colonoscopy Hx of cystoscopy H/O lithotripsy History of cholecystectomy History of Hx of breast reduction, elective S/P panniculectomy H/O gastric bypass Social History Social History Household Members: Spouse Housing: Apartment Are you a primary animal care provider to a significant other at home: No Do you presently have visiting nurse or other home services: 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 Cognitive needs: No Hearing needs: No Vision needs: No Meds Allergies Allergy/AdvReac Type Severity Reaction Status Date / Time latex (LATEX) Allergy Severe RASH Verified 04/21/25 13:20 morphine (MORPHINE) Allergy Severe SEVERE Verified 04/21/25 13:20 SHAKING, N/V amoxicillin (From AUGMENTIN) Allergy Unknown SEVERE Verified 04/21/25 13:20 DIARRHEA ciprofloxacin (CIPROFLOXACIN) Allergy Unknown SEVERE Verified 04/21/25 13:20 DIARRHEA clavulanic acid (From Allergy Unknown SEVERE Verified 04/21/25 13:20 AUGMENTIN) DIARRHEA fenofibrate AdvReac Intermediate stomach Verified 04/21/25 13:20 pain/cramping baclofen AdvReac Unknown Unknown Verified 04/21/25 13:20 trazodone AdvReac Unknown Unknown Verified 04/21/25 13:20 Home Medications ?Medication ?Instructions ?Recorded ?Confirmed ?Last Taken ?Type latanoprost 0.005 % eye drops 1 drp ophthalmic (eye) BEDTIME 08/07/22 02/20/25 Unknown History Exam Airway Mallampati Class: III TM Dist: >3cm Neck ROM: Full Assessment and Plan Assessment Anesthesia Assessment: Anesthesia Plan Discussed Final Anesthetic Review NPO: Yes ASA Class: III Final Preanesthetic Review: No Changes in Pt Med Stat, Meds/Allgs Chart Reviewed, Consent Obtained/Reviewed and Anes Risks/Benef Reviewed Patient Risk: Intermediate Procedure Risk: Low Anesthetic Plan Anesthetic Plan: TIVA Disposition: Standard PACU
[2025-06-02 12:18] VITALS: BMI 37.8
[2025-06-03 09:09] VITALS: BP 146/77; PULSE 78; RESP 20; TEMP 36.9; O2SAT 98; BMI 36.1
[2025-06-03] MEDS: Lactated Ringers 1,000 ML 100 ML IVCONT (09:31)
--- NOTE | 2025-06-03 10:04 | P.HPSUR_ITS ---
Pre-Procedural Eval Section A - 24 Hr Update-Section A only Date of Service: 06/03/25 Section B - Complete if H&P > 30 days Chief Complaint: pos cologuard Relevant Family History (Specify if Yes): No Relevant Social History: None Present Medications: see Short Stay Collaborative assessment Medical History: Significant History ( DJD (degenerative joint disease) Chest discomfort Right ankle pain Precordial chest pain Right ankle pain Right ankle injury Encounter for annual wellness visit (AWV) in Medicare patient Bilateral nephrolithiasis Pain Right flank pain Low back pain Postmenopausal Dysuria Hem aturia Microhematuria Ur) History of Previous Operations: Relevant previous surgery/procedure and date(s) (Hx of left breast biopsy History of esophagogastroduodenoscopy (EGD) H/O colonoscopy Hx of cystoscopy H/O lithotripsy History of cholecystectomy History of Hx of breast reduction, elective S/P panniculectomy H/O gastric bypass) Allergies: Allergies Allergy/AdvReac Type Severity Reaction Status Date / Time latex (LATEX) Allergy Severe RASH Verified 04/21/25 13:20 morphine (MORPHINE) Allergy Severe SEVERE Verified 04/21/25 13:20 SHAKING, N/V amoxicillin (From AUGMENTIN) Allergy Unknown SEVERE Verified 04/21/25 13:20 DIARRHEA ciprofloxacin (CIPROFLOXACIN) Allergy Unknown SEVERE Verified 04/21/25 13:20 DIARRHEA clavulanic acid (From Allergy Unknown SEVERE Verified 04/21/25 13:20 AUGMENTIN) DIARRHEA fenofibrate AdvReac Intermediate stomach Verified 04/21/25 13:20 pain/cramping baclofen AdvReac Unknown Unknown Verified 04/21/25 13:20 trazodone AdvReac Unknown Unknown Verified 04/21/25 13:20 Review of Systems Sugical H&P ROS: Negative: Constitution, Cardiovascular, Respiratory, Neurological, Psychiatric, Hem-Onc, Allergic/Immunologic, Gastrointestinal, Genitourinary, Musculoskeletal, Integumentary, Endocrine and Eyes/Ears/Nose/Throat Exam Surgical H&P Exam: Normal: HEENT, Normal: Heart, Normal: Lungs, Normal: Extremities, Normal: Abdomen, Normal: Skin and Normal: Neurological Plan Diagnosis/Plan: Unchanged I have reviewed the history and physical and performed a pertinent physical examination on my patient. No changes have occurred unless specified. Time Spent With Patient Time: Total time managing care of this patient today ____ minutes.
--- NOTE | 2025-06-03 10:50 | HO.OPN-COLON ---
Colonoscopy Operative Note Operative Note Date of Service: 06/03/25 Narrative: Operative Information Procedure Description: Colonoscopy Indication: pos cologuard Anesthesia: MAC COLONOSCOPY Instrument: Olympus variable stiffness pediatric scope 190L Colonoscopy Monitoring: Vital signs and clinical assessment, continuous EKG monitoring, Pulse oximetry, Carbon Dioxide monitoring and blood pressure monitoring were done throughout the procedure. Colon withdrawal time was 20 minutes. Procedure: The patient was placed in the left lateral decubitis position and pre-procedure medications were administered. After a digital rectal examination of the ano-rectum, the video colonoscope was inserted into the rectum and advanced through the colon to the cecum/TI. The colonoscope was slowly withdrawn in a retrograde panoramic fashion and the colon mucosa was carefully examined including a retroflexed view of the rectum. Findings and interventions are described below. Procedure Difficulty: moderate, colowrap was applied and helped Findings: Terminal Ileum-normal Cecum: 3-4 mm sessile polyp removed with cold forceps, 10 mm sessile polyp lifted with eleview and removed with cold snare with x 2 clips applied for hemostasis Ascending Colon: normal Transverse Colon -normal Descending Colon:normal Sigmoid Colon: moderate diverticulosis, x 2 sessile polyps 5-7 mm removed with cold snare Rectum: Retroflexion with small internal hemorrhoids seen, grade I Anorectum - normal Intervention: cold snare and eleview for EMR< cold snare, cold forceps Colon preparation: Rattan Bowel Preparation Scale Right colon; 2 Transverse colon: 2 Left colon; 1-2 (0 = Unprepared colon segment with mucosa not seen due to solid stool that cannot be cleared. 1 = Portion of mucosa of the colon segment seen, but other areas of the colon segment not well seen due to staining, residual stool and/or opaque liquid. 2 = Minor amount of residual staining, small fragments of stool and/or opaque liquid, but mucosa of colon segment seen well. 3 = Entire mucosa of colon segment seen well with no residual staining, small fragments of stool or opaque liquid) Impression and Post Procedure Diagnosis: diverticulosis colon polyps x 4 internal hemorrhoids Plan: High fiber diet leaflet Avoid straining at stool, epsom salts and sitz bath, anusol supps or cream Repeat Colonoscopy in 1 year due to fair prep on left or earlier if clinically indicated Above findings were reviewed with the patient and relevant handouts were provided if indicated.
[2025-06-03 10:54] VITALS: BP 128/72; PULSE 85; RESP 16; TEMP 36.1; O2SAT 96
[2025-06-03 11:09] VITALS: BP 139/71; PULSE 82; RESP 18; O2SAT 93
[2025-06-03 11:24] VITALS: BP 149/69; PULSE 80; RESP 16; TEMP 36.8; O2SAT 95
--- NOTE | 2025-06-03 12:33 | PC.NURSE ---
THE STAFF HAS BEEN UNABLE TO CONTACT PATIENT'S , VOICE MESSAGE LEFT APPROX 3 TIMES. PATIENT DOES NOT WANT TO WAIT HER ANY LONGER. PATIENT SIGNED AN AMA FORM. PATIENT BROUGHT DOWNSTAIRS IN WC.
--- NOTE | 2025-06-03 12:36 | PC.NURSE ---
PATIENT'S CALLED AND IS DOWNSTAIRS. PT DISCHARGED AND BROUGHT DOWNSTAIRS.
== END 2025-06-03 12:39 | disposition home or self-care (01) ==
PROVIDERS: PCP Nurse Practitioner Family; Visit Provider Internal Medicine Gastroenterology
PROC: 0DJD8ZZ Inspection of Lower Intestinal Tract, Via Natural or Artificial Opening Endoscopic (ICD-10-PCS; CPT 45378; principal; 2025-06-03 11:00)
DX: Z12.11 Encounter for screening for malignant neoplasm of colon (principal); D12.0 Benign neoplasm of cecum; D12.5 Benign neoplasm of sigmoid colon; K57.30 Diverticulosis of large intestine without perforation or abscess without bleeding; K64.0 First degree hemorrhoids; R19.5 Other fecal abnormalities; E11.22 Type 2 diabetes mellitus with diabetic chronic kidney disease; I12.9 Hypertensive chronic kidney disease with stage 1 through stage 4 chronic kidney disease, or unspecified chronic kidney disease; N18.9 Chronic kidney disease, unspecified; D63.1 Anemia in chronic kidney disease; E78.00 Pure hypercholesterolemia, unspecified; D50.9 Iron deficiency anemia, unspecified; I35.0 Nonrheumatic aortic (valve) stenosis; I44.7 Left bundle-branch block, unspecified; F17.210 Nicotine dependence, cigarettes, uncomplicated; F12.90 Cannabis use, unspecified, uncomplicated; E66.9 Obesity, unspecified; Z68.36 Body mass index [BMI] 36.0-36.9, adult; Z98.84 Bariatric surgery status; Z90.49 Acquired absence of other specified parts of digestive tract
CPT/HCPCS: 45381; 45385; 45380; 88305; J2003; J2704

== ENCOUNTER → 2025-06-03 09:02 | Outpatient (BNV) | payer MEDICARE, SELFPAY | PROVIDERS: PCP Nurse Practitioner Family; Visit Provider Internal Medicine Gastroenterology | DX: Z12.11 Encounter for screening for malignant neoplasm of colon (principal); R19.5 Other fecal abnormalities; D12.0 Benign neoplasm of cecum; D12.5 Benign neoplasm of sigmoid colon; K57.90 Diverticulosis of intestine, part unspecified, without perforation or abscess without bleeding; K64.0 First degree hemorrhoids | CPT/HCPCS: 45381; 45385 ==

== ENCOUNTER 2025-07-15 17:37 | Emergency (ER) | payer MEDICARE, SELFPAY ==
--- NOTE | ~2025-07-15 | CT_ITS ---
CLINICAL HISTORY: Abdominal pain and black stool. CT abdomen and pelvis with contrast Comparison: CT abdomen and pelvis 04/10/2023, renal ultrasound most recently on 04/05/2025 Findings: No acute findings within visualized lung bases. Liver enhances homogeneously. Stable mild intra and extrahepatic ductal dilation likely a sequela of prior cholecystectomy. Spleen, adrenal glands, and pancreas are unremarkable. Again seen are numerous bilateral renal cysts. Mild bilateral renal pelviectasis. No apparent hydronephrosis. No perinephric fat stranding. No free air or free fluid. Unremarkable urinary bladder. Atrophic uterus. Calcified but nonaneurysmal abdominal aorta and iliofemoral vessels. Postop changes of the stomach. Small bowel is nondistended. Moderate sigmoid colonic diverticulosis without CT evidence of acute diverticulitis. Normal appendix. No pathologically enlarged lymph nodes. Fluid collection lateral to the right hip measuring 4.2 x 2.7 x 9.7 cm No acute osseous abnormality. No lytic or sclerotic osseous lesions. Impression: 1. No acute findings identified in the abdomen or pelvis. 2. Cholecystectomy with stable mild prominence of intra and extrahepatic bile ducts. 3. Sigmoid colonic diverticulosis without CT evidence of acute diverticulitis. 4. Fluid collection within soft tissues overlying right hip measuring 4.2 x 2.7 x 9.7 cm. This is nonspecific and may represent seroma versus abscess. 5. Additional chronic/nonacute findings as above. This document has been electronically signed by: Neto Lugo MD on 07/16/2025 00:20:45
[2025-07-15 18:10] VITALS: BP 117/60; PULSE 90; RESP 18; TEMP 36.8; O2SAT 93; BMI 36.1
--- NOTE | 2025-07-15 18:11 | ED.GENADULT ---
HPI - General Adult General Chief complaint: Abdominal Pain Stated complaint: sent from pcp, stomach bleeding Time Seen by Provider: 07/15/25 22:19 Source: patient Mode of arrival: ambulatory Limitations: no limitations History of Present Illness ED Provider: DR. Jack HPI narrative: A 69-year-old female with past medical history significant for HTN, DM, HLD, recurrent GI bleed presented today for evaluation of abdominal pain that seemed to be a chronic issue for the patient since 2011 pain is on and off started since last week this time, patient also noticed passing black stool last episode of black stool was 2 days ago. Patient is not taking any anticoagulation. No dizziness, no SOB, no CP. Related Data Home Medications ?Medication ?Instructions ?Recorded ?Confirmed latanoprost 0.005 % eye drops 1 drp ophthalmic (eye) BEDTIME 08/07/22 02/20/25 Previous Rx's ?Medication ?Instructions ?Recorded blood-glucose meter (Mobile On ServicesTouch #1 ea 04/04/21 Ultra2 Meter) lancets 30 gauge (OneTouch Delica #100 ea 07/13/21 Lancets) blood sugar diagnostic #100 ea 04/13/22 lancets 33 gauge (OneTouch Delica #100 ea 04/13/22 Plus Lancet) ammonium lactate 12 % topical cream 1 appl topical BID #385 grams 02/26/25 buspirone 15 mg tablet 15 mg PO BID #180 tabs 03/10/25 metoprolol tartrate 50 mg tablet 50 mg PO BID #180 tabs 04/08/25 sertraline 100 mg tablet 100 mg PO DAILY 90 days #90 tabs 04/08/25 omega-3 acid ethyl esters 1 gram 2 cap PO BID 90 days #360 caps 05/01/25 capsule rosuvastatin 20 mg tablet 20 mg PO DAILY #90 caps 06/07/25 gabapentin 400 mg capsule 400 mg PO TID 30 days #90 caps 07/01/25 omeprazole 40 mg capsule,delayed 40 mg PO BID@0630,1630 #180 caps 07/06/25 release Allergies Allergy/AdvReac Type Severity Reaction Status Date / Time latex (LATEX) Allergy Severe RASH Verified 07/15/25 18:14 morphine (MORPHINE) Allergy Severe SEVERE Verified 07/15/25 18:14 SHAKING, N/V amoxicillin (From AUGMENTIN) Allergy Unknown SEVERE Verified 07/15/25 18:14 DIARRHEA ciprofloxacin (CIPROFLOXACIN) Allergy Unknown SEVERE Verified 07/15/25 18:14 DIARRHEA clavulanic acid (From Allergy Unknown SEVERE Verified 07/15/25 18:14 AUGMENTIN) DIARRHEA fenofibrate AdvReac Intermediate stomach Verified 07/15/25 18:14 pain/cramping baclofen AdvReac Unknown Unknown Verified 07/15/25 18:14 trazodone AdvReac Unknown Unknown Verified 07/15/25 18:14 Review of Systems Review of Systems: All other systems are reviewed and are negative Constitutional: Reports as per HPI and Reports no additional constitutional complaints Eyes: Reports as per HPI and Reports no additional eye complaints Reports system reviewed and no additional complaints, except as documented Cardiovascular: Reports as per HPI and Reports no additional cardiovascular complaints Respiratory: Reports as per HPI and Reports no additional respiratory complaints Gastrointestinal: Reports as per HPI and Reports no additional gastrointestinal complaints Genitourinary: Reports no additional female genitourinary complaints Musculoskeletal: Reports no additional musculoskeletal complaints Skin/Breast: Reports system reviewed and no additional complaints, except as docu Psychiatric: Reports no additional psychiatric complaints Endocrine: Reports no additional endocrine complaints Hematologic/Lymphatic: Reports no additional hematologic/lymphatic complaints Allergic/Immunologic: Reports no additional allergic/immunologic complaints Reports system reviewed and no additional complaints, except as documented and Reports Abnormal speech present [facility] Past Medical History Medical History DJD (degenerative joint disease) Chest discomfort Right ankle pain Precordial chest pain Right ankle pain Right ankle injury Encounter for annual wellness visit (AWV) in Medicare patient Bilateral nephrolithiasis Pain Right flank pain Low back pain Postmenopausal Dysuria Hematuria Microhematuria Urinary tract infection Genitourinary syndrome of menopause Abdominal pain Pre-op evaluation H/O nephrolithotomy with removal of calculi Aortic stenosis Diabetes Diverticulitis Scoliosis Pulmonary fibrosis Recurrent UTI Hyperlipidemia Anxiety and depression Hypertension Surgical History Hx of left breast biopsy History of esophagogastroduodenoscopy (EGD) H/O colonoscopy Hx of cystoscopy H/O lithotripsy History of cholecystectomy History of Hx of breast reduction, elective S/P panniculectomy H/O gastric bypass Family History Family History Father Heart disease Mother Heart disease Pulmonary fibrosis Sister Heart disease Sister Pulmonary fibrosis Brother Pulmonary fibrosis Daughter Mental health disorder Substance use disorder Social History Social History Household Members: Spouse Housing: Apartment Are you a primary career resource specialist to a significant other at home: No Do you presently have visiting nurse or other home services: Yes (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) Alcohol intake: never Patient Tobacco Use Status: Current everyday Tobacco user Tobacco use type: Cigarette Cigarette Packs Per Day: 1 Years Smoked: 45 Smoked in Last 30 Days: No e-Cigarette/Vaping Use: Never Used Second Hand Smoke Exposure: No Use of substances other than those prescribed or required for medical reasons: No Substance Use Type: Marijuana Advance Directives: Yes Advance Directives on File: Yes Advance Directives Date on File: 08/16/22 Do you have a plan to hurt others: No Plan service: No Current occupational status: disabled 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 Blood pressure elevated. Heart rate normal. Respiratory rate normal. Temperature normal. Oxygen saturation normal. Appearance: Alert. Oriented X3. No acute distress. Head: Normal external exam. Normocephalic. Atraumatic. No Perez signs noted. No raccoon eyes noted Eyes: PERRLA. EOMI. Conjunctiva and sclera normal. Eyelids normal. ENT: TM's Normal. Pharynx normal. Uvula midline. Moist mucous membranes. No trismus noted. No drooling noted. No muffled voice noted. Neck: Normal inspection. Neck supple. FROM. No adenopathy. Thyroid Normal. No meningeal signs. No neck mass noted. CVS: Normal heart rate and rhythm. Heart sound normal. No murmurs noted. Pulses normal throughout. Respiratory: No respiratory distress. Painless inspiration. Breath sounds normal. No wheezes/rales/rhonchi noted. Chest nontender. No accessory muscle usage noted or decreased air movement noted. Abdomen: Soft and nontender. Bowel sounds normal in all 4 quadrants. No distention noted. No organomegaly noted. No visible injury noted. Rectal exam: Back: No CVA tenderness. Full range of motion noted. Skin: Skin warm and dry. Normal skin color. Normal skin turgor. No rashes/lesions/lacerations noted. Extremities: RIGHT HIP: No redness, no hotness, no fluctuation, full range of motion, no concern of abscess in this area as described on CT. Neuro: Oriented X 3. Cranial nerve exam: II-XII are grossly intact No motor deficit. No sensory deficit. Reflexes normal. Course Course Course Narrative: This is an RME: Additional HPI, ROS, PE not included below will be deferred to primary provider. RME assessment and note performed by: Fanny Ferrer PA-C This is a [id number]-female, with a past medical history of who presents to the ER with complaints of abdominal pain, black stool x 2 months. Patient reports that she has had abdominal pain and black stool intermittently for many years. She states that she has a recurrent stomach bleed. She states that she has had these symptoms for a long time however reports that this episode has been occurring for the last 2 months. She did have a colonoscopy in May which was normal. Plan: Labs, further ER evaluation needed. Reevaluation(s) Reevaluation #1: 69-year-old female presented for evaluation of black stool that has been on and off patient had a prior workup for GI bleed recently had colonoscopy by Dr. Mackay which was significant for diverticulosis and polyps. No active bleeding today with negative blood in the stool stool is normal brown color. Stable H&H. CT abdomen pelvis is unremarkable concerning of 4 x 9 cm nonspecific fluid collection over the right hip which is likely seroma patient is not tender, no fever, no leukocytosis. Time: 00:40 Medications Administered Discontinued Medications Generic Name Dose Route Start Last Admin Trade Name Freq PRN Reason Stop Dose Admin Iohexol 85 ml 07/15/25 23:06 07/15/25 23:07 Iohexol 350 Mg/Ml 100 Ml Infus..Btl IV 07/15/25 23:07 85 ml ONCE ONE Administration Pantoprazole Sodium 40 mg 07/15/25 22:30 07/15/25 22:49 Pantoprazole Sodium 40 Mg/10 Ml Vial IVPUSH 07/15/25 22:31 40 mg ONCE ONE Administration Medical Decision Making Differential Diagnosis Differential Diagnoses: The differential diagnosis associated with the presentation includes (Rectal bleed, colitis, diverticulitis, abscess overlying right hip, SBO, anemia, electrolyte derangement.) Admission/Observation Consideration of admission/observation: Escalation of care including admission/observation considered Lab Data MDM Lab Attestation statement: I reviewed the patient's lab results. 07/15/25 19:08 07/15/25 19:08 Labs: Lab Results 07/15/25 07/15/25 Range/Units 19:08 22:41 WBC 6.9 (4.8-10.8) X10*3/uL RBC 3.97 L (4.20-5.50) X10*6/uL Hgb 11.8 L (12.0-16.0) g/dl Hct 37.5 (37.0-47.0) % MCV 94.5 (80.0-98.0) fL MCH 29.7 (27.0-33.0) pg MCHC 31.5 (31.0-35.0) g/dl RDW 16.4 H (11.0-16.0) % Plt Count 248 (160-400) X10*3/uL MPV 9.8 (9.4-12.3) fL Immature Gran % (Auto) 0.4 (0.0-0.4) % Neut % (Auto) 66.7 (45-73) % Lymph % (Auto) 18.6 L (20-40) % [place] % (Auto) 11.1 H (2-11) % Eos % (Auto) 2.6 (0-4) % Baso % (Auto) 0.6 (0-2) % Lymph # (Auto) 1.3 (1.2-4.9) X10*3/uL [place] # (Auto) 0.8 (0.1-1.2) X10*3/uL Eos # (Auto) 0.2 (0.0-0.4) X10*3/uL Baso # (Auto) 0.0 (0.0-0.2) X10*3/uL Abs Immat Gran (auto) 0.03 (0.00-0.03) X10*3/uL Absolute Neuts (auto) 4.6 (2.0-8.3) x10*3/uL Absolute Nucleated RBC 0.000 (0.0-0.012) X10*3/uL Nucleated RBC % (auto) 0.0 (0.0-0.2) /100WBC PT 10.3 L (10.9-12.4) SEC INR 0.9 (0.9-1.1) Sodium 141 (135-145) mmol/L Potassium 4.4 (3.3-5.1) mmol/L Chloride 108 (96-108) mmol/L Carbon Dioxide 26 (22-29) mmol/L Anion Gap 11 L (12-20) BUN 19 H (9-16) mg/dL Creatinine 0.93 (0.5-1.4) mg/dL Estim Creat Clear Calc 63.1 Estimated GFR 60 Random Glucose 91 (60-115) mg/dL Calcium 9.2 D (8.4-10.2) mg/dL Magnesium 2.2 (1.6-2.6) mg/dL Total Bilirubin 0.3 (0.0-1.0) mg/dL Direct Bilirubin 0.1 (0.0-0.5) mg/dL AST 24 (5-31) U/L ALT 13 (0-31) U/L Alkaline Phosphatase 102 (39-117) U/L Total Protein 7.0 (6.5-8.0) g/dL Albumin 4.0 (3.5-5.0) g/dL Stool Occult Blood NEGATIVE (NEGATIVE) Independent Interpretation I performed an independent interpretation of an: CT Scan (Abdomen pelvis:1. No acute findings identified in the abdomen or pelvis. 2. Cholecystectomy with stable mild prominence of intra and extrahepatic bile ducts. 3. Sigmoid colonic diverticulosis without CT evidence of acute diverticulitis. 4. Fluid collection within soft tissues overlying right hip m) Radiology Impression Discussion of test interpretation with radiology: I have reviewed the radiologist's reading. Discharge Plan Discharge Clinical Impression: Abdominal pain, chronic, generalized Patient Disposition: Home, Self-Care Instructions: Abdominal Pain (ED) Prescriptions: No Action (DME) blood-glucose meter [OneTouch Ultra2 Meter] Misc See Rx Instructions .ROUTE .MEDSUPPLY Qty: 1 0RF Rx Instructions: Use to check fasting blood sugar once daily or if needed for signs/symptoms of hypo/hyperglycemia (DME) lancets [OneTouch Delica Lancets] 30 gauge misc See Rx Instructions .ROUTE .MEDSUPPLY Qty: 100 0RF Rx Instructions: Use to check fasting blood sugar once daily or if needed for signs/symptoms of hypo/hyperglycemia (DME) lancets [OneTouch Delica Plus Lancet] 33 gauge misc See Rx Instructions topical DAILY Qty: 100 1RF Rx Instructions: daily (DME) blood sugar diagnostic Strip See Rx Instructions .ROUTE .MEDSUPPLY Qty: 100 0RF Rx Instructions: Use to check fasting blood sugar once daily or if needed for signs/symptoms of hypo/hyperglycemia ammonium lactate 12 % cream 1 appl topical BID Qty: 385 3RF buspirone 15 mg tablet 15 mg PO BID Qty: 180 1RF metoprolol tartrate 50 mg tablet 50 mg PO BID Qty: 180 1RF sertraline 100 mg tablet 100 mg PO DAILY 90 Days Qty: 90 1RF omega-3 acid ethyl esters 1 gram capsule 2 cap PO BID 90 Days Qty: 360 1RF rosuvastatin 20 mg tablet 20 mg PO DAILY Qty: 90 1RF gabapentin 400 mg capsule 400 mg PO TID 30 Days Qty: 90 0RF omeprazole 40 mg capsule,delayed release(DR/EC) 40 mg PO BID@0630,1630 Qty: 180 1RF latanoprost 0.005 % drops 1 drp ophthalmic (eye) BEDTIME Referrals: Greg Kaba, OPERATION AGENT-BC [Primary Care Provider, Internal Medicine] Print Language: [place] Zealander
[2025-07-15 19:13] LABS: MANUAL DIFF FLAG NO
[2025-07-15 19:33] LABS: Hematocrit 37.5 % (37.0-47.0); Hemoglobin 11.8 g/dl (12.0-16.0); Imm Gran Abs Auto 0.03 X10*3/uL (0.00-0.03); Imm Gran Pct Auto 0.4 % (0.0-0.4); Lymphocytes Absolute Auto 1.3 X10*3/uL (1.2-4.9); Mean Corpuscular HGB Conc 31.5 g/dl (31.0-35.0); Mean Corpuscular Hemoglobin 29.7 pg (27.0-33.0); Mean Corpuscular Volume 94.5 fL (80.0-98.0); NRBC Abs Auto 0.000 X10*3/uL (0.0-0.012); NRBC Pct Auto 0.0 /100WBC (0.0-0.2); Platelet Count 248 X10*3/uL (160-400); Red Blood Count 3.97 X10*6/uL (4.20-5.50); White Blood Count 6.9 X10*3/uL (4.8-10.8)
[2025-07-15 19:40] LABS: Chloride 108 mmol/L (96-108); Potassium 4.4 mmol/L (3.3-5.1); Sodium 141 mmol/L (135-145)
[2025-07-15 19:43] LABS: Alanine Aminotransferase 13 U/L (0-31); Albumin Level 4.0 g/dL (3.5-5.0); Alkaline Phosphatase 102 U/L (39-117); Anion Gap 11 (12-20); Aspartate Amino Transferase 24 U/L (5-31); Blood Urea Nitrogen 19 mg/dL (9-16); Calcium 9.2 mg/dL (8.4-10.2); Carbon Dioxide 26 mmol/L (22-29); Creatinine Clr Calc Pharmacy 63.1; Estimated Glomerular Filt Rate 60; Magnesium 2.2 mg/dL (1.6-2.6); Total Protein 7.0 g/dL (6.5-8.0)
[2025-07-15 22:07] VITALS: BP 185/78; PULSE 82; RESP 16; TEMP 36.3; O2SAT 97
--- OUTSIDE RECORDS SUMMARY | 2025-07-15 22:19 | XMS_ITS | Patient Health Record ---
Author Organization [facility] Address [address] [place] [address] Care Team Providers Care Molder Pipe Covering Name Role Phone Karishma (RETIRED) Gordo MICHAELS Primary Care Provider Unavailable Bong Mirza Jr Unavailable Allergies Allergen (clinical drug ingredient) Drug/Non Drug Allergy documented on EMR Reaction Allergy Type Onset Date Status Latex latex (uncoded) Unknown Allergy Acti ve vicodin (uncoded) Unknown Allergy Ac tive ciprofloxacin cipro (uncoded) Unknown Allergy Active morphine morphine (uncoded) Unknown Allergy A ctive [...] Start Date Coverage End Date MEDICAID OF [facility] [address] [place] [id number] [id number] MARCIANO GILBERT Self - patient is the insured Medical (General) History Medical History History ICD Code colon and egd 06-01-2004 hyperlipidemia hypertension osteoarthritis pulmonary embolism GI bleed esophageal reflux anxiety abnormal liver funtion test gallstones Surgical History Surgery Date(Month/Year) gastric bypass cholecystectomy reduction mammoplasty panniculectomy section
--- OUTSIDE RECORDS SUMMARY | 2025-07-15 22:19 | XMS_ITS | Clinical Summary ---
Author Organization [facility] Address [address] [place] [address] Phone Care Team Providers Care Police Lieutenant Patrol Name Role Phone Greg Kaba NP Primary Care Provider [phone] Allergies Active Allergy Reactions Criticality Noted Date [...] age to complete this topic Insurance [address] [place] [id number] [place] [facility] ([id number]) Formerly [facility] ([id number]) Care Teams Police Lieutenant Patrol Relationship Specialty Start Date End Date Greg Kaba NP [address] [place] [address] PCP - General 11/29/20
[2025-07-15 22:55] LABS: OBS Int Ctl Valid YES; OBS1 NEGATIVE (NEGATIVE)
[2025-07-15] MEDS: iohexoL 350 MG/ML 100 ML INFUS..BTL 85 ML IV (23:07)
[2025-07-15 23:21] LABS: INTERNATIONAL NORM RATIO 0.9 (0.9-1.1); Prothrombin Time 10.3 SEC (10.9-12.4)
[2025-07-16 00:56] VITALS: BP 155/78; PULSE 75; RESP 16; TEMP 36.7; O2SAT 96
== END 2025-07-16 00:58 | disposition home or self-care (01) ==
PROVIDERS: Physician Assistant Medical; Emergency Provider Emergency Medicine; PCP Nurse Practitioner Family
DX: R10.84 Generalized abdominal pain (principal); G89.29 Other chronic pain; R19.5 Other fecal abnormalities; I10 Essential (primary) hypertension; E11.9 Type 2 diabetes mellitus without complications; E78.5 Hyperlipidemia, unspecified; F17.200 Nicotine dependence, unspecified, uncomplicated; Z71.6 Tobacco abuse counseling
CPT/HCPCS: 36415; 74177; 80048; 80076; 82272; 83735; 85025; 85610; 99284; 99285; J2470; Q9967

== ENCOUNTER → 2025-07-15 22:30 | Outpatient (BNV) | payer MEDICARE, SELFPAY | PROVIDERS: Emergency Provider Emergency Medicine; PCP Nurse Practitioner Family; Visit Provider Radiology Diagnostic Radiology | DX: K57.30 Diverticulosis of large intestine without perforation or abscess without bleeding (principal); Z90.49 Acquired absence of other specified parts of digestive tract | CPT/HCPCS: 74177 ==

== ENCOUNTER 2025-07-30 14:16 | Outpatient (REF) | payer MEDICARE, SELFPAY ==
--- NOTE | ~2025-07-30 | XR_ITS ---
EXAMINATION: XR HUMERUS, RIGHT CLINICAL INFORMATION: M79.601 - Pain in right arm COMPARISON: None available. TECHNIQUE: AP and lateral views of the right humerus. FINDINGS: No acute fracture or deformity is evident. There is a 1 mm step-off involving the lateral articular surface of the radial head. XR/XR humerus RT IMPRESSION: Unremarkable right humerus. Suspected remote radial head fracture. Electronically signed by: Juan Pablo Weinstein MD 07/30/2025 03:05 PM EDT
--- NOTE | ~2025-07-30 | XR_ITS ---
EXAMINATION: XR SHOULDER, RIGHT CLINICAL INFORMATION: M79.601 - Pain in right arm COMPARISON: None available. TECHNIQUE: Two views of the right shoulder. FINDINGS: AC joint is intact with minimal degenerative change. Humeral head demonstrates small marginal osteophytes. There are small glenoid marginal osteophytes. There is no dislocation. No fracture is identified. XR/XR shoulder RT min 2V IMPRESSION: Mild degenerative changes of the A.C. and glenohumeral joints. Electronically signed by: Juan Pablo Weinstein MD 07/30/2025 03:06 PM EDT
== END 2025-07-30 14:17 | disposition home or self-care (01) ==
LOC: HO.HMGCX 14:16
PROVIDERS: PCP Nurse Practitioner Family; Visit Provider Physician Assistant Medical
DX: M79.601 Pain in right arm (principal); W19.XXXA Unspecified fall, initial encounter
CPT/HCPCS: 73030; 73060; 99212

== ENCOUNTER 2025-07-30 14:16 | Outpatient (AMB) | payer MEDICARE, SELFPAY ==
[2025-07-30 14:19] VITALS: BP 122/60; PULSE 90; TEMP 36.8; O2SAT 93; BMI 35.7
--- NOTE | 2025-07-30 14:19 | AM.OFFWIN_ITS ---
Intake Vital Signs 07/30/25 14:19 Height 5 ft 4 in Weight 208 lb BMI 35.7 BP 122/60 Blood Pressure Location Lt brachial Position Sitting Pulse 90 Pulse Source Pulse Oximeter Temp 98.2 F Temp Source Oral Pulse Oximetry (%) 93 Oxygen Delivery Method Room Air Intake Visit Reasons: ep pain in right arm Intake Note: pt presents with pain to right shoulder radiating to finger tips & weakness- unable to hold items on this side s/p falling a week ago Patient Tobacco Use Status: Current everyday Tobacco user Allergies latex (LATEX) Allergy (Severe, Verified 07/30/25 14:23) RASH morphine (MORPHINE) Allergy (Severe, Verified 07/30/25 14:23) SEVERE SHAKING, N/V amoxicillin (From AUGMENTIN) Allergy (Unknown, Verified 07/30/25 14:23) SEVERE DIARRHEA ciprofloxacin (CIPROFLOXACIN) Allergy (Unknown, Verified 07/30/25 14:23) SEVERE DIARRHEA clavulanic acid (From AUGMENTIN) Allergy (Unknown, Verified 07/30/25 14:23) SEVERE DIARRHEA fenofibrate Adverse Reaction (Intermediate, Verified 07/30/25 14:23) stomach pain/cramping baclofen Adverse Reaction (Unknown, Verified 07/30/25 14:23) Unknown trazodone Adverse Reaction (Unknown, Verified 07/30/25 14:23) Unknown Do you need a note to return to daycare/school/sports/work: No HPI HPI Comments History of Present Illness Details History of Present Illness - The patient is a 69-year-old female pr esenting with right shoulder and arm pain after falling. - She reports falling multiple times in the past month, with the most recent fall occurring two weeks ago, landing on her right side. - Pain is localized to the right biceps and shoulder, with tenderness and limited range of motion noted. - The pain extends to her to her elbow, forearm and into her fingers, disturbing her sleep, and is not adequately managed by her current medication regimen. - She has pain with movement. - She is right hand dominant. - She denies neck pain, back pain, hand pain, numbness, or tingling. Physical Exam General: Cooperative, healthy appearing, comfortable, no acute distress and well developed Orientation: Patient oriented x3 Limitations: Limited range of motion in the right shoulder; unable to lift over head Respiratory: Normal respiratory effort and able to speak in complete sentences. Clear to auscultation bilaterally Cardiovascular: Regular rate and rhythm. Normal S1 and S2. Pulses are 2+ on the UE bilaterally. Skin: No rashes or lesions noted Neuro: Sensation intact. Extremities: Decrease ROM of the right shoulder. Unable to lift arm past 90 degrees. Supination and pronation is intact. Pain on palpation of right AC joint, bicep, and medial and lateral epicondyle. No swelling or deformity noted to the right arm. 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 Patient was informed and verbally consented to the use of an ambient scribe for clinic note documentation during this visit. [facility] Medical History DJD (degenerative joint disease) Chest discomfort Right ankle pain Precordial chest pain Right ankle pain Right ankle injury Encounter for annual wellness visit (AWV) in Medicare patient Bilateral nephrolithiasis Pain Right flank pain Low back pain Postmenopausal Dysuria Hematuria Microhematuria Urinary tract infection Genitourinary syndrome of menopause Abdominal pain Pre-op evaluation H/O nephrolithotomy with removal of calculi Aortic stenosis Diabetes Diverticulitis Scoliosis Pulmonary fibrosis Recurrent UTI Hyperlipidemia Anxiety and depression Hypertension Surgical History Hx of left breast biopsy History of esophagogastroduodenoscopy (EGD) H/O colonoscopy Hx of cystoscopy H/O lithotripsy History of cholecystectomy History of Hx of breast reduction, elective S/P panniculectomy H/O gastric bypass Family History Father Heart disease Mother Heart disease Pulmonary fibrosis Sister Heart disease Sister Pulmonary fibrosis Brother Pulmonary fibrosis Daughter Mental health disorder Substance use disorder Social History Household Members: Spouse Housing: Apartment Are you a primary career services manager to a significant other at home: No Do you presently have visiting nurse or 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) Alcohol intake: never Patient Tobacco Use Status: Current everyday Tobacco user Tobacco use type: Cigarette Cigarette Packs Per Day: 1 Years Smoked: 45 e-Cigarette/Vaping Use: Never Used Second Hand Smoke Exposure: No Substance Use Type: Marijuana Advance Directives Date on File: 08/16/22 service: No Current occupational status: disabled 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 Will send message to PCP to order. Assessment & Plan Assessment & Plan (1) Fall: Code(s): W19.XXXA - Unspecified fall, initial encounter Qualifiers: Encounter type: initial encounter Qualified Code(s): W19.XXXA - Unspecified fall, initial encounter (2) Right arm pain: Code(s): M79.601 - Pain in right arm Plan Most likely contusion vs fracture vs dislocation plan - Plan to obtain an x-ray to assess for fractures or other injuries. - rest, ice, and elevation of the right arm. - Provide a sling for immobilization and support of the right arm. - Advise continuation of current pain management with gabapentin and Tylenol as needed. - will refer to ortho if needed - follow up with PCP Orders: Orders XR humerus RT Today M79.601 - Pain in right arm XR shoulder RT min 2V Today M79.601 - Pain in right arm Coding Level of Care Code Est Pt Level 4 (09654) Diagnoses Fall, initial encounter W19.XXXA Encounter type: initial encounter Right arm pain M79.601
--- OUTSIDE RECORDS SUMMARY | 2025-07-30 18:02 | XMS_ITS | Patient Health Record ---
Author Organization [facility] Address [address] [place] [address] Care Team Providers Care Wire Insulator Name Role Phone Karishma (RETIRED) Gordo MICHAELS [...] Problem Status W/U Status Risk Notes Problem Gastrointestinal hemorrhage (60792327) Hemorrhage of gastrointestinal tract, unspecified (578.9) Active confirmed Plan Of Treatment No Information Insurance Providers Payer Name Payer Address Payer Phone Subscriber Number Group Number Insured Name Patient Relationship to Insured Coverage Start Date Coverage End Date MEDICA[facility] [address] [place] [phone] [id number] MARCIANO GILBERT Self - patient is the insured Medical (General) History Medical History History ICD Code colon and egd 06-01-2004 hyperlipidemia hypertension osteoarthritis pulmonary embolism GI bleed esophageal reflux anxiety abnormal liver funtion test gallstones Surgical History Surgery Date(Month/Year) gastric bypass cholecystectomy reduction mammoplasty panniculectomy section
--- OUTSIDE RECORDS SUMMARY | 2025-07-30 18:02 | XMS_ITS | Clinical Summary ---
Author Organization [facility] Address [address] [place] [address] Phone Care Team Providers Care Call Or Contact Centre Manager Name Role Phone Greg Kaba NP Primary Care Provider [phone] Allergies Active Allergy Reactions Criticality Noted Date [...] age to complete this topic Insurance [address] [place] [id number] [place] [facility] ([id number]) Formerly [facility] ([id number]) Care Teams Call Or Contact Centre Manager Relationship Specialty Start Date End Date Greg Kaba NP [address] [place] [address] PCP - General 11/29/20
== END 2025-07-30 15:26 | disposition home or self-care (01) ==
PROVIDERS: PCP Nurse Practitioner Family; Visit Provider Physician Assistant Medical
DX: M79.601 Pain in right arm (principal); W19.XXXA Unspecified fall, initial encounter

== ENCOUNTER → 2025-07-30 14:51 | Outpatient (BNV) | payer MEDICARE, SELFPAY | PROVIDERS: PCP Nurse Practitioner Family; Visit Provider Radiology Diagnostic Radiology | DX: M19.011 Primary osteoarthritis, right shoulder (principal); M79.601 Pain in right arm | CPT/HCPCS: 73030; 73060 ==

== ENCOUNTER 2025-08-07 18:35 | Emergency (ER) | payer MEDICARE, SELFPAY ==
--- NOTE | ~2025-08-07 | CT_ITS ---
CLINICAL HISTORY: nv abd pain CT abdomen and pelvis with contrast Comparison: 07/15/2025 Findings: Lung bases are clear. No acute bony abnormalities. Degenerative change spine and hips. Left hemidiaphragm elevation is unchanged. Status post gastric bypass/partial gastrectomy. Perigastric inflammatory stranding noted. Question acute gastritis. Liver and spleen within normal limits. Pancreas and adrenal glands unremarkable. Cholecystectomy. No significant focal renal abnormalities. Renal cysts, no stones or hydronephrosis. Abdominal aorta is normal in caliber. No free fluid or adenopathy in the pelvis. No diverticulitis. Appendix unremarkable. Uterus normal size. No adnexal abnormality. Impression: Question acute gastritis pattern This document has been electronically signed by: Segundo Ray MD on 08/07/2025 21:42:01
--- NOTE | ~2025-08-07 | XR_ITS ---
CLINICAL HISTORY: Rt arm pain Right humerus two views Comparison: 07/30/2025 Findings: No acute fracture or dislocation identified. Degenerative change glenohumeral joint. No radiopaque foreign body noted. Impression: No acute bony abnormality This document has been electronically signed by: Segundo Ray MD on 08/07/2025 20:04:40
[2025-08-07 18:41] VITALS: BP 129/73; PULSE 125; RESP 18; TEMP 37; O2SAT 95
[2025-08-07 18:44] VITALS: BP 129/73; BP 136/88; PULSE 122; PULSE 130; RESP 18; TEMP 36.7; O2SAT 18; O2SAT 93; BMI 34.4
[2025-08-07 19:14] LABS: COVID-19 Test Negative (Negative); IDNOW Serial# 55D5AD1C
[2025-08-07 19:16] LABS: IDNOW Serial# 58CA691E; Influenza B2 Negative (Negative)
[2025-08-07 19:25] LABS: Hematocrit 36.0 % (37.0-47.0); Hemoglobin 12.0 g/dl (12.0-16.0); Imm Gran Abs Auto 0.05 X10*3/uL (0.00-0.03); Imm Gran Pct Auto 0.3 % (0.0-0.4); Lymphocytes Absolute Auto 0.9 X10*3/uL (1.2-4.9); MANUAL DIFF FLAG NO; Mean Corpuscular HGB Conc 33.3 g/dl (31.0-35.0); Mean Corpuscular Hemoglobin 29.6 pg (27.0-33.0); Mean Corpuscular Volume 88.7 fL (80.0-98.0); NRBC Abs Auto 0.000 X10*3/uL (0.0-0.012); NRBC Pct Auto 0.0 /100WBC (0.0-0.2); Platelet Count 244 X10*3/uL (160-400); Red Blood Count 4.06 X10*6/uL (4.20-5.50); White Blood Count 14.6 X10*3/uL (4.8-10.8)
[2025-08-07 19:27] LABS: Appearance Urine Turbid; Glucose Urine UA Negative (Negative); PH 6.0 (5.0-9.0); Specific Gravity - Urine 1.015 (1.005-1.025); UMIC TRIGGER UACC YES
--- NOTE | 2025-08-07 19:32 | ED_ITS ---
HPI - General Adult General Chief complaint: Nausea/Vomiting/Diarrhea Stated complaint: flu-like symptoms, weakness Source: patient and EMS Mode of arrival: EMS Limitations: no limitations History of Present Illness ED Provider: LARRY Rush HPI narrative: This is a 69-year-old female presenting with multiple complaints she reports 4 days of nausea, diarrhea, abdominal pain, overall feeling unwell. She tells me that her abdominal pain is diffuse in nature. She also reports difficulties with urination and reports a foul odor. She also tells me 2 weeks ago she fell on her right arm, a trip and fall she was seen at an urgent Care told she had a broken arm and was told somebody would call her for an MRI however no one ever called her. She reports she has not been able to move the arm secondary to pain. She denies head strike or loss of consciousness. Denies chest pain, shortness breath, vomiting, headache, vision changes, dizziness. Related Data Home Medications ?Medication ?Instructions ?Recorded ?Confirmed latanoprost 0.005 % eye drops 1 drp ophthalmic (eye) B EDTIME 08/07/22 02/20/25 Previous Rx's ?Medication ?Instructions ?Recorded blood-glucose meter (AppcoreTouch #1 ea 04/04/21 Ultra2 Meter) lancets 30 gauge (OneTouch Delica #100 ea 07/13/21 Lancets) blood sugar diagnostic #100 ea 04/13/22 lancets 33 gauge (OneTouch Delica #100 ea 04/13/22 Plus Lancet) ammonium lactate 12 % topical cream 1 appl topical BID #385 grams 02/26/25 buspirone 15 mg tablet 15 mg PO BID #180 tabs 03/10 metoprolol tartrate 50 mg tablet 50 mg PO BID #180 tab s 04/08/25 sertraline 100 mg tablet 100 mg PO DAILY 90 days #90 tabs 04/08/25 omega-3 acid ethyl esters 1 gram 2 cap PO BID 90 days #360 caps 05/01/25 capsule rosuvastatin 20 mg tablet 20 mg PO DAILY #90 caps 05/20 omeprazole 40 mg capsule,delayed 40 mg PO BID@0630,163 0 #180 caps 07/06/25 release gabapentin 400 mg capsule 400 mg PO TID 30 days #90 ca ps 07/22/25 cephalexin 500 mg capsule 500 mg PO Q12H #14 caps 07/21 dicyclomine 20 mg tablet 20 mg PO BID PRN abdominal p ain #7 08/08/25 tabs sucralfate 100 mg/mL oral 10 ml PO QID PRN indigestion #400 08/08/25 suspension (Carafate) mL Allergies Allergy/AdvReac Type Severity Reaction Status Date / Time latex (LATEX) Allergy Severe RASH Verified 08/07/25 18:46 morphine (MORPHINE) Allergy Severe SEVERE Verified 08/07/25 18:46 SHAKING, N/V amoxicillin (From AUGMENTIN) Allergy Unknown SEVERE Verified 08/07/25 18:46 DIARRHEA ciprofloxacin (CIPROFLOXACIN) Allergy Unknown SEVERE Verified 08/07/25 18:46 DIARRHEA clavulanic acid (From Allergy Unknown SEVERE Verified 08/07/25 18:46 AUGMENTIN) DIARRHEA fenofibrate AdvReac Intermediate stomach Verified 08/07/25 18:46 pain/cramping baclofen AdvReac Unknown Unknown Verified 08/07/25 18:46 trazodone AdvReac Unknown Unknown Verified 08/07/25 18:46 Review of Systems 2 Review of Systems: Yes all other systems are reviewed and are negative PENDING SALE TO [facility] Past Medical History Attestation statement: The following information was validated with the patient. Source: old records reviewed and nursing notes reviewed Medical History DJD (degenerative joint disease) Chest discomfort Right ankle pain Precordial chest pain Right ankle pain Right ankle injury Encounter for annual wellness visit (AWV) in Medicare patient Bilateral nephrolithiasis Pain Right flank pain Low back pain Postmenopausal Dysuria Hematuria Microhematuria Urinary tract infection Genitourinary syndrome of menopause Abdominal pain Pre-op evaluation H/O nephrolithotomy with removal of calculi Aortic stenosis Diabetes Diverticulitis Scoliosis Pulmonary fibrosis Recurrent UTI Hyperlipidemia Anxiety and depression Hypertension Surgical History Hx of left breast biopsy History of esophagogastroduodenoscopy (EGD) H/O colonoscopy Hx of cystoscopy H/O lithotripsy History of cholecystectomy History of Hx of breast reduction, elective S/P panniculectomy H/O gastric bypass Family History Family History Father Heart disease Mother Heart disease Pulmonary fibrosis Sister Heart disease Sister Pulmonary fibrosis Brother Pulmonary fibrosis Daughter Mental health disorder Substance use disorder Social History Social History Household Members: Spouse Housing: Apartment Are you a primary care support representative to a significant other at home: No Do you presently have visiting nurse or other home services: Yes ([employer]) Alcohol intake: never Patient Tobacco Use Status: Current everyday Tobacco user Tobacco use type: Cigarette Cigarette Packs Per Day: 1 Years Smoked: 45 e-Cigarette/Vaping Use: Never Used Second Hand Smoke Exposure: No Substance Use Type: Marijuana Advance Directives: Yes Advance Directives on File: Yes Advance Directives Date on File: 08/16/22 Do you have a plan to hurt others: No Plan service: No Current occupational status: disabled 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 Oriented X3.? No acute distress.? Head: Normocephalic, atraumatic, no step-offs or deformities Eyes: Pupils equal, round and reactive to light.? ENT: Pharynx normal.? Neck: Normal inspection.? Neck supple.? CVS: Normal heart rate and rhythm.? Pulses normal.? Respiratory: No respiratory distress.? Breath sounds normal.? Abdomen: Soft and diffuse abdominal discomfort..? Skin: Skin warm and dry.? Normal skin color.? Normal skin turgor.? Extremities: No lower extremity edema.? No calf ttp. 5/5 strength to LUE RUE unable to acess due to pain + bruise noted to right bicep and lower extremities. 5/5 strength to lower extremities Neuro: Oriented X 3.? No motor deficit.? No sensory deficit. CN 2-12 intact Vital Signs: Vital Signs - 24 hr 08/07/25 18:41 08/07/25 18:44 08/07/25 20:09 Temperature 98.6 F 98.0 F 98.2 F Pulse Rate 125 H 122 H 116 H Respiratory Rate 18 18 19 Blood Pressure 129/73 129/73 160/93 H Pulse Oximetry 95 93 98 Oxygen Delivery Method Room Air Room Air Room Air 08/07/25 22:15 08/07/25 22:30 08/08/25 00:01 Temperature 97.5 F Pulse Rate 135 H 118 H 114 H Respiratory Rate 18 16 20 Blood Pressure 164/96 H 151/77 H 146/87 H Pulse Oximetry 95 Oxygen Delivery Method Room Air BMI result Body Mass Index 34.4 vss Course Reevaluation(s) Reevaluation #1: CBC with leukocytosis. Chemistry pending urine pending. Imaging pending (L humerus fx and ct abd and pelvis). COVID and flu negative. Reevaluation #2: SIgn out to Michelle . UA infected. I willl obtain blood cultures, lactic and give atbx. Time: 19:44 Reevaluation #3: I Karon Capone PA-C have accepted care of the patient at signed out pending x-rays of left humerus, CT abdomen and pelvis and final disposition X-ray right humerus: Findings: No acute fracture or dislocation identified. Degenerative change glenohumeral joint. No radiopaque foreign body noted. Impression: No acute bony abnormality CT abdomen and pelvis:Findings: Lung bases are clear. No acute bony abnormalities. Degenerative change spine and hips. Left hemidiaphragm elevation is unchanged. Status post gastric bypass/partial gastrectomy. Perigastric inflammatory stranding noted. Question acute gastritis. Liver and spleen within normal limits. Pancreas and adrenal glands unremarkable. Cholecystectomy. No significant focal renal abnormalities. Renal cysts, no stones or hydronephrosis. Abdominal aorta is normal in caliber. No free fluid or adenopathy in the pelvis. No diverticulitis. Appendix unremarkable. Uterus normal size. No adnexal abnormality. Impression: Question acute gastritis pattern We will be p.o. challenging the patient, she is eager for discharge, she does not want to be admitted. Patient ate and drank, again eager for discharge, sending with Alia Peña and her antibiotic for her urinary tract infection. Medications Administered Discontinued Medications Generic Name Dose Route Start Last Admin Trade Name Freq PRN Reason Stop Dose Admin Ceftriaxone Sodium 1 gm 08/07/25 19:41 08/07/25 20:17 Ceftriaxone Sodium 1 Gm Vial IVPUSH 08/07/25 19:42 1 gm ONCE ONE Administration Dicyclomine HCl 20 mg 08/08/25 00:23 08/08/25 00:35 Dicyclomine Hcl 10 Mg Capsule PO 08/08/25 00:24 20 mg ONCE ONE Administration Hydromorphone HCl 1 mg 08/07/25 21:04 08/07/25 21:18 Hydromorphone Hcl 1 Mg/Ml Syringe IVPUSH 08/07/25 21:05 1 mg ONCE ONE Administration Protocol Sodium Chloride 2,727 mls @ 2,727 mls/hr 08/07/25 19:41 08/07/25 21:59 Ns 30 ml/kg infuse over 1 hr (2727 ml) 08/07/25 20:40 Infused IV Infusion .Q1H STA Iohexol 100 ml 08/07/25 20:46 08/07/25 20:47 Iohexol 350 Mg/Ml 100 Ml Infus..Btl IV 08/07/25 20:47 85 ml ONCE ONE Administration Sucralfate 1 gm 08/08/25 00:23 08/08/25 00:34 Sucralfate Oral Suspension 1 Gm/10 Ml Oral.Susp PO 08/08/25 00:24 1 gm ONCE ONE Administration Medical Decision Making Medical Decision Making [facility] Narrative: 193 69-year-old female presents with multiple complaints difficulties with urination, nausea, abdominal pain x4 days. Also reporting a fall 2 weeks ago with right arm pain. Reports she can not lift her arm. Physical exam patient unable to lift her right arm strength unable to be assess she has normal hand client coordinator however. Normal distal pulses bilaterally. Normal capillary refill less than 2 seconds. There is bruising noted to the right bicep. Regular rate and rhythm. Abdomen diffusely tender. History and physical exam concerning for viral illness. Will rule out fracture/dislocation. No signs of neurovascular compromise or acute threat to limb. I do not suspect acute abdomen. Abdominal pain could be gastroenteritis/viral illness. Unlikely appendicitis, cholecystitis, diverticulitis or obstruction. Will rule out metabolic derangements and anemia. Unlikely ACS or dissection. Plan labs, imaging Differential Diagnosis Differential Diagnoses: The differential diagnosis associated with the presentation includes History and physical exam concerning for viral illness. Will rule out fracture/dislocation. No signs of neurovascular compromise or acute threat to limb. I do not suspect acute abdomen. Abdominal pain could be gastroenteritis/viral illness. Unlikely appendicitis, cholecystitis, diverticulitis or obstruction. Will rule out metabolic derangements and anemia. Unlikely ACS or dissection. Admission/Observation Consideration of admission/observation: Escalation of care including admission/observation considered Lab Data [facility] Lab Attestation statement: I reviewed the patient's lab results. 08/07/25 19:19 08/07/25 19:19 Labs: Lab Results 08/07/25 08/07/25 08/07/25 Range/Units 18:50 19:19 20:09 WBC 14.6 H (4.8-10.8) X10*3/uL RBC 4.06 L (4.20-5.50) X10*6/uL Hgb 12.0 (12.0-16.0) g/dl Hct 36.0 L (37.0-47.0) % MCV 88.7 (80.0-98.0) fL MCH 29.6 (27.0-33.0) pg MCHC 33.3 (31.0-35.0) g/dl RDW 14.1 (11.0-16.0) % Plt Count 244 (160-400) X10*3/uL MPV 9.3 L (9.4-12.3) fL Immature Gran % (Auto) 0.3 (0.0-0.4) % Neut % (Auto) 85.2 H (45-73) % Lymph % (Auto) 6.4 L (20-40) % [place] % (Auto) 7.9 (2-11) % Eos % (Auto) 0.0 (0-4) % Baso % (Auto) 0.2 (0-2) % Lymph # (Auto) 0.9 L (1.2-4.9) X10*3/uL [place] # (Auto) 1.2 (0.1-1.2) X10*3/uL Eos # (Auto) 0.0 (0.0-0.4) X10*3/uL Baso # (Auto) 0.0 (0.0-0.2) X10*3/uL Abs Immat Gran (auto) 0.05 H (0.00-0.03) X10*3/uL Absolute Neuts (auto) 12.5 H (2.0-8.3) x10*3/uL Absolute Nucleated RBC 0.000 (0.0-0.012) X10*3/uL Nucleated RBC % (auto) 0.0 (0.0-0.2) /100WBC Sodium 138 (135-145) mmol/L Potassium 3.9 (3.3-5.1) mmol/L Chloride 104 (96-108) mmol/L Carbon Dioxide 24 (22-29) mmol/L Anion Gap 14 (12-20) BUN 41 H (9-16) mg/dL Creatinine 0.97 (0.5-1.4) mg/dL Estim Creat Clear Calc 58.9 Estimated GFR 57 Random Glucose 191 H (60-115) mg/dL Lactic Acid 0.7 (0.5-2.0) mmol/L Calcium 10.0 D (8.4-10.2) mg/dL Magnesium 1.9 (1.6-2.6) mg/dL Total Bilirubin 0.6 (0.0-1.0) mg/dL AST 18 (5-31) U/L ALT 7 (0-31) U/L Alkaline Phosphatase 98 (39-117) U/L Total Protein 7.1 (6.5-8.0) g/dL Albumin 4.0 (3.5-5.0) g/dL Lipase 15 (8-78) U/L Urine Color Yellow Urine Appearance Turbid Urine pH 6.0 (5.0-9.0) Ur Specific [place] 1.015 (1.005-1.025) Urine Protein 100 (2+) H (Neg-Trace) mg/dL Urine Glucose (UA) Negative (Negative) mg/dL Urine Ketones Trace (Negative) mg/dL Urine Blood Moderate (2+) H (Negative) Urine Nitrite Positive H (Negative) Ur Leukocyte Esterase Large (3+) H (Negative) Urine RBC 6-10 H (0-2) /HPF Urine WBC >50 H (0-5) /HPF Ur Squamous Epith Cells 3-5 (0-2) /HPF Urine Bacteria 4+ (None Seen) Hyaline Casts 11-20 (0-2) /LPF COVID-19 (SARAH) Negative (Negative) COVID-19 Clin Com See Note Influenza Type A (TATYANA) Negative (Negative) Influenza Type B (TATYANA) Negative (Negative) Influenza A & B Note See Note Independent Interpretation I performed an independent interpretation of an: Plain X-Ray Radiology Impression Discussion of test interpretation with radiology: I have reviewed the radiologist's reading. External Record Review External record reviewed: Inpatient record, Office record, Outpatient record, Prior outpatient labs, Prior outpatient radiology, Primary care record and Outside ED record Chronic Conditions Patient?s care impacted by: Other (see hpoi) Critical Care Time Critical Care Time Critical Care Time: No Discharge Plan Discharge Clinical Impression: Viral gastroenteritis, Urinary tract infection, Arthritis of right shoulder Patient Disposition: Home, Self-Care Instructions: Urinary Tract Infection in Women (ED), Osteoarthritis (ED), Gastroenteritis (ED) Additional Instructions: The CT scan revealed that you have viral gastroenteritis. See home care instructions. You were also found to have a urinary tract infection. See home care instructions. Use the Carafate as needed for upper abdominal discomfort, use the dicyclomine as needed for abdominal cramping and diarrhea. Take the cephalexin as directed, be sure to complete the full course of the antibiotic. The x-ray of the right upper arm was negative for fracture or dislocation, you do have significant arthritic changes of the shoulder joint. Follow up with your primary care provider as needed. Prescriptions: New sucralfate [Carafate] 100 mg/mL suspension 10 ml PO QID PRN (Reason: indigestion) Qty: 400 0RF Rx Instructions: swish in mouth and swallow; use after food/drink dicyclomine 20 mg tablet 20 mg PO BID PRN (Reason: abdominal pain) Qty: 7 0RF cephalexin 500 mg capsule 500 mg PO Q12H Qty: 14 0RF No Action (DME) blood-glucose meter [OneTouch Ultra2 Meter] [facility] See Rx Instructions .ROUTE .MEDSUPPLY Qty: 1 0RF Rx Instructions: Use to check fasting blood sugar once daily or if needed for signs/symptoms of hypo/hyperglycemia (DME) lancets [OneTouch Delica Lancets] 30 gauge misc See Rx Instructions .ROUTE .MEDSUPPLY Qty: 100 0RF Rx Instructions: Use to check fasting blood sugar once daily or if needed for signs/symptoms of hypo/hyperglycemia (DME) lancets [OneTouch Delica Plus Lancet] 33 gauge misc See Rx Instructions topical DAILY Qty: 100 1RF Rx Instructions: daily (DME) blood sugar diagnostic Strip See Rx Instructions .ROUTE .MEDSUPPLY Qty: 100 0RF Rx Instructions: Use to check fasting blood sugar once daily or if needed for signs/symptoms of hypo/hyperglycemia ammonium lactate 12 % cream 1 appl topical BID Qty: 385 3RF buspirone 15 mg tablet 15 mg PO BID Qty: 180 1RF metoprolol tartrate 50 mg tablet 50 mg PO BID Qty: 180 1RF sertraline 100 mg tablet 100 mg PO DAILY 90 Days Qty: 90 1RF omega-3 acid ethyl esters 1 gram capsule 2 cap PO BID 90 Days Qty: 360 1RF rosuvastatin 20 mg tablet 20 mg PO DAILY Qty: 90 1RF omeprazole 40 mg capsule,delayed release(DR/EC) 40 mg PO BID@0630,1630 Qty: 180 1RF gabapentin 400 mg capsule 400 mg PO TID 30 Days Qty: 90 0RF latanoprost 0.005 % drops 1 drp ophthalmic (eye) BEDTIME Print Language: Chinese
--- OUTSIDE RECORDS SUMMARY | 2025-08-07 19:38 | XMS_ITS | Clinical Summary ---
Author Organization [facility] Address [address] [place] [address] Phone Care Team Providers Care Medical Stenographer Name Role Phone Greg Kaba NP Primary Care Provider [phone] Allergies Active Allergy Reactions Criticality Noted Date [...] age to complete this topic Insurance [address] [place] [id number] [address] [employer] [facility] ([id number]) [facility] ([id number]) Care Teams Medical Stenographer Relationship Specialty Start Date End Date Greg Kaba NP [address] [place] [address] PCP - General 11/29/20
[2025-08-07 19:39] LABS: Alanine Aminotransferase 7 U/L (0-31); Albumin Level 4.0 g/dL (3.5-5.0); Alkaline Phosphatase 98 U/L (39-117); Anion Gap 14 (12-20); Aspartate Amino Transferase 18 U/L (5-31); Blood Urea Nitrogen 41 mg/dL (9-16); Calcium 10.0 mg/dL (8.4-10.2); Carbon Dioxide 24 mmol/L (22-29); Chloride 104 mmol/L (96-108); Creatinine Clr Calc Pharmacy 58.9; Estimated Glomerular Filt Rate 57; Lipase 15 U/L (8-78); Magnesium 1.9 mg/dL (1.6-2.6); Potassium 3.9 mmol/L (3.3-5.1); Sodium 138 mmol/L (135-145); Total Protein 7.1 g/dL (6.5-8.0)
[2025-08-07 19:49] LABS: UACC Culture Trigger YES
--- NOTE | 2025-08-07 19:52 | PC.NURSE ---
this rn discussed plan of care with luiz stella per stella no need to call sepsis alert on this pt
[2025-08-07] MEDS: SODIUM CHLORIDE 2727 ML IV (20:01)
[2025-08-07 20:09] VITALS: BP 160/93; PULSE 116; RESP 19; TEMP 36.8; O2SAT 98
[2025-08-07] MEDS: iohexoL 350 MG/ML 100 ML INFUS..BTL IV (20:47)
--- NOTE | 2025-08-07 20:57 | PC.NURSE ---
pt medicted per MAR, fluids and antibiotics given, blood cultures obtained.
--- NOTE | 2025-08-07 21:03 | PC.NURSE ---
pt states she has 8/10 abdominal pain, provider aware , awaiting new orders.
--- NOTE | 2025-08-07 21:22 | PC.NURSE ---
pt expresses 10/10 pain, advised provider will need to review prior to any pain medication being administered. Pt daughter at bedside,pt confirms understanding.
[2025-08-07 22:15] VITALS: BP 164/96; PULSE 135; RESP 18
--- NOTE | 2025-08-07 22:16 | PC.NURSE ---
pt ambulated to bathroom x2, b/p post fluids documented. HR continues to be elevated tacky sinus at 135.
[2025-08-07 22:30] VITALS: BP 151/77; PULSE 118; RESP 16
[2025-08-08 00:01] VITALS: BP 146/87; PULSE 114; RESP 20; TEMP 36.4; O2SAT 95
[2025-08-08] MEDS: Sucralfate Oral Suspension 1 GM/10 ML ORAL.SUSP PO (00:34)
--- NOTE | 2025-08-08 00:36 | PC.NURSE ---
pt medicated per MAR, pt confirms feeling better, provider at bedside.
[2025-08-08 00:57] VITALS: BP 148/85; PULSE 120; RESP 22; TEMP 36.4; O2SAT 95
== END 2025-08-08 00:59 | disposition home or self-care (01) ==
PROVIDERS: Physician Assistant; Emergency Provider Emergency Medicine Emergency Medical Services; PCP Nurse Practitioner Family
DX: K52.9 Noninfective gastroenteritis and colitis, unspecified (principal); N39.0 Urinary tract infection, site not specified; M19.011 Primary osteoarthritis, right shoulder; R11.2 Nausea with vomiting, unspecified; R30.0 Dysuria; M79.601 Pain in right arm; Z11.52 Encounter for screening for COVID-19; Z79.899 Other long term (current) drug therapy
CPT/HCPCS: 36415; 73060; 74177; 80053; 81001; 83605; 83690; 83735; 85025; 87040; 87086; 87088; 87186; 87502; 87635; 96361; 96374; 96375; 99284; 99285; J0696; J1171; Q9967

== ENCOUNTER → 2025-08-07 19:12 | Outpatient (BNV) | payer MEDICARE, SELFPAY | PROVIDERS: Emergency Provider Emergency Medicine Emergency Medical Services; PCP Nurse Practitioner Family; Visit Provider Radiology Diagnostic Radiology | DX: R11.2 Nausea with vomiting, unspecified (principal); R10.84 Generalized abdominal pain; M79.601 Pain in right arm | CPT/HCPCS: 73060; 74177 ==

== ENCOUNTER 2025-09-11 11:20 | Emergency (ER) | payer MEDICARE, SELFPAY ==
--- NOTE | ~2025-09-11 | XR_ITS ---
EXAMINATION: XR ABDOMEN 2 VIEWS SUPINE ERECT HISTORY: constipation COMPARISON: Comparison is made with the prior examination dated 03/15/2023. FINDINGS: Supine and upright views of the abdomen are submitted. The bowel gas pattern is unremarkable, without evidence of mechanical obstruction. There is no free intraperitoneal gas. There is a moderate amount of stool throughout the colon. There are scattered surgical clips. There are no abnormal soft tissue masses. There is moderate to severe rotatory levoscoliosis of the spine. XR/XR abdomen min 2V IMPRESSION: Moderate amount of stool throughout the colon. Electronically signed by: Boo Waldron MD 09/11/2025 01:03 PM EDT
[2025-09-11 11:31] VITALS: BP 155/85; BP 185/114; PULSE 114; PULSE 115; RESP 18; TEMP 36.7; O2SAT 96; BMI 33.9
[2025-09-11 11:37] VITALS: BP 155/85; PULSE 115; RESP 18; TEMP 36.7; O2SAT 96
--- NOTE | 2025-09-11 11:39 | PC.NURSE ---
Patient presents to Ed from home c/o lower ABD pain rated 10/10 non radiating Patient was recently seen @ [facility] for gastritis Patient reports poor intake d/t ABD pain Denies vomiting and diarrhea, has been having hard stools Patient reports nausea and subjective fevers, 98.1 in ED Patient hypertensive 155/85 and tachy @ 114 HR patient didnt take metorprolol this AM Provider in to see patient Plan of care on going
--- NOTE | 2025-09-11 11:49 | ECG_ITS ---
Test Reason : Epigastric Pain Blood Pressure : */* mmHG Vent. Rate : 117 BPM Atrial Rate : 117 BPM P-R Int : 132 ms QRS Dur : 126 ms QT Int : 362 ms P-R-T Axes : 48 -47 125 degrees QTcB Int : 504 ms Sinus tachycardia with Premature atrial complexes Left axis deviation Left bundle branch block Abnormal ECG When compared with ECG of 10-Apr-2023 14:55, Premature atrial complexes are now Present Referred By: Joycelyn Booth Electronically Signed By: YEYO COBB MD
--- NOTE | 2025-09-11 12:04 | ED_ITS ---
HPI - Abdominal Pain General Chief Complaint: Abdominal Pain Stated Complaint: LT LOWER ABD PAIN,CONSTIPATION PER EMS Time Seen by Provider: 09/11/25 11:41 Source: patient, EMS, RN notes reviewed and old records reviewed Mode of arrival: EMS History of Present Illness ED Provider: Joycelyn Booth PA-C HPI narrative: 69-year-old female with a past medical history of DJD, aortic stenosis, diabetes, diverticulitis, HLD, anxiety, depression, HTN, presenting to the ED complaining of gastritis flare with diffuse abdominal pain x3 days & associated nausea and constipation. Patient states pain starts in the upper abdomen and radiates to periumbilical region. Last BM yesterday, is passing flatus. Denies vomiting, diarrhea, dysuria/hematuria, fever Related Data Home Medications ?Medication ?Instructions ?Recorded ?Confirmed latanoprost 0.005 % eye drops 1 drp ophthalmic (eye) B EDTIME 08/07/22 02/20/25 Previous Rx's ?Medication ?Instructions ?Recorded blood-glucose meter (Bluewater Biouch #1 ea 04/04/21 Ultra2 Meter) lancets 30 gauge (WandoujiaTouch Delica #100 ea 07/13/21 Lancets) blood sugar diagnostic #100 ea 04/13/22 lancets 33 gauge (OneTouch Delica #100 ea 04/13/22 Plus Lancet) ammonium lactate 12 % topical cream 1 appl topical BID #385 grams 02/26/25 metoprolol tartrate 50 mg tablet 50 mg PO BID #180 tab s 04/08/25 sertraline 100 mg tablet 100 mg PO DAILY 90 days #90 tabs 04/08/25 omega-3 acid ethyl esters 1 gram 2 cap PO BID 90 days #360 caps 05/01/25 capsule rosuvastatin 20 mg tablet 20 mg PO DAILY #90 caps 05/20 omeprazole 40 mg capsule,delayed 40 mg PO BID@0630,163 0 #180 caps 07/06/25 release cephalexin 500 mg capsule 500 mg PO Q12H #14 caps 07/21 dicyclomine 20 mg tablet 20 mg PO BID PRN abdominal p ain #7 08/08/25 tabs sucralfate 100 mg/mL oral 10 ml PO QID PRN indigestion #400 08/08/25 suspension (Carafate) mL gabapentin 400 mg capsule 400 mg PO TID 30 days #90 ca ps 08/18/25 buspirone 15 mg tablet 15 mg PO BID #180 tabs 09/01 aluminum-mag hydroxide-simethicone 5 ml PO 5XD PRN dys pepsia #30 mL 09/11/25 200 mg-200 mg-20 mg/5 mL oral susp (Maalox Advanced) famotidine 20 mg tablet (Pepcid) 20 mg PO DAILY #14 ta bs 09/11/25 ondansetron 4 mg disintegrating 4 mg PO Q8H PRN nausea and 09/11/25 tablet vomiting #10 tabs polyethylene glycol 3350 17 17 g PO DAILY PRN constipa tion 09/11/25 gram/dose oral powder (Miralax) #119 grams Allergies Allergy/AdvReac Type Severity Reaction Status Date / Time latex (LATEX) Allergy Severe RASH Verified 09/11/25 11:33 morphine (MORPHINE) Allergy Severe SEVERE Verified 09/11/25 11:33 SHAKING, N/V amoxicillin (From AUGMENTIN) Allergy Unknown SEVERE Verified 09/11/25 11:33 DIARRHEA ciprofloxacin (CIPROFLOXACIN) Allergy Unknown SEVERE Verified 09/11/25 11:33 DIARRHEA clavulanic acid (From Allergy Unknown SEVERE Verified 09/11/25 11:33 AUGMENTIN) DIARRHEA fenofibrate AdvReac Intermediate stomach Verified 09/11/25 11:33 pain/cramping baclofen AdvReac Unknown Unknown Verified 09/11/25 11:33 trazodone AdvReac Unknown Unknown Verified 09/11/25 11:33 Review of Systems Review of Systems Yes all other systems are reviewed and are negative Constitutional: Reports as per [facility] Past Medical History Attestation statement: The following information was validated with the patient. Source: old records reviewed Medical History DJD (degenerative joint disease) Chest discomfort Right ankle pain Precordial chest pain Right ankle pain Right ankle injury Encounter for annual wellness visit (AWV) in Medicare patient Bilateral nephrolithiasis Pain Right flank pain Low back pain Postmenopausal Dysuria Hematuria Microhematuria Urinary tract infection Genitourinary syndrome of menopause Abdominal pain Pre-op evaluation H/O nephrolithotomy with removal of calculi Aortic stenosis Diabetes Diverticulitis Scoliosis Pulmonary fibrosis Recurrent UTI Hyperlipidemia Anxiety and depression Hypertension Surgical History Hx of left breast biopsy History of esophagogastroduodenoscopy (EGD) H/O colonoscopy Hx of cystoscopy H/O lithotripsy History of cholecystectomy History of Hx of breast reduction, elective S/P panniculectomy H/O gastric bypass Family History Family History Father Heart disease Mother Heart disease Pulmonary fibrosis Sister Heart disease Sister Pulmonary fibrosis Brother Pulmonary fibrosis Daughter Mental health disorder Substance use disorder Social History Social History Household Members: Spouse Housing: Apartment Are you a primary long term care social worker to a significant other at home: No Do you presently have visiting nurse or other home services: Yes ([employer]) Alcohol intake: never Patient Tobacco Use Status: Current everyday Tobacco user Tobacco use type: Cigarette Cigarette Packs Per Day: 1 Years Smoked: 45 e-Cigarette/Vaping Use: Never Used Second Hand Smoke Exposure: No Substance Use Type: Marijuana Advance Directives Date on File: 08/16/22 service: No Current occupational status: disabled 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 Cognitive needs: No Hearing needs: No Vision needs: No Physical Exam ED Vital Signs: Vital Signs - 24 hr 09/11/25 11:31 09/11/25 11:37 09/11/25 15:17 Temperature 98.1 F 98.1 F 98.2 F Pulse Rate 115 H 115 H 109 H Respiratory Rate 18 18 16 Blood Pressure 155/85 H 155/85 H 132/67 Pulse Oximetry 96 96 96 Oxygen Delivery Method Room Air Room Air Room Air 09/11/25 15:47 Temperature 98.2 F Pulse Rate 109 H Respiratory Rate 16 Blood Pressure 132/67 Pulse Oximetry 96 Oxygen Delivery Method Room Air BMI result Body Mass Index 33.9 Const General: cooperative, healthy appearing and no acute distress Orientation/consciousness: patient oriented x3 Limitations: no limitations HENMT Head: Yes normal to inspection and Yes atraumatic Ears: hearing grossly normal bilaterally General nose exam: Normal external nose present Face and sinus: Yes normal facial exam Eyes General: appearance normal, both eyes and all related structures EOM: EOMs intact bilaterally Neck Neck: Yes normal visual inspection and Yes no meningeal signs Resp Effort & Inspection: normal respiratory effort and no respiratory distress Auscultation: clear to auscultation bilaterally Cardio Rate: regular rate Heart sounds: S1 normal heart sound present and S2 normal heart sound present GI Inspection: Yes normal to inspection Palpation (GI): Soft to palpation, Tenderness to palpation present (GI) in the epigastrum; with no rebound tenderness, no guarding and not rigid General: Yes no CVA tenderness Back/Spine/Pelvis Back: no CVA tenderness Skin Rashes: no rashes Wounds: no wounds Neuro General: patient oriented x3, tone normal and no meningeal signs Cranial nerves: Yes CN's II-XII intact bilaterally Gait exam (Neuro): Normal gait present Extrem General: Yes normal to inspection Course Course Course Narrative: -labs reassuring. troponin x2 without significant rise, mi unlikely. -UA negative XR abdomen min 2V IMPRESSION: Moderate amount of stool throughout the colon. -1500--on re-evaluation patient reports symptomatic improvement. Abdomen is soft and nontender on re-palpation. Tolerated p.o. in the ED. Safe for discharge home at this time to follow up with PCP/GI Results discussed with patient including worrisome signs and symptoms and strict return precautions, and when to return to the emergency department. They verbalized understanding and feel safe for discharge at this time. Medical Decision Making Medical Decision Making [facility] Narrative: 69-year-old female with a past medical history of DJD, aortic stenosis, diabetes, diverticulitis, HLD, anxiety, depression, HTN, presenting to the ED complaining of gastritis flare with diffuse abdominal pain x3 days & associated nausea and constipation. On exam tachycardic likely from discomfort, NAD/nontoxic appearing, abdomen is soft with epigastric tenderness, no rebound or guarding. Concern for gastritis/PUD vs gastroenteritis vs constipation. Lower suspicion for SBO with last BM yesterday. Unlikely appendicitis/diverticulitis or cholecystitis. Lower suspicion for atypical ACS/dissection Plan: EKG, labs, UA, abdominal x-ray, IVF, pain control, re-evaluate Please refer to course for remaining clinical decision making, interpretation of labs/imaging results, and discussions with consultants and/or family members. Differential Diagnosis Differential Diagnoses: The differential diagnosis associated with the presentation includes As above Admission/Observation Consideration of admission/observation: Escalation of care including admission/observation considered Lab Data [facility] Lab Attestation statement: I reviewed the patient's lab results. 09/11/25 12:23 09/11/25 12:23 Labs: Lab Results 09/11/25 09/11/25 09/11/25 Range/Units 12:23 13:32 13:35 WBC 11.7 H (4.8-10.8) X10*3/uL RBC 3.55 L (4.20-5.50) X10*6/uL Hgb 9.8 L (12.0-16.0) g/dl Hct 30.5 L (37.0-47.0) % MCV 85.9 (80.0-98.0) fL MCH 27.6 (27.0-33.0) pg MCHC 32.1 (31.0-35.0) g/dl RDW 14.8 (11.0-16.0) % Plt Count 327 D (160-400) X10*3/uL MPV 8.5 L (9.4-12.3) fL Immature Gran % (Auto) 0.3 (0.0-0.4) % Neut % (Auto) 86.7 H (45-73) % Lymph % (Auto) 5.5 L (20-40) % [place] % (Auto) 7.3 (2-11) % Eos % (Auto) 0.0 (0-4) % Baso % (Auto) 0.2 (0-2) % Lymph # (Auto) 0.6 L (1.2-4.9) X10*3/uL [place] # (Auto) 0.9 (0.1-1.2) X10*3/uL Eos # (Auto) 0.0 (0.0-0.4) X10*3/uL Baso # (Auto) 0.0 (0.0-0.2) X10*3/uL Abs Immat Gran (auto) 0.04 H (0.00-0.03) X10*3/uL Absolute Neuts (auto) 10.2 H (2.0-8.3) x10*3/uL Absolute Nucleated RBC 0.000 (0.0-0.012) X10*3/uL Nucleated RBC % (auto) 0.0 (0.0-0.2) /100WBC Sodium 139 (135-145) mmol/L Potassium 4.2 (3.3-5.1) mmol/L Chloride 104 (96-108) mmol/L Carbon Dioxide 28 (22-29) mmol/L Anion Gap 11 L (12-20) BUN 13 (9-16) mg/dL Creatinine 0.91 (0.5-1.4) mg/dL Estim Creat Clear Calc 62.3 Estimated GFR > 60 Random Glucose 143 H (60-115) mg/dL Calcium 9.7 (8.4-10.2) mg/dL Magnesium 1.8 (1.6-2.6) mg/dL Total Bilirubin 0.4 (0.0-1.0) mg/dL Direct Bilirubin 0.2 (0.0-0.5) mg/dL AST 12 (5-31) U/L ALT < 6 (0-31) U/L Alkaline Phosphatase 88 (39-117) U/L Troponin I High Sens 14.9 18.4 H (<3.5-17.0) ng/L Total Protein 6.8 (6.5-8.0) g/dL Albumin 3.8 (3.5-5.0) g/dL Lipase 11 (8-78) U/L Urine Color Straw Urine Appearance Clear Urine pH 6.0 (5.0-9.0) Ur Specific [place] 1.010 (1.005-1.025) Urine Protein Trace (Neg-Trace) mg/dL Urine Glucose (UA) Negative (Negative) mg/dL Urine Ketones Negative (Negative) mg/dL Urine Blood Negative (Negative) Urine Nitrite Negative (Negative) Ur Leukocyte Esterase Negative (Negative) Independent Interpretation I performed an independent interpretation of an: EKG and Plain X-Ray Radiology Impression Discussion of test interpretation with radiology: I have reviewed the radiologist's reading. Independent Historian Clinical information obtained from an independent historian. History obtained from or confirmed by: EMS External Record Review External record reviewed: Inpatient record, Office record, Outpatient record, Prior outpatient labs, Prior outpatient radiology, Primary care record and Outside ED record Tests considered The following testing was considered but not selected: As above Prescription Management I considered prescription management with: Pain Medication Chronic Conditions Patient?s care impacted by: Diabetes and Hypertension Social Determinants Patient?s care significantly limited by Social Determinants of Health including: Other Social Determinant of Health Medications Administered Discontinued Medications Generic Name Dose Route Start Last Admin Trade Name Lenardq PRN Reason Stop Dose Admin Al Hydroxide/Mg Hydroxide 30 ml 09/11/25 11:46 09/11/25 12:26 Magnesium Hydrox/Alum Hydrox 30 Ml Oral.Susp PO 09/11/25 11:47 30 ml ONCE ONE Administration Dicyclomine HCl 20 mg 09/11/25 11:50 09/11/25 12:26 Dicyclomine Hcl 10 Mg Capsule PO 09/11/25 11:51 20 mg ONCE ONE Administration Famotidine 20 mg 09/11/25 11:46 09/11/25 12:26 Famotidine/Pf 20 Mg/2 Ml Vial IVPUSH 09/11/25 11:47 20 mg ONCE ONE Administration Sodium Chloride 1,000 mls @ 999 mls/hr 09/11/25 12:00 09/11/25 13:19 Ns IV 09/11/25 13:00 Infused .Q1H1M GUY Infusion Ondansetron HCl 4 mg 09/11/25 11:46 09/11/25 12:26 Ondansetron Hcl 4 Mg/2 Ml Vial IVPUSH 09/11/25 11:47 4 mg ONCE ONE Administration Discharge Plan Discharge Clinical Impression: Abdominal pain Patient Disposition: Home, Self-Care Instructions: Abdominal Pain (ED) Additional Instructions: Your blood work and urine are reassuring Your x-ray shows signs of constipation MiraLax will help you have a bowel movement. Use as needed for constipation Continue other home prescribed medications Zofran as an antinausea medication, take as needed Bentyl will help with abdominal discomfort. Maalox help with acid reduction/abdominal discomfort If her symptoms persist or worsen, you have constant worsening abdominal pain, fever, you are unable to eat or drink or you do not have a bowel movement in the next 48 hours return to the ED Please follow up with your primary care doctor as well as GI Prescriptions: New polyethylene glycol 3350 [Miralax] 17 gram/dose powder 17 g PO DAILY PRN (Reason: constipation) Qty: 119 0RF famotidine [Pepcid] 20 mg tablet 20 mg PO DAILY Qty: 14 0RF alum-mag hydroxide-simeth [Maalox Advanced] 200-200-20 mg/5 mL suspension 5 ml PO 5XD PRN (Reason: dyspepsia) Qty: 30 0RF Rx Instructions: administer between meals and at bedtime ondansetron 4 mg tablet,disintegrating 4 mg PO Q8H PRN (Reason: nausea and vomiting) Qty: 10 0RF No Action (DME) blood-glucose meter [OneTouch Ultra2 Meter] [facility] See Rx Instructions .ROUTE .MEDSUPPLY Qty: 1 0RF Rx Instructions: Use to check fasting blood sugar once daily or if needed for signs/symptoms of hypo/hyperglycemia (DME) lancets [OneTouch Delica Lancets] 30 gauge [facility] See Rx Instructions .ROUTE .MEDSUPPLY Qty: 100 0RF Rx Instructions: Use to check fasting blood sugar once daily or if needed for signs/symptoms of hypo/hyperglycemia (DME) lancets [OneTouch Delica Plus Lancet] 33 gauge [facility] See Rx Instructions topical DAILY Qty: 100 1RF Rx Instructions: daily (DME) blood sugar diagnostic Strip See Rx Instructions .ROUTE .MEDSUPPLY Qty: 100 0RF Rx Instructions: Use to check fasting blood sugar once daily or if needed for signs/symptoms of hypo/hyperglycemia ammonium lactate 12 % cream 1 appl topical BID Qty: 385 3RF metoprolol tartrate 50 mg tablet 50 mg PO BID Qty: 180 1RF sertraline 100 mg tablet 100 mg PO DAILY 90 Days Qty: 90 1RF omega-3 acid ethyl esters 1 gram capsule 2 cap PO BID 90 Days Qty: 360 1RF rosuvastatin 20 mg tablet 20 mg PO DAILY Qty: 90 1RF omeprazole 40 mg capsule,delayed release(DR/EC) 40 mg PO BID@0630,1630 Qty: 180 1RF gabapentin 400 mg capsule 400 mg PO TID 30 Days Qty: 90 0RF buspirone 15 mg tablet 15 mg PO BID Qty: 180 1RF latanoprost 0.005 % drops 1 drp ophthalmic (eye) BEDTIME sucralfate [Carafate] 100 mg/mL suspension 10 ml PO QID PRN (Reason: indigestion) Qty: 400 0RF Rx Instructions: swish in mouth and swallow; use after food/drink dicyclomine 20 mg tablet 20 mg PO BID PRN (Reason: abdominal pain) Qty: 7 0RF cephalexin 500 mg capsule 500 mg PO Q12H Qty: 14 0RF Referrals: [facility] [Provider Group, Gastroenterology] Greg Kaba, ADMINISTRATIVE LIAISON-BC [Primary Care Provider, Internal Medicine] - 5 days Interventions: ED Discharge Assessment Last Done: 09/11/25 15:47 Discharge Date/Time: 09/11/25 16:07 Print Language: Moroccan
[2025-09-11] MEDS: Magnesium Hydrox/Alum Hydrox 30 ML ORAL.SUSP PO (12:26)
[2025-09-11 12:28] LABS: MANUAL DIFF FLAG NO
[2025-09-11 12:30] LABS: Hematocrit 30.5 % (37.0-47.0); Hemoglobin 9.8 g/dl (12.0-16.0); Imm Gran Abs Auto 0.04 X10*3/uL (0.00-0.03); Imm Gran Pct Auto 0.3 % (0.0-0.4); Lymphocytes Absolute Auto 0.6 X10*3/uL (1.2-4.9); Mean Corpuscular HGB Conc 32.1 g/dl (31.0-35.0); Mean Corpuscular Hemoglobin 27.6 pg (27.0-33.0); Mean Corpuscular Volume 85.9 fL (80.0-98.0); NRBC Abs Auto 0.000 X10*3/uL (0.0-0.012); NRBC Pct Auto 0.0 /100WBC (0.0-0.2); Platelet Count 327 X10*3/uL (160-400); Red Blood Count 3.55 X10*6/uL (4.20-5.50); White Blood Count 11.7 X10*3/uL (4.8-10.8)
[2025-09-11 12:48] LABS: Troponin-I High Sensitivity 14.9 ng/L (<3.5-17.0)
[2025-09-11 12:49] LABS: Alanine Aminotransferase < 6 U/L (0-31); Albumin Level 3.8 g/dL (3.5-5.0); Alkaline Phosphatase 88 U/L (39-117); Anion Gap 11 (12-20); Aspartate Amino Transferase 12 U/L (5-31); Blood Urea Nitrogen 13 mg/dL (9-16); Calcium 9.7 mg/dL (8.4-10.2); Carbon Dioxide 28 mmol/L (22-29); Chloride 104 mmol/L (96-108); Creatinine Clr Calc Pharmacy 62.3; Estimated Glomerular Filt Rate > 60; Lipase 11 U/L (8-78); Magnesium 1.8 mg/dL (1.6-2.6); Potassium 4.2 mmol/L (3.3-5.1); Sodium 139 mmol/L (135-145); Total Protein 6.8 g/dL (6.5-8.0)
[2025-09-11 13:54] LABS: Appearance Urine Clear; Glucose Urine UA Negative (Negative); PH 6.0 (5.0-9.0); Specific Gravity - Urine 1.010 (1.005-1.025)
--- OUTSIDE RECORDS SUMMARY | 2025-09-11 14:09 | XMS_ITS | Clinical Summary ---
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
--- OUTSIDE RECORDS SUMMARY | 2025-09-11 14:09 | XMS_ITS | Patient Health Record ---
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 Name Role Phone Karishma (RETIRED) Gordo MICHAELS Primary Care Provider Unavailable Bong Mirza Jr Unavailable [phone] Allergies Allergen (clinical drug ingredient) Drug/Non [...] W/U Status Risk Notes Problem Gastrointestinal hemorrhage (10697287) Hemorrhage of gastrointestinal tract, unspecified (578.9) Active confirmed Plan Of Treatment No Information Insurance Providers Payer Name Payer Address Payer Phone Subscriber Number Group Number Insured Name Patient Relationship to Insured Coverage Start Date Coverage End Date MEDICAID OF [place] [facility] [address] [place] [phone] [id number] MARCIANO GILBERT Self - patient is the insured Medical (General) History Medical History History ICD Code colon and egd 06-01-2004 hyperlipidemia hypertension osteoarthritis pulmonary embolism GI bleed esophageal reflux anxiety abnormal liver funtion test gallstones Surgical History Surgery Date(Month/Year) gastric bypass cholecystectomy reduction mammoplasty panniculectomy section
[2025-09-11 14:15] LABS: Troponin-I High Sensitivity 18.4 ng/L (<3.5-17.0)
[2025-09-11 15:17] VITALS: BP 132/67; PULSE 109; RESP 16; TEMP 36.8; O2SAT 96
[2025-09-11 15:47] VITALS: BP 132/67; PULSE 109; RESP 16; TEMP 36.8; O2SAT 96
--- NOTE | 2025-09-11 15:54 | PC.NURSE ---
called pt spouse tesfaye magana answer- called pt dtr, dtr states to try home phone again as there are no other contact numbers for spouse
== END 2025-09-11 16:07 | disposition home or self-care (01) ==
PROVIDERS: Physician Assistant; Emergency Provider Emergency Medicine; PCP Nurse Practitioner Family
DX: R10.9 Unspecified abdominal pain (principal); K59.00 Constipation, unspecified; E11.9 Type 2 diabetes mellitus without complications; I10 Essential (primary) hypertension; Z72.0 Tobacco use; Z79.899 Other long term (current) drug therapy
CPT/HCPCS: 36415; 74019; 80048; 80076; 81003; 83690; 83735; 84484; 85025; 93005; 99285; J1308; J2405

== ENCOUNTER → 2025-09-11 11:49 | Outpatient (BNV) | payer MEDICARE, SELFPAY | PROVIDERS: Emergency Provider Emergency Medicine; PCP Nurse Practitioner Family; Visit Provider Internal Medicine Cardiovascular Disease | DX: R00.0 Tachycardia, unspecified (principal); I49.1 Atrial premature depolarization; I44.7 Left bundle-branch block, unspecified | CPT/HCPCS: 93010 ==

== ENCOUNTER → 2025-09-11 12:06 | Outpatient (BNV) | payer MEDICARE, SELFPAY | PROVIDERS: Emergency Provider Emergency Medicine; PCP Nurse Practitioner Family; Visit Provider Radiology Diagnostic Radiology | DX: K59.00 Constipation, unspecified (principal) | CPT/HCPCS: 74019 ==

== ENCOUNTER 2025-09-17 11:54 | Outpatient (AMB) | payer MEDICARE, SELFPAY ==
--- NOTE | 2025-09-17 12:21 | A.OFFPC_ITS ---
Vital Signs 09/17/25 12:27 Height 5 ft 4 in Weight 199 lb BMI 34.2 BP 130/74 Blood Pressure Location Lt brachial Position Sitting Respiration 16 Pulse 90 Pulse Source Pulse Oximeter Temp 98.7 F Temp Source Oral Pulse Oximetry (%) 98 Oxygen Delivery Method Room Air Intake Visit Reasons: Ed follow Allergies latex (LATEX) Allergy (Severe, Verified 09/17/25 12:32) RASH morphine (MORPHINE) Allergy (Severe, Verified 09/17/25 12:32) SEVERE SHAKING, N/V amoxicillin (From AUGMENTIN) Allergy (Unknown, Verified 09/17/25 12:32) SEVERE DIARRHEA ciprofloxacin (CIPROFLOXACIN) Allergy (Unknown, Verified 09/17/25 12:32) SEVERE DIARRHEA clavulanic acid (From AUGMENTIN) Allergy (Unknown, Verified 09/17/25 12:32) SEVERE DIARRHEA fenofibrate Adverse Reaction (Intermediate, Verified 09/17/25 12:32) stomach pain/cramping baclofen Adverse Reaction (Unknown, Verified 09/17/25 12:32) Unknown trazodone Adverse Reaction (Unknown, Verified 09/17/25 12:32) Unknown Tobacco use date assessed: 02/02/25 Dental Screening Dental Screen Date: 02/02/25 HPI HPI Comments History of Present Illness Details History of Present Illness - The patient is a 69-year-old female pr esenting with a follow-up after an emergency department visit for gastritis. - Gastritis: The patient experienced a f lare-up with diffuse abdominal pain, nausea, and constipation for three days prior to the emergency department visit on September 11. - Vitals and PE notable for heart rate w as elevated between 109 to 115 bpm, and she had tenderness in the epigastric region upon examination. - Laboratory tests showed a slightly neri vated white blood cell count of 11.87, with other labs being unremarkable. - Imaging indicated constipation, and sh e was advised to use MiraLax, Zofran, famotidine, and Maalox for management. - Today, the patient reports chronic iss ues with bloating and gas since her 20s, with recent exacerbation. - She has been using MiraLax and Maalox, with some improvement in bowel movements, though stools remain soft and unformed. She also has a lot of gas. No bloody or black stools or fevers. - The patient underwent gastric bypass i n 2007, resulting in significant weight loss, she had it done at [facility]. - She has experienced an unintentional w eight loss of 15 pounds over the last six months, attributed to her gastrointestinal symptoms. Review of Systems - Gastrointestinal: Reports intermittent , dull abdominal pain for past 3 days, nausea, constipation, bloating, and gas. Denies vomiting or bloody stools. - General: Reports unintentional weight loss of 15 pounds over the last six months. All systems reviewed and are unremarkable except as noted in HPI Physical Exam General: Cooperative, healthy appearing, comfortable, no acute distress and well developed Orientation: Patient oriented x3 Limitations: No limitations Head: Normal to inspection Ears: Hearing grossly normal bilaterally Nose: Normal External nose present Face and sinus: Normal facial exam Eyes: Appearance normal, both eyes and all related structures Neck: Normal visual inspection and Yes full ROM Respiratory: Normal respiratory effort and able to speak in complete sentences. Skin: No rashes or lesions noted Neuro: Patient oriented x3 Extremities: Normal to inspection [facility] Medical History DJD (degenerative joint disease) Chest discomfort Right ankle pain Precordial chest pain Right ankle pain Right ankle injury Encounter for annual wellness visit (AWV) in Medicare patient Bilateral nephrolithiasis Pain Right flank pain Low back pain Postmenopausal Dysuria Hematuria Microhematuria Urinary tract infection Genitourinary syndrome of menopause Abdominal pain Pre-op evaluation H/O nephrolithotomy with removal of calculi Aortic stenosis Diabetes Diverticulitis Scoliosis Pulmonary fibrosis Recurrent UTI Hyperlipidemia Anxiety and depression Hypertension Surgical History Hx of left breast biopsy History of esophagogastroduodenoscopy (EGD) H/O colonoscopy Hx of cystoscopy H/O lithotripsy History of cholecystectomy History of Hx of breast reduction, elective S/P panniculectomy H/O gastric bypass Family History Father Heart disease Mother Heart disease Pulmonary fibrosis Sister Heart disease Sister Pulmonary fibrosis Brother Pulmonary fibrosis Daughter Mental health disorder Substance use disorder Social History Household Members: Spouse Housing: Apartment Are you a primary body care manager to a significant other at home: No Do you presently have visiting nurse or other home services: Yes ([employer]) Alcohol intake: never Patient Tobacco Use Status: Current everyday Tobacco user Tobacco use type: Cigarette Cigarette Packs Per Day: 1 Years Smoked: 45 e-Cigarette/Vaping Use: Never Used Second Hand Smoke Exposure: No Substance Use Type: Marijuana Advance Directives Date on File: 08/16/22 service: No Current occupational status: disabled 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 Cognitive needs: No Hearing needs: No Vision needs: No Questionnaire Thrive Questionnaire Date Thrive assessed: 06/03/24 I am a: Patient What is your living situation today?: I have a steady place to live Within the past 12 months, did the food you bought not last and you didn't have the money to get more?: Often true Within the past 12 months, did you worry whether your food would run out before you got money to buy more?: Often true Do you have trouble paying for medicines?: Yes Do you have trouble getting transportation to medical appointments?: No Do you have trouble paying your heating and electricity bill?: No Do you have trouble taking care of your child, family member or friend?: No Do you have trouble with day-to-day activities such as bathing, preparing meals, shopping, managing finances, etc.?: No Are you currently unemployed and looking for a job?: No Are you interested in more education?: No Currently or been in a relationship where the following occur: No concerns reported THRIVE Score: 2 HI-7 AMB Questionnaire HI-7 Date HI - 7 assessed: 02/02/25 Source: Developed by Drs. Boo Rios, Aranza Jackson, Milind Roy and colleagues, with an educational keira from [employer]. Physical exam (Primary Care) Vital Signs: Last Vital Signs Temp 98.7 F 09/17/25 12:27 BMI result Body Mass Index 34.2 Tobacco/Smoking Status: Tobacco use Status Tobacco use date assessed 02/02/25 09/17/25 12:23 Patient Tobacco Use Status Current everyday Tobacco 09/17/25 12:23 Tobacco use type Cigarette 09/17/25 12:23 e-Cigarette/Vaping Use Never Used 09/17/25 12:23 Thrive Assessment: Date of Thrive Assessment Date Thrive assessed 06/03/24 09/17/25 12:23 Currently or been in a relationship where the following occur: No concerns reported Results Reviewed Results Reviewed: Colonoscopy 05/2025 Impression and Post Procedure Diagnosis: diverticulosis colon polyps x 4 internal hemorrhoids Plan: High fiber diet leaflet Avoid straining at stool, epsom salts and sitz bath, anusol supps or cream Repeat Colonoscopy in 1 year due to fair prep on left or earlier if clinically indicated Coding Level of Care Code Est Pt Level 4 (00480) Diagnoses Constipation, unspecified constipation type K59.00 Constipation type: unspecified constipation type Assessment & Plan Assessment & Plan (1) Constipation: Code(s): K59.00 - Constipation, unspecified Category: Medical Qualifiers: Constipation type: unspecified constipation type Qualified Code(s): K59.00 - Constipation, unspecified Plan: Patient was informed and verbally consented to the use of an ambient scribe for clinic note documentation during this visit. Constipation, bloating, gas and unintentional weight loss - Continue current medications including Miralax and Maalox for symptom management, as needed. - Prescribed dicyclomine for abdominal pain management, to be taken twice daily as needed. - Referral to gastroenterology for further evaluation and management as last colo noted prep wasn't great, repeat in 1 year or if symptoms arise sooner. Referral to GI sent today. - Consider increasing dietary fiber intake and possibly using senna for regularity. Orders: Referrals Gastroenterology Referral K59.00 - Constipation, unspecified Medications: Refilled dicyclomine 20 mg PO BID PRN 20 tabs 0RF abdominal pain
[2025-09-17 12:27] VITALS: BP 130/74; PULSE 90; RESP 16; TEMP 37.1; O2SAT 98; BMI 34.2
--- OUTSIDE RECORDS SUMMARY | 2025-09-17 14:55 | XMS_ITS | Clinical Summary ---
Author Organization [facility] Address [address] [place] [address] Phone Care Team Providers Care Grain Miller Helper Name Role Phone Greg Kaba NP Primary Care Provider [phone] Allergies Active Allergy Reactions Criticality Noted Date [...] age to complete this topic Insurance [address] [place] [id number] [place] [facility] ([id number]) [facility] ([id number]) Care Teams Grain Miller Helper Relationship Specialty Start Date End Date Greg Kaba NP [address] [place] [address] PCP - General 11/29/20
--- OUTSIDE RECORDS SUMMARY | 2025-09-17 14:55 | XMS_ITS | Patient Health Record ---
Author Organization [facility] Address [address] [place] [address] Care Team Providers Care Family And Consumer Sciences Teacher Name Role Phone Karishma (RETIRED) Gordo MICHAELS [...] W/U Status Risk Notes Problem Gastrointestinal hemorrhage ([id number]) Hemorrhage of gastrointestinal tract, unspecified (578.9) Active confirmed Plan Of Treatment No Information Insurance Providers Payer Name Payer Address Payer Phone Subscriber Number Group Number Insured Name Patient Relationship to Insured Coverage Start Date Coverage End Date [facility] [address] [place] [id number] [phone] [id number] MARCIANO GILBERT Self - patient is the insured Medical (General) History Medical History History ICD Code colon and egd 06-01-2004 hyperlipidemia hypertension osteoarthritis pulmonary embolism GI bleed esophageal reflux anxiety abnormal liver funtion test gallstones Surgical History Surgery Date(Month/Year) gastric bypass cholecystectomy reduction mammoplasty panniculectomy section
== END 2025-09-17 13:14 | disposition home or self-care (01) ==
LOC: HO.HMCC 11:55
PROVIDERS: PCP Nurse Practitioner Family; Visit Provider Physician Assistant
DX: K59.00 Constipation, unspecified (principal)

== ENCOUNTER → 2025-09-17 11:54 | Outpatient (BNVA) | payer MEDICARE, SELFPAY | PROVIDERS: PCP Nurse Practitioner Family; Visit Provider Physician Assistant | DX: K29.70 Gastritis, unspecified, without bleeding (principal); K59.00 Constipation, unspecified | CPT/HCPCS: 99212 ==

== ENCOUNTER 2025-09-20 09:50 | Outpatient (REF) | payer MEDICARE, SELFPAY ==
--- NOTE | ~2025-09-20 | MR_ITS ---
EXAMINATION: MR ELBOW WITHOUT CONTRAST, RIGHT CLINICAL INFORMATION: Displaced fracture radial head . Patient reports decreased range of motion, pain, weakness. COMPARISON: X-ray 07/30/2025 TECHNIQUE: MRI of the elbow was performed using routine sequences on a high-field scanner. FINDINGS: BONE AND JOINTS: There is a small focus of low T1 signal along the articular surface of the radial head,, corresponding with the area of sclerosis seen on the prior x-ray. The linear lucency and 1 mm step-off of the articular surface seen on the prior x-ray is not clearly evident on the MRI. No acute marrow edema is present in this region. The findings are suggestive of sequela of nonacute fracture. Clinically correlate. No acute fracture or dislocation is otherwise seen. No high-grade chondral loss. No significant joint effusion. No aggressive marrow replacing lesion. TENDONS AND MUSCLES: Common flexor tendon: Mild tendinosis/partial tear of the tendon origin. Common extensor tendon: Mild tendinosis/partial tear of the tendon origin. Biceps tendon: Intact Brachialis tendon: Intact Triceps tendon: Intact. Mild distal tendinosis. Muscles: No measurable tear LIGAMENTS: Ulnar collateral ligament: Intact Lateral collateral ligament: Mild T2 signal in the proximal ligament, could reflect reactive edema or sprain. ULNAR NERVE: Foci of mild T2 signal in the ulnar nerve as it courses in the cubital tunnel, could reflect neuritis in the appropriate clinical circumstance. SOFT TISSUE: Mild subcutaneous edema. No fluid collection seen. MR/MR elbow RT wo con IMPRESSION: 1. Mild common flexor tendinosis/partial tear 2. Mild common extensor tendinosis/partial tear 3. Mild distal triceps tendinosis 4. Radial head findings as detailed above. No acute marrow edema is seen. Findings could be related to a nonacute fracture. Clinically correlate. 5. Findings in the radial collateral ligament proximally could reflect reactive edema or sprain. 6. Equivocal ulnar nerve findings, clinically correlate for possible neuritis. Electronically signed by: Myles Malik MD 09/21/2025 04:20 PM JACLYN
--- OUTSIDE RECORDS SUMMARY | 2025-09-20 09:58 | XMS_ITS | Clinical Summary ---
Author Organization [facility] Address [address] [place] [address] Phone Care Team Providers Care Assembler Bicycle Name Role Phone Greg Kaba NP Primary Care Provider [phone] Allergies Active Allergy Reactions Criticality Noted Date [...] age to complete this topic Insurance [address] [place] [id number] [place] [facility] ([id number]) [facility] ([id number]) Care Teams Assembler Bicycle Relationship Specialty Start Date End Date Greg Kaba NP [address] [place] [address] PCP - General 11/29/20
--- OUTSIDE RECORDS SUMMARY | 2025-09-20 09:58 | XMS_ITS | Patient Health Record ---
Author Organization [facility] Address [address] [place] [address] Care Team Providers Care Supervisor Silvering Department Name Role Phone Karishma (RETIRED) Gordo MICHAELS [...] W/U Status Risk Notes Problem Gastrointestinal hemorrhage ([id number]) Hemorrhage of gastrointestinal tract, unspecified (578.9) Active confirmed Plan Of Treatment No Information Insurance Providers Payer Name Payer Address Payer Phone Subscriber Number Group Number Insured Name Patient Relationship to Insured Coverage Start Date Coverage End Date [facility] [address] [place] [phone] [id number] MARCIANO GILBERT Self - patient is the insured Medical (General) History Medical History History ICD Code colon and egd 06-01-2004 hyperlipidemia hypertension osteoarthritis pulmonary embolism GI bleed esophageal reflux anxiety abnormal liver funtion test gallstones Surgical History Surgery Date(Month/Year) gastric bypass cholecystectomy reduction mammoplasty panniculectomy section
== END 2025-09-20 09:51 | disposition home or self-care (01) ==
LOC: HO.MRI 09:50
PROVIDERS: PCP Nurse Practitioner Family; Visit Provider Nurse Practitioner Family
DX: S52.121D Displaced fracture of head of right radius, subsequent encounter for closed fracture with routine healing (principal)
CPT/HCPCS: 73221

== ENCOUNTER → 2025-09-20 09:59 | Outpatient (BNV) | payer MEDICARE, SELFPAY | PROVIDERS: PCP Nurse Practitioner Family; Visit Provider Radiology Diagnostic Ultrasound | DX: S52.121A Displaced fracture of head of right radius, initial encounter for closed fracture (principal) | CPT/HCPCS: 73221 ==

== ENCOUNTER 2025-09-22 15:14 | Outpatient (AMB) | payer MEDICARE, SELFPAY ==
[2025-09-22 15:19] VITALS: BP 104/61; PULSE 72; BMI 33.7
--- NOTE | 2025-09-22 15:19 | MHC.OFFVIS ---
Vital Signs 09/22/25 15:19 Height 5 ft 4 in Weight 196 lb 3.382 oz BMI 33.7 BP 104/61 Blood Pressure Location Lt brachial Position Sitting Pulse 72 Intake Visit Reasons: Follow up constipation, abd pain Intake Note: Mary presents in the office as a follow up for abdominal pains and constipation. CC: she states that her stools are for the most part hard but she states as long as it comes out thats a good time. Terrible pains in the stomach - Lower abdomen. Telephone Exchange Operator Required: No Allergies latex (LATEX) Allergy (Severe, Verified 09/22/25 15:20) RASH morphine (MORPHINE) Allergy (Severe, Verified 09/22/25 15:20) SEVERE SHAKING, N/V amoxicillin (From AUGMENTIN) Allergy (Unknown, Verified 09/22/25 15:20) SEVERE DIARRHEA ciprofloxacin (CIPROFLOXACIN) Allergy (Unknown, Verified 09/22/25 15:20) SEVERE DIARRHEA clavulanic acid (From AUGMENTIN) Allergy (Unknown, Verified 09/22/25 15:20) SEVERE DIARRHEA fenofibrate Adverse Reaction (Intermediate, Verified 09/22/25 15:20) stomach pain/cramping baclofen Adverse Reaction (Unknown, Verified 09/22/25 15:20) Unknown trazodone Adverse Reaction (Unknown, Verified 09/22/25 15:20) Unknown HPI HPI Follow up constipation, abd pain: Details: Assessment & Plan (1) Positive colorectal cancer screening using Cologuard test: Code(s): R19.5 - Other fecal abnormalities Category: Medical (2) Morbid obesity: Code(s): E66.01 - Morbid (severe) obesity due to excess calories Category: Medical (3) Non-rheumatic aortic stenosis: Code(s): I35.0 - Nonrheumatic aortic (valve) stenosis Category: Medical (4) Left bundle branch block: Code(s): I44.7 - Left bundle-branch block, unspecified Category: Medical Plan She has not had a colonoscopy in over 15 years, because she had a bad experience with anesthesia as she woke up and this frightened her away from scopes for many years. Her PF is well controlled and she denies cardiac problems She woke up during a scope once but no other problems. NO ID problems She had a + Cologuard x2 but no known FHX Orders: Orders Colonoscopy - GI Use Only 09/19/24 R19.5 - Other fecal abnormalities Medications: New peg 3350-electrolytes 236-22.74-6.74 -5.86 gram (Golytely) until fecal effluent is clear; do not exceed a total volume of 2,000 mL 240 mL PO Q10M 4,000 mL 0RF 1 day Z12.11 - Encounter for screening for malignant neoplasm of colon bisacodyl (Dulcolax (bisacodyl)) 10 mg (2 x 5 mg) PO BEDTIME 4 tabs 0RF 2 days COLONOSCOPY 06/03/25 Findings: Terminal Ileum-normal Cecum: 3-4 mm sessile polyp removed with cold forceps, 10 mm sessile polyp lifted with eleview and removed with cold snare with x 2 clips applied for hemostasis Ascending Colon: normal Transverse Colon -normal Descending Colon:normal Sigmoid Colon: moderate diverticulosis, x 2 sessile polyps 5-7 mm removed with cold snare Rectum: Retroflexion with small internal hemorrhoids seen, grade I Anorectum - normal Intervention: cold snare and eleview for EMR< cold snare, cold forceps Impression and Post Procedure Diagnosis: diverticulosis colon polyps x 4 internal hemorrhoids Plan: High fiber diet leaflet Avoid straining at stool, epsom salts and sitz bath, anusol supps or cream Repeat Colonoscopy in 1 year due to fair prep on left or earlier if clinically indicated BIOPSY Received: 06/03/25 Diagnosis A. Cecum, polypectomy: Fragments of tubular adenoma; negative for high-grade dysplasia or carcinoma. B. Colon, sigmoid, polypectomy: Fragments of tubular adenoma; negative for high-grade dysplasia or carcinoma. CT ABDOMEN AND PELVIS 07/2025 Findings: Lung bases are clear. No acute bony abnormalities. Degenerative change spine and hips. Left hemidiaphragm elevation is unchanged. Status post gastric bypass/partial gastrectomy. Perigastric inflammatory stranding noted. Question acute gastritis. Liver and spleen within normal limits. Pancreas and adrenal glands unremarkable. Cholecystectomy. No significant focal renal abnormalities. Renal cysts, no stones or hydronephrosis. Abdominal aorta is normal in caliber. No free fluid or adenopathy in the pelvis. No diverticulitis. Appendix unremarkable. Uterus normal size. No adnexal abnormality. Impression: Question acute gastritis pattern ABDOMINAL X-RAY FINDINGS: Supine and upright views of the abdomen are submitted. The bowel gas pattern is unremarkable, without evidence of mechanical obstruction. There is no free intraperitoneal gas. There is a moderate amount of stool throughout the colon. There are scattered surgical clips. There are no abnormal soft tissue masses. There is moderate to severe rotatory levoscoliosis of the spine. XR/XR abdomen min 2V IMPRESSION: Moderate amount of stool throughout the colon. Laboratory Tests 09/11/25 09/11/25 12:23 13:35 WBC 11.7 H Hgb 9.8 L Hct 30.5 L MCV 85.9 MCH 27.6 Plt Count 327 D Estimated GFR > 60 Total Bilirubin 0.4 Direct Bilirubin 0.2 AST 12 ALT < 6 Alkaline Phosphatase 88 Troponin I High Sens 18.4 H Lipase 11 TODAY'S VISIT The procedure needs to be repeated in 1 year due to insufficient prep. APPARENTLY, THE PATIENT PRESENTED TO THE ER for generalized abdominal pain and had a CT showing possible acute gastritis. She thinks that she is here for that, and seems quite confused as the ER instructed her to follow-up with them if she had returned symptoms but she thought she was supposed to follow up with us. [facility] Medical History (Updated 09/22/25 @ 15:35 by ZULY Melendez) Diarrhea Low iron Other and unspecified hyperlipidemia Diabetes DJD (degenerative joint disease) Chest discomfort Right ankle pain Precordial chest pain Right ankle pain Right ankle injury Encounter for annual wellness visit (AWV) in Medicare patient Bilateral nephrolithiasis Pain Right flank pain Low back pain Postmenopausal Dysuria Hematuria Microhematuria Urinary tract infection Genitourinary syndrome of menopause Abdominal pain Pre-op evaluation H/O nephrolithotomy with removal of calculi Aortic stenosis Diverticulitis Scoliosis Pulmonary fibrosis Recurrent UTI Hyperlipidemia Anxiety and depression Hypertension Surgical History Hx of left breast biopsy History of esophagogastroduodenoscopy (EGD) H/O colonoscopy Hx of cystoscopy H/O lithotripsy History of cholecystectomy History of Hx of breast reduction, elective S/P panniculectomy H/O gastric bypass Family History Father Heart disease Mother Heart disease Pulmonary fibrosis Sister Heart disease Sister Pulmonary fibrosis Brother Pulmonary fibrosis Daughter Mental health disorder Substance use disorder Social History Household Members: Spouse Housing: Apartment Are you a primary career law clerk to a significant other at home: No Do you presently have visiting nurse or other home services: Yes ([employer]) Alcohol intake: never Patient Tobacco Use Status: Current everyday Tobacco user Tobacco use type: Cigarette Cigarette Packs Per Day: 1 Years Smoked: 45 e-Cigarette/Vaping Use: Never Used Second Hand Smoke Exposure: No Substance Use Type: Marijuana Advance Directives Date on File: 08/16/22 service: No Current occupational status: disabled 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 Cognitive needs: No Hearing needs: No Vision needs: No Review of Systems Const Denies fatigue, Denies fever(s), Denies night sweats, Denies poor appetite and Denies weight loss ENT Reports Normal hearing present, Denies dental pain, Denies dysphagia, Denies hearing loss, Denies mouth pain, Denies odynophagia, Denies throat swelling, Denies tongue swelling and Reports other (Dentition adequate) Card Reports no additional complaints Resp Reports no additional complaints GI Details: Reports abdominal pain, Denies melena, Denies bloating, Denies hematochezia, Reports constipation, Denies GI cramping, Denies dysphagia, Denies excessive flatus, Denies early satiety, Reports heartburn, Denies diarrhea, Denies nausea, Denies odynophagia, Denies vomiting and Denies hematemesis Skin/Breast Denies pruritus, Denies lesions, Denies rash and Denies jaundice Neuro Reports Normal hearing present and Denies Abnormal speech present Endo Denies fatigue Aller/Immun Denies throat swelling and Denies tongue swelling Physical Exam Vital Signs: Last Vital Signs Pulse 72 09/22/25 15:19 BP 104/61 09/22/25 15:19 BMI result Body Mass Index 33.7 Const General: cooperative, no acute distress, well developed and well groomed Nutritional Appearance: well nourished and obese Orientation/consciousness: oriented to person, oriented to place and oriented to time Limitations: No language barrier HEENT Head: Yes normocephalic and Yes atraumatic Eyes General: appearance normal, both eyes and all related structures Pupils: Equal, round and reactive pupils present Neck Neck: Yes normal visual inspection and Yes no lymphadenopathy Thyroid: Thyroid normal Resp Effort & Inspection: normal respiratory effort and able to speak in complete sentences Auscultation: clear to auscultation bilaterally Cardio Rate: regular rate Rhythm: regular rhythm Heart sounds: Normal, physiologic split S2 sound present Peripheral pulses: radial pulses present and posterior tibial pulses present GI Inspection: No distended, Yes Abdominal panniculus present and Yes obesity Palpation (GI): Soft to palpation, nontender, no guarding, not rigid and No hepatosplenomegaly present Percussion: Yes normal to percussion Auscultation: normal bowel sounds Rectal Exam - Female: deferred Skin General skin exam: no rashes or lesions noted, turgor normal, skin not dry, no jaundice, No spider nevi and no striae Rashes: no rashes Nails: normal Neuro General: oriented to person, oriented to place and oriented to time Cranial nerves: Yes Equal, round and reactive pupils present and Yes Normal hearing present Speech: No Abnormal speech present Extrem General: Yes normal to inspection, No clubbing, No cyanosis and No edema Psych Appearance: grossly normal and well kempt Mental Status: mental status grossly normal Speech and movement: Normal speech and movement present Affect: normal affect Attitude: cooperative Thought process: Normal thought process present and not confabulating Thought content: Normal thought content present Insight: Limited insight present (Psych) Judgement: Limited judgement present (Psych) Results Reviewed Results Reviewed: COLONOSCOPY 06/03/25 Findings: Terminal Ileum-normal Cecum: 3-4 mm sessile polyp removed with cold forceps, 10 mm sessile polyp lifted with eleview and removed with cold snare with x 2 clips applied for hemostasis Ascending Colon: normal Transverse Colon -normal Descending Colon:normal Sigmoid Colon: moderate diverticulosis, x 2 sessile polyps 5-7 mm removed with cold snare Rectum: Retroflexion with small internal hemorrhoids seen, grade I Anorectum - normal Intervention: cold snare and eleview for EMR< cold snare, cold forceps Impression and Post Procedure Diagnosis: diverticulosis colon polyps x 4 internal hemorrhoids Plan: High fiber diet leaflet Avoid straining at stool, epsom salts and sitz bath, anusol supps or cream Repeat Colonoscopy in 1 year due to fair prep on left or earlier if clinically indicated BIOPSY Received: 06/03/25 Diagnosis A. Cecum, polypectomy: Fragments of tubular adenoma; negative for high-grade dysplasia or carcinoma. B. Colon, sigmoid, polypectomy: Fragments of tubular adenoma; negative for high-grade dysplasia or carcinoma. CT ABDOMEN AND PELVIS 07/2025 Findings: Lung bases are clear. No acute bony abnormalities. Degenerative change spine and hips. Left hemidiaphragm elevation is unchanged. Status post gastric bypass/partial gastrectomy. Perigastric inflammatory stranding noted. Question acute gastritis. Liver and spleen within normal limits. Pancreas and adrenal glands unremarkable. Cholecystectomy. No significant focal renal abnormalities. Renal cysts, no stones or hydronephrosis. Abdominal aorta is normal in caliber. No free fluid or adenopathy in the pelvis. No diverticulitis. Appendix unremarkable. Uterus normal size. No adnexal abnormality. Impression: Question acute gastritis pattern ABDOMINAL X-RAY FINDINGS: Supine and upright views of the abdomen are submitted. The bowel gas pattern is unremarkable, without evidence of mechanical obstruction. There is no free intraperitoneal gas. There is a moderate amount of stool throughout the colon. There are scattered surgical clips. There are no abnormal soft tissue masses. There is moderate to severe rotatory levoscoliosis of the spine. XR/XR abdomen min 2V IMPRESSION: Moderate amount of stool throughout the colon. Laboratory Tests 09/11/25 09/11/25 12:23 13:35 WBC 11.7 H Hgb 9.8 L Hct 30.5 L MCV 85.9 MCH 27.6 Plt Count 327 D Estimated GFR > 60 Total Bilirubin 0.4 Direct Bilirubin 0.2 AST 12 ALT < 6 Alkaline Phosphatase 88 Troponin I High Sens 18.4 H Lipase 11 Assessment & Plan Assessment & Plan (1) Constipation: Code(s): K59.00 - Constipation, unspecified Category: Medical Qualifiers: Constipation type: unspecified constipation type Qualified Code(s): K59.00 - Constipation, unspecified (2) Positive colorectal cancer screening using Cologuard test: Comment: 05/2025 scope= 2 TA is repeat in 1 year due to insufficient prep Code(s): R19.5 - Other fecal abnormalities Category: Medical (3) Tubular adenoma of colon: Comment: 05/2025 scope= 2 TA is repeat in 1 year due to poor prep and positive Cologuard Code(s): D12.6 - Benign neoplasm of colon, unspecified Category: Medical Plan Mary is here today with her who is supportive. She is agreeable to the 1 year follow-up The procedure was well tolerated. The results were explained and the patient is agreeable to the follow-up interval as stated. The bowel pattern has returned to normal. Education was provided to tell any 1st degree relatives about their findings to be sure that they are screened by age 45. Educated that they will be put on a recall list when it is time for their repeat scope but should they move out of state or away from the hospital they will need to remember along with their primary to repeat the procedure in a timely fashion to avoid any adverse complications. Given what she is about to endorse with severe constipation it well explains why she was not very well prepped for her colonoscopy. Getting the constipation control we go a long way to getting her good colon cancer prevention. Mary is a very vague and wondering historian. I was under the impression she was simply a follow-up for colonoscopy, but it seems she has presented to the ER on multiple occasions (no were notified me of this) for abdominal pain across her lower abdomen. Apparently the thought is that this is from constipation. There was also some concern for gastritis because of some stranding in the area of the stomach. Mary says these symptoms were of sudden onset, however admits she has been having increased ?brain fog? recently and has trouble relating exactly when they started. She only knows they started it sometime after her colonoscopy. She was wondering if removing the polyps had anything to do with the symptoms. I really do not think that polyp removal has a any historical/scientific evidence to show would cause this sort of sustained problem. She has always struggled with constipation and admits that she strains at her stooling and passing stools that are very hard and like various sizes of marbles. Yet, she is very inconsistent about maintaining a bowel regimen. In the past she was supposed to be utilizing Colace, senna, and MiraLax. For some reason with all of her troubles it did not occur to her to restart any other medications that she admits she has not home. She also has a fiber supplement at home. Given the issues with compliance I think that a complex regimen of multi medications will be difficult for her. So instead I think I will move to Linzess especially since she has not had good results with the senna Dulcolax fiber or Colace. This will also address the bilateral lower quadrant abdominal pain. She also complains of the stabbing feeling in her right hip. I let her know that there does seem to be a seroma which has a collection of fluid likely related to osteoarthritis of the hips seen on the CAT scan. However, this would not be in my specialty to address. She is quite vague on what medication she has been taking except to say she has been taking her metoprolol and her gabapentin. Apparently she stopped the medications because she felt she was not tolerating either food or pills well by mouth for quite some time. I am uncertain how alvarez this has been, especially with relation to her constipation regimen, we will try to go forward and work with her understanding and compliance as best we can. We will start a trial of Linzess 145 micro g and titrate to affect her side effect. Depending on her response to this will see if we need to consider EGD. Return office visit in 3 weeks Medications: New linaclotide (Linzess) 145 mcg PO QAM 30 caps 6RF K59.00 - Constipation, unspecified Discontinued sucralfate (Carafate) swish in mouth and swallow; use after food/drink Discontinued Reason: Doctor's Order 10 mL PO QID PRN 400 mL 0RF indigestion alum-mag hydroxide-simeth 200-200-20 mg/5 mL (Maalox Advanced) administer between meals and at bedtime Discontinued Reason: Doctor's Order 5 mL PO 5XD PRN 30 mL 0RF dyspepsia On Hold polyethylene glycol 3350 (Miralax) Hold Comment: Doctor's Order 17 grams PO DAILY PRN 119 grams 0RF constipation dicyclomine Hold Comment: Doctor's Order 20 mg PO BID PRN 20 tabs 0RF abdominal pain Coding Level of Care Code Est Pt Level 4 (41267) Diagnoses Constipation, unspecified constipation type K59.00 Constipation type: unspecified constipation type Positive colorectal cancer screening using Cologuard test R19.5 Tubular adenoma of colon D12.6 Time Spent (min) 40
--- OUTSIDE RECORDS SUMMARY | 2025-09-22 18:07 | XMS_ITS | Clinical Summary ---
Author Organization [facility] Address [address] [place] [address] Phone Care Team Providers Care Carrier Loader Name Role Phone Greg Kaba NP Primary Care Provider [phone] Allergies Active Allergy Reactions Criticality Noted Date [...] age to complete this topic Insurance [address] [place] [id number] [address] Dual [facility] ([id number]) [facility] ([id number]) Care Teams Carrier Loader Relationship Specialty Start Date End Date Greg Kaba NP [address] [place] [address] PCP - General 11/29/20
--- OUTSIDE RECORDS SUMMARY | 2025-09-22 18:07 | XMS_ITS | Patient Health Record ---
Author Organization [facility] Address [address] [place] [address] Care Team Providers Care Forest Fire Specialist Supervisor Name Role Phone Karishma (RETIRED) Gordo MICHAELS [...] W/U Status Risk Notes Problem Gastrointestinal hemorrhage ([id number]) Hemorrhage of gastrointestinal tract, unspecified (578.9) Active confirmed Plan Of Treatment No Information Insurance Providers Payer Name Payer Address Payer Phone Subscriber Number Group Number Insured Name Patient Relationship to Insured Coverage Start Date Coverage End Date [facility]ICA[facility] [address] [place] [id number] [phone] [id number] MARCIANO GILBERT Self - patient is the insured Medical (General) History Medical History History ICD Code colon and egd 06-01-2004 hyperlipidemia hypertension osteoarthritis pulmonary embolism GI bleed esophageal reflux anxiety abnormal liver funtion test gallstones Surgical History Surgery Date(Month/Year) gastric bypass cholecystectomy reduction mammoplasty panniculectomy section
== END 2025-09-22 16:00 | disposition home or self-care (01) ==
LOC: HO.HGI 15:15
PROVIDERS: PCP Nurse Practitioner Family; Visit Provider Nurse Practitioner
DX: K59.00 Constipation, unspecified (principal); R19.5 Other fecal abnormalities; D12.6 Benign neoplasm of colon, unspecified
CPT/HCPCS: 99214

== ENCOUNTER → 2025-09-22 15:14 | Outpatient (BNVA) | payer MEDICARE, SELFPAY | PROVIDERS: PCP Nurse Practitioner Family; Visit Provider Nurse Practitioner | DX: Z71.2 Person consulting for explanation of examination or test findings (principal); K59.04 Chronic idiopathic constipation; R19.5 Other fecal abnormalities; D12.6 Benign neoplasm of colon, unspecified | CPT/HCPCS: 99212 ==

== ENCOUNTER 2025-10-05 09:13 | Outpatient (REF) | payer MEDICARE, SELFPAY ==
--- OUTSIDE RECORDS SUMMARY | 2025-10-06 19:10 | XMS_ITS | Patient Health Record ---
Author Organization [facility] Address [address] [place] [address] Care Team Providers Care Dock Supervisor Name Role Phone Karishma (RETIRED) Gordo MICHAELS Primary Care Provider Unavailable Bong Mirza Jr Unavailable Allergies Allergen (clinical drug ingredient) Drug/Non Drug Allergy documented on EMR Reaction Allergy Type Onset Date Status ciprofloxacin cipro (uncoded) Unknown Allergy Active Latex latex (uncoded) Unknown Allergy Acti ve morphine morphine (uncoded) Unknown Allergy A ctive vicodin (uncoded) Unknown Allergy Ac tive Reason For Referral No Information Medications Medication SIG (Take, Route, Fr equency, Duration) Notes Start Date End Date Status Metoprolol Tartrate Active Cyclobenzaprine HCl Active Clorazepate Dipotassium Active Atorvastatin Calcium Active Ferrous Sulfate Acti ve Docusate Sodium Acti ve Lisinopril Active Problems Problem Type SNOMED Code ICD Code Onset Dates Problem Status W/U Status Risk Notes Problem Gastrointestinal hemorrhage (40576446) Hemorrhage of gastrointestinal tract, unspecified (578.9) Active confirmed Plan Of Treatment No Information Insurance Providers Payer Name Payer Address Payer Phone Subscriber Number Group Number Insured Name Patient Relationship to Insured Coverage Start Date Coverage End Date [facility]ICA[facility] [address] [place] [id number] [phone] [id number] MARCIANO GILBERT Self - patient is the insured Medical (General) History Medical History History ICD Code colon and egd 06-01-2004 hyperlipidemia hypertension osteoarthritis pulmonary embolism GI bleed esophageal reflux anxiety abnormal liver funtion test gallstones Surgical History Surgery Date(Month/Year) gastric bypass cholecystectomy reduction mammoplasty panniculectomy section
== END 2025-10-05 09:14 | disposition home or self-care (01) ==
LOC: HO.HOSX 09:13
PROVIDERS: Visit Provider Physician Assistant
DX: Z13.89 Encounter for screening for other disorder (principal)

== ENCOUNTER 2025-10-08 17:48 | Emergency (ER) | payer MEDICARE, SELFPAY ==
--- NOTE | ~2025-10-08 | CT_ITS ---
CLINICAL HISTORY: diffuse abd pain CT abdomen and pelvis with contrast Comparison: CT/REG/SR - CT ABDOMEN PELVIS W IV CON - 08/07/25 20:23 EDT Findings: The lung bases are clear. Elevated left hemidiaphragm. The gallbladder is absent. Mild intrahepatic and extrahepatic biliary ductal dilatation could be related to previous cholecystectomy. Correlate with LFTs. No focal hepatic or splenic abnormality. Pancreas is atrophic. Adrenal glands within normal limits. Stable bilateral multiple renal cysts and 3 mm nonobstructing left renal lower pole collecting system nonobstructing stone. No ureteral stones and no hydronephrosis or hydroureter. Stable postoperative changes of the stomach. There has been some interval worsening of gastric wall thickening and adjacent inflammatory stranding suggestive mild worsening gastritis. Further evaluate clinically. No bowel obstruction, pneumoperitoneum, or pneumatosis. Sigmoid colon diverticulosis with no evidence of acute diverticulitis. No free fluid. Normal appendix. Uterus is present and is small. Urinary bladder nearly empty with apparent wall thickening. Atherosclerotic vascular disease with no aneurysm of the abdominal aorta. No acute fracture. Stable scoliosis and multilevel degenerative changes and degenerative changes bilateral hips. IMPRESSION: 1. Stable postoperative changes of the stomach with interval mild worsening of gastric wall thickening and adjacent inflammatory stranding suggestive of worsening gastritis. Further evaluate clinically. 2. Previous cholecystectomy with mild intrahepatic and extrahepatic biliary ductal dilatation likely related to cholecystectomy but correlation with LFTs recommended. 3. All other findings have been stable as described. This document has been electronically signed by: Viry Dotson MD on 10/08/2025 22:36:38
[2025-10-08 17:51] VITALS: BP 155/92; PULSE 120; O2SAT 98
[2025-10-08 18:01] VITALS: BP 142/73; PULSE 108; RESP 18; TEMP 37.1; O2SAT 94; BMI 33.4
[2025-10-08 18:46] LABS: MANUAL DIFF FLAG NO
[2025-10-08 19:07] LABS: Alanine Aminotransferase < 6 U/L (0-31); Albumin Level 3.5 g/dL (3.5-5.0); Alkaline Phosphatase 93 U/L (39-117); Anion Gap 10 (12-20); Aspartate Amino Transferase 13 U/L (5-31); Blood Urea Nitrogen 18 mg/dL (9-16); Calcium 8.8 mg/dL (8.4-10.2); Carbon Dioxide 26 mmol/L (22-29); Chloride 106 mmol/L (96-108); Creatinine Clr Calc Pharmacy 58.0; Estimated Glomerular Filt Rate 57; Lipase 24 U/L (8-78); Potassium 4.2 mmol/L (3.3-5.1); Sodium 138 mmol/L (135-145); Total Protein 6.7 g/dL (6.5-8.0)
[2025-10-08 19:10] LABS: Hematocrit 26.5 % (37.0-47.0); Hemoglobin 8.2 g/dl (12.0-16.0); Imm Gran Abs Auto 0.05 X10*3/uL (0.00-0.03); Imm Gran Pct Auto 0.5 % (0.0-0.4); Lymphocytes Absolute Auto 1.0 X10*3/uL (1.2-4.9); Mean Corpuscular HGB Conc 30.9 g/dl (31.0-35.0); Mean Corpuscular Hemoglobin 25.7 pg (27.0-33.0); Mean Corpuscular Volume 83.1 fL (80.0-98.0); NRBC Abs Auto 0.000 X10*3/uL (0.0-0.012); NRBC Pct Auto 0.0 /100WBC (0.0-0.2); Platelet Count 383 X10*3/uL (160-400); Red Blood Count 3.19 X10*6/uL (4.20-5.50); White Blood Count 9.2 X10*3/uL (4.8-10.8)
[2025-10-08 19:41] VITALS: BP 152/71; PULSE 110; RESP 22; TEMP 37.1; O2SAT 96
[2025-10-08 20:07] LABS: Appearance Urine Cloudy; Glucose Urine UA Negative (Negative); PH 7.5 (5.0-9.0); Specific Gravity - Urine 1.015 (1.005-1.025); UMIC TRIGGER UACC YES
[2025-10-08 20:12] LABS: UACC Culture Trigger YES
--- OUTSIDE RECORDS SUMMARY | 2025-10-08 21:04 | XMS_ITS | Patient Health Record ---
Author Organization [facility] Address [address] [place] [address] Care Team Providers Care Contracting Specialist Name Role Phone Karishma (RETIRED) Gordo MICHAELS [...] W/U Status Risk Notes Problem Gastrointestinal hemorrhage ([id number]) Hemorrhage of gastrointestinal tract, unspecified (578.9) Active confirmed Plan Of Treatment No Information Insurance Providers Payer Name Payer Address Payer Phone Subscriber Number Group Number Insured Name Patient Relationship to Insured Coverage Start Date Coverage End Date [facility] [address] [place] [id number] [phone] [id number] MARCIANO GILBERT Self - patient is the insured Medical (General) History Medical History History ICD Code colon and egd 06-01-2004 hyperlipidemia hypertension osteoarthritis pulmonary embolism GI bleed esophageal reflux anxiety abnormal liver funtion test gallstones Surgical History Surgery Date(Month/Year) gastric bypass cholecystectomy reduction mammoplasty panniculectomy section
--- OUTSIDE RECORDS SUMMARY | 2025-10-08 21:04 | XMS_ITS | Clinical Summary ---
Author Organization [facility] Address [address] [place] [address] Phone Care Team Providers Care Director Of Cardiac Cath Lab Name Role Phone Greg Kaba NP Primary Care Provider [phone] Allergies Active Allergy Reactions Criticality Noted Date [...] Used Date Smoking Tobacco: Every Day Cigarettes 0 Last attempted to quit: 11/19/2014 Smokeless Tobacco: [...] age to complete this topic Insurance [address] [place] [id number] [address] Dual [facility] ([id number]) [facility] ([id number]) Care Teams Director Of Cardiac Cath Lab Relationship Specialty Start Date End Date Greg Kaba NP [address] [place], [place] [id number] PCP - General 11/29/20
--- NOTE | 2025-10-08 21:15 | ED.ABDPAIN ---
HPI - Abdominal Pain General Chief Complaint: Abdominal Pain Stated Complaint: diarrhea, acute onset SOB, dehydrated, & weak Time Seen by Provider: 10/08/25 21:01 Source: patient and EMS Mode of arrival: EMS Limitations: no limitations History of Present Illness ED Provider: Dr. Kendal Kaminski HPI narrative: Patient comes to the emergency room complaining of months of abdominal pain, diarrhea. Patient states that it has been at least 3 months with his symptoms , and today there or no new symptoms or worsening of symptoms. Patient has been seen multiple times by Gastroenterology. Patient states that her GI sent her in today to be assessed. Patient denies any fever chills, no hematuria dysuria. Patient states that she is here to be admitted and wants a colonoscopy. Related Data Home Medications ?Medication ?Instructions ?Recorded ?Confirmed latanoprost 0.005 % eye drops 1 drp ophthalmic (eye) BEDTIME 08/07/22 02/20/25 nitrofurantoin macrocrystal 50 mg 50 mg PO DAILY 09/22/25 capsule Previous Rx's ?Medication ?Instructions ?Recorded blood-glucose meter (Motion Mathuch #1 ea 04/04/21 Ultra2 Meter) lancets 30 gauge (AllegorithmicTouch Root4 #100 ea 07/13/21 Lancets) blood sugar diagnostic #100 ea 04/13/22 lancets 33 gauge (OneTouch Delica #100 ea 04/13/22 Plus Lancet) ammonium lactate 12 % topical cream 1 appl topical BID #385 grams 02/26/25 metoprolol tartrate 50 mg tablet 50 mg PO BID #180 tabs 04/08/25 omeprazole 40 mg capsule,delayed 40 mg PO BID@0630,1630 #180 caps 07/06/25 release ondansetron 4 mg disintegrating 4 mg PO Q8H PRN nausea and 09/11/25 tablet vomiting #10 tabs polyethylene glycol 3350 17 17 g PO DAILY PRN constipation 09/11/25 gram/dose oral powder (Miralax) #119 grams Held on 09/22/25. Instructions: Doctor's Order dicyclomine 20 mg tablet 20 mg PO BID PRN abdominal pain 09/17/25 Held on 09/22/25. #20 tabs Instructions: Doctor's Order gabapentin 400 mg capsule 400 mg PO TID 30 days #90 caps 09/19/25 linaclotide 145 mcg capsule 145 mcg PO QAM #30 caps 09/22/25 (Linzess) dicyclomine 20 mg tablet 20 mg PO BID #60 tabs 10/08/25 sucralfate 1 gram tablet (Carafate) 1 g PO BID #60 tabs 10/08/25 Allergies Allergy/AdvReac Type Severity Reaction Status Date / Time latex (LATEX) Allergy Severe RASH Verified 10/08/25 18:02 morphine (MORPHINE) Allergy Severe SEVERE Verified 10/08/25 18:02 SHAKING, N/V amoxicillin (From AUGMENTIN) Allergy Unknown SEVERE Verified 10/08/25 18:02 DIARRHEA ciprofloxacin (CIPROFLOXACIN) Allergy Unknown SEVERE Verified 10/08/25 18:02 DIARRHEA clavulanic acid (From Allergy Unknown SEVERE Verified 10/08/25 18:02 AUGMENTIN) DIARRHEA fenofibrate AdvReac Intermediate stomach Verified 10/08/25 18:02 pain/cramping baclofen AdvReac Unknown Unknown Verified 10/08/25 18:02 trazodone AdvReac Unknown Unknown Verified 10/08/25 18:02 Review of Systems Review of Systems Constitutional : No Weight loss, No Fever, No Chills, No Night Sweats, No Fatigue, No Malaise ENT/Mouth : No Hearing loss, No Ear Pain, No Nasal Congestion, No Sinus Pain, No Hoarseness, No sore throat, No Rhinorrhea, No Swallowing Difficulty Eyes: No Eye Pain, No Swelling, No Redness, No Foreign Body, No Discharge, No Vision Changes Cardiovascular : No Chest Pain, No SOB, No Dyspnea on Exertion, No Orthopnea, No Edema, No Palpitations Respiratory : No Cough, No Sputum, No Wheezing, No Smoke Exposure, No Dyspnea Gastrointestinal : No Nausea, No Vomiting, complaining of chronic diarrhea, complaining of chronic abdominal pain Genitourinary : no irregular bleeding, No Dysuria, No Urinary Frequency, No Hematuria, No Urinary Incontinence, No Urgency, No Flank Pain, No Urinary Flow Changes, No Hesitancy Musculoskeletal : No joint pain, No Myalgias, No Joint Swelling Skin : No Skin Lesions, No rash Neuro : No Weakness, No Numbness, No Paresthesias, No Loss of Consciousness, No Dizziness, No Headache Psych : No Anxiety/Panic, No Depression, No SI/HI/AH/VH, No Social Issues, Heme/Lymph: No Bruising, No Bleeding,No Lymphadenopathy Endocrine : No Polyuria, No Polydipsia, No Temperature Intolerance [facility] Past Medical History Medical History Diarrhea Low iron Other and unspecified hyperlipidemia Diabetes DJD (degenerative joint disease) Chest discomfort Right ankle pain Precordial chest pain Right ankle pain Right ankle injury Encounter for annual wellness visit (AWV) in Medicare patient Bilateral nephrolithiasis Pain Right flank pain Low back pain Postmenopausal Dysuria Hematuria Microhematuria Urinary tract infection Genitourinary syndrome of menopause Abdominal pain Pre-op evaluation H/O nephrolithotomy with removal of calculi Aortic stenosis Diverticulitis Scoliosis Pulmonary fibrosis Recurrent UTI Hyperlipidemia Anxiety and depression Hypertension Surgical History Hx of left breast biopsy History of esophagogastroduodenoscopy (EGD) H/O colonoscopy Hx of cystoscopy H/O lithotripsy History of cholecystectomy History of Hx of breast reduction, elective S/P panniculectomy H/O gastric bypass Family History Family History Father Heart disease Mother Heart disease Pulmonary fibrosis Sister Heart disease Sister Pulmonary fibrosis Brother Pulmonary fibrosis Daughter Mental health disorder Substance use disorder Social History Social History Household Members: Spouse Housing: Apartment Are you a primary patient centered care specialist to a significant other at home: No Do you presently have visiting nurse or other home services: Yes ([employer]) Alcohol intake: never Patient Tobacco Use Status: Current everyday Tobacco user Tobacco use type: Cigarette Cigarette Packs Per Day: 1 Years Smoked: 45 e-Cigarette/Vaping Use: Never Used Second Hand Smoke Exposure: No Substance Use Type: Marijuana Advance Directives: Yes Advance Directives on File: Yes Advance Directives Date on File: 08/16/22 service: No Current occupational status: disabled 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 Oriented X3. No acute distress. Eyes: Pupils equal, round and reactive to light. ENT: Pharynx normal. Neck: Normal inspection. Neck supple. No lymph nodes noted. No crepitus CVS: Normal heart rate and rhythm. Pulses normal. Normal S1 and S2 Respiratory: No respiratory distress. Breath sounds normal. No Wheezing. No rales Abdomen: Soft and nontender. No rigidity. No distention. Skin: Skin warm and dry. Normal skin color. Normal skin turgor. Extremities: No lower extremity edema. No Lacerations. No Rash Neuro: Oriented X 3. No motor deficit. No sensory deficit. Moving all extremities. No slurred speech. CN 2 through 12 grossly intact Psych: calm, cooperative, normal affect Vital Signs: Vital Signs - 24 hr 10/08/25 18:01 10/08/25 19:41 10/08/25 22:00 Temperature 98.7 F 98.8 F 97.9 F Pulse Rate 108 H 110 H 110 H Respiratory Rate 18 22 H 20 Blood Pressure 142/73 H 152/71 H 147/73 H Pulse Oximetry 94 96 95 Oxygen Delivery Method Room Air Room Air Room Air BMI result Body Mass Index 33.4 Course Course Course Narrative: patient states that she has been having abdominal pain and diarrhea for months. Patient states that she is here to be admitted. I discussed with the patient that we will do a workup and depending on her labs imaging and symptoms, we will decide if she needs to be admitted. Medical Decision Making Medical Decision Making MDM Narrative: my interpretation of labs: No significant abnormality in patient's hematology and chemistry. Patient has history of chronic anemia, denies black stool or rectal bleeding. I reviewed patient's notes. Patient was seen by Gastroenterology 2 weeks ago. In the notes, states that patient was seen for chronic abdominal pain and constipation. I discussed the above-mentioned with the patient, states that they got it all wrong Also, patient came in demanding to be admitted for a colonoscopy. However, reviewing patient's records, 4 months ago patient had a colonoscopy done: moderate diverticulitis, x2 sessile polyps 5-7 mm removed the patient gave us a stool sample, it is formed stool, no diarrhea patient comes to have diarrhea yet she has solid stool. It is possible that patient has intermittent symptoms, likely IBS patient's chemistry is pretty much normal, no electrolyte abnormality, it is unlikely that patient is having as much diarrhea as she is claiming, especially now having normal solid stool, or declined digital rectal exam I discussed the CT scan finding with the patient: Mild worsening of gastric wall thickening. Worsening gastritis. Patient states that she is compliant with her omeprazole. I discussed with the patient that she needs to have close follow-up with her moving consultant. Patient had a colonoscopy, but she will likely need an endoscopy patient agrees with plan. Differential Diagnosis Differential Diagnoses: The differential diagnosis associated with the presentation includes ( IBS) Admission/Observation Consideration of admission/observation: Escalation of care including admission/observation considered ( given patient's recurrent symptoms, observation was considered) Lab Data MDM Lab Attestation statement: I reviewed the patient's lab results. 10/08/25 18:41 10/08/25 18:41 Labs: Lab Results 10/08/25 10/08/25 Range/Units 18:41 20:00 WBC 9.2 (4.8-10.8) X10*3/uL RBC 3.19 L (4.20-5.50) X10*6/uL Hgb 8.2 L (12.0-16.0) g/dl Hct 26.5 L (37.0-47.0) % MCV 83.1 (80.0-98.0) fL MCH 25.7 L (27.0-33.0) pg MCHC 30.9 L (31.0-35.0) g/dl RDW 16.5 H (11.0-16.0) % Plt Count 383 (160-400) X10*3/uL MPV 8.8 L (9.4-12.3) fL Immature Gran % (Auto) 0.5 H (0.0-0.4) % Neut % (Auto) 77.6 H (45-73) % Lymph % (Auto) 10.9 L (20-40) % Rankin % (Auto) 10.3 (2-11) % Eos % (Auto) 0.4 (0-4) % Baso % (Auto) 0.3 (0-2) % Lymph # (Auto) 1.0 L (1.2-4.9) X10*3/uL Rankin # (Auto) 0.9 (0.1-1.2) X10*3/uL Eos # (Auto) 0.0 (0.0-0.4) X10*3/uL Baso # (Auto) 0.0 (0.0-0.2) X10*3/uL Abs Immat Gran (auto) 0.05 H (0.00-0.03) X10*3/uL Absolute Neuts (auto) 7.1 (2.0-8.3) x10*3/uL Absolute Nucleated RBC 0.000 (0.0-0.012) X10*3/uL Nucleated RBC % (auto) 0.0 (0.0-0.2) /100WBC Sodium 138 (135-145) mmol/L Potassium 4.2 (3.3-5.1) mmol/L Chloride 106 (96-108) mmol/L Carbon Dioxide 26 (22-29) mmol/L Anion Gap 10 L (12-20) BUN 18 H (9-16) mg/dL Creatinine 0.97 (0.5-1.4) mg/dL Estim Creat Clear Calc 58.0 Estimated GFR 57 Random Glucose 111 (60-115) mg/dL Calcium 8.8 D (8.4-10.2) mg/dL Magnesium 2.9 H (1.6-2.6) mg/dL Total Bilirubin 0.3 (0.0-1.0) mg/dL AST 13 (5-31) U/L ALT < 6 (0-31) U/L Alkaline Phosphatase 93 (39-117) U/L Total Protein 6.7 (6.5-8.0) g/dL Albumin 3.5 (3.5-5.0) g/dL Lipase 24 (8-78) U/L Urine Color Yellow Urine Appearance Cloudy Urine pH 7.5 (5.0-9.0) Ur Specific [place] 1.015 (1.005-1.025) Urine Protein 30 (1+) H (Neg-Trace) mg/dL Urine Glucose (UA) Negative (Negative) mg/dL Urine Ketones Negative (Negative) mg/dL Urine Blood Negative (Negative) Urine Nitrite Negative (Negative) Ur Leukocyte Esterase Trace H (Negative) Urine RBC 0-2 (0-2) /HPF Urine WBC 6-10 H (0-5) /HPF Ur Squamous Epith Cells 6-10 (0-2) /HPF Urine Bacteria 4+ (None Seen) Hyaline Casts 3-5 (0-2) /LPF Independent Interpretation I performed an independent interpretation of an: CT Scan Radiology Impression Discussion of test interpretation with radiology: I have reviewed the radiologist's reading. Radiologist Impression: The lung bases are clear. Elevated left hemidiaphragm. The gallbladder is absent. Mild intrahepatic and extrahepatic biliary ductal dilatation could be related to previous cholecystectomy. Correlate with LFTs. No focal hepatic or splenic abnormality. Pancreas is atrophic. Adrenal glands within normal limits. Stable bilateral multiple renal cysts and 3 mm nonobstructing left renal lower pole collecting system nonobstructing stone. No ureteral stones and no hydronephrosis or hydroureter. Stable postoperative changes of the stomach. There has been some interval worsening of gastric wall thickening and adjacent inflammatory stranding suggestive mild worsening gastritis. Further evaluate clinically. No bowel obstruction, pneumoperitoneum, or pneumatosis. Sigmoid colon diverticulosis with no evidence of acute diverticulitis. No free fluid. Normal appendix. Uterus is present and is small. Urinary bladder nearly empty with apparent wall thickening. Atherosclerotic vascular disease with no aneurysm of the abdominal aorta. No acute fracture. Stable scoliosis and multilevel degenerative changes and degenerative changes bilateral hips. IMPRESSION: 1. Stable postoperative changes of the stomach with interval mild worsening of gastric wall thickening and adjacent inflammatory stranding suggestive of worsening gastritis. Further evaluate clinically. 2. Previous cholecystectomy with mild intrahepatic and extrahepatic biliary ductal dilatation likely related to cholecystectomy but correlation with LFTs recommended. 3. All other findings have been stable as described. Medications Administered Discontinued Medications Generic Name Dose Route Start Last Admin Trade Name Freq PRN Reason Stop Dose Admin Iohexol 100 ml 10/08/25 21:33 10/08/25 21:33 Iohexol 350 Mg/Ml 100 Ml Infus..Btl IV 10/08/25 21:34 85 ml ONCE ONE Administration Critical Care Time Critical Care Time Critical Care Time: Yes Total Critical Care Time: 35 Attestation: I have personally provided critical care time. Time includes review of lab data, radiology results, discussion with consultants, and monitoring for potential decompensation. Intervention performed as documented. Discharge Plan Discharge Clinical Impression: Chronic abdominal pain, Irritable bowel syndrome Patient Disposition: Home, Self-Care Instructions: Irritable Bowel Syndrome (ED), Abdominal Pain (ED) Additional Instructions: Please follow-up with your primary care physician tomorrow. If you have any worsening or new symptoms, please return to the emergency room or call 911 Prescriptions: New sucralfate [Carafate] 1 gram tablet 1 g PO BID Qty: 60 2RF dicyclomine 20 mg tablet 20 mg PO BID Qty: 60 0RF No Action (DME) blood-glucose meter [OneTouch Ultra2 Meter] [facility] See Rx Instructions .ROUTE .MEDSUPPLY Qty: 1 0RF Rx Instructions: Use to check fasting blood sugar once daily or if needed for signs/symptoms of hypo/hyperglycemia (DME) lancets [OneTouch Delica Lancets] 30 gauge misc See Rx Instructions .ROUTE .MEDSUPPLY Qty: 100 0RF Rx Instructions: Use to check fasting blood sugar once daily or if needed for signs/symptoms of hypo/hyperglycemia (DME) lancets [OneTouch Delica Plus Lancet] 33 gauge misc See Rx Instructions topical DAILY Qty: 100 1RF Rx Instructions: daily (DME) blood sugar diagnostic Strip See Rx Instructions .ROUTE .MEDSUPPLY Qty: 100 0RF Rx Instructions: Use to check fasting blood sugar once daily or if needed for signs/symptoms of hypo/hyperglycemia ammonium lactate 12 % cream 1 appl topical BID Qty: 385 3RF metoprolol tartrate 50 mg tablet 50 mg PO BID Qty: 180 1RF omeprazole 40 mg capsule,delayed release(DR/EC) 40 mg PO BID@0630,1630 Qty: 180 1RF gabapentin 400 mg capsule 400 mg PO TID 30 Days Qty: 90 2RF latanoprost 0.005 % drops 1 drp ophthalmic (eye) BEDTIME polyethylene glycol 3350 [Miralax] 17 gram/dose powder 17 g PO DAILY PRN (Reason: constipation) Qty: 119 0RF ondansetron 4 mg tablet,disintegrating 4 mg PO Q8H PRN (Reason: nausea and vomiting) Qty: 10 0RF nitrofurantoin macrocrystal 50 mg capsule 50 mg PO DAILY Linzess 145 mcg capsule 145 mcg PO QAM Qty: 30 6RF dicyclomine 20 mg tablet 20 mg PO BID PRN (Reason: abdominal pain) Qty: 20 0RF Referrals: Glenis Hancock, ANP-C [Nurse Practitioner, Gastroenterology] Print Language: Faroese
[2025-10-08] MEDS: iohexoL 350 MG/ML 100 ML INFUS..BTL IV (21:33)
[2025-10-08 21:36] LABS: Magnesium 2.9 mg/dL (1.6-2.6)
[2025-10-08 22:00] VITALS: BP 147/73; PULSE 110; RESP 20; TEMP 36.6; O2SAT 95
[2025-10-08] MEDS: Sucralfate Oral Suspension 1 GM/10 ML ORAL.SUSP PO (23:28)
[2025-10-08 23:39] VITALS: BP 147/73; PULSE 110; RESP 20; TEMP 36.6; O2SAT 95
== END 2025-10-08 23:40 | disposition home or self-care (01) ==
PROVIDERS: Emergency Provider Emergency Medicine; PCP Nurse Practitioner Family
DX: K58.9 Irritable bowel syndrome, unspecified (principal); R10.9 Unspecified abdominal pain; R19.7 Diarrhea, unspecified; R06.02 Shortness of breath; I10 Essential (primary) hypertension; E11.9 Type 2 diabetes mellitus without complications
CPT/HCPCS: 36415; 74177; 80053; 81001; 83690; 83735; 85025; 87086; 99284; Q9967

== ENCOUNTER → 2025-10-08 21:14 | Outpatient (BNV) | payer MEDICARE, SELFPAY | PROVIDERS: Emergency Provider Emergency Medicine; PCP Nurse Practitioner Family; Visit Provider Specialist | DX: K31.89 Other diseases of stomach and duodenum (principal); K83.8 Other specified diseases of biliary tract | CPT/HCPCS: 74177 ==

== ENCOUNTER 2025-10-14 21:42 | Inpatient (IN) | payer MEDICARE, SELFPAY ==
--- NOTE | ~2025-10-14 | CT_ITS ---
CLINICAL HISTORY: Lower GI bleed CTA Abdomen and Pelvis W/WO Contrast 3D Postprocessing COMPARISON: CT/REG/SR - CT ABDOMEN PELVIS W IV CON - 10/08/25 21:31 EST FINDINGS: No abdominal aortic aneurysm or dissection. No hemodynamically significant stenosis in the renal arteries, celiac artery, SMA, or FRANCES. No hemodynamically significant stenosis in the bilateral common, internal, and external iliac arteries. Patchy left lower lobe infiltrate. Elevation of the left hemidiaphragm. Mildly nodular liver contours suggestive of hepatic cirrhosis. Normal spleen. Bilateral renal cysts. Left hydronephrosis with transition point at the ureteropelvic junction. Right extrarenal pelvis. Mild nonspecific hypertrophy of the bilateral adrenal glands. Normal pancreas. Status post cholecystectomy. Similar prominent common bile duct and mild intrahepatic biliary ductal dilation, probably due to post-cholecystectomy reservoir effect. No visible choledocholithiasis. No evidence of bowel obstruction. Status post gastric bypass. Thickening of the alexander of the stomach with adjacent fat stranding, decreased since the prior study. Colonic diverticulosis without evidence of acute diverticulitis. No visible intraluminal IV contrast extravasation in the GI tract at the time of the study. Normal appendix. Normal bladder. Unremarkable uterus. No ascites. No pneumoperitoneum. No lymphadenopathy. No acute fracture. Lumbar levoscoliosis. Degenerative changes in the spine. IMPRESSION: Gastric wall thickening with adjacent fat stranding decreased since the prior study, possibly due to gastritis. No evidence of active GI bleed at the time of the study. Mild left hydronephrosis, possibly due to partial left UPJ obstruction. Left lower lobe infiltrate. Nonemergent/incidental findings above. This document has been electronically signed by: Jamie Estes MD on 10/15/2025 03:05:29
[2025-10-14 21:46] VITALS: BP 124/66; PULSE 105; RESP 16; TEMP 36.8; O2SAT 98; BMI 32.6
[2025-10-14 22:10] LABS: MANUAL DIFF FLAG NO
[2025-10-14 22:11] LABS: Hematocrit 25.4 % (37.0-47.0); Hemoglobin 7.8 g/dl (12.0-16.0); Imm Gran Abs Auto 0.05 X10*3/uL (0.00-0.03); Imm Gran Pct Auto 0.4 % (0.0-0.4); Lymphocytes Absolute Auto 0.9 X10*3/uL (1.2-4.9); Mean Corpuscular HGB Conc 30.7 g/dl (31.0-35.0); Mean Corpuscular Hemoglobin 24.4 pg (27.0-33.0); Mean Corpuscular Volume 79.4 fL (80.0-98.0); NRBC Abs Auto 0.000 X10*3/uL (0.0-0.012); NRBC Pct Auto 0.0 /100WBC (0.0-0.2); Platelet Count 491 X10*3/uL (160-400); Red Blood Count 3.20 X10*6/uL (4.20-5.50); White Blood Count 11.7 X10*3/uL (4.8-10.8)
[2025-10-14 22:15] VITALS: BP 125/69; PULSE 90; RESP 16; TEMP 37; O2SAT 96
[2025-10-14 22:16] LABS: INTERNATIONAL NORM RATIO 1.2 (0.9-1.1); Prothrombin Time 14.2 SEC (11.2-13.5)
[2025-10-14 22:26] LABS: Alanine Aminotransferase < 6 U/L (0-31); Albumin Level 3.6 g/dL (3.5-5.0); Alkaline Phosphatase 88 U/L (39-117); Anion Gap 12 (12-20); Aspartate Amino Transferase 14 U/L (5-31); Blood Urea Nitrogen 21 mg/dL (9-16); Calcium 9.2 mg/dL (8.4-10.2); Carbon Dioxide 26 mmol/L (22-29); Chloride 104 mmol/L (96-108); Creatinine Clr Calc Pharmacy 54.2; Estimated Glomerular Filt Rate 54; Potassium 4.5 mmol/L (3.3-5.1); Sodium 137 mmol/L (135-145); Total Protein 6.8 g/dL (6.5-8.0)
--- NOTE | 2025-10-14 23:06 | PC.NURSE ---
this RN was covering for primary RN. went in to assess patient has HR in 100s on equipment monitor phototypesetting. pt denies CP, reports continued abd pain. last bloody BM [employer]. pt states she is tachycardic at baseline and has to take meds for this (metoprolol). attempt to put an IV, pt refused, states she has been here multiple times for this and does not understand why she needs an IV. educated possibly could need it for IV meds/blood/scans etc and patient/ both states she has had multiple scans and does not believe she needs one. primary RN Yaquelin made aware of pts refusal.
--- NOTE | 2025-10-14 23:12 | ED.GENADULT ---
[facility] - General Adult General Chief complaint: GI Bleed Stated complaint: General Medical Time Seen by Provider: 10/14/25 23:07 Source: patient Mode of arrival: ambulatory Limitations: no limitations History of Present Illness ED Provider: Dr. Perez [facility] narrative: This is a 70-year-old female presented hospital today for diffuse abdominal pain and rectal bleeding. Patient stated that she has been having bright red blood bowel movement twice. She has come plan of some weakness as well. Patient stated that she has been evaluated multiple time. However they are unable to figure out the reason why she is having her symptoms. Patient was recently seen here 6 days ago. The patient stated she had recent colonoscopy which was essentially negative by the GI team. Patient has had polyps removed back in May 2025. She had 4 polyps removed. She stated that she is nauseous as well. Related Data Home Medications ?Medication ?Instructions ?Recorded ?Confirmed latanoprost 0.005 % eye drops 1 drp ophthalmic (eye) BEDTIME 08/07/22 02/20/25 nitrofurantoin macrocrystal 50 mg 50 mg PO DAILY 09/22/25 capsule Previous Rx's ?Medication ?Instructions ?Recorded blood-glucose meter (Coding TechnologiesTouch #1 ea 04/04/21 Ultra2 Meter) lancets 30 gauge (OneTouch Delica #100 ea 07/13/21 Lancets) blood sugar diagnostic #100 ea 04/13/22 lancets 33 gauge (OneTouch Delica #100 ea 04/13/22 Plus Lancet) ammonium lactate 12 % topical cream 1 appl topical BID #385 grams 02/26/25 omeprazole 40 mg capsule,delayed 40 mg PO BID@0630,1630 #180 caps 07/06/25 release ondansetron 4 mg disintegrating 4 mg PO Q8H PRN nausea and 09/11/25 tablet vomiting #10 tabs polyethylene glycol 3350 17 17 g PO DAILY PRN constipation 09/11/25 gram/dose oral powder (Miralax) #119 grams Held on 09/22/25. Instructions: Doctor's Order dicyclomine 20 mg tablet 20 mg PO BID PRN abdominal pain 09/17/25 Held on 09/22/25. #20 tabs Instructions: Doctor's Order gabapentin 400 mg capsule 400 mg PO TID 30 days #90 caps 09/19/25 linaclotide 145 mcg capsule 145 mcg PO QAM #30 caps 09/22/25 (Linzess) dicyclomine 20 mg tablet 20 mg PO BID #60 tabs 10/08/25 sucralfate 1 gram tablet (Carafate) 1 g PO BID #60 tabs 10/08/25 metoprolol tartrate 50 mg tablet 50 mg PO BID #180 tabs 10/11/25 Allergies Allergy/AdvReac Type Severity Reaction Status Date / Time latex (LATEX) Allergy Severe RASH Verified 10/14/25 21:50 morphine (MORPHINE) Allergy Severe SEVERE Verified 10/14/25 21:50 SHAKING, N/V amoxicillin (From AUGMENTIN) Allergy Unknown SEVERE Verified 10/14/25 21:50 DIARRHEA ciprofloxacin (CIPROFLOXACIN) Allergy Unknown SEVERE Verified 10/14/25 21:50 DIARRHEA clavulanic acid (From Allergy Unknown SEVERE Verified 10/14/25 21:50 AUGMENTIN) DIARRHEA fenofibrate AdvReac Intermediate stomach Verified 10/14/25 21:50 pain/cramping baclofen AdvReac Unknown Unknown Verified 10/14/25 21:50 trazodone AdvReac Unknown Unknown Verified 10/14/25 21:50 Review of Systems Review of Systems: Pertinent review of systems as mentioned in HPI. All other system otherwise negative. [facility] Past Medical History [facility] Narrative: Medical history as mentioned in HPI Medical History Diarrhea Low iron Other and unspecified hyperlipidemia Diabetes DJD (degenerative joint disease) Chest discomfort Right ankle pain Precordial chest pain Right ankle pain Right ankle injury Encounter for annual wellness visit (AWV) in Medicare patient Bilateral nephrolithiasis Pain Right flank pain Low back pain Postmenopausal Dysuria Hematuria Microhematuria Urinary tract infection Genitourinary syndrome of menopause Abdominal pain Pre-op evaluation H/O nephrolithotomy with removal of calculi Aortic stenosis Diverticulitis Scoliosis Pulmonary fibrosis Recurrent UTI Hyperlipidemia Anxiety and depression Hypertension Surgical History Hx of left breast biopsy History of esophagogastroduodenoscopy (EGD) H/O colonoscopy Hx of cystoscopy H/O lithotripsy History of cholecystectomy History of Hx of breast reduction, elective S/P panniculectomy H/O gastric bypass Family History Family History Father Heart disease Mother Heart disease Pulmonary fibrosis Sister Heart disease Sister Pulmonary fibrosis Brother Pulmonary fibrosis Daughter Mental health disorder Substance use disorder Social History Social History Household Members: Spouse Housing: Apartment Are you a primary managed care specialist to a significant other at home: No Do you presently have visiting nurse or other home services: Yes ([employer]) Alcohol intake: never Patient Tobacco Use Status: Current everyday Tobacco user Tobacco use type: Cigarette Cigarette Packs Per Day: 1 Years Smoked: 45 e-Cigarette/Vaping Use: Never Used Second Hand Smoke Exposure: No Substance Use Type: Marijuana Advance Directives: Yes Advance Directives on File: Yes Advance Directives Date on File: 08/16/22 Do you have a plan to hurt others: No Plan service: No Current occupational status: disabled 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 Cognitive needs: No Hearing needs: No Vision needs: No Physical Exam ED Exam Exam: General: Appears nauseous and uncomfortable Head: Normacephalic, atraumatic ENT: oral mucosa moist, neck supple, no tracheal deviation Cardiovascular: regular rate, regular rhythm, no murmurs, rubbing, gallops Respiratory: CTAB, no wheeze, rales, rhonchi Gastrointestinal: Soft, diffuse abdominal tenderness on exam : Maroon colored stool on exam positive OBS Neurological: Awake and alert, no facial droop noted Skin: Warm and dry Psychiatric: Appropriate mood and thoughts Vital Signs: Vital Signs - 24 hr 10/14/25 21:46 10/14/25 22:15 10/15/25 00:58 Temperature 98.2 F 98.6 F 98.1 F Pulse Rate 105 H 90 105 H Respiratory Rate 16 16 16 Blood Pressure 124/66 125/69 131/63 Pulse Oximetry 98 96 95 Oxygen Delivery Method Room Air Room Air Room Air BMI result Body Mass Index 32.6 Medications Administered Discontinued Medications Generic Name Dose Route Start Last Admin Trade Name Freq PRN Reason Stop Dose Admin Diphenhydramine HCl 25 mg 10/15/25 01:33 10/15/25 01:39 Diphenhydramine Hcl 50 Mg/Ml Vial IVPUSH 10/15/25 01:34 25 mg ONCE ONE Administration Famotidine 20 mg 10/14/25 23:30 10/15/25 00:05 Famotidine/Pf 20 Mg/2 Ml Vial IVPUSH 10/14/25 23:31 20 mg ONCE ONE Administration Hydromorphone HCl 0.5 mg 10/14/25 23:30 10/15/25 00:05 Hydromorphone Hcl 0.5 Mg/0.5 Ml Syringe IVPUSH 10/14/25 23:31 0.5 mg ONCE ONE Administration Protocol Lactated Ringer's 1,000 mls @ 999 mls/hr 10/14/25 23:30 10/15/25 03:04 Lr IV 10/15/25 00:30 Infused .Q1H1M GUY Infusion Iohexol 80 ml 10/15/25 00:47 10/15/25 00:48 Iohexol 350 Mg/Ml 100 Ml Infus..Btl IV 10/15/25 00:48 80 ml ONCE ONE Administration Ondansetron HCl 4 mg 10/14/25 23:31 10/15/25 00:05 Ondansetron Hcl 4 Mg/2 Ml Vial IVPUSH 10/14/25 23:32 4 mg ONCE ONE Administration Pantoprazole Sodium 80 mg 10/15/25 01:59 10/15/25 03:08 Pantoprazole Sodium 40 Mg/10 Ml Vial IVPUSH 10/15/25 02:00 80 mg ONCE ONE Administration Medical Decision Making Medical Decision Making [facility] Narrative: 70-year-old female presented hospital today for evaluation of diffuse abdominal pain with a signs of GI bleed. Patient did have CT abdomen and pelvis performed 6 days ago which shows gastric wall thickening with inflammatory stranding signs of gastritis. Patient does have maroon-colored stool on rectal exam. I did not appreciate any signs of external or internal hemorrhoids. No signs of anal fissure. We will plan to give patient is IV Protonix to cover for GI bleed. Basic abdominal lab work will be obtained. Lab work significant for a slight leukocytosis of 11.7 likely reactive in nature. However noticeably the patient's hemoglobin did drop to 7.8. On review patient's hemoglobin back in 07/15/2025 was 11.8. Patient does have elevated RDW 16.6. The patient does appear to be heme concentrated on her CBC. In reality her hemoglobin level may be a bit lower than 7.8. Patient does have elevated BUN to creatinine ratio secondary to dehydration. We will obtain GI bleed study at this time. Anticipate admission for possible endoscopy for GI bleed. Patient will be signed out to oncoming provider pending CT imaging results. I did give patient some IV fluid IV Zofran and IV Dilaudid for her symptoms. On reassessment patient stated that her symptom has improved. I received sign-out from my colleague Dr. Perez CT scan shows gastric wall thickening, possible due to gastritis, no active GI bleed. Mild hydronephrosis due to partially BG obstruction, lower lobe infiltrate Patient was given antibiotics to cover for pneumonia. Patient is saturating 95-98% on room air, no oxygen desaturations, no active coughing or URI symptoms I discussed the patient with Dr. Holland, patient being admitted Differential Diagnosis Differential Diagnoses: The differential diagnosis associated with the presentation includes GI bleed, colitis, gastroenteritis, esophagitis, gastric cancer Admission/Observation Consideration of admission/observation: Escalation of care including admission/observation considered Consult Healthcare Provider Management of the patient was discussed with: Hospitalist Lab Data MDM Lab Attestation statement: I reviewed the patient's lab results. 10/14/25 22:03 10/14/25 22:03 Labs: Lab Results 10/14/25 10/14/25 Range/Units 22:03 23:39 WBC 11.7 H (4.8-10.8) X10*3/uL RBC 3.20 L (4.20-5.50) X10*6/uL Hgb 7.8 L (12.0-16.0) g/dl Hct 25.4 L (37.0-47.0) % MCV 79.4 L (80.0-98.0) fL MCH 24.4 L (27.0-33.0) pg MCHC 30.7 L (31.0-35.0) g/dl RDW 16.6 H (11.0-16.0) % Plt Count 491 H D (160-400) X10*3/uL MPV 8.5 L (9.4-12.3) fL Immature Gran % (Auto) 0.4 (0.0-0.4) % Neut % (Auto) 84.4 H (45-73) % Lymph % (Auto) 8.0 L (20-40) % Harlan % (Auto) 6.5 (2-11) % Eos % (Auto) 0.4 (0-4) % Baso % (Auto) 0.3 (0-2) % Lymph # (Auto) 0.9 L (1.2-4.9) X10*3/uL Harlan # (Auto) 0.8 (0.1-1.2) X10*3/uL Eos # (Auto) 0.1 (0.0-0.4) X10*3/uL Baso # (Auto) 0.0 (0.0-0.2) X10*3/uL Abs Immat Gran (auto) 0.05 H (0.00-0.03) X10*3/uL Absolute Neuts (auto) 9.9 H (2.0-8.3) x10*3/uL Absolute Nucleated RBC 0.000 (0.0-0.012) X10*3/uL Nucleated RBC % (auto) 0.0 (0.0-0.2) /100WBC PT 14.2 H (11.2-13.5) SEC INR 1.2 H (0.9-1.1) Sodium 137 (135-145) mmol/L Potassium 4.5 (3.3-5.1) mmol/L Chloride 104 (96-108) mmol/L Carbon Dioxide 26 (22-29) mmol/L Anion Gap 12 (12-20) BUN 21 H (9-16) mg/dL Creatinine 1.01 (0.5-1.4) mg/dL Estim Creat Clear Calc 54.2 Estimated GFR 54 Random Glucose 131 H (60-115) mg/dL Calcium 9.2 (8.4-10.2) mg/dL Total Bilirubin 0.3 (0.0-1.0) mg/dL AST 14 (5-31) U/L ALT < 6 (0-31) U/L Alkaline Phosphatase 88 (39-117) U/L Total Protein 6.8 (6.5-8.0) g/dL Albumin 3.6 (3.5-5.0) g/dL Stool Occult Blood POSITIVE (NEGATIVE) Blood Type O Positive Antibody Screen NEGATIVE Independent Interpretation I performed an independent interpretation of an: CT Scan Radiology Impression Discussion of test interpretation with radiology: I have reviewed the radiologist's reading. Radiologist Impression: No abdominal aortic aneurysm or dissection. No hemodynamically significant stenosis in the renal arteries, celiac artery, SMA, or FRANCES. No hemodynamically significant stenosis in the bilateral common, internal, and external iliac arteries. Patchy left lower lobe infiltrate. Elevation of the left hemidiaphragm. Mildly nodular liver contours suggestive of hepatic cirrhosis. Normal spleen. Bilateral renal cysts. Left hydronephrosis with transition point at the ureteropelvic junction. Right extrarenal pelvis. Mild nonspecific hypertrophy of the bilateral adrenal glands. Normal pancreas. Status post cholecystectomy. Similar prominent common bile duct and mild intrahepatic biliary ductal dilation, probably due to post-cholecystectomy reservoir effect. No visible choledocholithiasis. No evidence of bowel obstruction. Status post gastric bypass. Thickening of the alexander of the stomach with adjacent fat stranding, decreased since the prior study. Colonic diverticulosis without evidence of acute diverticulitis. No visible intraluminal IV contrast extravasation in the GI tract at the time of the study. Normal appendix. Normal bladder. Unremarkable uterus. No ascites. No pneumoperitoneum. No lymphadenopathy. No acute fracture. Lumbar levoscoliosis. Degenerative changes in the spine. IMPRESSION: Gastric wall thickening with adjacent fat stranding decreased since the prior study, possibly due to gastritis. No evidence of active GI bleed at the time of the study. Mild left hydronephrosis, possibly due to partial left UPJ obstruction. Left lower lobe infiltrate. Nonemergent/incidental findings above. Chronic Conditions Patient?s care impacted by: Diabetes Critical Care Time Critical Care Time Critical Care Time: Yes Total Critical Care Time: 40 Attestation: Time is exclusive of separately billable procedures. Time includes: direct patient care, patient reassessment, coordination of patient care, interpretation of data (laboratory data, pulse oximetry, arterial blood gases and chest xrays), review of patient's medical records, medical consultation and documentation of patient care. Procedures excluded from critical care time: central intravenous line placement and electrocardiography. Discharge Plan Discharge Clinical Impression: GI (gastrointestinal bleed), Anemia Patient Disposition: Admitted As Inpatient Print Language: Bulgarian
[2025-10-14 23:42] LABS: OBS Int Ctl Valid YES; OBS1 POSITIVE (NEGATIVE)
[2025-10-15] VITALS (13 sets, daily range): BP systolic 110–155; BP diastolic 53–75; PULSE 94–110; RESP 16–20; TEMP 36.2–37.2; O2SAT 85–98; BMI 32.2
[2025-10-15] MEDS: Lactated Ringers 1,000 ML 999 ML IV (00:05)
[2025-10-15] MEDS: iohexoL 350 MG/ML 100 ML INFUS..BTL 80 ML IV (00:48)
--- NOTE | 2025-10-15 01:36 | PC.NURSE ---
Pt reports itchiness all over body. Provider Dr. Perez made aware, new med order.
--- NOTE | 2025-10-15 03:42 | PM.IMHP ---
History of Present Illness Date of Service: 10/15/25 Attending physician on admission: Kerry Cm Chief Complaint: Rectal bleeding Mary Castillo is a 70 years old woman with past medical history significant for gastric bypass surgery, recent 05/24/[address] Mackay showing diverticulosis, colonic polyps x4 and internal hemorrhoids, constipation, essential hypertension and hyperlipidemia presents to the emergency department complaining of couple episodes of bright red blood per rectum as well as black stools that started yesterday in the afternoon. She had 2 episodes. She also complained of generalized crampy abdominal pain. She denied use of blood thinners, aspirin or NSAIDs. She does take Prilosec but not sure if she has a gastritis. She mentioned that she received iron infusions due to anemia secondary to hematuria. She has a history of recurrent UTIs. Other past medical history is remarkable for , cholecystectomy and remote EGD but she was not clear about the results. The patient denied any chest pain, shortness on breath, cough, nausea or vomiting. There is no fever or chills reported. In the ED, she was found to have stable vital signs. She has mild tachycardia. Blood workup was remarkable for leukocytosis of 11.7, hemoglobin 7.8, hematocrit 25.4, MCV 79.4 and platelets 491. There are no significant electrolyte imbalances. BUN is elevated at 21. Creatinine is 1.01. LFTs are normal. UA showed protein 1+, leukocyte esterase trace, blood negative, WBC 6-10 RBCs CO2 2. Bacteria 4+. Occult blood test is positive. Abdominal and pelvis CT showed gastric wall thickening with adjacent fat stranding decreasing since the prior study possible due to gastritis, no evidence of GI bleeding. There is mild left hydronephrosis facility due to partial left UPJ obstruction, left lower lobe infiltrates. ED tx: LR 1 L bolus, Dilaudid 0.5 mg IV, Pepcid 20 mg IV, Zofran 4 mg IV, Benadryl 25 mg IV, pantoprazole 80 mg IV, ceftriaxone 1 g IV Review of Systems Review of Systems: All 12 systems were reviewed and normal except as noted in HPI. [facility] Medical History (Updated 10/15/25 @ 04:05 by Kerry Cm MD) Abdominal pain Diarrhea Low iron Other and unspecified hyperlipidemia Diabetes DJD (degenerative joint disease) Chest discomfort Right ankle pain Precordial chest pain Right ankle pain Right ankle injury Encounter for annual wellness visit (AWV) in Medicare patient Bilateral nephrolithiasis Pain Right flank pain Low back pain Postmenopausal Dysuria Hematuria Microhematuria Urinary tract infection Genitourinary syndrome of menopause Pre-op evaluation H/O nephrolithotomy with removal of calculi Aortic stenosis Diverticulitis Scoliosis Pulmonary fibrosis Recurrent UTI Hyperlipidemia Anxiety and depression Hypertension Family History Father Heart disease Mother Heart disease Pulmonary fibrosis Sister Heart disease Sister Pulmonary fibrosis Brother Pulmonary fibrosis Daughter Mental health disorder Substance use disorder Surgical History Hx of left breast biopsy History of esophagogastroduodenoscopy (EGD) H/O colonoscopy Hx of cystoscopy H/O lithotripsy History of cholecystectomy History of Hx of breast reduction, elective S/P panniculectomy H/O gastric bypass Social History Household Members: Spouse Housing: Apartment Are you a primary customer care agent to a significant other at home: No Do you presently have visiting nurse or other home services: Yes ([employer]) Alcohol intake: never Patient Tobacco Use Status: Current everyday Tobacco user Tobacco use type: Cigarette Cigarette Packs Per Day: 1 Years Smoked: 45 Smoked in Last 30 Days: Yes e-Cigarette/Vaping Use: Never Used Second Hand Smoke Exposure: No Use of substances other than those prescribed or required for medical reasons: Yes Substance Use Type: Marijuana Advance Directives: Yes Advance Directives on File: Yes Advance Directives Date on File: 08/16/22 Do you have a plan to hurt others: No Plan service: No Current occupational status: disabled 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 Cognitive needs: No Hearing needs: No Vision needs: No Meds Allergies Allergy/AdvReac Type Severity Reaction Status Date / Time latex (LATEX) Allergy Severe RASH Verified 10/14/25 21:50 morphine (MORPHINE) Allergy Severe SEVERE Verified 10/14/25 21:50 SHAKING, N/V amoxicillin (From AUGMENTIN) Allergy Unknown SEVERE Verified 10/14/25 21:50 DIARRHEA ciprofloxacin (CIPROFLOXACIN) Allergy Unknown SEVERE Verified 10/14/25 21:50 DIARRHEA clavulanic acid (From Allergy Unknown SEVERE Verified 10/14/25 21:50 AUGMENTIN) DIARRHEA fenofibrate AdvReac Intermediate stomach Verified 10/14/25 21:50 pain/cramping baclofen AdvReac Unknown Unknown Verified 10/14/25 21:50 trazodone AdvReac Unknown Unknown Verified 10/14/25 21:50 Active Medications: Current Medications Azithromycin 500 mg/ Sodium (Chloride) 250 mls @ 125 mls/hr IV ONCE ONE Stop: 10/15/25 05:07 Pantoprazole Sodium (Pantoprazole Sodium 40 Mg/10 Ml Vial) 40 mg IVPUSH DAILY@0630 [facility] Sodium Chloride (0.9 % Sodium Chloride Flush 3 Ml Syringe) 3 ml IVFLUSH QSHIFT [facility] Home Medications ?Medication ?Instructions ?Recorded ?Confirmed ?Last Taken ?Type latanoprost 0.005 % eye drops 1 drp ophthalmic (eye) BEDTIME 08/07/22 02/20/25 Unknown History nitrofurantoin macrocrystal 50 mg 50 mg PO DAILY 09/22/25 Unknown History capsule Physical Exam Vital Signs and Narrative: Vital Signs: Last Vital Signs Temp 98.1 F 10/15/25 00:58 Pulse 105 H 10/15/25 00:58 Resp 16 10/15/25 00:58 BP 131/63 10/15/25 00:58 Pulse Ox 95 10/15/25 00:58 O2 Del Method Room Air 10/15/25 00:58 BMI result Body Mass Index 32.6 General: Alert, oriented, in no acute distress. Well nourished and cooperative. Afebrile. HEENT: Head normocephalic, atraumatic. PER, EOMI. Sclerae anicteric, conjunctiva clear. Oropharynx without erythema or exudate. Mucous membranes moist. Neck: Supple, no lymphadenopathy, or JVD. Heart: Tachycardic, positive murmur. Lungs: Clear to auscultation bilaterally. No wheezes, rales, or rhonchi. Normal respiratory effort. Abdomen: Soft, non tenderness, nondistended, encouraged bowel sounds. No hepatosplenomegaly, masses or masses. Extremities: No calf tenderness bilaterally, no swelling Musculoskeletal: Full range of motion. No joint swelling, deformity, or tenderness. Normal muscle tone and strength. Skin: Warm/Dry. Pale. No jaundice. Neurologic: Alert & oriented x4. Moving all extremities spontaneously. Normal speech. Psychological: Normal mood and affect. Thought process coherent. Results Labs 10/14/25 22:03 10/14/25 22:03 Labs: Laboratory Results - last 24 hr 10/14/25 10/14/25 22:03 23:39 MCV 79.4 L MCH 24.4 L MCHC 30.7 L RDW 16.6 H Plt Count 491 H D MPV 8.5 L Immature Gran % (Auto) 0.4 Neut % (Auto) 84.4 H Lymph % (Auto) 8.0 L [place] % (Auto) 6.5 Eos % (Auto) 0.4 Baso % (Auto) 0.3 Lymph # (Auto) 0.9 L [place] # (Auto) 0.8 Eos # (Auto) 0.1 Baso # (Auto) 0.0 Abs Immat Gran (auto) 0.05 H Absolute Neuts (auto) 9.9 H Absolute Nucleated RBC 0.000 Nucleated RBC % (auto) 0.0 PT 14.2 H INR 1.2 H Anion Gap 12 Estim Creat Clear Calc 54.2 Estimated GFR 54 Random Glucose 131 H Calcium 9.2 Total Bilirubin 0.3 AST 14 ALT < 6 Alkaline Phosphatase 88 Total Protein 6.8 Albumin 3.6 Stool Occult Blood POSITIVE Blood Type O Positive Antibody Screen NEGATIVE Assessment and Plan (1) GI (gastrointestinal bleed): Qualifiers: GI bleed type/associated pathology: diverticulosis Qualified Code(s): K57.91 - Diverticulosis of intestine, part unspecified, without perforation or abscess with bleeding Status: Acute (2) Abdominal pain: Qualifiers: Abdominal location: generalized Qualified Code(s): R10.84 - Generalized abdominal pain Status: Acute Plan Mary Castillo is a 70 y/o woman with a PMHx significant for gastric bypass surgery, recent (05/24/2025) colonoscopy by Dr. Mackay showing diverticulosis, colonic polyps x4 and internal hemorrhoids; and constipation who presents with: Black stools + bright rectal bleeding/GI bleeding associated with generalized abdominal pain; differential diagnoses: Diverticular bleeding, polyps, internal hemorrhoids, gastritis, PUD. NPO except meds. Continue to monitor H&H. Transfuse PRBCs to keep hemoglobin > 7. Protonix 40 mg IV b.i.d.. Anemia workup. GI consult. Essential hypertension. Continue metoprolol. Hyperlipidemia. Continue statin. Mood disorder. Continue home meds. Code status: Full DVT prophylaxis: SCDs only, active GI bleeding med rec pending Patient will need hospitalization for at least 2 midnights for GI bleeding treatment with IV anti-reflux medications, continuous monitoring of H&H and evaluation by Gastroenterology for possible procedure. This documentation was generated using dictation software; minor spreading or dynamic etching processor errors may be present. Quality Stroke Does the patient have a stroke diagnosis?: No VTE Prior VTE?: No VTE Risk Level:: Medical - moderate - high VTE Device Contraindication: N/A - Device Ordered VTE Drug Contraindication: Treatment Not Indicated
[2025-10-15 04:40] LABS: Mean Corpuscular HGB Conc 29.8 g/dl (31.0-35.0); Mean Corpuscular Hemoglobin 24.0 pg (27.0-33.0); Mean Corpuscular Volume 80.7 fL (80.0-98.0); NRBC Abs Auto 0.000 X10*3/uL (0.0-0.012); NRBC Pct Auto 0.0 /100WBC (0.0-0.2); Platelet Count 377 X10*3/uL (160-400); Red Blood Count 2.54 X10*6/uL (4.20-5.50); White Blood Count 8.5 X10*3/uL (4.8-10.8)
[2025-10-15 04:47] LABS: Hematocrit 20.5 % (37.0-47.0); Hemoglobin 6.1 g/dl (12.0-16.0)
[2025-10-15 04:55] LABS: Anion Gap 11 (12-20); Blood Urea Nitrogen 22 mg/dL (9-16); Calcium 8.1 mg/dL (8.4-10.2); Carbon Dioxide 24 mmol/L (22-29); Chloride 106 mmol/L (96-108); Creatinine Clr Calc Pharmacy 62.2; Estimated Glomerular Filt Rate > 60; Potassium 4.2 mmol/L (3.3-5.1); Sodium 137 mmol/L (135-145)
--- NOTE | 2025-10-15 04:58 | PC.NURSE ---
Per provider Marilyn Cm no BC needed prior to ABX admin.
--- NOTE | 2025-10-15 06:08 | PC.NURSE ---
first unit of blood running per TAR, Pt denies SOB, CP or dizziness, VSS. Plan of care on going.
--- NOTE | 2025-10-15 06:46 | HO.NURTONUR ---
Pt came in from home, reporting diffuse abdominal pain that started x months ago and reports 2 days of signs of GI bleed, BRB with every BM. Anticipate admission for possible endoscopy for GI bleed. CT scan shows gastric wall thickening, possible due to gastritis, no active GI bleed. Mild hydronephrosis due to partially BG obstruction, lower lobe infiltrates. Patient was given antibiotics to cover for pneumonia. Bilateral 20G IV to wrists. H&H drop, Pt to receive 2 units of PRBC. Pt A&Ox3, ambulates to bedside commode.
--- NOTE | 2025-10-15 10:44 | PHA.MEDREC ---
Pharmacy Consult ? Medication Reconciliation Pharmacy has completed the medication reconciliation. Spoke to patient to confirm medication list. Per patient, she takes gabapentin 400 mg q4h prn pain, dicyclomine 20 mg bid prn abdominal pain. She does not take latanoprost, linzess, nitrofurantoin, sertraline, rosuvastatin nor buspirone. Last dose of medication was yesterday 10/14/25.
--- NOTE | 2025-10-15 11:08 | PC.NURSE ---
Pt continues to become hypoxic when asleep. Wakes easily. Skin PWD. Now has 2L NC. States she's had a few weeks of increased diff breathing.
--- NOTE | 2025-10-15 11:12 | PC.NURSE ---
Has been moved to a hospital bed for increased comfort. Resting quietly.
--- NOTE | 2025-10-15 14:42 | PM.EVENT ---
Event Note Date of Service: 10/15/25 Event Note: Patient evaluated this morning. Reporting some generalized abdominal pain, some BRBPR. Urgency and frequency of BRBPR has significantly reduced since admission. Patient is currently being transfused 2 unit PRBCs for hemoglobin 6.1 mg/dL. Patient otherwise feels well, without new complaints. Denies chest pain, palpitations, dizziness, diaphoresis. Plan with Gastroenterology is to perform EGD and colonoscopy tomorrow Clear liquid diet currently NPO midnight GoLYTELY the evening We will continue to monitor closely Remainder of plan as per H and P above. Repeat CBC later this afternoon Time Spent With Patient Time: Total time managing care of this patient today 35 minutes.
[2025-10-15 14:47] LABS: MANUAL DIFF FLAG NO
[2025-10-15 14:49] LABS: Hematocrit 29.2 % (37.0-47.0); Hemoglobin 9.6 g/dl (12.0-16.0); Imm Gran Abs Auto 0.04 X10*3/uL (0.00-0.03); Imm Gran Pct Auto 0.4 % (0.0-0.4); Lymphocytes Absolute Auto 1.1 X10*3/uL (1.2-4.9); Mean Corpuscular HGB Conc 32.9 g/dl (31.0-35.0); Mean Corpuscular Hemoglobin 26.7 pg (27.0-33.0); Mean Corpuscular Volume 81.3 fL (80.0-98.0); NRBC Abs Auto 0.000 X10*3/uL (0.0-0.012); NRBC Pct Auto 0.0 /100WBC (0.0-0.2); Platelet Count 343 X10*3/uL (160-400); Red Blood Count 3.59 X10*6/uL (4.20-5.50); White Blood Count 9.3 X10*3/uL (4.8-10.8)
[2025-10-15] MEDS: 0.9 % Sodium Chloride Flush 3 ML SYRINGE IVFLUSH (17:22)
[2025-10-15] MEDS: PEG 3350/Na Sulf,Bicarb,Cl/KCL 4,000 ML SOLN.RECON 4000 ML PO (18:46)
[2025-10-16] VITALS (7 sets, daily range): BP systolic 106–159; BP diastolic 52–86; PULSE 94–102; RESP 15–19; TEMP 36.2–36.7; O2SAT 95–99; BMI 32.2
[2025-10-16] MEDS: 0.9 % Sodium Chloride Flush 3 ML SYRINGE IVFLUSH ×4 (00:25→22:35)
--- NOTE | 2025-10-16 07:04 | P.CNGI_ITS ---
History of Present Illness Data of Consult Service Date: 10/16/25 Primary Care Provider: Greg Kaba, [facility]- HPI Reason for consult: acute gi blood loss 70 years old woman with hx of gastric bypass surgery, diverticulosis, colonic polyps x4 and internal hemorrhoids, constipation, essential hypertension and hyperlipidemia she initially presented to the emergency department complaining of couple episodes of bright red blood per rectum as well as black stools which was associated with generalized crampy abdominal pain 10/10 which was temporarily relieved with mallox and worse with food. She denied taking blood thinners, aspirin or NSAIDs. Denied any chest pain, shortness on breath, cough, nausea or vomiting. There is no fever or chills. She has a history of iron infusions for anemia 2/2 hematuria. She had colonoscopy 05/24/2025 with diverticulosis and polyps noted. Today she feels pain has improved and less blood in stools LABS: WCC: 11.7, hemoglobin 7.8, hematocrit 25.4, MCV 79.4 and platelets 491. BUN is elevated at 21. Creatinine is 1.01. LFTs are normal. UA showed protein 1+, leukocyte esterase trace, blood negative, WBC 6-10 RBCs CO2 2. Bacteria 4+. Occult blood test is positive Repeat HGB: 6/.1 but improved to 9 g/dl with 2 units PRBC IMAGING: CT: gastric wall thickening with adjacent fat stranding decreasing since the prior study possible due to gastritis, no evidence of GI bleeding. There is mild left hydronephrosis facility due to partial left UPJ obstruction, left lower lobe infiltrates. Review of Systems 2 Review of Systems: Constitutional : No Weight loss, No Fever, No Chills ENT/Mouth : No sore throat, No Rhinorrhea Eyes: No Swelling, No Redness Cardiovascular : No Chest Pain, No SOB, No Edema Respiratory : No Cough, No Sputum, No Wheezing Gastrointestinal : see HPI Genitourinary : NO Dysuria, No Urinary Frequency, No Hematuria, No Urgency Musculoskeletal : no joint pain, No Myalgias, No Joint Swelling Skin : No Skin Lesions, No rash Neuro : No Weakness, No Numbness, No Dizziness, No Headache Psych : No Anxiety/Panic, No Depression Heme/Lymph: No Bruising, No Lymphadenopathy Endocrine : No Polyuria, No Polydipsia All other systems reviewed and are negative. [facility] Past Medical History Medical History (Updated 11/27/25 @ 04:05 by Kerry Cm MD) Abdominal pain Diarrhea Low iron Other and unspecified hyperlipidemia Diabetes DJD (degenerative joint disease) Chest discomfort Right ankle pain Precordial chest pain Right ankle pain Right ankle injury Encounter for annual wellness visit (AWV) in Medicare patient Bilateral nephrolithiasis Pain Right flank pain Low back pain Postmenopausal Dysuria Hematuria Microhematuria Urinary tract infection Genitourinary syndrome of menopause Pre-op evaluation H/O nephrolithotomy with removal of calculi Aortic stenosis Diverticulitis Scoliosis Pulmonary fibrosis Recurrent UTI Hyperlipidemia Anxiety and depression Hypertension Family History Family History Father Heart disease Mother Heart disease Pulmonary fibrosis Sister Heart disease Sister Pulmonary fibrosis Brother Pulmonary fibrosis Daughter Mental health disorder Substance use disorder Surgical History Surgical History Hx of left breast biopsy History of esophagogastroduodenoscopy (EGD) H/O colonoscopy Hx of cystoscopy H/O lithotripsy History of cholecystectomy History of Hx of breast reduction, elective S/P panniculectomy H/O gastric bypass Social History Social History Household Members: Spouse Housing: Apartment Are you a primary critical care unit nurse to a significant other at home: No Do you presently have visiting nurse or other home services: No Alcohol intake: never Patient Tobacco Use Status: Former Tobacco user Tobacco use type: Cigarette Cigarette Packs Per Day: 1 Years Smoked: 45 e-Cigarette/Vaping Use: Never Used Second Hand Smoke Exposure: No Substance Use Type: Marijuana Advance Directives Date on File: 08/16/22 service: No Current occupational status: disabled 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 Cognitive needs: No Hearing needs: No Vision needs: No Meds Allergies Allergy/AdvReac Type Severity Reaction Status Date / Time latex (LATEX) Allergy Severe RASH Verified 10/14/25 21:50 morphine (MORPHINE) Allergy Severe SEVERE Verified 10/14/25 21:50 SHAKING, N/V amoxicillin (From AUGMENTIN) Allergy Unknown SEVERE Verified 10/14/25 21:50 DIARRHEA ciprofloxacin (CIPROFLOXACIN) Allergy Unknown SEVERE Verified 10/14/25 21:50 DIARRHEA clavulanic acid (From Allergy Unknown SEVERE Verified 10/14/25 21:50 AUGMENTIN) DIARRHEA fenofibrate AdvReac Intermediate stomach Verified 10/14/25 21:50 pain/cramping baclofen AdvReac Unknown Unknown Verified 10/14/25 21:50 trazodone AdvReac Unknown Unknown Verified 10/14/25 21:50 Active Medications: Current Medications Gabapentin (Gabapentin 400 Mg Capsule) 400 mg PO Q4H PRN PRN Reason: Pain, Severe (Pain Scale 7-10) Last Admin: 10/16/25 00:38 Dose: 400 mg Pantoprazole Sodium (Pantoprazole Sodium 40 Mg/10 Ml Vial) 40 mg IVPUSH DAILY@0630 [facility] Last Admin: 10/16/25 05:35 Dose: 40 mg Sodium Chloride (0.9 % Sodium Chloride Flush 3 Ml Syringe) 3 ml IVFLUSH QSHIFT [facility] Last Admin: 10/16/25 00:25 Dose: 3 ml Home Medications ?Medication ?Instructions ?Recorded ?Confirmed ?Last Taken ?Type gabapentin 400 mg capsule 400 mg PO Q4H PRN Pain 10/1510/15/25 10/13/25 History Physical Exam 2 Exam: Exam: EXAM: GENERAL: The patient is well developed and nontoxic. VITAL SIGNS:see workflow HEENT: Nonicteric sclerae, PERRLA, EOMI. Oropharynx clear. Moist mucous membranes. Conjunctivae appear well perfused. No thyroid mass. CHEST: Chest wall is nontender. HEART: Regular rate and rhythm without murmurs. LUNGS: Clear to auscultation bilaterally. ABDOMEN: Soft, positive bowel sounds, nontender, no organomegaly.no flank tenderness SKIN: No rash, no excessive bruising, petechiae, or purpura. NEUROLOGIC: Cranial nerves II-XII intact without motor/sensory deficit. Psych: normal affect Vital Signs: Vital Signs: Last Vital Signs Temp 97.4 F 10/16/25 03:23 Pulse 102 H 10/16/25 03:23 Resp 18 10/16/25 03:23 BP 142/70 H 10/16/25 03:23 Pulse Ox 96 10/16/25 03:23 O2 Del Method Room Air 10/16/25 03:23 BMI result Body Mass Index 32.2 Results Labs 10/15/25 14:37 10/15/25 04:22 Labs: Short CBC 10/15/25 Range/Units 14:37 WBC 9.3 (4.8-10.8) X10*3/uL Hgb 9.6 L D (12.0-16.0) g/dl Hct 29.2 L D (37.0-47.0) % Plt Count 343 (160-400) X10*3/uL Imaging CT scan - abdomen: Attestation: I personally reviewed and interpreted this imaging study as follows: (atherosclerosis, spinal degeneration, old wedge fractures, thickened gastric pouch, no active extravasation of blood ) Assessment and Plan (1) GI (gastrointestinal bleed): Qualifiers: GI bleed type/associated pathology: diverticulosis Qualified Code(s): K 57.91 - Diverticulosis of intestine, part unspecified, without perforation or abscess with bleeding Status: Acute Plan 1/ Acute blood loss anemia, ddx: Lower GI bleed, e.g diverticular, or upper GI wth rapid transit, peptic ulcer PLAN: /1 EGD and colo today for further assessment 2/ cont with PPI Procedures Date of Service Date of Service: 10/16/25
--- NOTE | 2025-10-16 08:24 | HO.ANESPROP2 ---
HPI - Anesthesia Eval Consult details Narrative: 70 yo F presenting for EGD/colon PMFSH Active Problems Active Problems: All Active Problems Abdominal pain (Acute) Anemia (Acute) GI (gastrointestinal bleed) (Acute) Diarrhea (Acute) Pain, elbow (Acute) Tubular adenoma of colon (Acute) Constipation (Acute) Right radial head fracture (Acute) Anemia (Acute) Urinary urgency (Acute) Positive colorectal cancer screening using Cologuard test (Acute) [place]ham of foot (Acute) Scoliosis (Acute) Vertebrogenic low back pain (Acute) Lumbosacral spondylosis (Acute) Cervical spondylosis (Acute) Chronic back pain (Acute) Nephrolithiasis (Acute) Microalbuminuria (Acute) Chronic UTI (urinary tract infection) (Acute) Loss of hearing (Acute) Right hip pain (Acute) High triglycerides (Acute) Hypertensive renal disease (Acute) Non-rheumatic aortic stenosis (Acute) Type 2 diabetes mellitus without complications (Acute) Morbid obesity (Acute) Essential hypertension (Acute) Left bundle branch block (Acute) Iron deficiency anemia (Acute) Past Medical History Medical History (Updated 10/15/25 @ 04:05 by Kerry Cm MD) Abdominal pain Diarrhea Low iron Other and unspecified hyperlipidemia Diabetes DJD (degenerative joint disease) Chest discomfort Right ankle pain Precordial chest pain Right ankle pain Right ankle injury Encounter for annual wellness visit (AWV) in Medicare patient Bilateral nephrolithiasis Pain Right flank pain Low back pain Postmenopausal Dysuria Hematuria Microhematuria Urinary tract infection Genitourinary syndrome of menopause Pre-op evaluation H/O nephrolithotomy with removal of calculi Aortic stenosis Diverticulitis Scoliosis Pulmonary fibrosis Recurrent UTI Hyperlipidemia Anxiety and depression Hypertension Family History Family History Father Heart disease Mother Heart disease Pulmonary fibrosis Sister Heart disease Sister Pulmonary fibrosis Brother Pulmonary fibrosis Daughter Mental health disorder Substance use disorder Family history of problems with anesthesia: No Surgical History Surgical History Hx of left breast biopsy History of esophagogastroduodenoscopy (EGD) H/O colonoscopy Hx of cystoscopy H/O lithotripsy History of cholecystectomy History of Hx of breast reduction, elective S/P panniculectomy H/O gastric bypass History of Problems with Anesthesia: No Social History Social History Household Members: Spouse Housing: Apartment Are you a primary intensive care anaesthetist to a significant other at home: No Do you presently have visiting nurse or other home services: No Alcohol intake: never Patient Tobacco Use Status: Former Tobacco user Tobacco use type: Cigarette Cigarette Packs Per Day: 1 Years Smoked: 45 e-Cigarette/Vaping Use: Never Used Second Hand Smoke Exposure: No Substance Use Type: Marijuana Advance Directives Date on File: 08/16/22 service: No Current occupational status: disabled 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 Cognitive needs: No Hearing needs: No Vision needs: No Meds Allergies Allergy/AdvReac Type Severity Reaction Status Date / Time latex (LATEX) Allergy Severe RASH Verified 10/14/25 21:50 morphine (MORPHINE) Allergy Severe SEVERE Verified 10/14/25 21:50 SHAKING, N/V amoxicillin (From AUGMENTIN) Allergy Unknown SEVERE Verified 10/14/25 21:50 DIARRHEA ciprofloxacin (CIPROFLOXACIN) Allergy Unknown SEVERE Verified 10/14/25 21:50 DIARRHEA clavulanic acid (From Allergy Unknown SEVERE Verified 10/14/25 21:50 AUGMENTIN) DIARRHEA fenofibrate AdvReac Intermediate stomach Verified 10/14/25 21:50 pain/cramping baclofen AdvReac Unknown Unknown Verified 10/14/25 21:50 trazodone AdvReac Unknown Unknown Verified 10/14/25 21:50 Active Medications: Current Medications Gabapentin (Gabapentin 400 Mg Capsule) 400 mg PO Q4H PRN PRN Reason: Pain, Severe (Pain Scale 7-10) Last Admin: 10/16/25 00:38 Dose: 400 mg Pantoprazole Sodium (Pantoprazole Sodium 40 Mg/10 Ml Vial) 40 mg IVPUSH DAILY@0630 ON LICENSE OF [facility] Last Admin: 10/16/25 05:35 Dose: 40 mg Sodium Chloride (0.9 % Sodium Chloride Flush 3 Ml Syringe) 3 ml IVFLUSH [facility] Last Admin: 10/16/25 07:36 Dose: 3 ml Home Medications ?Medication ?Instructions ?Recorded ?Confirmed ?Last Taken ?Type gabapentin 400 mg capsule 400 mg PO Q4H PRN Pain 10/15/25 10/15/25 10/13/25 History Exam Exam Date and Time: 10/16/25 0825 Height,Weight and Vital Signs: Height 5 ft 4 in Weight 85 kg Last Vital Signs Temp 97.4 F 10/16/25 03:23 Pulse 102 H 10/16/25 03:23 Resp 18 10/16/25 03:23 BP 142/70 H 10/16/25 03:23 Pulse Ox 96 10/16/25 03:23 O2 Del Method Room Air 10/16/25 03:23 Pertinent Lab Results Pertinent Lab Results: Laboratory Tests 10/14/25 10/14/25 10/15/25 22:03 23:39 04:22 WBC 11.7 H 8.5 RBC 3.20 L 2.54 L D Hgb 7.8 L 6.1 L* D Hct 25.4 L 20.5 L* MCV 79.4 L 80.7 MCH 24.4 L 24.0 L MCHC 30.7 L 29.8 L RDW 16.6 H 16.8 H Plt Count 491 H D 377 MPV 8.5 L 8.7 L Immature Gran % (Auto) 0.4 Neut % (Auto) 84.4 H Lymph % (Auto) 8.0 L [place] % (Auto) 6.5 Eos % (Auto) 0.4 Baso % (Auto) 0.3 Lymph # (Auto) 0.9 L [place] # (Auto) 0.8 Eos # (Auto) 0.1 Baso # (Auto) 0.0 Abs Immat Gran (auto) 0.05 H Absolute Neuts (auto) 9.9 H Absolute Nucleated RBC 0.000 0.000 Nucleated RBC % (auto) 0.0 0.0 PT 14.2 H INR 1.2 H Sodium 137 137 Potassium 4.5 4.2 Chloride 104 106 Carbon Dioxide 26 24 Anion Gap 12 11 L BUN 21 H 22 H Creatinine 1.01 0.88 Estim Creat Clear Calc 54.2 62.2 Estimated GFR 54 > 60 Random Glucose 131 H 93 Calcium 9.2 8.1 L D Total Bilirubin 0.3 AST 14 ALT < 6 Alkaline Phosphatase 88 Total Protein 6.8 Albumin 3.6 Stool Occult Blood POSITIVE Blood Type O Positive Antibody Screen NEGATIVE Crossmatch See Detail 10/15/25 14:37 WBC 9.3 RBC 3.59 L D Hgb 9.6 L D Hct 29.2 L D MCV 81.3 MCH 26.7 L MCHC 32.9 RDW 15.9 Plt Count 343 MPV 8.5 L Immature Gran % (Auto) 0.4 Neut % (Auto) 81.2 H Lymph % (Auto) 11.4 L [place] % (Auto) 6.4 Eos % (Auto) 0.4 Baso % (Auto) 0.2 Lymph # (Auto) 1.1 L [place] # (Auto) 0.6 Eos # (Auto) 0.0 Baso # (Auto) 0.0 Abs Immat Gran (auto) 0.04 H Absolute Neuts (auto) 7.6 Absolute Nucleated RBC 0.000 Nucleated RBC % (auto) 0.0 PT INR Sodium Potassium Chloride Carbon Dioxide Anion Gap BUN Creatinine Estim Creat Clear Calc Estimated GFR Random Glucose Calcium Total Bilirubin AST ALT Alkaline Phosphatase Total Protein Albumin Stool Occult Blood Blood Type Antibody Screen Crossmatch Airway Mallampati Class: I TM Dist: >3cm Neck ROM: Full Loose/Missing/Broken Teeth: Yes (edentulous) Heart: S1S2 Lungs: Faint expiratory wheezing Assessment and Plan Assessment Anesthesia Assessment: Anesthesia Plan Discussed and Chart Reviewed Final Anesthetic Review Family History of Problems with Anesthesia: No History of Problems with Anesthesia: No NPO: Yes ASA Class: III and Emergency Final Preanesthetic Review: No Changes in Pt Med Stat, Meds/Allgs Chart Reviewed, Consent Obtained/Reviewed and Anes Risks/Benef Reviewed Patient Risk: Intermediate Procedure Risk: Low Anesthetic Plan Anesthetic Plan: MAC: and Agree w/ Assess. and Plan Disposition: Standard PACU
--- NOTE | 2025-10-16 09:09 | HO.OPN-COLON ---
Colonoscopy Operative Note Operative Note Date of Service: 10/16/25 Narrative: Operative Information Procedure Description: EGD, Colonoscopy Indication: Acute blood loss anemia Anesthesia: MAC FLEXIBLE TRANSORAL UPPER GASTROINTESTINAL ENDOSCOPY AND COLONOSCOPY PROCEDURE NOTE UPPER ENDOSCOPY Consent: Indications for the procedure and potential complications of bleeding, perforation, reaction to medications and missed diagnosis were discussed with the patient and informed consent was obtained. Instrument: Olympus GIF H 190 J mid size upper endoscope Monitoring: Vital signs and clinical assessment, continuous EKG monitoring, Pulse oximetry, Carbon Dioxide monitoring and blood pressure monitoring were done throughout the procedure. Procedure: The patient was placed in the left lateral decubitis position and pre-procedure medications were administered and a bite block was placed. The endoscope was inserted into the mouth and advanced under direct vision to the jejunum. A careful inspection was made as the upper endoscope was withdrawn including a retroflexed examination of the proximal stomach; Findings and interventions are described below. hx of gastric bypass Findings: Larynx:normal Esophagus: GE junction at 34 cm, diaphragm hiatus at 34 cm, normal mucosa Stomach pouch: slough and edema, friable tissue noted around the anastomosis. A visibe vessel was noted consistent with suhail grade IIb ulcer. A single OVESCO clip was placed with good results. A few retained jazmin were noted. Jejunum: Normal Intervention: OVESCO clip for hemostasis COLONOSCOPY Instrument: Olympus variable stiffness pediatric scope 190L Colonoscopy Monitoring: Vital signs and clinical assessment, continuous EKG monitoring, Pulse oximetry, Carbon Dioxide monitoring and blood pressure monitoring were done throughout the procedure. Colon withdrawal time was 11 minutes. Procedure: The patient was placed in the left lateral decubitis position and pre-procedure medications were administered. After a digital rectal examination of the ano-rectum, the video colonoscope was inserted into the rectum and advanced through the colon to the cecum/TI. The colonoscope was slowly withdrawn in a retrograde panoramic fashion and the colon mucosa was carefully examined including a retroflexed view of the rectum. Findings and interventions are described below. Procedure Difficulty:moderate Findings: Terminal Ileum-normal-- no blood seen Cecum:normal Ascending Colon: 10 mm sessile polyp, raised with eleview and removed with cold snare Transverse Colon -normal Descending Colon:normal Sigmoid Colon: modeate diverticulosis Rectum: Retroflexion with small internal hemorrhoids, grade I Anorectum - normal Colon preparation: [place] Bowel Preparation Scale Right colon; 2- Transverse colon: 2- Left colon; 1-2 (0 = Unprepared colon segment with mucosa not seen due to solid stool that cannot be cleared. 1 = Portion of mucosa of the colon segment seen, but other areas of the colon segment not well seen due to staining, residual stool and/or opaque liquid. 2 = Minor amount of residual staining, small fragments of stool and/or opaque liquid, but mucosa of colon segment seen well. 3 = Entire mucosa of colon segment seen well with no residual staining, small fragments of stool or opaque liquid) Impression and Post Procedure Diagnosis: Endoscopy Findings: anastomotic ulcer Colonoscopy Findings: diverticulosis colon polyp internal hemorrhoids Plan: Await Pathology results Repeat Colonoscopy in 6-12 months due to prep and polyp, can repeat EGD around same time for removal of jazmin and check for h pylori, or earlier if clinically indicated High fiber diet leaflet avoid straining at stool, epsom salts and sitz bath, anusol supps or cream High dose PPI, use omeprazole capsule 40 mg, open and mix with apple sauce, BID with 1 g carafate for 1 week avoid nsaids except baby aspirin if needed Above findings were reviewed with the patient and relevant handouts were provided if indicated.
--- NOTE | 2025-10-16 10:21 | MHC.CM.PN ---
pt lives with is inde[pedent has own ride home is not expected to need services dc plan home n/s
--- NOTE | 2025-10-16 12:16 | P.PNIM_ITS ---
Subjective Subjective Date of Service: 10/16/25 Interval History: Completed EGD and colonoscopy today. Ulceration observed on EGD. Recommendations to continue omeprazole b.i.d. and sucralfate Diet advanced Physical Exam 2 Exam: Exam: General: A&O x3, oriented to time place person and situation, comfortable, no pain Cardiac: S1, S2 auscultated with no S3/4, no MRG. Well perfused. Respiratory: Normal breath sounds auscultated throughout all lung zones, without wheezing, rales. Normal rate. GI/ : No abdominal pain on palpation, no masses or distentions. MSK: Normal ambulation without pain at bony prominences or musculature Neurological: Normal neurological examination on overview, without obvious CN II-XII abnormalities. Vital Signs: Vital Signs: Last Vital Signs Temp 97.4 F 10/16/25 12:00 Pulse 102 H 10/16/25 12:00 Resp 18 10/16/25 12:00 BP 152/78 H 10/16/25 12:00 Pulse Ox 99 10/16/25 09:33 O2 Del Method Room Air 10/16/25 09:33 BMI result Body Mass Index 32.2 Objective Data Active Medications Gabapentin (Gabapentin 400 Mg Capsule) 400 mg PO Q4H PRN PRN Reason: Pain, Severe (Pain Scale 7-10) Last Admin: 10/16/25 11:15 Dose: 400 mg Documented By: FLY Pantoprazole Sodium (Pantoprazole Sodium 40 Mg/10 Ml Vial) 40 mg IVPUSH DAILY@0630 [facility] Last Admin: 10/16/25 05:35 Dose: 40 mg Documented By: ANTOIC Sodium Chloride (0.9 % Sodium Chloride Flush 3 Ml Syringe) 3 ml IVFLUSH QSHIFT [facility] Last Admin: 10/16/25 07:36 Dose: 3 ml Documented By: FLY Labs 10/15/25 14:37 10/15/25 04:22 Labs: Laboratory Results - last 24 hr 10/14/25 10/15/25 22:03 14:37 MCV 81.3 MCH 26.7 L MCHC 32.9 RDW 15.9 Plt Count 343 MPV 8.5 L Immature Gran % (Auto) 0.4 Neut % (Auto) 81.2 H Lymph % (Auto) 11.4 L [place] % (Auto) 6.4 Eos % (Auto) 0.4 Baso % (Auto) 0.2 Lymph # (Auto) 1.1 L [place] # (Auto) 0.6 Eos # (Auto) 0.0 Baso # (Auto) 0.0 Abs Immat Gran (auto) 0.04 H Absolute Neuts (auto) 7.6 Absolute Nucleated RBC 0.000 Nucleated RBC % (auto) 0.0 Crossmatch See Detail Assessment and Plan (1) Essential hypertension: Status: Acute (2) Left bundle branch block: Status: Acute (3) Non-rheumatic aortic stenosis: Status: Acute (4) Type 2 diabetes mellitus without complications: Status: Acute (5) Morbid obesity: Status: Acute (6) Abdominal pain: Status: Acute (7) Nephrolithiasis: Status: Acute (8) Hypertensive renal disease: Status: Acute (9) Anemia: Status: Acute (10) UGIB (upper gastrointestinal bleed): Status: Acute Plan 70-year-old female, with a background history of gastric bypass surgery, HTN, HLD, T2 DM, non rheumatic aortic stenosis, presents to hospital with BRBPR, admitted with upper GI bleed with symptomatic anemia. Upper GI bleed History of gastric bypass Symptomatic anemia s/p 2 unit PRBC Presented with abdominal pain, suffering with rapid onset BRBPR and melena that started 1 day prior to afternoon. No use of NSAIDs or ETOH No hematemesis Hemoglobin 7.8 mg/dL on admission, transfused 2 unit PRBC with good effect when hemoglobin 6.8 mg/dL Seen by gastroenterology S/p EGD/colonoscopy 10/16/2025 revealing large gastric ulcer s/p clip PLAN - pantoprazole b.i.d. IV --> transitioned to capsule ppi b.i.d. - sucralfate once a day - monitor for recurrent bleeding - clear liquid diet postop, transitioned to regular diet - no NSAIDs T2 DM Insulin sliding scale POC glucose t.i.d. and nocte HTN Continue metoprolol HLD Continue statin MDD Continue home meds [employer] - VTE: SCDs - CODE STATUS: Full code - DIET: Regular - DISPOSITION: Plan discharge tomorrow Total time managing care of this patient today: 35 minutes. Quality Stroke Does the patient have a stroke diagnosis?: No VTE Prior VTE?: No VTE Risk Level:: Medical - moderate - high VTE Device Contraindication: N/A - Device Ordered VTE Drug Contraindication: Treatment Not Indicated
--- NOTE | 2025-10-16 15:34 | MHC.CLN ---
DIET RX: REGULAR. SIGNIFICANT WEIGHT LOSS X 6 MONTHS -10.9%. REPORTS WEIGHT LOSS DUE TO GI SYMPTOMS. ADM WITH GI BLEED. HX DIVERTICULOSIS AND GASTRIC SURGERY (2007). BMI=32.2, OBESE. FOLLOW FOR PO INTAKE. SEE CLINICAL NUTRITION ASSESSMENT.
[2025-10-17 03:15] VITALS: BP 128/62; PULSE 90; RESP 20; TEMP 36.7; O2SAT 98
[2025-10-17 07:05] VITALS: BP 158/84; PULSE 100; RESP 16; TEMP 36; O2SAT 97
[2025-10-17 08:19] LABS: Hematocrit 32.5 % (37.0-47.0); Hemoglobin 10.0 g/dl (12.0-16.0); Mean Corpuscular HGB Conc 30.8 g/dl (31.0-35.0); Mean Corpuscular Hemoglobin 25.8 pg (27.0-33.0); Mean Corpuscular Volume 84.0 fL (80.0-98.0); NRBC Abs Auto 0.000 X10*3/uL (0.0-0.012); NRBC Pct Auto 0.0 /100WBC (0.0-0.2); Platelet Count 366 X10*3/uL (160-400); Red Blood Count 3.87 X10*6/uL (4.20-5.50); White Blood Count 4.7 X10*3/uL (4.8-10.8)
[2025-10-17] MEDS: 0.9 % Sodium Chloride Flush 3 ML SYRINGE IVFLUSH (08:22)
[2025-10-17 08:32] LABS: Anion Gap 15 (12-20); Blood Urea Nitrogen 11 mg/dL (9-16); Calcium 8.9 mg/dL (8.4-10.2); Carbon Dioxide 21 mmol/L (22-29); Chloride 113 mmol/L (96-108); Creatinine Clr Calc Pharmacy 59.8; Estimated Glomerular Filt Rate > 60; Potassium 4.5 mmol/L (3.3-5.1); Sodium 144 mmol/L (135-145)
--- NOTE | 2025-10-17 10:06 | PM.DS ---
DS: Providers Provider Date of Service: 10/17/25 Date of admission: 10/15/25 03:22 Date of discharge: 10/17/25 Primary care physician: Greg Kaba [facility]- Consults: 10/15/25 03:41 Consult to Gastroenterology Routine Consulting Provider: Chase Mackay Reason for consultation: Rectal bleeding Has provider been notified: No DS: Diagnosis Discharge Diagnosis (1) Essential hypertension: Status: Acute (2) Left bundle branch block: Status: Acute (3) Non-rheumatic aortic stenosis: Status: Acute (4) Type 2 diabetes mellitus without complications: Status: Acute (5) Morbid obesity: Status: Acute (6) Abdominal pain: Status: Acute (7) Nephrolithiasis: Status: Acute (8) Hypertensive renal disease: Status: Acute (9) Anemia: Status: Acute (10) UGIB (upper gastrointestinal bleed): Status: Acute DS: Summary Hospital Course Hospital Course: 70-year-old female, with a background history of gastric bypass surgery, HTN, HLD, T2 DM, non rheumatic aortic stenosis, presents to hospital with BRBPR, admitted with upper GI bleed with symptomatic anemia. PRESENTATION Mary Castillo is a 70 years old woman with past medical history significant for gastric bypass surgery, recent 05/24/[address] Mackay showing diverticulosis, colonic polyps x4 and internal hemorrhoids, constipation, essential hypertension and hyperlipidemia presents to the emergency department complaining of couple episodes of bright red blood per rectum as well as black stools that started yesterday in the afternoon. She had 2 episodes. She also complained of generalized crampy abdominal pain. She denied use of blood thinners, aspirin or NSAIDs. She does take Prilosec but not sure if she has a gastritis. She mentioned that she received iron infusions due to anemia secondary to hematuria. She has a history of recurrent UTIs. Other past medical history is remarkable for , cholecystectomy and remote EGD but she was not clear about the results. The patient denied any chest pain, shortness on breath, cough, nausea or vomiting. There is no fever or chills reported. In the ED, she was found to have stable vital signs. She has mild tachycardia. Blood workup was remarkable for leukocytosis of 11.7, hemoglobin 7.8, hematocrit 25.4, MCV 79.4 and platelets 491. There are no significant electrolyte imbalances. BUN is elevated at 21. Creatinine is 1.01. LFTs are normal. UA showed protein 1+, leukocyte esterase trace, blood negative, WBC 6-10 RBCs CO2 2. Bacteria 4+. Occult blood test is positive. Abdominal and pelvis CT showed gastric wall thickening with adjacent fat stranding decreasing since the prior study possible due to gastritis, no evidence of GI bleeding. There is mild left hydronephrosis facility due to partial left UPJ obstruction, left lower lobe infiltrates. ED tx: LR 1 L bolus, Dilaudid 0.5 mg IV, Pepcid 20 mg IV, Zofran 4 mg IV, Benadryl 25 mg IV, pantoprazole 80 mg IV, ceftriaxone 1 g IV PROBLEM LIST Upper GI bleed History of gastric bypass Symptomatic anemia s/p 2 unit PRBC Presented with abdominal pain, suffering with rapid onset BRBPR and melena that started 1 day prior to afternoon. No use of NSAIDs or ETOH No hematemesis Hemoglobin 7.8 mg/dL on admission, transfused 2 unit PRBC with good effect when hemoglobin 6.8 mg/dL Seen by gastroenterology S/p EGD/colonoscopy 10/16/2025 revealing large gastric ulcer s/p clip PLAN - capsule ppi b.i.d. for 14 days - Capsule PPI OD for 30 days - sucralfate once a day at midday - FU outpatient GI - monitor for recurrent bleeding - No NSAIDs - No Alcohol Status at Discharge Cognitive/behavioral status at discharge: A&O x4 Functional status at discharge: independent ambulation Overall status at discharge: patient is back to baseline Time Attestation Total time managing care of this patient today: 45 mintues. Discharge Coordination Time (in mins): 35 Quality: Safe Use of Opioids Does Pt have an Active Cancer Diagnosis on the Problem List?: No Quality: Stroke Does the patient have a stroke diagnosis?: No Physical Exam Exam: Exam: General: A&O x3, oriented to time place person and situation, comfortable, no pain Cardiac: S1, S2 auscultated with no S3/4, no MRG. Well perfused. Respiratory: Normal breath sounds auscultated throughout all lung zones, without wheezing, rales. Normal rate. GI/ : No abdominal pain on palpation, no masses or distentions. MSK: Normal ambulation without pain at bony prominences or musculature Neurological: Normal neurological examination on overview, without obvious CN II-XII abnormalities. Vital Signs: Vital Signs: Last Vital Signs Temp 96.8 F 10/17/25 07:05 Pulse 100 10/17/25 07:05 Resp 16 10/17/25 07:05 BP 158/84 H 10/17/25 07:05 Pulse Ox 97 10/17/25 07:05 O2 Del Method Room Air 10/17/25 07:05 BMI result Body Mass Index 32.2 DS: Data Data Completed and Pending Completed studies during hospitalization [Text1]: Procedures Dilation of Left Ureter with Intraluminal Device, Via Natural or Artificial Opening Endoscopic (08/20/23) Fluoroscopy of Left Kidney, Ureter and Bladder (08/20/23) Fragmentation in Left Ureter, Via Natural or Artificial Opening Endoscopic (08/20/23) Pending studies at discharge: Pending at discharge 10/16/25 09:02 Surgical [PTH] Routine Labs on day of discharge: Laboratory Results - last 24 hr 10/17/25 07:43 WBC 4.7 L RBC 3.87 L Hgb 10.0 L Hct 32.5 L MCV 84.0 MCH 25.8 L MCHC 30.8 L RDW 16.8 H Plt Count 366 MPV 9.0 L Absolute Nucleated RBC 0.000 Nucleated RBC % (auto) 0.0 Sodium 144 Potassium 4.5 Chloride 113 H Carbon Dioxide 21 L Anion Gap 15 BUN 11 Creatinine 0.91 Estim Creat Clear Calc 59.8 Estimated GFR > 60 Random Glucose 85 Calcium 8.9 D Discharge Plan Discharge Anticipated Discharge Date/Time: 10/17/25 10:09 Patient Disposition: Home, Self-Care Discharge Diagnosis: Acute upper GI bleed Referrals: Greg Kaba, [facility] [Primary Care Provider, Internal Medicine] - 1 Week Discharge Medications: New sucralfate 1 gram Tablet 1 g PO DAILY 30 Days Qty: 30 0RF Continued (DME) blood-glucose meter [[employer] Ultra2 Meter] Misc See Rx Instructions .ROUTE .MEDSUPPLY Qty: 1 0RF Rx Instructions: Use to check fasting blood sugar once daily or if needed for signs/symptoms of hypo/hyperglycemia (DME) lancets [OneTouch Delica Lancets] 30 gauge misc See Rx Instructions .ROUTE .MEDSUPPLY Qty: 100 0RF Rx Instructions: Use to check fasting blood sugar once daily or if needed for signs/symptoms of hypo/hyperglycemia (DME) lancets [OneTouch Delica Plus Lancet] 33 gauge misc See Rx Instructions topical DAILY Qty: 100 1RF Rx Instructions: daily (DME) blood sugar diagnostic Strip See Rx Instructions .ROUTE .MEDSUPPLY Qty: 100 0RF Rx Instructions: Use to check fasting blood sugar once daily or if needed for signs/symptoms of hypo/hyperglycemia metoprolol tartrate 50 mg tablet 50 mg PO BID Qty: 180 1RF gabapentin 400 mg capsule 400 mg PO Q4H PRN (Reason: Pain) dicyclomine 20 mg tablet 20 mg PO BID PRN (Reason: abdominal pain) Qty: 20 0RF omeprazole 40 mg capsule,delayed release(DR/EC) 40 mg PO BID@0630,1630 30 Days Qty: 60 0RF Rx Instructions: TWICE A DAY FOR 14 DAYS, then ONCE A DAY Discharge Orders: Discharge Order (Routine); Ordered 10/17/25 Ordered By: Donna Brandt Diet: Advance to usual diet Activity on Discharge: As tolerated Stand Alone Forms: Patient Portal Discharge page Print Language: Armenian Care Plan Goals: As above Health Concerns: As above Plan of Treatment: Continue omeprazole 40 mg capsule twice a day for 14 days Continue taking omeprazole once a day for remainder of prescription Follow up with GI in outpatient setting before omeprazole dose runs out Continue taking sucralfate once a day Follow up with PCP within 1 week of discharge Do not take NSAIDs: Example Advil, ibuprofen, baclofen, diclofenac, Voltaren, ketorolac...etc Assessment: Hemodynamically stable for discharge, hemoglobin returning at 10.0 on day of discharge, no recurrent bleeding
--- NOTE | 2025-10-17 10:21 | MHC.CM.PN ---
Patient has been medically cleared for dc to home today, self care.
--- NOTE | 2025-10-18 08:56 | HO.POSTANES ---
Post Anesthesia Evaluation Post Anesthesia Evaluation Date of Service: 10/18/25 Anesthesia: Monitored Mental Status: Awake Pain Control: Satisfactory Nausea/Vomiting: None Hydration: Adequate Anesthesia-Related Issues: No Anes. Related Issues
== END 2025-10-17 12:14 | disposition home or self-care (01) | DRG 378 ==
LOC: HO.ED 10-15 03:20 → HO.EDOVER 10-15 03:29 → HO.IMC 10-15 12:19
PROVIDERS: Internal Medicine Gastroenterology; Student in an Organized Health Care Education/Training Program; Admitting Provider Internal Medicine; Emergency Provider Emergency Medicine; PCP Nurse Practitioner Family; Visit Provider Hospitalist
PROC: 0W3P8ZZ Control Bleeding in Gastrointestinal Tract, Via Natural or Artificial Opening Endoscopic (ICD-10-PCS; principal; 2025-10-16 08:00)
DX: K57.33 Diverticulitis of large intestine without perforation or abscess with bleeding (principal); D62 Acute posthemorrhagic anemia; K63.5 Polyp of colon; K64.0 First degree hemorrhoids; K28.4 Chronic or unspecified gastrojejunal ulcer with hemorrhage; E11.9 Type 2 diabetes mellitus without complications; F17.210 Nicotine dependence, cigarettes, uncomplicated; F32.9 Major depressive disorder, single episode, unspecified; I10 Essential (primary) hypertension; E78.5 Hyperlipidemia, unspecified; Z71.6 Tobacco abuse counseling; Z98.84 Bariatric surgery status; Z79.899 Other long term (current) drug therapy
CPT/HCPCS: 36415; 74178; 80048; 80053; 82272; 85025; 85027; 85610; 86850; 86900; 86901; 86923; 88305; 99285; C1889; J0456; J0696; J1171; J1200; J1308; J2003; J2371; J2405; J2470; J2704; J7120; P9016; Q9967

== ENCOUNTER → 2025-10-15 03:22 | Outpatient (BNV) | payer MEDICARE, SELFPAY | PROVIDERS: Admitting Provider Internal Medicine; Emergency Provider Emergency Medicine; PCP Nurse Practitioner Family; Visit Provider Internal Medicine | DX: K57.91 Diverticulosis of intestine, part unspecified, without perforation or abscess with bleeding (principal); R10.84 Generalized abdominal pain; Z98.84 Bariatric surgery status | CPT/HCPCS: 99222; 99499 ==

== ENCOUNTER → 2025-10-15 03:22 | Outpatient (BNV) | payer MEDICARE, SELFPAY | PROVIDERS: Admitting Provider Internal Medicine; Emergency Provider Emergency Medicine; PCP Nurse Practitioner Family; Visit Provider Internal Medicine Gastroenterology | DX: K57.91 Diverticulosis of intestine, part unspecified, without perforation or abscess with bleeding (principal); K63.5 Polyp of colon; K64.0 First degree hemorrhoids; D62 Acute posthemorrhagic anemia; K28.9 Gastrojejunal ulcer, unspecified as acute or chronic, without hemorrhage or perforation; Z98.84 Bariatric surgery status | CPT/HCPCS: 43255; 45385; 99223 ==

== ENCOUNTER → 2025-10-15 | Outpatient (BNV) | payer MEDICARE, SELFPAY | PROVIDERS: Admitting Provider Internal Medicine; Emergency Provider Emergency Medicine; PCP Nurse Practitioner Family; Visit Provider Radiology Diagnostic Radiology | DX: N13.30 Unspecified hydronephrosis (principal); K31.89 Other diseases of stomach and duodenum | CPT/HCPCS: 74178 ==

== ENCOUNTER 2025-10-19 15:01 | Outpatient (AMB) | payer MEDICARE, SELFPAY ==
[2025-10-19 15:03] VITALS: BP 110/62; PULSE 102; O2SAT 96; BMI 33.3
--- NOTE | 2025-10-19 15:03 | MHC.PC.OV ---
Vital Signs 10/19/25 15:03 Height 5 ft 4 in Weight 194 lb BMI 33.3 BP 110/62 Blood Pressure Location Rt brachial Position Sitting Pulse 102 H Pulse Source Pulse Oximeter Pulse Oximetry (%) 96 Intake Visit Reasons: Annual PE Genetic Scientist Required: No Accompanied by: Self / Same As Patient Allergies latex (LATEX) Allergy (Severe, Verified 10/19/25 15:04) RASH morphine (MORPHINE) Allergy (Severe, Verified 10/19/25 15:04) SEVERE SHAKING, N/V amoxicillin (From AUGMENTIN) Allergy (Unknown, Verified 10/19/25 15:04) SEVERE DIARRHEA ciprofloxacin (CIPROFLOXACIN) Allergy (Unknown, Verified 10/19/25 15:04) SEVERE DIARRHEA clavulanic acid (From AUGMENTIN) Allergy (Unknown, Verified 10/19/25 15:04) SEVERE DIARRHEA fenofibrate Adverse Reaction (Intermediate, Verified 10/19/25 15:04) stomach pain/cramping baclofen Adverse Reaction (Unknown, Verified 10/19/25 15:04) Unknown trazodone Adverse Reaction (Unknown, Verified 10/19/25 15:04) Unknown Medication List - Last Reconciled 10/19/25 [facility] blood sugar diagnostic Use to check fasting blood sugar once daily or if needed for signs/symptoms of hypo/hyperglycemia blood-glucose meter (Tabfoundryuch Ultra2 Meter) Use to check fasting blood sugar once daily or if needed for signs/symptoms of hypo/hyperglycemia gabapentin 400 mg PO Q4H PRN lancets (OneTouch Delica Lancets) Use to check fasting blood sugar once daily or if needed for signs/symptoms of hypo/hyperglycemia lancets (OneTouch Delica Plus Lancet) daily metoprolol tartrate 50 mg PO BID omeprazole 40 mg PO BID@0630,1630 30 days sucralfate 1 g PO DAILY 30 days Tobacco use date assessed: 02/02/25 Fall risk assessment: No Falls in past year Last assessed Fall Risk: 10/19/25 Dental Screening Dental Screen Date: 02/02/25 HPI Annual PE HPI Details Chief Complaint The patient presents for a follow-up visit after a recent hospitalization for a gastrointestinal bleed. History of Present Illness The patient is a 70 year old individual presenting for a hospital discharge follow-up. The patient was hospitalized from 10/15/2025 to 10/17/2025 for rectal bleeding with bright red blood per rectum, and was diagnosed with an upper GI bleed and symptomatic anemia. At the time of admission, the patient also reported black, tarry stools and abdominal cramping. During hospitalization, laboratory studies showed a hemoglobin of 7.8 and leukocytosis of 11.7. A CT scan revealed gastric wall thickening, mild left hydronephrosis from a partial left UPJ obstruction, and left lower lobe infiltrates. An endoscopy and colonoscopy on 10/16/2025 confirmed a large gastric ulcer. The patient was treated with IV ceftriaxone for the infiltrate and discharged on a 14-day course of a PPI and daily sucralfate. Past medical history is significant for a prior gastric bypass surgery. A colonoscopy from May 2025 showed diverticulosis, 4 polyps, hemorrhoids, and constipation. At today's visit, the patient reports feeling fatigued but denies any fevers or chills. Social History Health Maintenance - The patient is instructed to avoid all NSAIDs. - The patient is scheduled for a follow-up with Gastroenterology this week. - Last colonoscopy was in May 2025, which showed 4 polyps and diverticulosis. Review of Systems - Constitutional: Reports fatigue. - Denies fevers or chills. - Gastrointestinal: Reports recent history of bright red blood per rectum, black tarry stools, and abdominal cramping. -no cp, sob, abd pain (currently), denies any GI bleeding currenlty Physical Exam General: Cooperative, healthy appearing, comfortable, no acute distress and well developed Orientation: Patient oriented x3 Limitations: No limitations Head: Normal to inspection Ears: Hearing grossly normal bilaterally Nose: Normal external nose present Face and sinus: Normal facial exam Eyes: Appearance normal, both eyes and all related structures Neck: Normal visual inspection and Yes full ROM Respiratory: Normal respiratory effort and able to speak in complete sentences. Clear to auscultation bilaterally Cardiovascular: Regular rate and rhythm. Normal S1 and S2 GI: Normal to inspection. Soft to palpation and nontender gu: no cva tenderness noted bilat Skin: No rashes or lesions noted Neuro: Patient oriented x3 Extremities: Normal to inspection Results - Labs (from recent hospitalization): - Hemoglobin 7.8. - Leukocytosis 11.7. - Occult blood was positive. - Imaging (from recent hospitalization): CT showed gastric wall thickening with adjacent fat stranding, mild left hydronephrosis due to partial left ureteropelvic junction obstruction, and left lower lobe infiltrates. - Procedures: Endoscopy and colonoscopy on 10/16/2025 revealed a large gastric ulcer. - Colonoscopy in May 2025 showed diverticulosis and 4 polyps. Plan 1. Gastric Ulcer With Gi Bleed And Anemia The patient was recently hospitalized for an upper GI bleed with symptomatic anemia (hemoglobin 7.8), found to have a large gastric ulcer. The patient is continuing the discharge regimen of a PPI for 14 days and sucralfate. Labs will be repeated today to monitor for resolution of anemia and leukocytosis. The patient was instructed to avoid all NSAIDs and will follow up with Gastroenterology this week for further management. 2. Left Lower Lobe Infiltrate A left lower lobe infiltrate was seen on CT during hospitalization, for which the patient received IV ceftriaxone without an outpatient antibiotic prescription. A chest x-ray will be obtained to re-evaluate the infiltrate. 3. Fatigue The patient reports ongoing fatigue, which is likely secondary to symptomatic anemia from the recent GI bleed. Management includes repeating labs today and addressing the underlying anemia and gastric ulcer. 4. Return Precautions The patient was counseled to go directly to the emergency room for any worsening of symptoms. 5. follow up with urology for hydronephrosis Discussion Notes I have reviewed the patient's recent hospitalization for a GI bleed due to a gastric ulcer. We will repeat labs and obtain a chest x-ray today to follow up on the anemia and pulmonary infiltrate identified during the hospital stay. I have reinforced the importance of avoiding all NSAIDs and ensuring follow-up with the GI specialist this week. The patient understands to go directly to the ER with any worsening symptoms. Patient Instructions - Go to the lab to have your blood drawn today. - Go for a chest x-ray to check on the finding in your lung from the hospital. - Continue taking your stomach medications (PPI and sucralfate) as prescribed when you left the hospital. - Do not take any NSAID medications, such as ibuprofen (Advil, Motrin) or naproxen (Aleve). - Make sure to keep your appointment with the GI (stomach) doctor this week. - Go directly to the emergency room if your symptoms get worse. COUNT INCLUDES THE [facility] Medical History Abdominal pain Diarrhea Low iron Other and unspecified hyperlipidemia Diabetes DJD (degenerative joint disease) Chest discomfort Right ankle pain Precordial chest pain Right ankle pain Right ankle injury Encounter for annual wellness visit (AWV) in Medicare patient Bilateral nephrolithiasis Pain Right flank pain Low back pain Postmenopausal Dysuria Hematuria Microhematuria Urinary tract infection Genitourinary syndrome of menopause Pre-op evaluation H/O nephrolithotomy with removal of calculi Aortic stenosis Diverticulitis Scoliosis Pulmonary fibrosis Recurrent UTI Hyperlipidemia Anxiety and depression Hypertension Surgical History Hx of left breast biopsy History of esophagogastroduodenoscopy (EGD) H/O colonoscopy Hx of cystoscopy H/O lithotripsy History of cholecystectomy History of Hx of breast reduction, elective S/P panniculectomy H/O gastric bypass Family History Father Heart disease Mother Heart disease Pulmonary fibrosis Sister Heart disease Sister Pulmonary fibrosis Brother Pulmonary fibrosis Daughter Mental health disorder Substance use disorder Social History Household Members: Spouse Housing: Apartment Are you a primary career center advisor to a significant other at home: No Do you presently have visiting nurse or other home services: No Alcohol intake: never Patient Tobacco Use Status: Former Tobacco user Tobacco use type: Cigarette Cigarette Packs Per Day: 1 Years Smoked: 45 e-Cigarette/Vaping Use: Never Used Second Hand Smoke Exposure: No Substance Use Type: Marijuana Advance Directives Date on File: 08/16/22 service: No Current occupational status: disabled 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 Cognitive needs: No Hearing needs: No Vision needs: No Questionnaire Thrive Questionnaire Date Thrive assessed: 10/19/25 I am a: Patient What is your living situation today?: I have a steady place to live Within the past 12 months, did the food you bought not last and you didn't have the money to get more?: Often true Within the past 12 months, did you worry whether your food would run out before you got money to buy more?: Often true Do you have trouble paying for medicines?: Yes Do you have trouble getting transportation to medical appointments?: No Do you have trouble paying your heating and electricity bill?: No Do you have trouble taking care of your child, family member or friend?: No Do you have trouble with day-to-day activities such as bathing, preparing meals, shopping, managing finances, etc.?: No Are you currently unemployed and looking for a job?: No Are you interested in more education?: No Currently or been in a relationship where the following occur: No concerns reported THRIVE Score: 2 HI-7 AMB Questionnaire HI-7 Date HI - 7 assessed: 02/02/25 Source: Developed by Drs. Boo Rios, Aranza Jackson, Milind Roy and colleagues, with an educational keira from [employer]. Physical exam (Primary Care) Vital Signs: Last Vital Signs Pulse 102 H 10/19/25 15:03 BP 110/62 10/19/25 15:03 Pulse Ox 96 10/19/25 15:03 BMI result Body Mass Index 33.3 Tobacco/Smoking Status: Tobacco use Status Tobacco use date assessed 02/02/25 10/19/25 15:09 Patient Tobacco Use Status Former Tobacco user 10/19/25 15:09 Tobacco use type Cigarette 10/19/25 15:09 e-Cigarette/Vaping Use Never Used 10/19/25 15:09 Thrive Assessment: Date of Thrive Assessment Date Thrive assessed 10/19/25 10/19/25 15:09 Currently or been in a relationship where the following occur: No concerns reported Results AMB Hemoglobin A1c AMB Hemoglobin A1c 5.6 % Last Edit by Daniel Piper CMA on 10/19/25 15:38 Results Reviewed Results Reviewed: Laboratory Last Values Hgb A1c (Clinic) 5.6 % (4.0-6.0) 10/19/25 15:28 Coding Level of Care Code Est Pt Level 4 (25378) Diagnoses Anemia D64.9 Pneumonia J18.9 UGIB (upper gastrointestinal bleed) K92.2 Tachycardia R00.0 Left lower lobe pulmonary infiltrate R91.8 Assessment & Plan Assessment & Plan (1) Anemia: Code(s): D64.9 - Anemia, unspecified Category: Medical (2) Pneumonia: Code(s): J18.9 - Pneumonia, unspecified organism Category: Medical (3) UGIB (upper gastrointestinal bleed): Code(s): K92.2 - Gastrointestinal hemorrhage, unspecified Category: Medical (4) Tachycardia: Code(s): R00.0 - Tachycardia, unspecified Category: Medical (5) Left lower lobe pulmonary infiltrate: Code(s): R91.8 - Other nonspecific abnormal finding of lung field Category: Medical Plan . Orders: Orders TSH reflex Free T4 Today D64.9 - Anemia, unspecified AMB Hemoglobin A1c Today Z13.9 - Encounter for screening, unspecified Complete Blood Count Auto Diff Today D64.9 - Anemia, unspecified Comprehensive [place]. Panel Fast Today D64.9 - Anemia, unspecified UA CC w/rflx Micro + Cult Today D64.9 - Anemia, unspecified Lipid Panel Today D64.9 - Anemia, unspecified XR chest 2V Today J18.9 - Pneumonia, unspecified organism D Dimer High Sensitivity Today D64.9 - Anemia, unspecified, K92.2 - Gastrointestinal hemorrhage, unspecified, R00.0 - Tachycardia, unspecified, R91.8 - Other nonspecific abnormal finding of lung field
== END 2025-10-19 17:02 | disposition home or self-care (01) ==
LOC: HO.HMCC 15:02
PROVIDERS: PCP Nurse Practitioner Family; Visit Provider Nurse Practitioner Family
DX: D64.9 Anemia, unspecified (principal); J18.9 Pneumonia, unspecified organism; K92.2 Gastrointestinal hemorrhage, unspecified; R00.0 Tachycardia, unspecified; R91.8 Other nonspecific abnormal finding of lung field; Z13.9 Encounter for screening, unspecified

== ENCOUNTER → 2025-10-19 15:01 | Outpatient (BNVA) | payer MEDICARE, SELFPAY | PROVIDERS: PCP Nurse Practitioner Family; Visit Provider Nurse Practitioner Family | DX: Z00.00 Encounter for general adult medical examination without abnormal findings (principal); K25.9 Gastric ulcer, unspecified as acute or chronic, without hemorrhage or perforation; D64.9 Anemia, unspecified; R53.83 Other fatigue; J18.9 Pneumonia, unspecified organism; R00.0 Tachycardia, unspecified; R91.8 Other nonspecific abnormal finding of lung field; Z13.1 Encounter for screening for diabetes mellitus | CPT/HCPCS: 83036; 99212 ==

== ENCOUNTER 2025-10-21 09:03 | Outpatient (AMB) | payer MEDICARE, SELFPAY ==
--- NOTE | 2025-10-21 09:06 | MHC.OFFVIS ---
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 Required: No Accompanied by: Self / Same As Patient Allergies latex (LATEX) Allergy (Severe, Verified 10/21/25 09:06) RASH morphine (MORPHINE) Allergy (Severe, Verified 10/21/25 09:06) SEVERE SHAKING, N/V amoxicillin (From AUGMENTIN) Allergy (Unknown, Verified 10/21/25 09:06) SEVERE DIARRHEA ciprofloxacin (CIPROFLOXACIN) Allergy (Unknown, Verified 10/21/25 09:06) SEVERE DIARRHEA clavulanic acid (From AUGMENTIN) Allergy (Unknown, Verified 10/21/25 09:06) SEVERE DIARRHEA fenofibrate Adverse Reaction (Intermediate, Verified 10/21/25 09:06) stomach pain/cramping baclofen Adverse Reaction (Unknown, Verified 10/21/25 09:06) Unknown trazodone Adverse Reaction (Unknown, Verified 10/21/25 09:06) Unknown HPI Comments Details: ?Mary HUTCHINS is a very pleasant female. They are a patient of Dr Fernandez. They are seen in the office today for the following urologic conditions. - nephrolithiasis - recurrent UTI Recent hospital admission for ulcer of remnant stomach Persistent pain left side On CT scan found to have multiple proximal left ureteric stones - printed copy of martinez image provided Creatinine 0.9 Recommend intervention Prior hormone lab assessment - 04/10 T 17, AST 35, Ferritin 269, E <2 Unable to take potassium citrate secondary gastric bypass Has anemia. Prior gastric bypass. May have marginal artery also. Nephrolithiasis/Urolithiasis:? They are here for?further evaluation of nephrolithiasis, ?- left 1cm stone x2 ?- hematuria ?- s/p gastric bypass 2007 ?- no stones on follow-up.? Urolithiasis was diagnosed?09/2018 ?- prior gastric bypass.? The patient previously had kidney stones whose composition w?10/06 , calcium oxalate - monohydrate, uric acid core - 08/11 calcium oxalate monohydrate 80 % ? Laboratory investigations include?12/07, Normocalcemia (9.0), Normal PTH, Normal uric acid.? 24 Hour urine evaluation - 11/09 borderline volume, low citrate, high calcium, borderline sodium - 09/11 borderline volume, citrate 49, oxalate 31, calcium 49 ? Prior treatment(s) include?10/06 , left, ureteroscopy ?11/05 , left, ESWL ?06/06 vitamin B6, 1 TUMS with evening meal - 08/11 USR left side multiple stones - 02/09 USR left side multiple stones ? Prior imaging includes?09/05 CT with 2x 1cm stones on the left ?12/07 , a renal ultrasound left 6mm stone ?06/06 , a renal ultrasound bilateral renal cysts. No stones. ?06/07 , a renal ultrasound, bilateral multiple renal cysts up to 3 cm, no stones.? - 06/08 renal ultrasound, bilateral renal cysts up to 3 cm - stones left lower pole - 09/09 renal ultrasound, bilateral renal cysts, stones left lower pole 8 mm - 03/12 renal ultrasound, bilateral renal cysts, too small lower pole stones left side ? Current therapeutic plan will be?to perform metabolic evaluation, General advice to maintain good fluid intake for urine greater than 1.5 L per day, reduce salt and reduce protein and acid loads was provided? [facility] Medical History Abdominal pain Diarrhea Low iron Other and unspecified hyperlipidemia Diabetes DJD (degenerative joint disease) Chest discomfort Right ankle pain Precordial chest pain Right ankle pain Right ankle injury Encounter for annual wellness visit (AWV) in Medicare patient Bilateral nephrolithiasis Pain Right flank pain Low back pain Postmenopausal Dysuria Hematuria Microhematuria Urinary tract infection Genitourinary syndrome of menopause Pre-op evaluation H/O nephrolithotomy with removal of calculi Aortic stenosis Diverticulitis Scoliosis Pulmonary fibrosis Recurrent UTI Hyperlipidemia Anxiety and depression Hypertension Surgical History Hx of left breast biopsy History of esophagogastroduodenoscopy (EGD) H/O colonoscopy Hx of cystoscopy H/O lithotripsy History of cholecystectomy History of Hx of breast reduction, elective S/P panniculectomy H/O gastric bypass Family History Father Heart disease Mother Heart disease Pulmonary fibrosis Sister Heart disease Sister Pulmonary fibrosis Brother Pulmonary fibrosis Daughter Mental health disorder Substance use disorder Social History Household Members: Spouse Housing: Apartment Are you a primary hospice care sales consultant to a significant other at home: No Do you presently have visiting nurse or other home services: No Alcohol intake: never Patient Tobacco Use Status: Former Tobacco user Tobacco use type: Cigarette Cigarette Packs Per Day: 1 Years Smoked: 45 e-Cigarette/Vaping Use: Never Used Second Hand Smoke Exposure: No Substance Use Type: Marijuana Advance Directives Date on File: 08/16/22 service: No Current occupational status: disabled 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 Cognitive needs: No Hearing needs: No Vision needs: No Review of Systems Const Denies chills and Denies fever(s) Card Reports no additional complaints and Denies syncope Resp Denies cough GI Denies abdominal pain and Denies heartburn Reports as per HPI and Denies change in libido Neuro Denies syncope Psych Denies change in libido Endo Denies change in libido Physical Exam Const General: cooperative, healthy appearing, comfortable and no acute distress Orientation/consciousness: patient oriented x3 HEENT Face and sinus: Yes normal facial exam Mouth: moist mucous membranes Neck Neck: Yes normal visual inspection, Yes full ROM and Yes trachea midline Chest Chest palpation & inspection: normal inspection of the chest Resp Effort & Inspection: normal respiratory effort, able to speak in complete sentences and no respiratory distress GI Inspection: Yes normal to inspection Back/Spine/Pelvis Cervical Spine: normal cervical lordosis Thoracic/Lumbar Spine: thoracic and lumbar spine normal to inspection Skin General skin exam: no rashes or lesions noted Neuro General: patient oriented x3, gait normal, tone normal and moves all extremities Extrem General: Yes normal to inspection and Yes capillary refill normal Results AMB Urinalysis, Automated UA Leukoctes 0 Jacinto/uL Last Edit by Ashley Richmond Mercedes on 10/21/25 09:12 UA Nitrite Negative Last Edit by Ashley Richmond A on 10/21/25 09:12 UA Urobilinogen 0.2 mg/dL Last Edit by Ashley Richmond A on 10/21/25 09:12 UA Protein 15 mg/dL Last Edit by Ashley Richmond A on 10/21/25 09:12 UA pH 6.0 Last Edit by Ashley Richmond A on 10/21/25 09:12 UA Blood 0 Marty/uL Last Edit by Ashley Richmond [facility] on 10/21/25 09:12 UA Specific [place] 1.020 Last Edit by Ashley Richmond A on 10/21/25 09:12 UA Ketone Negative Last Edit by Ashley Richmond [facility] on 10/21/25 09:12 UA Bilirubin 0 mg/dL Last Edit by Ashley Richmond A on 10/21/25 09:12 UA Glucose 0 mg/dL Last Edit by Ashley Richmond [facility] on 10/21/25 09:12 Results Reviewed Results Reviewed: Laboratory Last Values Urine pH (Auto) 6.0 10/21/25 09:07 Specific Colton (Auto) 1.020 10/21/25 09:07 Urine Protein (Auto) 15 mg/dL 10/21/25 09:07 Glucose (UA)(Auto) 0 mg/dL 10/21/25 09:07 Urine Ketones (Auto) Negative 10/21/25 09:07 Urine Blood (Auto) 0 Marty/uL 10/21/25 09:07 Urine Nitrite (Auto) Negative 10/21/25 09:07 Urine Bilirubin (Auto) 0 mg/dL 10/21/25 09:07 Urine Urobilinogen (Auto) 0.2 mg/dL 10/21/25 09:07 Leukocyte Esterase (Auto) 0 Jacinto/uL 10/21/25 09:07 Assessment & Plan Assessment & Plan (1) Nephrolithiasis: Code(s): N20.0 - Calculus of kidney Category: Medical Plan Ureteroscopy We discussed the nature of the decision and reasonable alternatives for performing ureteroscopy. Options such as medical therapy were discussed. Interventions include chemical dissolution, ESWL, ureteroscopy with laser lithotripsy and stent placement, PCNL. The relative uncertainties and benefits related to each alternate procedure were adequately discussed. General surgical risks including, but not limited to - pain, bleeding, infection, myocardial infarction, pulmonary embolus, deep vein thrombosis and cerebrovascular accident which may result in further hospitalization were discussed. Full disclosure of the procedure as well as all major risks, benefits and complications were discussed including but not limited to damage to the urethra, bladder and kidney infection, damage to the ureter, stent migration or malposition, scarring to the renal pelvis, remnant stone fragments, subsequent stone passage with need for secondary procedures. The overall secondary procedure rate is approximately 10-15%. The overall clearance rate is approximately 90-95%. Success of the procedure in the short-term does not necessarily guarantee that long-term success will be maintained. Suitable follow up will need to be maintained. The patient showed understanding of discussion and wishes to proceed with - cystoscopy, retrograde, ureteroscopy, possible lithotripsy/stone basketing and stent on the left flexible ureteroscopy side Orders: Orders AMB Urinalysis Automated Today Z13.9 - Encounter for screening, unspecified Patient Instructions: This note is constructed using voice recognition software. While every effort has been made to ensure accuracy edging machine setter errors may have been included. Imaging studies, laboratory and physical exam results were discussed and reviewed in detail. No major barriers to patient understanding were identified. An opportunity to ask questions regarding the treatment plan was provided. All questions were answered. The patient expressed understanding and agreement with the above treatment plan. The patient is aware they should contact our office by phone for worsening of their current condition or the appearance of new urologic symptoms. Compliance is encouraged with any medications and followup testing that is ordered. It is a privilege to participate in the urologic care of your patient. If you have any questions or concerns regarding treatment for the above conditions, or other urologic issues, please do not hesitate to contact me. The office telephone contact is [phone]. Sincerely, Dr Blake Christie MD, [facility] - Urology Compassionate Specialist Care for the Genitourinary System Coding Level of Care Code Est Pt Level 4 (38830) Complex visit Add On G2211 Diagnoses Nephrolithiasis N20.0
--- OUTSIDE RECORDS SUMMARY | 2025-10-21 09:36 | XMS_ITS | Clinical Summary ---
Author Organization [facility] Address [address] [place] [address] Phone Care Team Providers Care Campus Manager Name Role Phone Greg Kaba NP Primary Care Provider [phone] Allergies Active Allergy Reactions Criticality Noted Date [...] age to complete this topic Insurance [address] [place] [id number] [place] Dual [id number], located [facility] ([id number]) Care Teams Campus Manager Relationship Specialty Start Date End Date Greg Kaba NP [address] [place], [place] [id number] PCP - General 11/29/20
== END 2025-10-21 09:47 | disposition home or self-care (01) ==
LOC: HO.HUSH 09:03
PROVIDERS: PCP Nurse Practitioner Family; Visit Provider Urology
DX: N20.0 Calculus of kidney (principal); Z13.9 Encounter for screening, unspecified
CPT/HCPCS: 99214; G2211

== ENCOUNTER → 2025-10-21 09:03 | Outpatient (BNVA) | payer MEDICARE, SELFPAY | PROVIDERS: PCP Nurse Practitioner Family; Visit Provider Urology | DX: N20.0 Calculus of kidney (principal) | CPT/HCPCS: 81003; 99212 ==

== ENCOUNTER 2025-10-26 09:15 | Outpatient (REF) | payer MEDICARE, SELFPAY ==
--- NOTE | ~2025-10-26 | XR_ITS ---
EXAMINATION: XR CHEST CLINICAL INFORMATION: J18.9 - Pneumonia, unspecified organism COMPARISON: 01/02/2019. TECHNIQUE: 2 views of the chest were obtained. FINDINGS: The cardiac, hilar, and mediastinal contours are normal. Low lung volumes. Elevated left hemidiaphragm again noted. There is linear type atelectasis in the left base, unchanged. Minor subpleural reticular markings also noted in the right costophrenic sulcus, chronic. No segmental pneumonia is evident. There is no focal osseous or soft tissue abnormality. XR/XR chest 2V IMPRESSION: No active pulmonary disease. No interval change from 01/02/2019. Electronically signed by: Nnamdi Restrepo MD 10/26/2025 10:03 AM JACLYN
[2025-10-26 10:19] LABS: MANUAL DIFF FLAG NO
[2025-10-26 10:28] LABS: Hematocrit 30.4 % (37.0-47.0); Hemoglobin 9.3 g/dl (12.0-16.0); Imm Gran Abs Auto 0.03 X10*3/uL (0.00-0.03); Imm Gran Pct Auto 0.4 % (0.0-0.4); Lymphocytes Absolute Auto 1.7 X10*3/uL (1.2-4.9); Mean Corpuscular HGB Conc 30.6 g/dl (31.0-35.0); Mean Corpuscular Hemoglobin 25.5 pg (27.0-33.0); Mean Corpuscular Volume 83.5 fL (80.0-98.0); NRBC Abs Auto 0.000 X10*3/uL (0.0-0.012); NRBC Pct Auto 0.0 /100WBC (0.0-0.2); Platelet Count 432 X10*3/uL (160-400); Red Blood Count 3.64 X10*6/uL (4.20-5.50); White Blood Count 8.3 X10*3/uL (4.8-10.8)
[2025-10-26 10:40] LABS: D Dimer High Sensitivity 189 NG/ML
[2025-10-26 11:24] LABS: Alanine Aminotransferase 8 U/L (0-31); Albumin Level 3.8 g/dL (3.5-5.0); Alkaline Phosphatase 92 U/L (39-117); Anion Gap 10 (12-20); Aspartate Amino Transferase 17 U/L (5-31); Blood Urea Nitrogen 20 mg/dL (9-16); Calcium 8.9 mg/dL (8.4-10.2); Carbon Dioxide 27 mmol/L (22-29); Chloride 106 mmol/L (96-108); Cholesterol 248 mg/dL (<200); Estimated Glomerular Filt Rate 52; HDL Cholesterol 57 mg/dL (>40); Potassium 4.1 mmol/L (3.3-5.1); Sodium 139 mmol/L (135-145); Total Protein 6.8 g/dL (6.5-8.0); Triglycerides 188 mg/dL (<150)
== END 2025-10-26 09:16 | disposition home or self-care (01) ==
LOC: HO.HMGCX 09:15
PROVIDERS: PCP Nurse Practitioner Family; Visit Provider Nurse Practitioner Family
DX: R91.8 Other nonspecific abnormal finding of lung field (principal); D64.9 Anemia, unspecified; K92.2 Gastrointestinal hemorrhage, unspecified; J18.9 Pneumonia, unspecified organism; R00.0 Tachycardia, unspecified; Z13.6 Encounter for screening for cardiovascular disorders
CPT/HCPCS: 36415; 71046; 80053; 80061; 84443; 85025; 85379

== ENCOUNTER → 2025-10-26 09:21 | Outpatient (BNV) | payer MEDICARE, SELFPAY | PROVIDERS: PCP Nurse Practitioner Family; Visit Provider Radiology Diagnostic Radiology | DX: J18.9 Pneumonia, unspecified organism (principal) | CPT/HCPCS: 71046 ==

== ENCOUNTER 2025-10-27 08:25 | Outpatient (REF) | payer MEDICARE, SELFPAY ==
--- NOTE | ~2025-10-27 | XR_ITS ---
EXAMINATION: XR ELBOW, RIGHT CLINICAL INFORMATION: M25.529 - Pain in unspecified elbow COMPARISON: None available. TECHNIQUE: AP, lateral, and oblique views of the right elbow. FINDINGS: Cortical irregularity in the radial head. 5 mm blastic lesion, radial head. Soft tissue calcification at the triceps tendon insertion. The distal humerus and proximal ulna are intact. Normal alignment. XR/XR elbow RT min 3V IMPRESSION: Concerning nondisplaced radial head fracture. Recommend dedicated radial head projection. Calcific tendinosis/tendinopathy, triceps tendon. Electronically signed by: Nima Stone MD 10/27/2025 10:07 AM JACLYN SMITH
== END 2025-10-27 08:26 | disposition home or self-care (01) ==
LOC: HO.HOSX 08:25
PROVIDERS: Visit Provider Physician Assistant
DX: S52.121A Displaced fracture of head of right radius, initial encounter for closed fracture (principal); W18.30XA Fall on same level, unspecified, initial encounter
CPT/HCPCS: 73080

== ENCOUNTER 2025-10-27 09:52 | Outpatient (AMB) | payer MEDICARE, SELFPAY ==
--- NOTE | 2025-10-27 10:03 | A.OFFVIS_ITS ---
Intake Visit Reasons: FC-right elbow injury-DOI around summer Intake Note: Mary is a 70 year old right hand dominant female who presents today for a evaluation of her left elbow injury, DOI 05/2025. Patient reports she lost her balance and she fell in the middle of the road. She states that her pain is off and on. Patient finds it difficult to lift her arm. IMPRESSION (09/20/25): 1. Mild common flexor tendinosis/partial tear 2. Mild common extensor tendinosis/partial tear 3. Mild distal triceps tendinosis 4. Radial head findings as detailed above. No acute marrow edema is seen. Findings could be related to a nonacute fracture. Clinically correlate. 5. Findings in the radial collateral ligament proximally could reflect reactive edema or sprain. 6. Equivocal ulnar nerve findings, clinically correlate for possible neuritis. Allergies latex (LATEX) Allergy (Severe, Verified 10/27/25 10:04) RASH morphine (MORPHINE) Allergy (Severe, Verified 10/27/25 10:04) SEVERE SHAKING, N/V amoxicillin (From AUGMENTIN) Allergy (Unknown, Verified 10/27/25 10:04) SEVERE DIARRHEA ciprofloxacin (CIPROFLOXACIN) Allergy (Unknown, Verified 10/27/25 10:04) SEVERE DIARRHEA clavulanic acid (From AUGMENTIN) Allergy (Unknown, Verified 10/27/25 10:04) SEVERE DIARRHEA fenofibrate Adverse Reaction (Intermediate, Verified 10/27/25 10:04) stomach pain/cramping baclofen Adverse Reaction (Unknown, Verified 10/27/25 10:04) Unknown trazodone Adverse Reaction (Unknown, Verified 10/27/25 10:04) Unknown HPI HPI FC-right elbow injury-DOI around summer': Details: The patient is a 70-year-old right-hand dominant female who presents to the office today for evaluation of a right elbow injury that happened this past summer. Patient reports that she fell landing on an outstretched arm. I did note that there is an MRI of the right elbow in the patient's chart however she is unable to provide me information in which who ordered this for her. She denies going to emergency department after the injury. This is the 1st time that she has sought care after the fall for her right elbow. [facility] Medical History Abdominal pain Diarrhea Low iron Other and unspecified hyperlipidemia Diabetes DJD (degenerative joint disease) Chest discomfort Right ankle pain Precordial chest pain Right ankle pain Right ankle injury Encounter for annual wellness visit (AWV) in Medicare patient Bilateral nephrolithiasis Pain Right flank pain Low back pain Postmenopausal Dysuria Hematuria Microhematuria Urinary tract infection Genitourinary syndrome of menopause Pre-op evaluation H/O nephrolithotomy with removal of calculi Aortic stenosis Diverticulitis Scoliosis Pulmonary fibrosis Recurrent UTI Hyperlipidemia Anxiety and depression Hypertension Surgical History Hx of left breast biopsy History of esophagogastroduodenoscopy (EGD) H/O colonoscopy Hx of cystoscopy H/O lithotripsy History of cholecystectomy History of Hx of breast reduction, elective S/P panniculectomy H/O gastric bypass Family History Father Heart disease Mother Heart disease Pulmonary fibrosis Sister Heart disease Sister Pulmonary fibrosis Brother Pulmonary fibrosis Daughter Mental health disorder Substance use disorder Social History Household Members: Spouse Housing: Apartment Are you a primary care management coordinator to a significant other at home: No Do you presently have visiting nurse or other home services: No Alcohol intake: never Patient Tobacco Use Status: Former Tobacco user Tobacco use type: Cigarette Cigarette Packs Per Day: 1 Years Smoked: 45 e-Cigarette/Vaping Use: Never Used Second Hand Smoke Exposure: No Substance Use Type: Marijuana Advance Directives Date on File: 08/16/22 service: No Current occupational status: disabled 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 No ecchymosis, erythema, or edema. No tenderness to palpation over the olecranon. No tenderness to the medial or lateral epicondyle. Slight tenderness over the radial head. Lacking roughly 10 degrees of full extension. Full flexion. Able to pronate and supinate to end range. NVI. Psych Appearance: grossly normal Mental Status: mental status grossly normal Attitude: cooperative Assessment & Plan Assessment & Plan (1) Fracture of radial head, right, closed: Code(s): S52.121A - Displaced fracture of head of right radius, initial encounter for closed fracture Category: Medical Plan The patient is a 70-year-old right-hand dominant female who presents to the office today for evaluation of a right elbow injury that happened this past summer. Patient reports that she fell landing on an outstretched arm. I did note that there is an MRI of the right elbow in the patient's chart however she is unable to provide me information in which who ordered this for her. She denies going to emergency department after the injury. This is the 1st time that she has sought care after the fall for her right elbow. While in the office today, repeat x-rays were obtained and a prior radial head fracture has healed. There is a small step-off along the articulating surface. I educated the patient that this is likely why she has slight [id number] limitations with extension. I educated the patient that this is likely permanent. I did recommend physical therapy to try and maximize range of motion and strength as the patient reports weakness in the right elbow. Patient declined at this time. I provided the patient with a print out of elbow range of motion and gentle strengthening exercises that she may perform to tolerance. She will follow up with Orthopedics p.r.n., sooner if needed. X-rays of the right elbow which were obtained while in the office today and were reviewed by me, Keshia De Guzman PA-C, revealed healed radial head fracture. Orders: Orders XR elbow RT min 3V Today M25.529 - Pain in unspecified elbow Coding Level of Care Code New Pt Level 4 (33709) Complex visit Add On G2211 Diagnoses Fracture of radial head, right, closed S52.121A
== END 2025-10-27 10:25 | disposition home or self-care (01) ==
LOC: HO.HOS 09:52
PROVIDERS: PCP Nurse Practitioner Family; Visit Provider Physician Assistant
DX: S52.121A Displaced fracture of head of right radius, initial encounter for closed fracture (principal)
CPT/HCPCS: 99203; G2211

== ENCOUNTER → 2025-10-27 09:53 | Outpatient (BNV) | payer MEDICARE, SELFPAY | PROVIDERS: Visit Provider Radiology Diagnostic Radiology | DX: M65.222 Calcific tendinitis, left upper arm (principal) | CPT/HCPCS: 73080 ==

== ENCOUNTER → 2025-10-29 09:32 | Outpatient (REF) | payer MEDICARE, SELFPAY ==
--- NOTE | 2025-10-29 10:08 | CA_ITS ---
Transthoracic Echocardiogram Patient (Last, First, Middle): Mary Castillo L Gender: F Date of : 1955 Age: 70 Procedure Date: 10/29/2025 Procedure Type: Transthoracic Echocardiogram Location: OP Height: 162.56 cm Weight: 88. kg BSA: 1.93 m2 Heart Rate: 86 bpm BP: 110 / 62 mmHg Associate Professor Of Management: TO Referring MD: Tamiko Parra RANGE FEEDER-C Angiography Technologist: Bhavesh Aleman MD Symptoms: I35.0 - Nonrheumatic aortic (valve) stenosis Study Quality: Fair/declined contrast ECG Rhythm: Sinus Conclusions: - 1. Mildly reduced LV ejection fraction 45-50% with impaired relaxation filling pattern 2. Moderate aortic stenosis 3. Normal RV systolic pressure 4. No gross pericardial effusion Findings Procedure Information The patient declines contrast. Left Ventricle The left ventricle was not well visualized. Normal left ventricular cavity size. There is normal left ventricular wall thickness. The left ventricular systolic function is mildly decreased. The visually estimated ejection fraction is between 45-50%. Regional wall motion abnormalities can not be excluded due to suboptimal endocardial definition. There is paradoxical septal motion consistent with a left bundle branch block. Spectral Doppler is indicative of an impaired relaxation filling pattern. E/E prime ratio is between 8 and 15 consistent with indeterminate filling pressures. Right Ventricle Normal right ventricular cavity size. Atria The left atrium is normal in size. Interatrial shunt cannot be excluded. The right atrium was not well visualized. Aortic Valve There is moderate calcification of the aortic valve. There is moderate thickening of the aortic valve. There is moderate aortic valve stenosis. The peak aortic gradient is 39 mmHg.The mean gradient is 23 mmHg. The aortic valve area is 1.16 cm2. There is no aortic valve regurgitation. Mitral Valve The mitral valve was not well visualized. There is trace mitral valve regurgitation. There is no mitral valve stenosis. Pulmonic Valve The pulmonic valve was not well visualized. Tricuspid Valve Likely normal tricuspid valve structure and function. There is trace tricuspid valve regurgitation. The right ventricular systolic pressure is normal. The right ventricular systolic pressure is 20 mmHg. Normal right atrial pressure. There is no evidence of pulmonary hypertension. Great Vessels The aorta was not well visualized. The pulmonary artery was not well visualized. There is no dilatation of the ascending aorta measuring 3.00 cm. Venous The inferior vena cava is normal in size and collapses greater than 50% with inspiration. Pericardium/Pleural There is no evidence of pericardial effusion. Prior Study Comparison Changes noted compared to prior study dated: 09/30/2024. LV ejection fraction is marginally reduced Measurements 2D Linear Measurements IVSd: 0.97 0.6-0.9/0.6-1.0 cm LVIDd: 3.71 3.9-5.3/4.2-5.9 cm LVIDd Index: 1.92 2.4-3.2/2.2-3.1 cm/m2 LVIDs: 2.65 2.0-3.6 cm LVPWd: 1.05 0.7-1.1 cm LA Diam: 4.10 2.7-3.8/3.0-4.0 cm LAIDs Index: 2.12 1.5-2.3 cm/m2 LV Mass: 142.45 67-162/88-224 g LV Mass Index: 73.81 43-95/49-115 g/m2 LVOT Diam: 2.20 3.0+(-)1.3 cm 2D Systolic Function EF 4C: 42.40 >55% EF 2C: 49.00 >55% EF BiP: 45.50 >55% Mitral Valve MV VTI: 0.31 MV Pk Amrit: 1.29 MV Mn Amrit: 0.80 MV Pk Grad: 7.00 MV Mn Grad: 3.00 MV Pk E: 0.85 MV PK A: 1.07 MV Decel Time: 196.00 E/A: 0.80 E'Lateral: 10.70 E'Medial: 4.90 E/E' Med: 17.30 E/E' Lat: 7.90 PHT: 57.00 MVA PHT: 3.86 MVA Continuity: 2.34 Decel Collin: 4.33 Aortic Valve AoV Pk Amrit: 3.12 AoV Mn Amrit: 2.29 AoV VTI: 0.62 AoV Pk Grad: 39.00 Aov Mn Grad: 23.00 BENNETT Cont.VTI: 1.16 LVOT LVOT Pk Amrit: 0.87 LVOT Mn Amrit: 0.67 LVOT VTI: 0.19 LVOT Pk Grad: 3.00 LVOT Mn Grad: 2.00 LVOT Diam: 2.20 LVOT Area: 3.80 Diastolic Function MV Pk E: 0.85 MV Pk A: 1.07 E/A: 0.80 E'Medial: 4.90 E/E' Med: 17.30 E' Laterial: 10.70 E/E' Lat: 7.90 Right Ventricle TAPSE (mm): 20.30 TVS' Amrit: 12.00 Tricuspid Valve TR Pk Amrit: 2.06 TR Pk Grad: 17.00 RA Press: 3.00 RVSP: 20.00 Great Vessels Aorta Sinus of Valsalva: 3.33 2.0-3.5 cm Ao Asc: 3.00 2.1-3.4 cm Updated in Other Vendor System with Status of Final Bhavesh Aleman MD electronically signed on 10/30/2025 7:41:17 AM with status of Final
== END ==
LOC: HO.CARD 09:32
PROVIDERS: PCP Nurse Practitioner Family; Visit Provider Nurse Practitioner Family
DX: I35.0 Nonrheumatic aortic (valve) stenosis (principal)
CPT/HCPCS: 93306

== ENCOUNTER → 2025-10-29 10:08 | Outpatient (BNV) | payer MEDICARE, SELFPAY | PROVIDERS: PCP Nurse Practitioner Family; Visit Provider Internal Medicine Cardiovascular Disease | DX: I35.0 Nonrheumatic aortic (valve) stenosis (principal) | CPT/HCPCS: 93306 ==

== ENCOUNTER 2025-11-02 10:53 | Outpatient (REF) | payer MEDICARE, SELFPAY ==
[2025-11-02 13:37] LABS: MANUAL DIFF FLAG NO
[2025-11-02 13:44] LABS: Hematocrit 31.1 % (37.0-47.0); Hemoglobin 9.4 g/dl (12.0-16.0); Imm Gran Abs Auto 0.03 X10*3/uL (0.00-0.03); Imm Gran Pct Auto 0.4 % (0.0-0.4); Lymphocytes Absolute Auto 0.9 X10*3/uL (1.2-4.9); Mean Corpuscular HGB Conc 30.2 g/dl (31.0-35.0); Mean Corpuscular Hemoglobin 25.1 pg (27.0-33.0); Mean Corpuscular Volume 83.2 fL (80.0-98.0); NRBC Abs Auto 0.000 X10*3/uL (0.0-0.012); NRBC Pct Auto 0.0 /100WBC (0.0-0.2); Platelet Count 350 X10*3/uL (160-400); Red Blood Count 3.74 X10*6/uL (4.20-5.50); White Blood Count 7.1 X10*3/uL (4.8-10.8)
[2025-11-02 13:59] LABS: Iron 20 mcg/dL (30-160); Percent Iron Saturation 10 % (15-50); Total Iron Binding Capacity 203 mcg/dL (228-428); Unsaturated Iron Binding 183 ug/dL
[2025-11-02 14:19] LABS: Ferritin 29 ng/mL (10-250)
== END 2025-11-02 10:54 | disposition home or self-care (01) ==
LOC: HO.HMGCLDS 10:53
PROVIDERS: PCP Nurse Practitioner Family; Visit Provider Nurse Practitioner Family
DX: D50.9 Iron deficiency anemia, unspecified (principal)
CPT/HCPCS: 36415; 82728; 83540; 85025

== ENCOUNTER 2025-11-05 10:58 | Outpatient (AMB) | payer MEDICARE, SELFPAY ==
[2025-11-05 11:00] VITALS: BP 108/52; PULSE 62
--- NOTE | 2025-11-05 11:00 | A.OFFVIS_ITS ---
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 Required: No Allergies latex (LATEX) Allergy (Severe, Verified 11/05/25 11:03) RASH morphine (MORPHINE) Allergy (Severe, Verified 11/05/25 11:03) SEVERE SHAKING, N/V amoxicillin (From AUGMENTIN) Allergy (Unknown, Verified 11/05/25 11:03) SEVERE DIARRHEA ciprofloxacin (CIPROFLOXACIN) Allergy (Unknown, Verified 11/05/25 11:03) SEVERE DIARRHEA clavulanic acid (From AUGMENTIN) Allergy (Unknown, Verified 11/05/25 11:03) SEVERE DIARRHEA fenofibrate Adverse Reaction (Intermediate, Verified 11/05/25 11:03) stomach pain/cramping baclofen Adverse Reaction (Unknown, Verified 11/05/25 11:03) Unknown trazodone Adverse Reaction (Unknown, Verified 11/05/25 11:03) Unknown Medication List - Last Reconciled 11/05/25 by YARIEL Ann blood sugar diagnostic Use to check fasting blood sugar once daily or if needed for signs/symptoms of hypo/hyperglycemia blood-glucose meter (3TIERuch Ultra2 Meter) Use to check fasting blood sugar once daily or if needed for signs/symptoms of hypo/hyperglycemia gabapentin 400 mg PO Q4H PRN lancets (3TIERuch Delica Lancets) Use to check fasting blood sugar once daily or if needed for signs/symptoms of hypo/hyperglycemia lancets (OneTouch Delica Plus Lancet) daily metoprolol tartrate 50 mg PO BID omeprazole 40 mg PO BID@0630,1630 30 days sucralfate 1 g PO DAILY 30 days tamsulosin 0.4 mg PO BEDTIME 14 days HPI HPI pre-op urology: Details: The patient is a 70-year-old female presenting for follow-up of aortic stenosis and preoperative cardiovascular clearance for an upcoming urological procedure. Her cardiac history includes stable moderate aortic stenosis and a chronic left bundle branch block. A recent echocardiogram indicated an ejection fraction of 45-50%, with impaired relaxation. She has a history of hypertension, hyperlipidemia, diabetes, iron deficiency anemia, chronic low back pain, arthritis, and scoliosis, limiting her physical activity. Past surgical history includes gastric bypass in 2007, leading to maintained significant weight loss. Recent medical events include a perforated gastric ulcer endoscopically repaired and an episode of pneumonia in September 2025.. She has recurrent nephrolithiasis requiring past procedures and plans for laparoscopic stone removal. Today she is reporting no chest discomfort at rest or with activity. Her activity level is limited due to chronic arthritis. She is using a wheelchair for this visit today. She denies shortness of breath, PND, orthopnea or edema. No lightheadedness, presyncope, syncope, recent falls. She is no longer having any abdominal discomfort. She is compliant with her medications. She goes shopping and does cooking for her past time. She tells me kidney stones are a chronic problem for her and she has undergone kidney stone removal in the past. She is scheduled to undergo a laparoscopic kidney stone removal on 11/09/[address] Christie[address] [facility] Medical History Abdominal pain Diarrhea Low iron Other and unspecified hyperlipidemia Diabetes DJD (degenerative joint disease) Chest discomfort Right ankle pain Precordial chest pain Right ankle pain Right ankle injury Encounter for annual wellness visit (AWV) in Medicare patient Bilateral nephrolithiasis Pain Right flank pain Low back pain Postmenopausal Dysuria Hematuria Microhematuria Urinary tract infection Genitourinary syndrome of menopause Pre-op evaluation H/O nephrolithotomy with removal of calculi Aortic stenosis Diverticulitis Scoliosis Pulmonary fibrosis Recurrent UTI Hyperlipidemia Anxiety and depression Hypertension Surgical History Hx of left breast biopsy History of esophagogastroduodenoscopy (EGD) H/O colonoscopy Hx of cystoscopy H/O lithotripsy History of cholecystectomy History of Hx of breast reduction, elective S/P panniculectomy H/O gastric bypass Family History Father Heart disease Mother Heart disease Pulmonary fibrosis Sister Heart disease Sister Pulmonary fibrosis Brother Pulmonary fibrosis Daughter Mental health disorder Substance use disorder Social History Household Members: Spouse Housing: Apartment Are you a primary client care coordinator to a significant other at home: No Do you presently have visiting nurse or other home services: No Alcohol intake: never Patient Tobacco Use Status: Former Tobacco user Tobacco use type: Cigarette Cigarette Packs Per Day: 1 Years Smoked: 45 e-Cigarette/Vaping Use: Never Used Second Hand Smoke Exposure: No Substance Use Type: Marijuana Advance Directives Date on File: 08/16/22 service: No Current occupational status: disabled 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 Cognitive needs: No Hearing needs: No Vision needs: No Review of Systems Const All systems reviewed & are unremarkable except as noted in HPI and below ENT Denies dizziness Card Denies chest pain, Denies chest pain at rest, Denies chest pain with activity, Denies rapid heart rate, Denies pedal edema, Denies edema, Denies leg edema, Denies lightheadedness, Denies palpitations, Denies dyspnea, Denies dyspnea on exertion and Denies orthopnea Resp Denies cough, Denies dyspnea and Denies dyspnea on exertion GI Denies hematochezia and Denies change in stool character Musc Details: arthritis issues throughout body Reports abnormal gait, Reports limited range of motion, Denies muscle cramps, Reports muscle weakness, Denies numbness, Denies radiating pain into limb, Denies stiffness and Denies tingling Neuro Reports abnormal gait, Denies dizziness, Denies numbness and Denies tingling Endo Denies palpitations Physical Exam Vital Signs: Last Vital Signs Pulse 62 11/05/25 11:00 BP 108/52 L 11/05/25 11:00 Const General: cooperative, healthy appearing, comfortable and no acute distress Orientation/consciousness: patient oriented x3 HEENT Head: Yes normal to inspection Eyes Sclerae: sclerae normal Neck Neck: Yes normal visual inspection and Yes no JVD Carotids: normal carotid upstroke Chest Chest palpation & inspection: normal inspection of the chest Resp Effort & Inspection: normal respiratory effort Auscultation: clear to auscultation bilaterally, no crackles, no rales, no rhonchi and no wheezes Cardio Jugular venous distension: no JVD Rate: regular rate Rhythm: regular rhythm Heart sounds: S1 normal heart sound present, S2 normal heart sound present, no gallops, no murmurs and no rubs Peripheral pulses: Peripheral pulses 2+ throughout GI Inspection: Yes normal to inspection Skin General skin exam: no rashes or lesions noted Neuro General: patient oriented x3 Extrem General: Yes normal to inspection, No no pedal edema and No calf tenderness Psych Appearance: grossly normal Mental Status: mental status grossly normal Speech and movement: Normal speech and movement present Assessment & Plan Assessment & Plan (1) Non-rheumatic aortic stenosis: Code(s): I35.0 - Nonrheumatic aortic (valve) stenosis Category: Medical Plan: History of aortic stenosis with recent echocardiogram showing moderate aortic stenosis with mean gradient 23 mm of Hg, aortic valve area 1.16 centimeter squared. No significant change from prior echo 1 year ago. Will plan for repeat echocardiogram in 6 months as she does have mildly reduced EF as well. Cardinal signs of severe reviewed with her. Cardiology follow-up 6 months, sooner if needed (2) Cardiomyopathy: Code(s): I42.9 - Cardiomyopathy, unspecified Category: Medical Plan: Recent echocardiogram with EF 45-50%, no regional wall motion abnormality. Echocardiogram 09/30/2024 with difficult to assess EF, possibly low normal. Echocardiogram 08/22/2022 showed EF 55-60%. Last nuclear stress test done 04/06/2021 showing no evidence of infarct or ischemia. -she is currently asymptomatic however does have decreased activity tolerance, less than 4 Mets. Will check a pharmacological nuclear stress test to evaluate for ischemia. (3) Left bundle branch block: Code(s): I44.7 - Left bundle-branch block, unspecified Category: Medical Plan: Left bundle branch block which seems chronic. This may be why her EF is mildly reduced. Checking nuclear stress test. Repeating echo prior to next visit. (4) Essential hypertension: Code(s): I10 - Essential (primary) hypertension Category: Medical Plan: Blood pressure goal less than 130/80. Blood pressure today low normal 108/58. Continue metoprolol. Will hold off on other meds for neurohormonal modulation at this time to avoid hypotension. (5) Preop cardiovascular exam: Code(s): Z01.810 - Encounter for preprocedural cardiovascular examination Category: Medical Plan: Preop for urological procedure with general anesthesia scheduled for 11/09/2025. Unable to provide cardiac clearance at this time as she has reduced EF and activity level less than 4 Mets. Checking pharmacological nuclear stress test as above. Dr. Christie notified. Reviewed with patient. Plan I communicated to the patient that her moderate aortic stenosis remains stable with no current symptoms requiring intervention. We discussed recognizing worsening signs which would necessitate earlier assessment. For her urological surgery, the patient's clearance is conditional on a pre-surgery pharmacological nuclear stress test due to concerns over her reduced ejection fraction and decreased activity tolerance. I will contact her surgeon to postpone the surgery. for stress test is normal, then we scheduled a follow-up for six months. I ensured the patient was informed about the plans and agreed with the approach. Orders: Orders CA lexiscan stress w advid Today I35.0 - Nonrheumatic aortic (valve) stenosis, I42.9 - Cardiomyopathy, unspecified, I44.7 - Left bundle-branch block, unspecified NM cardiolite stress test Today I35.0 - Nonrheumatic aortic (valve) stenosis, I42.9 - Cardiomyopathy, unspecified, I44.7 - Left bundle-branch block, unspecified Patient Instructions: - You will get a call to have a stress test scheduled. - Report any new or worsening chest pain, shortness of breath, or dizziness immediately. - Follow-up appointment scheduled with Dr. Gomez in six month Patient was informed and verbally consented to the use of an ambient scribe for clinic note documentation during this visit. Visit time spent on chart review, interview, assessment, orders, documentation. Coding Level of Care Code Est Pt Level 4 (94628) Add On Problem Visit Only Diagnoses Non-rheumatic aortic stenosis I35.0 Cardiomyopathy I42.9 Left bundle branch block I44.7 Essential hypertension I10 Preop cardiovascular exam Z01.810 Time Spent (min) 30
--- OUTSIDE RECORDS SUMMARY | 2025-11-05 14:16 | XMS_ITS | Patient Health Record ---
Author Organization [facility] Address [address] [place] [address] Care Team Providers Care Fiberglass Roving Winder Name Role Phone Karishma (RETIRED) Gordo MICHAELS [...] W/U Status Risk Notes Problem Gastrointestinal hemorrhage ([id number]) Hemorrhage of gastrointestinal tract, unspecified (578.9) Active confirmed Plan Of Treatment No Information Insurance Providers Payer Name Payer Address Payer Phone Subscriber Number Group Number Insured Name Patient Relationship to Insured Coverage Start Date Coverage End Date [employer] [facility] [address] [place] [phone] [id number] MARCIANO GILBERT Self - patient is the insured Medical (General) History Medical History History ICD Code colon and egd 06-01-2004 hyperlipidemia hypertension osteoarthritis pulmonary embolism GI bleed esophageal reflux anxiety abnormal liver funtion test gallstones Surgical History Surgery Date(Month/Year) gastric bypass cholecystectomy reduction mammoplasty panniculectomy section
--- OUTSIDE RECORDS SUMMARY | 2025-11-05 14:16 | XMS_ITS | Clinical Summary ---
Author Organization [facility] Address [address] [place] [address] Phone Care Team Providers Care Asset Management Lead Name Role Phone Greg Kaba NP Primary Care Provider [phone] Allergies Active Allergy Reactions Criticality Noted Date [...] age to complete this topic Insurance [address] [place] [id number] [place] [facility] ([id number]) [facility] ([id number]) Care Teams Asset Management Lead Relationship Specialty Start Date End Date Greg Kaba NP [address] [place], [place] [phone] PCP - General 11/29/20
== END 2025-11-05 11:31 | disposition home or self-care (01) ==
PROVIDERS: PCP Nurse Practitioner Family; Visit Provider Nurse Practitioner Family
DX: I35.0 Nonrheumatic aortic (valve) stenosis (principal); I42.9 Cardiomyopathy, unspecified; I44.7 Left bundle-branch block, unspecified; I10 Essential (primary) hypertension; Z01.810 Encounter for preprocedural cardiovascular examination
CPT/HCPCS: 99214; G2211

== ENCOUNTER → 2025-11-05 10:58 | Outpatient (BNVA) | payer MEDICARE, SELFPAY | PROVIDERS: PCP Nurse Practitioner Family; Visit Provider Nurse Practitioner Family | DX: Z01.810 Encounter for preprocedural cardiovascular examination (principal); I35.0 Nonrheumatic aortic (valve) stenosis; I42.9 Cardiomyopathy, unspecified; I44.7 Left bundle-branch block, unspecified; I10 Essential (primary) hypertension; Z79.899 Other long term (current) drug therapy; Z87.891 Personal history of nicotine dependence | CPT/HCPCS: 99212 ==

== ENCOUNTER → 2025-11-10 10:17 | Outpatient (REF) | payer MEDICARE, SELFPAY ==
--- NOTE | 2025-11-10 10:22 | CA_ITS ---
Acquisition Time: 2025-11-10 10:46:44 Total Exercise Time: 00:02:00 Test Indications: PREOP, CARDIOMYOPATHY Medications: Protocol: LEXISCAN Max HR: 97 BPM 65% of Pred: 149 BPM Max BP: 124/56 mmHG Max Work Load: 1.0 METS Pharmacological stress test with Lexiscan while pt marches in her chair, with reports of 3/10 mid chest pressure and fatigued, with isolated PVCs, with normotensive response to injection. Nondiagnostic EKG for ischemia. In recovery, pt treated with IVP Aminophylline 75 mg to reverse Lexiscan after which symptoms resolved and pt feeling back to baseline. Nuclear images pending. Test reviewed with Dr. Aleman. Referred By: Tamiko Parra Electronically Signed By: Nir Jarvis
--- OUTSIDE RECORDS SUMMARY | 2025-11-10 11:31 | XMS_ITS | Clinical Summary ---
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
--- OUTSIDE RECORDS SUMMARY | 2025-11-10 11:31 | XMS_ITS | Patient Health Record ---
Author Organization [facility] Address [address] [place] [address] Care Team Providers Care Speeder Operator Name Role Phone Karishma (RETIRED) Gordo MICHAELS Primary Care Provider Unavailable Bong Mirza Jr Unavailable [phone] Allergies Allergen (clinical drug ingredient) Drug/Non [...] W/U Status Risk Notes Problem Gastrointestinal hemorrhage (23042865) Hemorrhage of gastrointestinal tract, unspecified (578.9) Active confirmed Plan Of Treatment No Information Insurance Providers Payer Name Payer Address Payer Phone Subscriber Number Group Number Insured Name Patient Relationship to Insured Coverage Start Date Coverage End Date [facility] [address] [place] [phone] [id number] MARCIANO GILBERT Self - patient is the insured Medical (General) History Medical History History ICD Code colon and egd 06-01-2004 hyperlipidemia hypertension osteoarthritis pulmonary embolism GI bleed esophageal reflux anxiety abnormal liver funtion test gallstones Surgical History Surgery Date(Month/Year) gastric bypass cholecystectomy reduction mammoplasty panniculectomy section
== END ==
LOC: HO.CARD 10:17
PROVIDERS: PCP Nurse Practitioner Family; Visit Provider Nurse Practitioner Family
DX: I35.0 Nonrheumatic aortic (valve) stenosis (principal); I42.9 Cardiomyopathy, unspecified; I44.7 Left bundle-branch block, unspecified
CPT/HCPCS: 93017; J0280; J2785

== ENCOUNTER → 2025-11-10 10:22 | Outpatient (BNV) | payer MEDICARE, SELFPAY | PROVIDERS: PCP Nurse Practitioner Family | DX: I42.9 Cardiomyopathy, unspecified (principal) | CPT/HCPCS: 78452; 93016; 93018 ==